=== PATIENT | female | born 1960 | race Caucasian/White ===

== ENCOUNTER → 2020-08-20 07:53 | Outpatient (CLI) | payer OTHER, SELFPAY ==
[2020-08-05 11:20] VITALS: BMI 26.4
--- NOTE | 2020-08-20 07:54 | MRI_ITS ---
STUDY: MRI RIGHT SHOULDER REASON FOR EXAM: Right shoulder pain and limited range of motion for several months. TECHNIQUE: Standardized fat and water weighted pulse sequences were obtained in all 3 orthogonal planes. COMPARISON: Radiographs 08/05/2020. FINDINGS: There is supraspinatus tendinosis and a full-thickness tear of the distal supraspinatus tendon (T2 coronal image 12) measuring 1.2 x 0.45 cm (length x width) with adjacent partial-thickness tearing of the bursal surface (T2 coronal images 10, 11, 13, 14). There is mild infraspinatus tendinosis (T2 sagittal image 13) and a small cyst at the infraspinatus musculotendinous junction (T2 coronal image 7). Normal subscapularis tendon. Normal teres minor tendon. Normal supraspinatus muscle. Normal infraspinatus muscle. Normal subscapularis muscle. Normal teres minor muscle. There is a small glenohumeral joint effusion. Normal humeral head and visualized proximal humerus. Normal biceps labral complex. Normal intracapsular long biceps tendon. There is a small tear of the anterior labrum (proton-density axial image 13). Normal capsulo- ligamentous complex. There is acromioclavicular arthrosis with a small undersurface osteophyte of the distal clavicle (proton-density coronal image 15). There is a Type I morphology (flat undersurface), with a neutral orientation. There is subacromial-subdeltoid bursal fluid. Normal visualized coracohumeral and coracoacromial ligaments. Normal deltoid muscle. Normal trapezius muscle. MRI/Upper Ext Joint Only(Routine) IMPRESSION: Full-thickness tear with adjacent partial-thickness tearing and tendinosis of the supraspinatus tendon. Mild infraspinatus tendinosis. Small anterior labral tear. Acromioclavicular arthrosis. Glenohumeral joint fluid communicating with the subacromial-subdeltoid bursa. Electronically Signed: Sudhir Flynn MD at 9:34 EDT Tel , Service support ,
== END ==
PROVIDERS: Referring Provider Physician Assistant; Visit Provider Physician Assistant
DX: M25.511 Pain in right shoulder (principal)
CPT/HCPCS: 73221

== ENCOUNTER → 2020-11-22 09:44 | Outpatient (CLI) | payer OTHER, SELFPAY ==
--- NOTE | 2020-11-22 09:47 | EKG12_ITS ---
Test Reason : PRE-OP Blood Pressure : / mmHG Vent. Rate : 091 BPM Atrial Rate : 091 BPM P-R Int : 150 ms QRS Dur : 080 ms QT Int : 364 ms P-R-T Axes : 046 042 035 degrees QTc Int : 447 ms Normal sinus rhythm Normal ECG Confirmed by PABLO REYNOLDS, ILA ([id number]), video effects editor DOREEN GRANT ([id number]) on 11/23/2020 7:56:54 AM Referred By: Víctor Cooper Confirmed By:ILA SHAH MD
[2020-11-22 10:41] LABS: Hematocrit 39.5 % (37-47); Hemoglobin 12.9 g/dL (12.0-15.0); Mean Corp Hgb Conc 32.7 g/dL (32-36); Mean Corpuscular Hgb 30.6 pg (27.0-32.0); Mean Corpuscular Volume 93.6 fL (81-99); Mean Platelet Vol. 10.4 fl (6.2-12.0); Platelet Count 288 K/mm3 (150-450); RBC Distribution Width CV 13.3 % (11.6-14.6); RBC Distribution Width SD 45.5 fl (35.1-43.9); Red Blood Count 4.22 M/mm3 (4.2-5.4); White Blood Count 7.4 K/mm3 (4.4-11.0)
[2020-11-22 11:05] LABS: Anion Gap 4 (5-15); BUN 13 mg/dL (7-18); BUN/Creat Ratio 17.1 RATIO (10-20); Calcium,Total 9.3 mg/dL (8.5-10.1); Chloride 107 mmol/L (98-107); Creatinine, Serum 0.76 mg/dL (0.55-1.02); EST Glomerular Filtration Rate 82 mL/min (>60); Est Glom Filt Rate - Afr Amer 99 mL/min (>60); Glucose 70 mg/dL (74-106); Potassium 4.1 mmol/L (3.5-5.1); Sodium Level 139 mmol/L (136-145)
== END ==
PROVIDERS: Referring Provider Physician Assistant; Visit Provider Physician Assistant
DX: Z01.818 Encounter for other preprocedural examination (principal); Z01.810 Encounter for preprocedural cardiovascular examination
CPT/HCPCS: 36415; 80048; 85027; 93005

== ENCOUNTER 2021-03-14 12:11 | Outpatient (CLI) | payer OTHER, SELFPAY ==
[2021-03-14 12:34] VITALS: BP 140/83; PULSE 92; RESP 16; TEMP 37; O2SAT 98; BMI 25.8
[2021-03-14] MEDS: 0.9% Saline Lock 10 ML Syringe IV (12:38)
[2021-03-14 13:09] VITALS: BP 117/76; PULSE 90; RESP 16; TEMP 36.9; O2SAT 96
[2021-03-14 14:03] VITALS: BP 117/79; PULSE 96; RESP 16; TEMP 37.1; O2SAT 93
== END 2021-03-14 14:10 | disposition home or self-care (01) ==
LOC: MS3OUT 12:11 → MS3 12:12
PROVIDERS: Referring Provider Nurse Practitioner Acute Care; Visit Provider Nurse Practitioner Acute Care
DX: Z23 Encounter for immunization (principal); U07.1 COVID-19
CPT/HCPCS: J7050; M0245; Q0245; A4216

== ENCOUNTER 2021-05-15 13:14 | Inpatient (IN) | payer OTHER, SELFPAY ==
[2021-05-15 13:16] VITALS: BP 124/82; PULSE 115; RESP 16; TEMP 36.4; O2SAT 99; BMI 25.8
[2021-05-15 13:55] VITALS: PULSE 116
--- NOTE | 2021-05-15 13:56 | EKG12_ITS ---
Test Reason : Blood Pressure : / mmHG Vent. Rate : 100 BPM Atrial Rate : 100 BPM P-R Int : 172 ms QRS Dur : 092 ms QT Int : 358 ms P-R-T Axes : 045 033 074 degrees QTc Int : 461 ms Normal sinus rhythm Nonspecific ST and T wave abnormality Abnormal ECG Confirmed by JOIE REYNOLDS, DANNY ([id number]), development editor DOREEN GRANT ([id number]) on 05/17/2021 12:47:16 PM Referred By: TOM Confirmed By:DANNY SALTER MD
--- NOTE | 2021-05-15 13:57 | EX.ED.DYSGE1 ---
HPI History of Present Illness Chief Complaint: Nausea/Vomiting Informant: patient and spouse/S.O. Onset/Context/Timing Onset: Yesterday Current Severity: Moderate Maximum Severity: Severe Narrative Narrative: Patient presents with abdominal pain with nausea and vomiting. Patient states she felt nauseated all day yesterday started vomiting today. No bright red blood but stated did not look black in color. No diarrhea. Patient states she has had hot flashes and cold chills but did not measure her temperature. She is burning sensation up to the central portion of her chest after vomiting. [facility] Medical History Barretts esophagus delivery delivered COVID-19 Fibromyalgia Hernia Hypertension Impacted cerumen of both ears Right shoulder strain Home Medications multivitamin 1 tab PO DAILY 08/05/20 [History Last Taken Unknown] duloxetine 30 mg PO BID 03/14/21 [History Last Taken Unknown] esomeprazole magnesium 40 mg PO DAILY 03/14/21 [History Last Taken Unknown] estradiol 0.5 mg PO DAILY 03/14/21 [History Last Taken Unknown] losartan 100 mg PO DAILY 03/14/21 [History Last Taken Unknown] medroxyprogesterone 2.5 mg PO DAILY 03/14/21 [History Last Taken Unknown] nifedipine 60 mg PO DAILY 03/14/21 [History Last Taken Unknown] potassium chloride 20 meq PO DAILY 03/14/21 [History Last Taken Unknown] Allergy/AdvReac Type Severity Reaction Status Date / Time Gadolinium-MRI Contrast Allergy unknown Verified 05/15/21 13:16 Medium Iodinated Contrast Media [CT] Allergy Anaphylaxis Verified 05/15/21 13:16 Surgical History H/O exploratory thoracotomy History of tonsillectomy Hx of cholecystectomy Social History Smoking Status: Never smoker alcohol intake: current alcohol intake frequency: holidays/special occasions only ROS ROS ED Constitutional Constitutional ED: Reports chills, fever(s) and subjective Eyes Eyes: Denies blurry vision or change in vision ENT ENT ED: Denies rhinorrhea Cardiovascular Cardiovascular: Reports chest pain; Denies palpitations Respiratory/Chest Respiratory/Chest: Denies cough or dyspnea Gastrointestinal Gastrointestinal: Reports abdominal pain, nausea and vomiting; Denies diarrhea Genitourinary Genitourinary ED: Denies dysuria Musculoskeletal Musculoskeletal: Denies arthralgias or myalgias Neurologic Neurologic: Denies headache(s) Allergic/Immunologic Allergic/Immunologic ED: Denies urticaria EXAM Physical Exam Const Vital Signs: 05/15/21 13:16 05/15/21 13:55 05/15/21 14:06 Temperature 97.5 F L Temperature Source Temporal Pulse Rate 115 H 116 H 113 H Respiratory Rate 16 20 H Blood Pressure 124/82 H 147/96 H Blood Pressure Mean 96 113 Pulse Ox 99 97 Oxygen Delivery Method Room Air Room Air 05/15/21 17:00 Temperature Temperature Source Pulse Rate 109 H Respiratory Rate 19 H Blood Pressure 141/89 H Blood Pressure Mean 106 Pulse Ox 96 Oxygen Delivery Method Room Air Positive well nourished and well developed General Appearance ED: well developed HEENT Reports moist mucous membranes Eyes PERRL and EOMs intact bilaterally Neck supple Chest Wall inspection of chest normal and palpation of chest normal Resp normal respiratory effort and clear to auscultation bilaterally Cardio Rate: tachycardic GI Auscultation: hypoactive bowel sounds Palpation: soft and tender other (Mild upper abdominal tenderness palpation.); Negative for guarding or rebound tenderness present Extremity normal to inspection Neuro oriented x3 Sensorium / Orientation: alert Psych mental status grossly normal Skin no rashes or lesions noted MDM MDM MDM Narrative Medical decision making narrative: Patient given Dilaudid and Zofran along with IV fluids. Lab work obtained. CT flank ordered. Lab Data Attestation: I reviewed the patient's lab results. Labs: Laboratory Results - last 24 hr 05/15/21 05/15/21 13:55 13:55 WBC 11.2 H RBC 4.90 Hgb 15.5 H Hct 44.7 MCV 91.2 MCH 31.6 MCHC 34.7 RDW Std Deviation 47.1 H RDW Coeff of Jacinda 14.0 Plt Count 304 MPV 9.9 Immature Gran % (Auto) 0.300 Neut % (Auto) 92.0 H Lymph % (Auto) 3.4 L Kleberg % (Auto) 4.0 Eos % (Auto) 0.1 Baso % (Auto) 0.2 Absolute Neuts (auto) 10.3 H Absolute Lymphs (auto) 0.38 L Nucleated RBC % 0 Platelet Estimate ADEQUATE RBC Morphology NORM C+C Sodium 140 Potassium 2.8 L Chloride 98 Carbon Dioxide 34.0 H Anion Gap 8 BUN 17 Creatinine 0.87 Estim Creat Clear Calc 61.96 Est GFR (MDRD) Af Amer 85 Est GFR (MDRD) Non-Af 70 BUN/Creatinine Ratio 19.6 Glucose 133 H Calcium 9.8 Total Bilirubin 0.60 Direct Bilirubin 0.20 AST 21 ALT 27 Alkaline Phosphatase 100 Total Protein 8.7 H Albumin 4.1 Globulin 4.6 H Lipase 82 Radiography Diagnostic Testing: Clinical Impression(s) from Imaging Studies Abdomen/Pelvis CT 05/15/21 14:36 IMPRESSION: Small bowel obstruction with transition in the right lower quadrant. Patchy bibasilar airspace disease of unknown chronicity. In the proper clinical setting these findings are consistent with pneumonia including atypical or viral pneumonia. Probable GERD. Individualized dose optimization techniques were used for this CT. at 1544 Reported and signed by: Todd Zaldivar MD Electronically Signed: Todd Zaldivar MD at 15:43 EST , ADDENDUM: 05/15/21 1603 IMPRESSION: Small bowel obstruction with transition in the right lower quadrant. Patchy bibasilar airspace disease of unknown chronicity. In the proper clinical setting these findings are consistent with pneumonia including atypical or viral pneumonia. Probable GERD. Individualized dose optimization techniques were used for this CT. at 1544 Reported and signed by: Todd Zaldivar MD N.B. : The above Results were Read Back by Todd Zaldivar MD to Anika Dick MD, and understanding confirmed on 05/15/2021 15:56:57 (ET). Electronically Signed: Todd Zaldivar MD at 15:43 EST , EKG Initial EKG: Attestation: I personally reviewed and interpreted this EKG as follows: Interpretation: Sinus Rhythm (Sinus at 100 with nonspecific T wave flattening. No acute ischemia.) Treatment and Re-Evaluation Comments:: Patient did have significant improvement in pain and nausea with initial Dilaudid and Zofran. She had been given a dose of IV Protonix. She was complaining of burning sensation up in her chest and was given a GI cocktail. Patient did have one episode of vomiting here prior to medications being given. This was sent for Gastroccult which was positive. CT scan reveals small bowel obstruction with transition point in the right lower quadrant. Lab work significant for potassium of 2.8. Hemoglobin is concentrated at 15.5. Potassium is being replaced IV. I spoke with Dr. Lake on-call for surgery. Patient will be admitted for further treatment. NG tube be placed. Discharge Plan Triage Chief Complaint: Nausea/Vomiting ED Provider: Anika Dick Dx/Rx/DC Orders Clinical Impression: Small bowel obstruction, Hypokalemia Prescriptions: No Action multivitamin Tablet 1 tab PO DAILY RF: 0 nifedipine 30 mg tablet extended release 24hr 60 mg PO DAILY RF: 0 potassium chloride 10 mEq capsule, extended release 20 meq PO DAILY RF: 0 medroxyprogesterone 2.5 mg tablet 2.5 mg PO DAILY RF: 0 esomeprazole magnesium 40 mg capsule,delayed release(DR/EC) 40 mg PO DAILY RF: 0 estradiol 0.5 mg tablet 0.5 mg PO DAILY RF: 0 losartan 100 mg tablet 100 mg PO DAILY RF: 0 duloxetine 30 mg capsule,delayed release(DR/EC) 30 mg PO BID RF: 0 Referrals: SHORT,RISHI [Other] Disposition Disposition: Acute Care Hospital [facility]
[2021-05-15] MEDS: HYDROmorphone 1 MG/ML Syringe 0.5 MG IV (14:02)
[2021-05-15] MEDS: Ondansetron 4 MG/2 ML Vial IV ×3 (14:02→22:06)
[2021-05-15] MEDS: 0.9% Normal Saline 1,000 ML 1000 ML IV (14:02)
[2021-05-15 14:06] VITALS: BP 147/96; PULSE 113; RESP 20; O2SAT 97
[2021-05-15 14:09] LABS: Absolute Lymphocyte Count 0.38 X10^3/uL (0.83-4.51); Absolute Neutrophil Count 10.3 X10^3/uL (2.0-7.7); Basophil# 0.02 X10^3/uL; Basophil% 0.2 % (0-1); Differential Indicated SCAN CRITERIA MET; Eosinophil# 0.01 X10^3/uL; Eosinophils% 0.1 % (0-5); Hematocrit 44.7 % (37-47); Hemoglobin 15.5 g/dL (12.0-15.0); Lymphocyte # 0.38 X10^3/ul (0.83-4.51); Lymphocyte % 3.4 % (19-41); Mean Corp Hgb Conc 34.7 g/dL (32-36); Mean Corpuscular Hgb 31.6 pg (27.0-32.0); Mean Corpuscular Volume 91.2 fL (81-99); Mean Platelet Vol. 9.9 fl (6.2-12.0); Monocyte# 0.45 X10^3/uL; NRBC Flagged by Analyzer 0 % (0-5); Neutrophil # 10.33 X10^3/uL (2.7-7.7); POSITIVE DIFFERENTIAL YES; Platelet Count 304 K/mm3 (150-450); RBC Distribution Width SD 47.1 fl (35.1-43.9); White Blood Count 11.2 K/mm3 (4.4-11.0)
[2021-05-15 14:23] LABS: AST(SGOT) 21 U/L (15-37); Alanine Aminotransfer ALT/SGPT 27 U/L (13-56); Albumin, Serum 4.1 g/dL (3.2-5.0); Alkaline Phosphatase 100 U/L (45-117); Anion Gap 8 (5-15); BUN 17 mg/dL (7-18); BUN/Creat Ratio 19.6 RATIO (10-20); Calcium,Total 9.8 mg/dL (8.5-10.1); Chloride 98 mmol/L (98-107); Creatinine, Serum 0.87 mg/dL (0.55-1.02); EST Glomerular Filtration Rate 70 mL/min (>60); Est Glom Filt Rate - Afr Amer 85 mL/min (>60); Estimated Creatinine Clearance 61.96 ml/min; Globulin 4.6 g/dL (2.2-4.2); Glucose 133 mg/dL (74-106); Lipase 82 U/L (73-393); Potassium 2.8 mmol/L (3.5-5.1); Protein, Total 8.7 g/dL (6.4-8.2); Sodium Level 140 mmol/L (136-145)
[2021-05-15 14:27] LABS: Platelet Estimate ADEQUATE (ADEQ); Red Cell Morphology NORM C+C NORMAL (NORM C&C)
--- NOTE | 2021-05-15 14:36 | CT_ITS ---
We are attempting to reach an attending provider to discuss findings. An addendum with communication details will be sent when the communication is complete. HISTORY: abd pain EXAMINATION: CT Abdomen And Pelvis W/O Contrast Injection TECHNIQUE: Multiple axial images were obtained of the abdomen and pelvis without oral or IV contrast. A radiation dose optimization technique was used for this scan. IV Contrast dosage and agent: None. Oral contrast: None. COMPARISON: None FINDINGS: LOWER CHEST: Patchy groundglass and alveolar airspace opacities as visualized is elect. No cardiomegaly or pericardial effusion. Fluid in the distal esophagus. LIVER: Homogeneous. No focal mass. GALLBLADDER AND BILIARY TREE: Gallbladder absent. No intra- or extrahepatic biliary ductal dilation. PANCREAS: No focal cystic or solid mass. SPLEEN: Normal size without focal cystic or solid mass. ADRENAL GLANDS: No nodules. KIDNEYS AND URETERS: Nonobstructing left nephrolithiasis. No hydronephrosis bilaterally. PERITONEUM: No ascites or free air. BOWEL: Normal appendix. Abnormal gastric and proximal small bowel distention with loops measuring up to 4.1 transition to decompressed small bowel in the right lower quadrant. No focal inflammatory bowel wall changes. LYMPH NODES: No enlarged mesenteric or retroperitoneal lymph nodes. VESSELS: Aorta is non-dilated. URINARY BLADDER: Unremarkable. REPRODUCTIVE ORGANS: No pelvic masses. ABDOMINAL WALL: No discrete abdominal or pelvic wall hernia. BONES: No acute or aggressive abnormality. CT/Abdomen/Pelvis without Cont IMPRESSION: Small bowel obstruction with transition in the right lower quadrant. Patchy bibasilar airspace disease of unknown chronicity. In the proper clinical setting these findings are consistent with pneumonia including atypical or viral pneumonia. Probable GERD. Individualized dose optimization techniques were used for this CT. at 1544 Reported and signed by: Todd Zaldivar MD Electronically Signed: Todd Zaldivar MD at 15:43 EST Reading Location ID and State: [facility] / [place] Tel , Service support ,
[2021-05-15] MEDS: Potassium Chloride 10mEq/100mL 10 MEQ/100 ML IV.SOLN. 100 MEQ IV BOLUS ×6 (15:45→21:47)
[2021-05-15] MEDS: 0.9% Normal Saline 1,000 ML 150 ML IV (15:46)
[2021-05-15] MEDS: Mag Hydrox/Al Hydrox/Simeth 30 ML UDC PO (16:01)
[2021-05-15 17:00] VITALS: BP 141/89; PULSE 109; RESP 19; O2SAT 96
[2021-05-15] MEDS: Lidocaine 4% 5 ML Ampul 2 ML INHALATION (17:27)
--- NOTE | 2021-05-15 17:42 | PCM.HP.STD ---
HPI - General General Date of Admission: 05/15/21 HPI Narrative RICHY JOHNSON, is a 61 F who presents to the ER due to abdominal pain/nausea starting yesterday a.m. Patient does admit to nausea and vomiting along with some hematemesis. 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 CT abdomen pelvis showed small bowel obstruction distended stomach, transition in the right lower quadrant. Also appears to have some constipation in the rectum and left colon. Patient NG placed which put out 1400 cc initially. Patient's previous abdominal surgeries include cholecystectomy, open cholecystectomy due to remaining remnant via midline incision and placement of a large piece of mesh, previous C-sections. Patient also did have COVID in March. [facility] Medical History Barretts esophagus delivery delivered COVID-19 Fibromyalgia Hernia Hypertension Impacted cerumen of both ears Right shoulder strain Home Medications multivitamin 1 tab PO DAILY 08/05/20 [History Last Taken Unknown] duloxetine 30 mg PO BID 03/14/21 [History Last Taken Unknown] esomeprazole magnesium 40 mg PO DAILY 03/14/21 [History Last Taken Unknown] estradiol 0.5 mg PO DAILY 03/14/21 [History Last Taken Unknown] losartan 100 mg PO DAILY 03/14/21 [History Last Taken Unknown] medroxyprogesterone 2.5 mg PO DAILY 03/14/21 [History Last Taken Unknown] nifedipine 60 mg PO DAILY 03/14/21 [History Last Taken Unknown] potassium chloride 20 meq PO DAILY 03/14/21 [History Last Taken Unknown] Allergy/AdvReac Type Severity Reaction Status Date / Time Gadolinium-MRI Contrast Allergy unknown Verified 05/15/21 13:16 Medium Iodinated Contrast Media [CT] Allergy Anaphylaxis Verified 05/15/21 13:16 Surgical History H/O exploratory thoracotomy History of tonsillectomy Hx of cholecystectomy Social History Smoking Status: Never smoker alcohol intake: current alcohol intake frequency: holidays/special occasions only ROS Constitutional Constitutional: Reports anorexia; Denies chills ENT HEENT: Denies dizziness Cardiovascular Cardiovascular: Denies chest pain Respiratory/Chest Respiratory/Chest: Denies shortness of breath at rest Gastrointestinal Gastrointestinal: Denies abdominal pain, constipation, diarrhea, heartburn, hematemesis or melena Genitourinary Genitourinary: Denies burning urination Musculoskeletal Musculoskeletal: Denies joint pain Integumentary Integumentary: Denies rash Neurologic Neurologic: Denies abnormal gait, abnormal hearing, focal weakness, paresthesias or sensory deficit Endocrine Endocrinology: Denies palpitations Hematologic/Lymphatic Hematologic/Lymphatic: Denies anemia, easy bleeding or easy bruising Vital Signs Vital Signs Vital Signs: 05/15/21 13:16 05/15/21 13:55 05/15/21 14:06 Temperature 97.5 F L Temperature Source Temporal Pulse Rate 115 H 116 H 113 H Respiratory Rate 16 20 H Blood Pressure 124/82 H 147/96 H Blood Pressure Mean 96 113 Pulse Ox 99 97 Oxygen Delivery Method Room Air Room Air 05/15/21 17:00 Temperature Temperature Source Pulse Rate 109 H Respiratory Rate 19 H Blood Pressure 141/89 H Blood Pressure Mean 106 Pulse Ox 96 Oxygen Delivery Method Room Air Weight Weight: 160 lb Body Mass Index (BMI) 25.8 Physical Exam Const alert, oriented x3 and no apparent distress HEENT normocephalic and head/scalp atraumatic HEENT Narrative: NG in place Resp normal respiratory effort Cardio regular rate GI soft to palpation; Negative for non-distended Inspection: incision other (Previous midline incision) Palpation: Negative for tender or guarding Extremity no clubbing, cyanosis or edema Neuro CN's II-XII intact bilaterally Psych mental status grossly normal Results Lab / Micro Data Result Diagrams: 05/16/21 05:30 05/16/21 05:30 Labs: Laboratory Results - last 24 hr 05/15/21 13:55: WBC 11.2 H, RBC 4.90, Hgb 15.5 H, Hct 44.7, MCV 91.2, MCH 31.6, MCHC 34.7, RDW Std Deviation 47.1 H, RDW Coeff of Jacinda 14.0, Plt Count 304, MPV 9.9, Immature Gran % (Auto) 0.300, Neut % (Auto) 92.0 H, Lymph % (Auto) 3.4 L, [place] % (Auto) 4.0, Eos % (Auto) 0.1, Baso % (Auto) 0.2, Absolute Neuts (auto) 10.3 H, Absolute Lymphs (auto) 0.38 L, Nucleated RBC % 0, Platelet Estimate ADEQUATE, RBC Morphology NORM C+C 05/15/21 13:55: Sodium 140, Potassium 2.8 L, Chloride 98, Carbon Dioxide 34.0 H, Anion Gap 8, BUN 17, Creatinine 0.87, Estim Creat Clear Calc 61.96, Est GFR (MDRD) Af Amer 85, Est GFR (MDRD) Non-Af 70, BUN/Creatinine Ratio 19.6, Glucose 133 H, Calcium 9.8, Total Bilirubin 0.60, Direct Bilirubin 0.20, AST 21, ALT 27, Alkaline Phosphatase 100, Total Protein 8.7 H, Albumin 4.1, Globulin 4.6 H, Lipase 82 Micro: Microbiology 05/15/21 14:30 Vomitus Gastric Occult Blood - Final Occult Blood Positive Radiology Impression Abdomen/Pelvis CT 05/15/21 14:36 IMPRESSION: Small bowel obstruction with transition in the right lower quadrant. Patchy bibasilar airspace disease of unknown chronicity. In the proper clinical setting these findings are consistent with pneumonia including atypical or viral pneumonia. Probable GERD. Individualized dose optimization techniques were used for this CT. at 1544 Reported and signed by: Todd Zaldivar MD Electronically Signed: Todd Zaldivar MD at 15:43 EST Reading Location ID and State: [address] [place] [address] Tel , Service support , ADDENDUM: 05/15/21 1603 IMPRESSION: Small bowel obstruction with transition in the right lower quadrant. Patchy bibasilar airspace disease of unknown chronicity. In the proper clinical setting these findings are consistent with pneumonia including atypical or viral pneumonia. Probable GERD. Individualized dose optimization techniques were used for this CT. at 1544 Reported and signed by: Todd Zaldivar MD N.B. : The above Results were Read Back by Todd Zaldivar MD to Anika Dick MD, and understanding confirmed on 05/15/2021 15:56:57 (ET). Electronically Signed: Todd Zaldivar MD at 15:43 EST , Assessment & Plan Assessment/Plan (1) Small bowel obstruction: (2) Hypokalemia: PLAN: Did review CT abdomen pelvis. We will plan for conservative treatment with IV fluids/n.p.o./NG. Likely plan a small bowel follow-through with Gastrografin in a.m. once decompressed. Hypokalemia currently being replaced with a total of 60 micro equivalents KCl Patient is aware that due to her previous past medical history also large piece of mesh placed, if she did need surgery it may be longer/more complicated surgery. Alessia Lake M.D. Pager: [phone] [facility] [address] [place] [address], [facility], [address] [place] [address] Office: [phone] Charges/Coding Visit Charges Inpatient E&M: 70187 Init Hosp L3
--- NOTE | 2021-05-15 17:45 | RAD_ITS ---
HISTORY: NG tube placement FINDINGS: Frontal view of the chest and abdomen demonstrates a nasogastric tube in the stomach in satisfactory position. RAD/Abdomen Single View (Portable) IMPRESSION: NGT in satisfactory position. at 1820 Reported and signed by: Todd Zaldivar MD Electronically Signed: Todd Zaldivar MD at 18:19 EST ,
[2021-05-15 17:46] VITALS: BP 147/91; PULSE 112; RESP 16; TEMP 36.8; O2SAT 99
[2021-05-15] MEDS: Oxymetazoline 0.05% 1 SPRAY SPRAY.BTL 2 SPRAY NASAL (17:48)
[2021-05-15 18:20] VITALS: BP 143/83; PULSE 98; RESP 18; TEMP 36.6; BMI 26.3
[2021-05-15] MEDS: BENZOCAINE/MENTHOL 1 LOZENGE MUCOUS MEM (19:02)
[2021-05-15] MEDS: Morphine 2 MG/ML Syringe IV ×2 (19:42→22:06)
[2021-05-15] MEDS: 0.9% Saline Lock 10 ML Syringe IV (19:45)
[2021-05-15] MEDS: Lactated Ringers 1,000 ML 150 ML IV (19:46)
[2021-05-15] MEDS: Bisacodyl 10 MG Suppository RC (20:35)
[2021-05-16 00:20] VITALS: BP 152/87; PULSE 102; RESP 18; TEMP 37.4; O2SAT 95
[2021-05-16] MEDS: Lactated Ringers 1,000 ML 150 ML IV ×2 (02:26→11:34)
[2021-05-16] MEDS: Morphine 2 MG/ML Syringe IV ×2 (02:59→09:37)
[2021-05-16] MEDS: proCHLORPERazine 10 MG/2 ML Vial IV (02:59)
--- NOTE | 2021-05-16 05:05 | RAD_ITS ---
INDICATION: sbo -- portable EXAMINATION/TECHNIQUE: X-RAY - semierect XR Abdomen 1 View COMPARISON: Normal x-rays 05/15/2021 FINDINGS: BOWEL GAS PATTERN: Multiple air-filled small bowel loops. No abnormally distended, air-filled bowel loops or air fluid levels. FREE AIR: None exemplified. ORGANOMEGALY: Not seen. CALCIFICATIONS: No abnormal calcifications observed. LOWER CHEST: Blunting left costophrenic angle. Pleural effusion or airspace opacity suggested. Consider correlation with chest x-ray. BONES AND SOFT TISSUES: Abnormal lateral curvature lumbar spine, convex left. RAD/Abdomen Single View (Portable) IMPRESSION: Air-filled small bowel loops without pathological distention or air-fluid levels to suggest obstruction. Left pleural effusion or airspace disease suggested. Consider correlation with chest x-ray. Electronically Signed: Jean Claude Esquivel DO at 0:07 EST ,
[2021-05-16 06:20] VITALS: BP 128/78; PULSE 110; RESP 16; TEMP 37.7; O2SAT 93
[2021-05-16 06:25] LABS: Absolute Lymphocyte Count 1.06 X10^3/uL (0.83-4.51); Basophil# 0.02 X10^3/uL; Basophil% 0.3 % (0-1); Eosinophil# 0.02 X10^3/uL; Eosinophils% 0.3 % (0-5); Hemoglobin 11.7 g/dL (12.0-15.0); Lymphocyte # 1.06 X10^3/ul (0.83-4.51); Lymphocyte % 16.1 % (19-41); Mean Corp Hgb Conc 33.4 g/dL (32-36); Mean Corpuscular Hgb 31.3 pg (27.0-32.0); Mean Corpuscular Volume 93.6 fL (81-99); Mean Platelet Vol. 10.2 fl (6.2-12.0); Monocyte# 0.52 X10^3/uL; Monocyte% 7.9 % (0-10); NRBC Flagged by Analyzer 0 % (0-5); Neutrophil # 4.95 X10^3/uL (2.7-7.7); Neutrophil % 75.1 % (47-70); Platelet Count 233 K/mm3 (150-450); RBC Distribution Width CV 14.4 % (11.6-14.6); RBC Distribution Width SD 49.5 fl (35.1-43.9); Red Blood Count 3.74 M/mm3 (4.2-5.4); White Blood Count 6.6 K/mm3 (4.4-11.0)
[2021-05-16 06:51] LABS: Anion Gap 5 (5-15); BUN 15 mg/dL (7-18); BUN/Creat Ratio 22.2 RATIO (10-20); Calcium,Total 8.4 mg/dL (8.5-10.1); Chloride 107 mmol/L (98-107); Creatinine, Serum 0.68 mg/dL (0.55-1.02); EST Glomerular Filtration Rate 94 mL/min (>60); Est Glom Filt Rate - Afr Amer 113 mL/min (>60); Estimated Creatinine Clearance 79.27 ml/min; Glucose 100 mg/dL (74-106); Potassium 3.5 mmol/L (3.5-5.1); Sodium Level 140 mmol/L (136-145)
--- NOTE | 2021-05-16 07:51 | PCM.PN.SRG ---
Subjective Subjective Pt is currently getting SBFT Objective Data Objective Data Vital Signs: Vital Signs Temp Pulse Resp BP Pulse Ox 99.9 F H 110 H 16 128/78 H 93 05/16/21 06:20 05/16/21 06:20 05/16/21 06:20 05/16/21 06:20 05/16/21 06:20 Oxygen Flow Rate (L/min) 99 Oxygen Delivery Method Room Air Weight: 162 lb 14.746 oz Body Mass Index (BMI) 26.3 Intake & Output: Intake and Output for Last 24 Hours 05/14/21 05/15/21 05/16/21 23:59 23:59 23:59 Intake Total 2671.67 / 3306.67 1655 / 1655 Output Total 100 / 100 200 / 200 Balance 2571.67 / 3206.67 1455 / 1455 Lab / Micro Data Result Diagrams: 05/17/21 05:30 05/17/21 05:30 Labs: Laboratory Results - last 24 hr 05/15/21 13:55: WBC 11.2 H, RBC 4.90, Hgb 15.5 H, Hct 44.7, MCV 91.2, MCH 31.6, MCHC 34.7, RDW Std Deviation 47.1 H, RDW Coeff of Jacinda 14.0, Plt Count 304, MPV 9.9, Immature Gran % (Auto) 0.300, Neut % (Auto) 92.0 H, Lymph % (Auto) 3.4 L, Whitley % (Auto) 4.0, Eos % (Auto) 0.1, Baso % (Auto) 0.2, Absolute Neuts (auto) 10.3 H, Absolute Lymphs (auto) 0.38 L, Nucleated RBC % 0, Platelet Estimate ADEQUATE, RBC Morphology NORM C+C 05/15/21 13:55: Sodium 140, Potassium 2.8 L, Chloride 98, Carbon Dioxide 34.0 H, Anion Gap 8, BUN 17, Creatinine 0.87, Estim Creat Clear Calc 61.96, Est GFR (MDRD) Af Amer 85, Est GFR (MDRD) Non-Af 70, BUN/Creatinine Ratio 19.6, Glucose 133 H, Calcium 9.8, Total Bilirubin 0.60, Direct Bilirubin 0.20, AST 21, ALT 27, Alkaline Phosphatase 100, Total Protein 8.7 H, Albumin 4.1, Globulin 4.6 H, Lipase 82 05/16/21 05:30: WBC 6.6, RBC 3.74 L, Hgb 11.7 L, Hct 35.0 L, MCV 93.6, MCH 31.3, MCHC 33.4, RDW Std Deviation 49.5 H, RDW Coeff of Jacinda 14.4, Plt Count 233, MPV 10.2, Immature Gran % (Auto) 0.300, Neut % (Auto) 75.1 H, Lymph % (Auto) 16.1 L, Whitley % (Auto) 7.9, Eos % (Auto) 0.3, Baso % (Auto) 0.3, Absolute Neuts (auto) 5.0, Absolute Lymphs (auto) 1.06, Nucleated RBC % 0 05/16/21 05:30: Sodium 140, Potassium 3.5, Chloride 107, Carbon Dioxide 28.0, Anion Gap 5, BUN 15, Creatinine 0.68, Estim Creat Clear Calc 79.27, Est GFR (MDRD) Af Amer 113, Est GFR (MDRD) Non-Af 94, BUN/Creatinine Ratio 22.2 H, Glucose 100, Calcium 8.4 L Micro: Microbiology 05/15/21 14:30 Vomitus Gastric Occult Blood - Final Occult Blood Positive Radiography Diagnostic Testing: Radiology Impression Abdomen/Pelvis CT 05/15/21 14:36 IMPRESSION: Small bowel obstruction with transition in the right lower quadrant. Patchy bibasilar airspace disease of unknown chronicity. In the proper clinical setting these findings are consistent with pneumonia including atypical or viral pneumonia. Probable GERD. Individualized dose optimization techniques were used for this CT. at 1544 Reported and signed by: Todd Zaldivar MD Electronically Signed: Todd Zaldivar MD at 15:43 EST , ADDENDUM: 05/15/21 1603 IMPRESSION: Small bowel obstruction with transition in the right lower quadrant. Patchy bibasilar airspace disease of unknown chronicity. In the proper clinical setting these findings are consistent with pneumonia including atypical or viral pneumonia. Probable GERD. Individualized dose optimization techniques were used for this CT. at 1544 Reported and signed by: Todd Zaldivar MD N.B. : The above Results were Read Back by Todd Zaldivar MD to Anika Dick MD, and understanding confirmed on 05/15/2021 15:56:57 (ET). Electronically Signed: Todd Zaldivar MD at 15:43 EST , KUB X-Ray 05/15/21 17:45 IMPRESSION: NGT in satisfactory position. at 1820 Reported and signed by: Todd Zaldivar MD Electronically Signed: Todd Zaldivar MD at 18:19 EST , Physical Exam Narrative NG in place Const alert, oriented x3 and no apparent distress HEENT normocephalic and head/scalp atraumatic HEENT Narrative: NG in place Resp normal respiratory effort Cardio regular rate GI soft to palpation; Negative for non-distended Inspection: incision other (Previous midline incision) Palpation: Negative for tender or guarding Extremity no clubbing, cyanosis or edema Neuro CN's II-XII intact bilaterally Psych mental status grossly normal Assessment & Plan Assessment/Plan (1) Small bowel obstruction: (2) Hypokalemia: PLAN: Pt getting SBFT this AM- KUB looks improved Addendum: SBFT showed no obstruction- will d/c NG and start clears. Pt was still c/o nausea on IV protonix and had diarrhea (due to contrast)--repeat KUB showed contrast in colon mild dilated sb Charges/Coding Visit Charges Inpatient E&M: 20649 Subs Hosp L2
--- NOTE | 2021-05-16 08:00 | RAD_ITS ---
PROCEDURE: SMALL BOWEL SERIES DATE OF EXAMINATION: 05/16/2021.. INDICATION: Female, 61 years old. Questionable small bowel obstruction. PHYSICIAN: Pro Means M.D. TECHNIQUE: Radiographic and fluoroscopic images were taken of the small intestine following the ingestion of barium. COMPARISON: None. FINDINGS: A preliminary supine KUB was obtained. There is an unremarkable bowel gas pattern. Moderate amount of fecal material is present throughout the colon. Phleboliths are present within the pelvis. Mild levoscoliosis. Degenerative changes of the lumbar spine. Dilute GASTROGRAFIN was placed into the indwelling nasogastric tube. Normal visualized fundus, body, and antrum of the stomach. Normal duodenal bulb, C-loop, and proximal jejunum. Normal visualized mucosal folds of the jejunum and ileum. Mildly dilated proximal small bowel loops. Strictures, or masses of the small intestine. There is no mass displacement of the loops of small intestine. There is a normal motor pattern with barium reaching the colon within approximately 60 minutes. RAD/Small Bowel Series Only IMPRESSION: Minimal dilatation of proximal small bowel loops. No evidence of small bowel obstruction at this time. Electronically Signed: Pro Means MD at 9:56 EST ,
[2021-05-16 09:20] VITALS: BP 137/87; PULSE 102; RESP 15; TEMP 36.7; O2SAT 94
[2021-05-16] MEDS: 0.9% Saline Lock 10 ML Syringe IV ×2 (09:38→17:17)
[2021-05-16] MEDS: Ondansetron 4 MG/2 ML Vial IV ×3 (09:41→23:57)
--- NOTE | 2021-05-16 10:54 | NURSING ---
NG removed at this time, face wiped, ice water given, educated patient on taking it slower on intake at first, patient tolerated well.
--- NOTE | 2021-05-16 11:45 | CASEMGMT ---
RN LUC Face to Face with patient for initial transition planning/care coordination assessment. RN CM introduced self and role at [facility]. Patient lying in bed, alert and oriented, at bedside. Patient willing to participate in assessment and is able to answer all questions appropriately. Care providers, pharmacy, and demographics verified. Patient wishes to discharge home, denies need for home health at this time. Patient states she has no further needs or concerns at this time. CM to follow for discharge planning needs that may arise. PCP: Ziggy Florian Specialists: none Preferred Pharmacy: [facility] at discharge Insurance: ASR, [employer] Prescription Benefit: yes Living Will/HPOA: none LNOK: Living Arrangements: Patient lives with in a 2 story home. Patient states she is independent and able to ambulate stairs at home. Transportation: self/ DME/HHC: Patient denies DME or previous HHC Disposition Plan: Patient to discharge home with family support and follow-up plans in place. Sue MARY, RN, CM
[2021-05-16 15:00] VITALS: BP 125/67; PULSE 93; RESP 16; TEMP 36.7; O2SAT 95
--- NOTE | 2021-05-16 17:50 | RAD_ITS ---
STUDY: X-RAY - ABDOMEN/PELVIS REASON FOR EXAM: Female, 61 years old. ABD pain TECHNIQUE: Two AP supine views of the abdomen and pelvis. COMPARISON: Earlier today FINDINGS: Normal visualized lung bases. Nondistended air-filled loops of small and large bowel in all 4 quadrants of the abdomen consistent with ileus. There is no demonstrated free abdominal air. The visualized liver, spleen and kidneys are grossly normal in size and morphology. Normal soft tissue structures. Normal visualized osseous structures. RAD/Abdomen Single View (Portable) IMPRESSION: Ileus Electronically Signed: Selwyn Coleman MD at 18:22 EST ,
[2021-05-16 20:25] VITALS: BP 130/83; PULSE 97; RESP 14; TEMP 37.9; O2SAT 96
[2021-05-16] MEDS: Acetaminophen 325 MG Tablet 650 MG PO (20:30)
[2021-05-16] MEDS: Lactated Ringers 1,000 ML 100 ML IV (22:25)
[2021-05-17] VITALS: BP 128/77; PULSE 94; RESP 16; TEMP 37.4; O2SAT 94
[2021-05-17] MEDS: Calcium Carbonate 500 MG Tablet 1000 MG PO ×2 (00:57→08:03)
[2021-05-17 05:46] VITALS: BP 122/66; PULSE 92; RESP 14; TEMP 37.2; O2SAT 93
--- NOTE | 2021-05-17 05:55 | RAD_ITS ---
STUDY: X-RAY - ABDOMEN/PELVIS REASON FOR EXAM: Female, 61 years old. Ileus -- portable TECHNIQUE: Single AP view of the abdomen / pelvis. COMPARISON: Comparison is made with prior study dated 05/16/2021. FINDINGS: Oral contrast is now seen in the left hemicolon. Gas is seen down to the rectum. Mildly residual small bowel dilatation although this has improved as compared to prior study. The visualized liver, spleen and kidneys are grossly normal in size and morphology. Normal soft tissue structures. Normal visualized osseous structures. RAD/Abdomen Single View (Portable) IMPRESSION: Oral contrast is seen within the colon. Minimally residual dilated central small bowel loops although there has been a moderate improvement as compared to prior study. Electronically Signed: Pro Means MD at 10:19 EST ,
[2021-05-17 06:21] LABS: Absolute Neutrophil Count 2.9 X10^3/uL (2.0-7.7); Basophil# 0.01 X10^3/uL; Basophil% 0.2 % (0-1); Eosinophil# 0.04 X10^3/uL; Eosinophils% 0.8 % (0-5); Hematocrit 35.3 % (37-47); Hemoglobin 11.9 g/dL (12.0-15.0); Lymphocyte % 26.3 % (19-41); Mean Corp Hgb Conc 33.7 g/dL (32-36); Mean Corpuscular Hgb 31.2 pg (27.0-32.0); Mean Corpuscular Volume 92.7 fL (81-99); Monocyte# 0.68 X10^3/uL; Monocyte% 13.8 % (0-10); NRBC Flagged by Analyzer 0 % (0-5); Neutrophil % 58.7 % (47-70); Platelet Count 237 K/mm3 (150-450); RBC Distribution Width CV 14.3 % (11.6-14.6); RBC Distribution Width SD 48.7 fl (35.1-43.9); Red Blood Count 3.81 M/mm3 (4.2-5.4); White Blood Count 4.9 K/mm3 (4.4-11.0)
[2021-05-17 06:43] LABS: Anion Gap 4 (5-15); BUN 9 mg/dL (7-18); BUN/Creat Ratio 15.4 RATIO (10-20); Calcium,Total 8.1 mg/dL (8.5-10.1); Chloride 106 mmol/L (98-107); Creatinine, Serum 0.58 mg/dL (0.55-1.02); EST Glomerular Filtration Rate 111 mL/min (>60); Est Glom Filt Rate - Afr Amer 134 mL/min (>60); Estimated Creatinine Clearance 92.94 ml/min; Glucose 98 mg/dL (74-106); Sodium Level 139 mmol/L (136-145)
[2021-05-17] MEDS: Lactated Ringers 1,000 ML 100 ML IV (08:03)
[2021-05-17] MEDS: Potassium Chloride Oral Tablet 20 MEQ 60 MEQ PO (08:04)
--- NOTE | 2021-05-17 08:40 | PN.SURG_ITS ---
Subjective Subjective pt c/o gerd and nausea--takes nexium 40 mg po at home, has been on protonix 40 mg IV here. Objective Data Objective Data Vital Signs: Vital Signs Temp Pulse Resp BP Pulse Ox 98.9 F 92 14 122/66 H 93 05/17/21 05:46 05/17/21 05:46 05/17/21 05:46 05/17/21 05:46 05/17/21 05:46 Oxygen Flow Rate (L/min) 99 Oxygen Delivery Method Room Air Weight: 162 lb 14.746 oz Body Mass Index (BMI) 26.3 Intake & Output: Intake and Output for Last 24 Hours 05/15/21 05/16/21 05/17/21 23:59 23:59 23:59 Intake Total 2671.67 / 3306.67 3350 / 3350 963.33 / 963.33 Output Total 100 / 100 200 / 200 Balance 2571.67 / 3206.67 3150 / 3150 963.33 / 963.33 Lab / Micro Data Result Diagrams: 05/17/21 05:30 05/17/21 05:30 Labs: Laboratory Results - last 24 hr 05/17/21 05:30: WBC 4.9, RBC 3.81 L, Hgb 11.9 L, Hct 35.3 L, MCV 92.7, MCH 31.2, MCHC 33.7, RDW Std Deviation 48.7 H, RDW Coeff of Jacinda 14.3, Plt Count 237, MPV 10.0, Immature Gran % (Auto) 0.200, Neut % (Auto) 58.7, Lymph % (Auto) 26.3, [place] % (Auto) 13.8 H, Eos % (Auto) 0.8, Baso % (Auto) 0.2, Absolute Neuts (auto) 2.9, Absolute Lymphs (auto) 1.30, Nucleated RBC % 0 05/17/21 05:30: Sodium 139, Potassium 3.0 L, Chloride 106, Carbon Dioxide 29.0, Anion Gap 4 L, BUN 9, Creatinine 0.58, Estim Creat Clear Calc 92.94, Est GFR (MDRD) Af Amer 134, Est GFR (MDRD) Non-Af 111, BUN/Creatinine Ratio 15.4, Glucose 98, Calcium 8.1 L Micro: Microbiology 05/15/21 14:30 Vomitus Gastric Occult Blood - Final Occult Blood Positive Radiography Diagnostic Testing: Radiology Impression KUB X-Ray 05/16/21 05:05 IMPRESSION: Air-filled small bowel loops without pathological distention or air-fluid levels to suggest obstruction. Left pleural effusion or airspace disease suggested. Consider correlation with chest x-ray. Electronically Signed: Jean Claude Esquivel DO at 0:07 EST , Small Bowel X-Ray 05/16/21 08:00 IMPRESSION: Minimal dilatation of proximal small bowel loops. No evidence of small bowel obstruction at this time. Electronically Signed: Pro Means MD at 9:56 EST , KUB X-Ray 05/16/21 17:50 IMPRESSION: Ileus Electronically Signed: Selwyn Coleman MD at 18:22 EST , Physical Exam Const no apparent distress Resp normal respiratory effort Cardio regular rate GI soft to palpation Inspection: Negative for abdominal distention Palpation: tender other (minimal mid abdomen) Assessment & Plan Assessment/Plan (1) Small bowel obstruction: (2) Hypokalemia: PLAN: KUB looks improved will let pt take home nexium--feels better after getting and advanced to fulls hypokalemia-replaced Charges/Coding Visit Charges Inpatient E&M: 75424 Subs Hosp L2
[2021-05-17 09:45] VITALS: BP 135/85; PULSE 94; RESP 18; TEMP 37; O2SAT 95
[2021-05-17] MEDS: Morphine 2 MG/ML Syringe IV (13:54)
[2021-05-17] MEDS: 0.9% Saline Lock 10 ML Syringe IV (13:54)
--- NOTE | 2021-05-17 15:20 | NURSING ---
This nurse called into take over care at 0815.
[2021-05-17 15:45] VITALS: BP 134/75; PULSE 92; RESP 18; TEMP 36.9; O2SAT 96
[2021-05-17] MEDS: oxyCODONE 5 MG Tablet PO (17:56)
--- NOTE | 2021-05-17 17:56 | EX.PCM.DISCH ---
Discharge Instructions Diet Discharge Diet: Light diet - advance as tolerated Activity Discharge Activity: May Not Drive (while taking narcotic pain medications.) and May Shower Follow Up Care Test Results: Test results from this visit will be discussed in further detail at your follow-up appointment, if applicable. Discharge Plan Admission Admit Date/Time: 05/15/21 17:55 Attending Provider: Alessia Lake Discharge Orders/Prescriptions Prescriptions: No Action multivitamin Tablet 1 tab PO DAILY RF: 0 nifedipine 30 mg tablet extended release 24hr 60 mg PO DAILY RF: 0 potassium chloride 10 mEq capsule, extended release 20 meq PO DAILY RF: 0 medroxyprogesterone 2.5 mg tablet 2.5 mg PO DAILY RF: 0 esomeprazole magnesium 40 mg capsule,delayed release(DR/EC) 40 mg PO DAILY RF: 0 estradiol 0.5 mg tablet 0.5 mg PO DAILY RF: 0 losartan 100 mg tablet 100 mg PO DAILY RF: 0 duloxetine 30 mg capsule,delayed release(DR/EC) 30 mg PO BID RF: 0 Referrals / Follow Up: SHORT,RISHI [Other] SHORT,RISHI [Other] Disposition Disposition (needs filled in before D/C Order can be placed): Home, Self Care
[2021-05-17 18:12] VITALS: BP 134/75; PULSE 92; RESP 18; TEMP 36.9; O2SAT 96
== END 2021-05-17 18:29 | disposition home or self-care (01) | DRG 389 ==
LOC: ED 17:24 → PCU 18:07
PROVIDERS: Admitting Provider Surgery; Emergency Provider Emergency Medicine; Visit Provider Surgery
DX: K56.609 Unspecified intestinal obstruction, unspecified as to partial versus complete obstruction (principal); K92.0 Hematemesis; E87.6 Hypokalemia; I10 Essential (primary) hypertension; K21.9 Gastro-esophageal reflux disease without esophagitis; M79.7 Fibromyalgia; Z86.16 Personal history of COVID-19; Z79.899 Other long term (current) drug therapy; Z90.49 Acquired absence of other specified parts of digestive tract
CPT/HCPCS: 36415; 74018; 74176; 74250; 80048; 80076; 82271; 83690; 83735; 85025; 93005; 94640; 99285; J7030; J7120; A4216; J2405

== ENCOUNTER 2023-06-20 21:52 | Emergency (ER) | payer MEDICARE, OTHER, SELFPAY ==
[2023-06-20 21:53] VITALS: BP 145/90; PULSE 108; RESP 16; TEMP 36.6; O2SAT 97; BMI 27.9
--- NOTE | 2023-06-20 22:13 | EX.ED.UPPERE ---
HPI History of Present Illness Chief Complaint: Laceration Informant: patient Narrative Narrative: Patient is a 63-year-old [id number] female presenting with laceration to her left index finger. Patient states she was using a salvage cutter to cut material for a quilt when it excellently veered and cut her left index finger. She states that there is a flap and part of it is quite deep. She is not on any blood thinners. Denies associate numbness or tingling. No other complaints or concerns at this time. Tetanus Immunization: <5 years [facility] Medical History Acute bronchitis, unspecified Acute pharyngitis, unspecified Acute sinusitis, unspecified Barretts esophagus delivery delivered COVID-19 Fibromyalgia Hernia Hypertension Impacted cerumen of both ears Right shoulder strain Home Medications multivitamin 1 tab PO DAILY 08/05/20 [History Last Taken Unknown] duloxetine 30 mg capsule,delayed release 30 mg PO BID 03/14/21 [History Last Taken Unknown] esomeprazole magnesium 40 mg capsule,delayed release 40 mg PO DAILY 03/14/21 [History Last Taken Unknown] estradiol 0.5 mg tablet 0.5 mg PO DAILY 03/14/21 [History Last Taken Unknown] losartan 100 mg tablet 100 mg PO DAILY 03/14/21 [History Last Taken Unknown] medroxyprogesterone 2.5 mg tablet 2.5 mg PO DAILY 03/14/21 [History Last Taken Unknown] nifedipine 30 mg tablet,extended release 24 hr 60 mg PO DAILY 03/14/21 [History Last Taken Unknown] potassium chloride 10 mEq capsule,extended release 20 meq PO DAILY 03/14/21 [History Last Taken Unknown] benzonatate 200 mg capsule 200 mg PO TID PRN cough #14 caps 05/22/22 [Rx Last Taken Unknown] benzonatate 200 mg capsule 200 mg PO TID PRN cough #14 caps 02/26/23 [Rx Last Taken Unknown] methylprednisolone 4 mg tablets in a dose pack (Medrol (Bladimir)) See Rx Instructions PO PER PKG DIR #21 tabs 02/26/23 [Rx Last Taken Unknown] Allergy/AdvReac Type Severity Reaction Status Date / Time Gadolinium-MRI Contrast Allergy unknown Verified 06/20/23 21:56 Medium Iodinated Contrast Media [CT] Allergy Anaphylaxis Verified 06/20/23 21:56 Surgical History H/O exploratory thoracotomy History of tonsillectomy Hx of cholecystectomy Social History Smoking Status: Never smoker alcohol intake: current alcohol intake frequency: holidays/special occasions only ROS ROS ED Constitutional Constitutional ED: Denies chills or fever(s) Gastrointestinal Gastrointestinal: Denies nausea or vomiting Integumentary Reports other Details: Left index finger laceration Neurologic Neurologic: Denies paresthesias or weakness Hematologic/Lymphatic Hematologic/Lymphatic: Denies easy bleeding or easy bruising EXAM Physical Exam Const Vital Signs: 06/20/23 21:53 Temperature 98 F Temperature Source Temporal Pulse Rate 108 H Respiratory Rate 16 Blood Pressure 145/90 H Blood Pressure Mean 108 Pulse Ox 97 Oxygen Delivery Method Room Air Positive well nourished and well developed General Appearance ED: well developed and NAD Chest Wall inspection of chest normal Resp normal respiratory effort Extremity normal to inspection and full ROM General Extremety ED: Negative for edema General Extremity: Negative for edema Neuro oriented x3, moves all extremities, no focal motor deficits and no sensory deficits noted Sensorium / Orientation: alert Psych mental status grossly normal Skin Skin Narrative: 1.5 cm curvilinear full-thickness laceration to the ulnar aspect of the distal left index finger. No active bleeding at this time. Wound edges are well-approximated. No involvement of the nailbed or the nail. MDM MDM MDM Narrative Medical decision making narrative: Patient evaluated for laceration to her left index finger. Tetanus is up-to-date. Bleeding is controlled. Does not appear to have any underlying tendinous injury based on physical exam. Laceration repair is performed. See procedure note. Patient given wound care instructions. Does not require antibiotics based on mechanism of injury. Procedures Lacerations left finger : Length: 0.79 in Depth: Sub Q Shape: Flap Prep: Vonda Laceration repair: Local and Nerve block (1% lido ) Irrigated (ml): 500 Number of Sutures/Kinderhook: 4 Suture Information: Ethilon, Simple and 4-0 Discharge Plan Triage Chief Complaint: Laceration ED Provider: Michaela Fine Dx/Rx/DC Orders Clinical Impression: Laceration of left index finger Instructions: ED Laceration Extremity Prescriptions: No Action multivitamin Tablet 1 tab PO DAILY benzonatate 200 mg capsule 200 mg PO TID PRN (Reason: cough) Qty: 14 0RF methylprednisolone [Medrol (Bladimir)] 4 mg tablets,dose pack See Rx Instructions PO PER PKG DIR Qty: 21 0RF Rx Instructions: PO PER PKG DIR benzonatate 200 mg capsule 200 mg PO TID PRN (Reason: cough) Qty: 14 0RF nifedipine 30 mg tablet extended release 24hr 60 mg PO DAILY potassium chloride 10 mEq capsule, extended release 20 meq PO DAILY medroxyprogesterone 2.5 mg tablet 2.5 mg PO DAILY esomeprazole magnesium 40 mg capsule,delayed release(DR/EC) 40 mg PO DAILY estradiol 0.5 mg tablet 0.5 mg PO DAILY losartan 100 mg tablet 100 mg PO DAILY duloxetine 30 mg capsule,delayed release(DR/EC) 30 mg PO BID Primary Care Provider: RISHI CORTES Referrals: [facility] Doctor,Out of [Non-Staff] - Activity Restrictions/Additional Instructions: Sutures should be removed and in approximately 10 days. Your primary care doctor can remove it or he can return to the ER or urgent care. You may apply bacitracin ointment to it. Alternate ibuprofen and Tylenol as needed for discomfort and pain.
[2023-06-20 23:47] VITALS: BP 145/90; PULSE 108; RESP 16; TEMP 36.6; O2SAT 97
== END 2023-06-20 23:49 | disposition home or self-care (01) ==
PROVIDERS: Emergency Provider Emergency Medicine; Visit Provider Emergency Medicine
DX: S61.211A Laceration without foreign body of left index finger without damage to nail, initial encounter (principal); W26.8XXA Contact with other sharp object(s), not elsewhere classified, initial encounter; Y93.89 Activity, other specified; I10 Essential (primary) hypertension; Z79.899 Other long term (current) drug therapy; Z90.49 Acquired absence of other specified parts of digestive tract
CPT/HCPCS: 12001; 99283

== ENCOUNTER 2023-08-11 16:52 | Emergency (ER) | payer MEDICARE, OTHER, SELFPAY ==
[2023-08-11] VITALS (8 sets, daily range): BP systolic 122–150; BP diastolic 66–103; PULSE 72–107; RESP 14–20; TEMP 36.8–37; O2SAT 95–100; BMI 25.8
[2023-08-11] MEDS: Aspirin 81 MG TAB.CHEW 324 MG PO (17:08)
--- NOTE | 2023-08-11 17:17 | ED.VIS.CHEST ---
HPI History of Present Illness Chief Complaint: Chest Pain Informant: patient and spouse/S.O. Onset/Context/Timing Onset: Days Activity at onset: gradual Timing: Continuous Quality: Positive for Dull and Pain Location: Left Chest and - (Started in the left back below her left shoulder blade. Feels like a knot.) Current Severity: Moderate Maximum Severity: Moderate Worsened By: Nothing Relieved By: Nothing Associated Symptoms: Negative for Nausea, Vomiting, Diaphoresis, Dyspnea, Cough, Fever, Lightheadedness, Acid Reflux or Palpitations Narrative Narrative: 67-year-old female no history of cardiac disease. History of hypertension. States that 3 days ago she got she describes a knot in her left back below her shoulder blade. Then she got it in her left chest yesterday and today. Denies any associated symptoms. No shortness of breath, nor any diaphoresis or nausea. No recent exertional chest pain or exertional dyspnea. Recently she and her and planting heck and working in the yard. She was caring pots of heck excetra. Said it feels like a knot in her back. No history of DVT or PE or risk factors. No leg pain or swelling. No travel, surgery or immobilization. Prior Similar Symptoms: No Recent Illness/Hospitalization: No CVD Risk Factors: Positive for Hypertension; Negative for Diabetes, Hypercholesterolemia, Family History 1' </=55 or Smoking PE Risk Factors: Negative for Recent Travel/Surgery, Recent Immobilization, Prior DVT or PE, Cancer or OCP + Smoking + >/=35 TAD Risk Factors: Negative for Marfan's Syndrome [facility] Medical History Acute bronchitis, unspecified Acute pharyngitis, unspecified Acute sinusitis, unspecified Barretts esophagus delivery delivered COVID-19 Fibromyalgia Hernia Hypertension Impacted cerumen of both ears Right shoulder strain Home Medications multivitamin 1 tab PO DAILY 08/05/20 [History Last Taken Unknown] duloxetine 30 mg capsule,delayed release 30 mg PO BID 03/14/21 [History Last Taken Unknown] esomeprazole magnesium 40 mg capsule,delayed release 40 mg PO DAILY 03/14/21 [History Last Taken Unknown] estradiol 0.5 mg tablet 0.5 mg PO DAILY 03/14/21 [History Last Taken Unknown] losartan 100 mg tablet 100 mg PO DAILY 03/14/21 [History Last Taken Unknown] medroxyprogesterone 2.5 mg tablet 2.5 mg PO DAILY 03/14/21 [History Last Taken Unknown] nifedipine 30 mg tablet,extended release 24 hr 60 mg PO DAILY 03/14/21 [History Last Taken Unknown] potassium chloride 10 mEq capsule,extended release 20 meq PO DAILY 03/14/21 [History Last Taken Unknown] benzonatate 200 mg capsule 200 mg PO TID PRN cough #14 caps 05/22/22 [Rx Last Taken Unknown] benzonatate 200 mg capsule 200 mg PO TID PRN cough #14 caps 02/26/23 [Rx Last Taken Unknown] methylprednisolone 4 mg tablets in a dose pack (Medrol (Bladimir)) See Rx Instructions PO PER PKG DIR #21 tabs 02/26/23 [Rx Last Taken Unknown] metaxalone 800 mg tablet 800 mg PO TID #20 tabs 08/11/23 [Rx Last Taken Unknown] Allergy/AdvReac Type Severity Reaction Status Date / Time Gadolinium-MRI Contrast Allergy unknown Verified 08/11/23 16:55 Medium Iodinated Contrast Media [CT] Allergy Anaphylaxis Verified 08/11/23 16:55 Surgical History H/O exploratory thoracotomy History of tonsillectomy Hx of cholecystectomy Social History Smoking Status: Never smoker alcohol intake: current alcohol intake frequency: holidays/special occasions only ROS ROS ED ROS Narrative Denies recent illness. Back and chest pain. Review of Systems ROS Unobtainable: Denies due to encephalopathy Constitutional Constitutional ED: Denies chills or fever(s) Eyes Eyes: Reports none ENT ENT ED: Denies ear pain, rhinorrhea or sore throat Cardiovascular Cardiovascular: Reports chest pain; Denies orthopnea, palpitations, paroxysmal nocturnal dyspnea or racing heartbeat Respiratory/Chest Respiratory/Chest: Denies cough, dyspnea, dyspnea on exertion, orthopnea or paroxysmal nocturnal dyspnea Gastrointestinal Gastrointestinal: Denies abdominal pain, constipation, diarrhea, melena, nausea or vomiting Genitourinary Genitourinary ED: Denies dysuria or hematuria Musculoskeletal Musculoskeletal: Reports back pain; Denies arthralgias Integumentary Denies abscess or Abrasions Neurologic Neurologic: Denies headache(s) Psychiatric Psychiatric: Denies anxiety or depression Endocrine Endocrinology: Denies cold intolerance Hematologic/Lymphatic Hematologic/Lymphatic: Denies easy bleeding or easy bruising Allergic/Immunologic Allergic/Immunologic ED: Denies mouth swelling, tongue swelling or urticaria EXAM Physical Exam Narrative Exam Narrative: 63-year-old female vital signs stable afebrile. Pulse ox 96% on room air no signs of hypoxia. H EENT exam normal. Moist extremities. Neck nontender no JVD. Lungs clear to auscultation bilateral. Heart regular rate and rhythm no murmur. Chest wall and ribs completely nontender. No rashes or signs of trauma or bruising. No crepitance. No reproducible pain. Abdomen soft nontender normal bowel sounds no peritoneal signs. Moving all 4 extremities. Calves are nontender without edema or cords. Equal symmetrical radial pulses. 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 Dorsi plantarflexion intact. Back no bruising or signs of trauma she has reproducible pain appears to be musculoskeletal just below her left scapula. There is no redness or warmth. Normal appearance. Feels better with deep palpation. Neurologically she is awake and alert no focal motor deficits. Const Vital Signs: 08/11/23 16:53 08/11/23 16:56 08/11/23 17:02 Temperature 98.3 F Temperature Source Temporal Pulse Rate 107 H Respiratory Rate 16 Respiratory Effort Normal Non-Labored Blood Pressure 150/103 H Blood Pressure Mean 118 Pulse Ox 96 100 Oxygen Delivery Method Room Air Room Air 08/11/23 17:52 08/11/23 18:52 08/11/23 19:00 Temperature Temperature Source Pulse Rate 72 75 77 Respiratory Rate 16 14 16 Respiratory Effort Blood Pressure 132/84 H 128/80 H 122/100 H Blood Pressure Mean 100 96 107 Pulse Ox 97 98 95 Oxygen Delivery Method Room Air Room Air Room Air 08/11/23 20:00 08/11/23 21:00 Temperature Temperature Source Pulse Rate 89 93 Respiratory Rate 20 H 19 H Respiratory Effort Blood Pressure 133/66 H 127/78 H Blood Pressure Mean 88 94 Pulse Ox 96 97 Oxygen Delivery Method Room Air Room Air Positive well nourished and well developed; Negative for obese, cachectic, contractures or unkempt General Appearance ED: well developed and NAD; Negative for unkempt, cachectic, contractures or pallor Nutritional Appearance: Negative for cachectic or obese HEENT Reports moist mucous membranes; Denies dry mucous membranes normocephalic and atraumatic; Negative for trauma or tenderness Mouth ED: No dry mucous membranes Mouth: No dry mucous membranes Eyes PERRL and EOMs intact bilaterally General Eye ED: Negative for pale conjunctiva or scleral icterus Neck no lymphadenopathy, supple and no JVD General: Negative for tenderness or other Chest Wall inspection of chest normal and palpation of chest normal Chest: Negative for tenderness Resp normal respiratory effort and clear to auscultation bilaterally Effort and Inspection: Negative for respiratory distress Auscultation: Negative for rales, rhonchi or wheezes Cardio regular rate, regular rhythm, S1 normal heart sound, S2 normal heart sound and no murmurs Rate: Negative for bradycardia or tachycardic Rhythm: Negative for abnormal rhythm Peripheral Pulses: pulses 2+ throughout GI normal to inspection, nondistended, normoactive bowel sounds, soft to palpation, non-tender, non-distended and no masses Auscultation: Negative for hyperactive bowel sounds Palpation: Negative for mass Back/Spine no CVA tenderness and no thoracic nor lumbar tenderness Back/Spine Narrative: Tenderness soft tissue just below her left scapula. No ecchymosis or bruising. No redness or warmth. Feels better deep palpation according to the patient. General Back: Negative for CVA tenderness Cervical Spine: Negative for cervical spine tenderness Extremity General Extremety ED: Negative for edema, pulses abnormal or tenderness General Extremity: Negative for edema or pulses abnormal Neuro oriented x3 and CN's II-XII intact bilaterally Sensorium / Orientation: awake, alert, oriented to person, oriented to place and oriented to time; Negative for confused, lethargic or stuporous Motor Exam: strength 5/5 throughout; Negative for general weakness or strength abnormal Psych Appearance: Negative for unkempt Attitude: No agitated Mood & Affect: Negative for depressed, anxious or tearful Skin no rashes or lesions noted and no wounds General Skin Exam: Negative for jaundice or pallor Rashes: No rashes noted Trauma: Negative for abrasion or laceration Image ED - Body Diagram Man: 1. Reproducible left back pain just below her scapula. No discoloration or bruising. Feels better with deep palpation. Heart Score History: Slightly/Non-Suspicious ECG: Normal Age: >/= 65 years Risk Factors: 1 or 2 Risk Factors Troponin: </= Normal Limit Score: 3 MDM MDM MDM Narrative Medical decision making narrative: 63-year-old female with atypical left back and chest pain which the back pain appears to be reproducible like myofascial strain and spasm. She has had no exertional chest pain or dyspnea recently. No cardiac history. No history of DVT or PE risk factors. She undergo cardiac workup. I think this is musculoskeletal though. She be treated with morphine for pain and Zofran. Repeat exam patient is doing much better currently at 6:40 PM. Her back pain completely resolved with the morphine. Is no longer reproducible. She has had very mild left chest discomfort but again is not reproducible. We are awaiting her 2-hour troponin and a repeat EKG better initial labs other than mild hypokalemia which she has had hypokalemia past otherwise her labs are unremarkable. Repeat exam patient is doing very well at 8:24 PM. However she states her pain is getting worse again. She does not have any reproducible chest or back pain at this time. She will be given additional pain medication. She will be pretreated with Solu-Medrol and Benadryl in case we have to do a CTA of her chest to evaluate for possible dissection versus PE which I do not think it is a PE at all. She has no risk factors or history. I think is unlikely this is dissection. She had a prior CT of the chest 1 time when she was quite sick and had anaphylactic reaction but she is unsure if it was a CAT scan dye or something else. She had prior CAT scans before that and never had a reaction. She has never had CAT scan dye since that time. Repeat exam patient doing well at 9:10 PM. She and her are comfortable with her being discharged home. Went over all of her test results. With her D-dimer being negative clinically never thought this was a PE and I thought it was very unlikely to be a dissection because her pain is not really classic for dissection. I do not think she needs a CTA of her chest. They are comfortable with that plan because she had a significant reaction in the past to contrast dye. She does have a component of musculoskeletal back patient was started on Skelaxin. Motrin Tylenol for pain. Hot shower and warm bath. Massage. Outpatient follow-up as needed. History & Record Review Discussion w/independent historian: Patient and Family Additional record(s) reviewed:: Prior inpatient record, Prior outpatient record, Prior ED visit and Prior labs Lab Data Attestation: I reviewed the patient's lab results. Lab results narrative: CBC normal. White count of 7. H&H 13 and 41. Platelets 184. Chronic. Electrolytes show potassium 3.3. Gap 5. Normal BUN and creatinine. Glucose 119. Troponin 12. 2-hour troponin is 11. Repeat EKG unchanged and normal. D-dimer negative at 0.39 Labs: Laboratory Results - last 24 hr 08/11/23 08/11/23 08/11/23 16:58 19:50 20:35 WBC 7.7 RBC 4.48 Hgb 13.6 Hct 41.6 MCV 92.9 MCH 30.4 MCHC 32.7 RDW Std Deviation 45.4 H RDW Coeff of Jacinda 13.4 Plt Count 184 MPV 12.3 H Immature Gran % (Auto) 0.100 Neut % (Auto) 49.6 Lymph % (Auto) 38.0 Bladen % (Auto) 9.0 Eos % (Auto) 2.5 Baso % (Auto) 0.8 Absolute Neuts (auto) 3.8 Absolute Lymphs (auto) 2.92 Nucleated RBC % 0 D-Dimer Quant (PE/DVT) 0.39 Sodium 142 Potassium 3.3 L Chloride 109 H Carbon Dioxide 28.0 Anion Gap 5 BUN 9 Creatinine 0.90 Estim Creat Clear Calc 63.56 Est GFR (MDRD) Af Amer 81 Est GFR (MDRD) Non-Af 67 BUN/Creatinine Ratio 10.0 Glucose 119 H Calcium 9.4 Troponin I High Sens 12 11 Radiography Chest X-Ray - ED: 1 View, Read by ED Physician, Normal, Heart, Lungs, Mediastinum, Bony Structures, No Acute Disease and Chronic Changes Diagnostic Testing: Clinical Impression(s) from Imaging Studies Chest X-Ray 08/11/23 18:05 IMPRESSION: No radiographic evidence of acute cardiopulmonary disease. Electronically Signed: Broderick Salcido DO at 18:27 EDT Reading Location ID and State: [facility] / [place] Tel [phone], Service support , Chest x-ray, portable, single view interpreted by myself shows no acute abnormality. Normal cardiac silhouette. Normal mediastinum. Normal lung james. Rhythm Strip Rhythm Strip: Sinus Tach Rate: 107 Ectopy: None EKG Initial EKG: Attestation: I personally reviewed and interpreted this EKG as follows: Interpretation: No Acute Injury Pattern and Sinus Tachycardia Comments: He given 20 Nyasia had not yet sinus tachycardia rate of 107 no acute signs of OK or ischemia. Follow-up EKG: Attestation: I personally reviewed and interpreted this EKG as follows: Interpretation: Sinus Rhythm and No Acute Injury Pattern Comments: Repeat EKG at 1903 p.m. is a normal sinus rhythm rate 76 no acute signs of OK or ischemia. No significant change from the prior. Discharge Plan Triage Chief Complaint: Chest Pain ED Provider: Martin Khanna Dx/Rx/DC Orders Clinical Impression: History of hypertension, Chest pain, Musculoskeletal back pain Instructions: ED Back Pain (Acute or Chronic), ED Back Spasm, No Trauma Prescriptions: New metaxalone 800 mg tablet 800 mg PO TID Qty: 20 0RF No Action multivitamin Tablet 1 tab PO DAILY benzonatate 200 mg capsule 200 mg PO TID PRN (Reason: cough) Qty: 14 0RF methylprednisolone [Medrol (Bladimir)] 4 mg tablets,dose pack See Rx Instructions PO PER PKG DIR Qty: 21 0RF Rx Instructions: PO PER PKG DIR benzonatate 200 mg capsule 200 mg PO TID PRN (Reason: cough) Qty: 14 0RF nifedipine 30 mg tablet extended release 24hr 60 mg PO DAILY potassium chloride 10 mEq capsule, extended release 20 meq PO DAILY medroxyprogesterone 2.5 mg tablet 2.5 mg PO DAILY esomeprazole magnesium 40 mg capsule,delayed release(DR/EC) 40 mg PO DAILY estradiol 0.5 mg tablet 0.5 mg PO DAILY losartan 100 mg tablet 100 mg PO DAILY duloxetine 30 mg capsule,delayed release(DR/EC) 30 mg PO BID Primary Care Provider: [facility] Doctor,Out of Referrals: [facility] Doctor,Out of [Primary Care Provider] - Activity Restrictions/Additional Instructions: This appears to be more musculoskeletal pain. No signs of heart attack, blood clot or anything else serious. Motrin for pain and inflammation and Tylenol for pain. The muscle relaxant Skelaxin 1 pill 3 times a day for the next week. Actually would help you with the back spasms. Hot shower, warm bath and massage. Follow-up with your doctor if not improving or return if worse. Disposition Disposition: Home, Self Care
[2023-08-11] MEDS: Ondansetron 4 MG/2 ML Vial IV (17:21)
[2023-08-11] MEDS: Morphine 4 MG/ML Syringe IV ×2 (17:21→20:50)
[2023-08-11 17:45] LABS: Absolute Lymphocyte Count 2.92 X10^3/uL (0.83-4.51); Absolute Neutrophil Count 3.8 X10^3/uL (2.0-7.7); Basophil# 0.06 X10^3/uL; Basophil% 0.8 % (0-1); Eosinophil# 0.19 X10^3/uL; Eosinophils% 2.5 % (0-5); Hematocrit 41.6 % (37-47); Hemoglobin 13.6 g/dL (12.0-15.0); Lymphocyte # 2.92 X10^3/ul (0.83-4.51); Mean Corp Hgb Conc 32.7 g/dL (32-36); Mean Corpuscular Hgb 30.4 pg (27.0-32.0); Mean Corpuscular Volume 92.9 fL (81-99); Mean Platelet Vol. 12.3 fl (6.2-12.0); Monocyte# 0.69 X10^3/uL; NRBC Flagged by Analyzer 0 % (0-5); Neutrophil # 3.81 X10^3/uL (2.7-7.7); Neutrophil % 49.6 % (47-70); Platelet Count 184 K/mm3 (150-450); RBC Distribution Width CV 13.4 % (11.6-14.6); RBC Distribution Width SD 45.4 fl (35.1-43.9); Red Blood Count 4.48 M/mm3 (4.2-5.4); White Blood Count 7.7 K/mm3 (4.4-11.0)
--- NOTE | 2023-08-11 18:05 | RAD_ITS ---
RAD/Chest 1 View (Portable) IMPRESSION: No radiographic evidence of acute cardiopulmonary disease. Electronically Signed: Broderick Salcido DO at 18:27 EDT Reading Location ID and State: [facility] / [place] Tel [phone], Service support ,
[2023-08-11 18:11] LABS: Anion Gap 5 (5-15); BUN 9 mg/dL (7-18); Calcium,Total 9.4 mg/dL (8.5-10.1); Chloride 109 mmol/L (98-107); EST Glomerular Filtration Rate 67 mL/min (>60); Est Glom Filt Rate - Afr Amer 81 mL/min (>60); Estimated Creatinine Clearance 63.56 ml/min; Glucose 119 mg/dL (74-106); Potassium 3.3 mmol/L (3.5-5.1); Sodium Level 142 mmol/L (136-145); Troponin-I HS (w/2H Reflex) 12 pg/mL (3.0-54.0)
[2023-08-11 19:21] LABS: Reflex Troponin-HS? (from REC) Y
[2023-08-11 20:14] LABS: Troponin-I HS 11 pg/mL (3.0-54.0)
[2023-08-11] MEDS: MethylPREDNISolone 125 MG/2 ML Vial IV (20:31)
[2023-08-11] MEDS: DiphenhydrAMINE 50 MG/ML Syringe IV (20:31)
[2023-08-11 20:56] LABS: D-Dimer Quantitative (DVT/PE) 0.39 FEU/ug/m (0.27-0.49)
[2023-08-11] MEDS: Metaxalone 800 MG Tablet PO (21:30)
== END 2023-08-11 21:33 | disposition home or self-care (01) ==
PROVIDERS: Emergency Provider Emergency Medicine; Visit Provider Emergency Medicine
DX: M54.89 Other dorsalgia (principal); I10 Essential (primary) hypertension; R07.9 Chest pain, unspecified; Z79.899 Other long term (current) drug therapy; Z90.49 Acquired absence of other specified parts of digestive tract; X58.XXXA Exposure to other specified factors, initial encounter; Y93.89 Activity, other specified; Y92.096 Garden or yard of other non-institutional residence as the place of occurrence of the external cause
CPT/HCPCS: 36415; 71045; 80048; 84484; 85025; 85379; 93005; 96374; 96375; 96376; 99284; A4216; J2405

== ENCOUNTER → 2023-08-29 | Outpatient (CLI) | payer MEDICARE, OTHER, SELFPAY ==
[2023-08-29 15:11] LABS: AST(SGOT) 20 U/L (15-37); Alanine Aminotransfer ALT/SGPT 22 U/L (13-56); Albumin, Serum 3.8 g/dL (3.2-5.0); Alkaline Phosphatase 80 U/L (45-117); Anion Gap 7 (5-15); BUN 11 mg/dL (7-18); BUN/Creat Ratio 13.4 RATIO (10-20); CPK Total, Creatine Kinase 83 U/L (26-192); Calcium,Total 9.1 mg/dL (8.5-10.1); Chloride 108 mmol/L (98-107); Creatinine, Serum 0.82 mg/dL (0.55-1.02); EST Glomerular Filtration Rate 75 mL/min (>60); Est Glom Filt Rate - Afr Amer 90 mL/min (>60); Globulin 3.8 g/dL (2.2-4.2); Glucose 100 mg/dL (74-106); Potassium 3.9 mmol/L (3.5-5.1); Protein, Total 7.6 g/dL (6.4-8.2); Sodium Level 139 mmol/L (136-145); Troponin-I HS 11 pg/mL (3.0-54.0)
[2023-08-29 15:13] LABS: Absolute Lymphocyte Count 2.24 X10^3/uL (0.83-4.51); Absolute Neutrophil Count 3.7 X10^3/uL (2.0-7.7); Basophil# 0.03 X10^3/uL; Basophil% 0.4 % (0-1); Eosinophil# 0.17 X10^3/uL; Eosinophils% 2.5 % (0-5); Hematocrit 41.6 % (37-47); Hemoglobin 13.6 g/dL (12.0-15.0); Lymphocyte # 2.24 X10^3/ul (0.83-4.51); Lymphocyte % 33.4 % (19-41); Mean Corp Hgb Conc 32.7 g/dL (32-36); Mean Corpuscular Hgb 30.6 pg (27.0-32.0); Mean Corpuscular Volume 93.5 fL (81-99); Mean Platelet Vol. 10.3 fl (6.2-12.0); Monocyte# 0.61 X10^3/uL; Monocyte% 9.1 % (0-10); NRBC Flagged by Analyzer 0 % (0-5); Neutrophil # 3.65 X10^3/uL (2.7-7.7); Neutrophil % 54.5 % (47-70); Platelet Count 282 K/mm3 (150-450); RBC Distribution Width CV 13.7 % (11.6-14.6); RBC Distribution Width SD 46.8 fl (35.1-43.9); Red Blood Count 4.45 M/mm3 (4.2-5.4); White Blood Count 6.7 K/mm3 (4.4-11.0)
[2023-08-29 15:32] LABS: Erythrocyte Sedimentation Rate 9 mm/hr (0-30)
== END | disposition home or self-care (01) ==
LOC: BIMLAB 14:08
PROVIDERS: PCP Internal Medicine; Referring Provider Internal Medicine; Visit Provider Internal Medicine
DX: R07.9 Chest pain, unspecified (principal)
CPT/HCPCS: 36415; 80053; 82550; 84484; 85025; 85652

== ENCOUNTER → 2023-09-14 | Outpatient (CLI) | payer MEDICARE, OTHER, SELFPAY ==
--- NOTE | 2023-09-14 16:39 | STRESSREP ---
Stress Test Report Exercise stress test. 63-year-old lady with a history of chest pain Stress protocol: Resting EKG demonstrates normal sinus rhythm with a rate of 83 bpm resting blood pressure is 138/82 mmHg. The patient exercised according to the regular Lucien protocol for a total duration of 6 minutes attaining a maximum heart rate of 148 bpm which was 95 beats of maximum predicted heart rate; the maximum workload was 7 metabolic equivalents. At rest there were no ST or T wave changes noted to suggest ischemia and at peak exercise upsloping ST changes only were noted which did not meet the criteria for ischemia. No clinical angina was noted the test was terminated due to the target heart rate being achieved/fatigue. Patient however started the test with chest discomfort which persisted throughout. The peak blood pressure was 172/88 mmHg. Rate-pressure product was 24,000. Conclusion: Stress test with no EKG criteria for ischemia at a moderate workload. Persistent chest pain of unknown significance.
== END | disposition home or self-care (01) ==
LOC: CVS 10:53
PROVIDERS: PCP Internal Medicine; Referring Provider Internal Medicine; Visit Provider Internal Medicine
DX: R07.9 Chest pain, unspecified (principal)
CPT/HCPCS: 93017

== ENCOUNTER → 2023-11-05 | Outpatient (CLI) | payer MEDICARE, OTHER, SELFPAY ==
--- NOTE | 2023-11-05 12:38 | NEURO ---
NCS and/or EMG Patient Report Ordering Doctor: Isaac Ohara DATE OF SERVICE: 11/05/23 Clinical Summary: 63 year old female patient with history of symptoms of left upper extremity pain, discomfort, and tingling. A left upper extremity EMG/NCS was performed. Nerve Conduction Studies Summary: The left ulnar-FDI CMAP distal latency was prolonged with reduced amplitude. Otherwise, nerve conduction studies performed in the left upper extremity were normal. Needle Examination Summary: Needle examination of select muscles of the left upper extremity was normal. Impression: There is no electrodiagnostic evidence of a left cervical radiculopathy or nerve entrapment such as carpal tunnel syndrome or ulnar neuropathy. Multi Select Codes Neurology Neurology Interp Codes: 99269-77 Musc test done w/n test comp (interp) (1) and 79412-17 Nrv cndj test 7-8 studies (interp)
== END | disposition home or self-care (01) ==
LOC: PSN 10:13
PROVIDERS: PCP Internal Medicine; Referring Provider Orthopaedic Surgery; Visit Provider Orthopaedic Surgery
DX: M54.12 Radiculopathy, cervical region (principal); R20.2 Paresthesia of skin
CPT/HCPCS: 95886; 95910

== ENCOUNTER 2025-03-30 21:35 | Emergency (ER) | payer MEDICARE, OTHER, SELFPAY ==
[2025-03-30 21:37] VITALS: BP 160/105; PULSE 118; RESP 18; TEMP 37.6; O2SAT 100
[2025-03-30 21:39] VITALS: BP 169/96; PULSE 105; RESP 20; TEMP 37.6; O2SAT 100
[2025-03-30 21:45] VITALS: BMI 24.5
[2025-03-30 21:53] VITALS: O2SAT 99
--- NOTE | 2025-03-30 22:12 | EKG12_ITS ---
Test Reason : CP/SOB Blood Pressure : */* mmHG Vent. Rate : 109 BPM Atrial Rate : 109 BPM P-R Int : 138 ms QRS Dur : 82 ms QT Int : 330 ms P-R-T Axes : 64 61 59 degrees QTcB Int : 444 ms Sinus tachycardia Otherwise normal ECG Confirmed by Lars Sawyer ([id number]), editorial clerk DOREEN GRANT ([id number]) on 04/03/2025 6:43:16 AM Referred By: Confirmed By: Lars Sawyer
[2025-03-30 22:21] LABS: Hematocrit 41.6 % (37-47); Hemoglobin 14.1 g/dL (12.0-15.0); Immature Granulocytes Count 0.020 X10^3/uL (0.0-0.0); Mean Corp Hgb Conc 33.9 g/dL (32-36); Mean Corpuscular Volume 89.7 fL (81-99); Mean Platelet Vol. 10.3 fl (6.2-12.0); NRBC Flagged by Analyzer 0 % (0-5); Platelet Count 357 K/mm3 (150-450); RBC Distribution Width CV 13.3 % (11.6-14.6); RBC Distribution Width SD 43.9 fl (35.1-43.9); Red Blood Count 4.64 M/mm3 (4.2-5.4); White Blood Count 9.9 K/mm3 (4.4-11.0)
--- OUTSIDE RECORDS SUMMARY | 2025-03-30 22:21 | XMS RPT_ITS | CCD ---
Author Organization [facility] Care Team Providers Care Veterinary Toxicologist Name Role Phone Ag Hensley Unavailable Unavailable BasDalia torres Unavailable Lynda Sheikh Unavailable Unavailable Rishi Florian Primary Care Provider NINFA [place] Attending Provider Ag Hensley MD Unavailable Unavailable Dalia Lambert MD Unavailable Aguilar PEACOCK, Lynda Smalls Unavailable Unavailable Rishi Florian MD Primary Care Provider [phone] Valerie Mims Attending Unavailable Amanda, Stacie Primary Care Unavailable Cranks, Stacie Primary Care Unavailable Lauro Gramajo Attending Unavailable Cranks, Stacie Consulting Unavailable Cranks, Stacie Referring Unavailable Wilman Duggan Attending Unavailable Isaac Ohara Consulting Unavailable Isaac Ohara Referring Unavailable Amanda, Stacie Primary Care Unavailable Gary Reno Attending Unavailable NEVILLE VALERA Primary Care Unavailable Michaela Fine Attending Unavailable Cranks, Stacie Primary Care Unavailable Isaac Ohara Attending Unavailable Isaac Ohara Referring Unavailable Amanda, Stacie Primary Care Unavailable Amanda, Stacie Attending Unavailable Cranks, Stacie Referring Unavailable Cranks, Stacie Primary Care Unavailable Cranks, Stacie Attending Unavailable Cranks, Stacie Referring Unavailable Martin Khanna Attending Unavailable Town Doctor, Out of Primary Care Unavailable Cranks, Stacie Primary Care Unavailable Fredy Gomes Attending Unavailable Amanda, Stacie Referring Unavailable Town Doctor, Out of Primary Care Unavailable Town Doctor, Out of Referring Unavailable Cranks, Stacie Attending Unavailable MICHAEL BARNES Referring Unavailable MICHAEL BARNES Admitting Unavailable MICHAEL BARNES Attending Unavailable SHORT, RISHI Primary Care Unavailable SHARLA HERNANDEZ Attending Unavailable SHORT, RISHI Referring Unavailable SHORT, RISHI Primary Care Unavailable LEIA SORIANO Attending Unavailable LEIA SORIANO Referring Unavailable SHORT, RISHI Primary Care Unavailable IWONA AUGUSTIN Attending Unavailable SHORT, RISHI Referring Unavailable SHORT, RISHI Primary Care Unavailable MICHAEL BARNES Attending Unavailable MICHAEL BARNES Referring Unavailable SHORT, RISHI Primary Care Unavailable MICHAEL BARNES Attending Unavailable SHORT, RISHI Referring Unavailable SHORT, RISHI Primary Care Unavailable SHORT, RISHI Primary Care Unavailable MICHAEL BARNES Attending Unavailable SHORT, RISHI Referring Unavailable MICHAEL BARNES Attending Unavailable MICHAEL BARNES Referring Unavailable SHORT, RISHI Primary Care Unavailable SHORT, RISHI Primary Care Unavailable MICHAEL BARNES Attending Unavailable SHORT, RISHI Referring Unavailable MICHAEL BARNES Admitting Unavailable MICHAEL BARNES Attending Unavailable SHORT, IRSHI Primary Care Unavailable MICHAEL BARNES Attending Unavailable SHORT, RISHI Referring Unavailable SHORT, RISHI Primary Care Unavailable MICHAEL BARNES Attending Unavailable MICHAEL BARNES Referring Unavailable SHORT, RISHI Primary Care Unavailable Allergies Allergy Classification Reported Allergen(s) Allergy Type Date of Onset Reaction(s) Facility Diatrizoate (6 sources) Diatrizoate Drug Allergy 6 Anaphylaxis, Swelling [facility] Iodine (and Iodine containting drugs) (6 sources) Iodine Drug Allergy 6 Anaphylaxis [facility] (20 sources) Diatrizoate Drug Allergy 6 Anaphylaxis, Swelling [facility] (20 sources) Iodine Drug Allergy 6 Anaphylaxis [facility] (2 sources) Triiodobenzoic Acids Allergy to substance 4 Anaphylaxis [facility] (2 sources) Gadolinium-MRI Contrast Medium Allergy to substance 4 unknown [facility] (1 source) Iodinated Contrast Media Drug allergy (disorder) 4 [facility] Repository (1 source) Gadolinium-MRI Contrast Medium Drug allergy (disorder) 4 [facility] Repository Medications Current Medications Medication Drug Class(es) Dates Sig (Normalized) Sig (Original) acetaminophen 325 mg / HYDROcodone bitartrate 5 mg oral tablet (3 sources) Opioid Agonist Start: 03-17-2019 take 1 tablet by mouth every six hours as needed for pain hydrocodone-acetamin ophen (NORCO) 5-325 MG Indications: Symptomatic cholelithiasis Take 1 tablet by mouth every 6 hours as needed for Pain. 18 tablet 0 03/17/2019 Active Start: 03-17-2019 hydrocodone-ac etaminophen (NORCO) 5-325 MG 2 tablet amoxicillin 875 mg / clavulanate 125 mg oral tablet (1 source) Penicillin-class Antibacterial Start: 09-01-2021 take 1 tablet by mouth twice daily amoxicillin-clavulanate (AUGMENTIN) 875-125 MG per tablet Indications: Sinusitis, unspecified chronicity, unspecified location Take 1 tablet by mouth two times a day. 20 tablet 0 09/01/2021 Active benzonatate 200 mg oral capsule (4 sources) Non-narcotic Antitussive Start: 05-22-2022 take 200 mg by mouth three times daily Benzonatate Active 200 MG PO THREE TIMES A DAY February 26, 2023 1:00am busPIRone hydrochloride 15 mg oral tablet (20 sources) Start: 03-29-2023 take 1 tablet by mouth twice daily busPIRone (BUSPAR) 15 MG tablet Take 1 tablet by mouth twice daily 180 tablet 0 03/29/2023 Active Start: 06-26-2022 take 1 tablet by eliane twice daily busPIRone (BUSPAR) 15 MG tablet Take 1 tablet by mouth two times a day. 180 tablet 0 06/26/2022 Active Start: 01-02-2022 take 1.5 tablets by mouth twice daily busPIRone (BUSPAR) 10 MG tablet Take 1.5 tablets by mouth two times a day. 270 tablet 0 01/02/2022 Active Start: 09-01-2021 take 1 tablet by eliane th twice daily busPIRone (BUSPAR) 5 MG tablet Take 1 tablet by mouth two times a day. 60 tablet 6 09/01/2021 Active Start: 01-02-2019 take 1 tablet by eliane twice daily busPIRone (BUSPAR) 10 MG tablet Take 1 tablet by mouth two times a day. 180 tablet 3 01/02/2019 Active calcium chloride 0.0014 meq/ ml / potassium chloride 0.004 meq/ml / sodium chloride 0.103 meq/ml / sodium lactate 0.028 meq/ml injectable solution (4 sources) Start: 08-30-2023 lactated ringe rs infusion Start: 01-15-2020 lactated ringe rs infusion Start: 03-17-2019 lactated ringe rs infusion docusate sodium 100 mg oral capsule (18 sources) Start: 02-21-2019 End: 02-24-2019 take 1 capsule by mouth twice daily docusate sodium (COLACE) 100 MG capsule Take 1 capsule by mouth two times a day. 100 capsule 3 02/24/2019 Active DULoxetine 30 mg delayed release oral capsule (20 sources) Serotonin and Norepinephrine Reuptake Inhibitor Start: 06-09-2024 take 2 capsules by mouth once daily DULoxetine (CYMBALTA) 30 MG capsule Indications: Anxiety Take 2 capsules by mouth daily. 60 capsule 06/09/2024 Active Start: 06-25-2023 take 2 capsules by m outh once daily DULoxetine (CYMBALTA) 30 MG capsule Take 2 capsules by mouth once daily 180 capsule 1 06/25/2023 Active Start: 03-29-2023 take 2 capsules by m outh once daily DULoxetine (CYMBALTA) 30 MG capsule Take 2 capsules by mouth once daily 180 capsule 0 03/29/2023 Active Start: 03-29-2022 take 2 capsules by m outh once daily DULoxetine (CYMBALTA) 30 MG capsule Take 2 capsules by mouth daily. 180 capsule 3 03/29/2022 Active Start: 01-23-2022 take 2 capsules by m outh once daily DULoxetine (CYMBALTA) 30 MG capsule Take 2 capsules by mouth daily. 180 capsule 3 01/23/2022 Active Start: 03-14-2021 take 30 mg by mouth twice genny y Duloxetine Active 30 MG PO TWICE A DAY March 14, 2021 1:00am Start: 09-17-2020 take 2 capsules by m outh once daily DULoxetine (CYMBALTA) 30 MG capsule Take 2 capsules by mouth once daily 180 capsule 3 09/17/2020 Active Start: 09-14-2019 take 2 capsules by m outh once daily DULoxetine (CYMBALTA) 30 MG capsule Take 2 capsules by mouth once daily 180 capsule 3 09/14/2019 Active Start: 08-15-2018 take 2 capsules by m outh once daily DULoxetine (CYMBALTA) 30 MG capsule Take 2 capsules by mouth daily. 180 capsule 3 08/15/2018 Active Elastic Bandages & Supports (ABDOMINAL BINDER/ELASTIC LARGE) MISC (20 sources) Start: 03-28-2019 Elastic Bandages & Supports (ABDOMINAL BINDER/ELASTIC LARGE) MISC 1 Units by Does not apply route continuous as needed. 1 Device 0 03/28/2019 Active 0.4 ml enoxaparin sodium 100 mg/ml prefilled syringe (1 source) Low Molecular Weight Heparin Start: 05-17-2019 enoxaparin (LOVENOX) injection 40 mg esomeprazole 40 mg delayed release oral capsule (20 sources) Proton Pump Inhibitor Start: 06-09-2024 take 1 capsule by mouth once daily before breakfast esomeprazole (NEXIUM) 40 MG capsule Indications: Medication refill TAKE 1 CAPSULE BY MOUTH ONCE DAILY IN THE MORNING BEFORE BREAKFAST 30 capsule 06/09/2024 Active Start: 12-28-2020 take 1 capsule by mo uth before breakfast esomeprazole (NEXIUM) 40 MG capsule TAKE 1 CAPSULE BY MOUTH IN THE MORNING BEFORE BREAKFAST 90 capsule 3 01/01/2023 Active Start: 07-19-2020 take 1 capsule by mo uth before breakfast esomeprazole (NEXIUM) 40 MG capsule TAKE 1 CAPSULE BY MOUTH IN THE MORNING BEFORE BREAKFAST FOR 90 DAYS 90 capsule 1 07/19/2020 Active Start: 04-30-2020 take 1 capsule by mo uth before breakfast esomeprazole (NEXIUM) 40 MG capsule TAKE 1 CAPSULE BY MOUTH IN THE MORNING BEFORE BREAKFAST FOR 90 DAYS 90 capsule 0 04/30/2020 Active Start: 04-03-2019 End: 2019 take 1 capsule by mouth once daily before breakfast esomeprazole (NEXIUM) 40 MG capsule Take 1 capsule by mouth every morning (before breakfast). 90 capsule 3 04/22/2019 Active Start: 02-07-2019 End: 03-09-2019 take 1 capsule by mouth once daily before breakfast esomeprazole (NEXIUM) 40 MG capsule Take 1 capsule by mouth every morning (before breakfast) for 30 days. 180 capsule 0 02/07/2019 03/09/2019 Active Start: 09-04-2017 take 1 capsule by mo uth before breakfast esomeprazole (NEXIUM) 40 MG capsule TAKE ONE CAPSULE BY MOUTH IN THE MORNING BEFORE BREAKFAST 90 capsule 3 09/04/2017 Active estradiol 0.5 mg oral tablet (20 sources) Estrogen Start: 03-14-2021 take 1 tablet by mouth once daily estradiol (ESTRACE) 0.5 MG tablet Indications: History of postmenopausal HRT , Vaginal dryness, menopausal Take 1 tablet by mouth daily. 90 tablet 4 08/02/2023 Active Start: 12-28-2020 take 1 tablet by eliane th once daily estradiol (ESTRACE) 0.5 MG tablet Indications: History of postmenopausal HRT Take 1 tablet by mouth daily. 90 tablet 0 12/28/2020 Active Start: 10-21-2020 take 1 tablet by eliane th once daily estradiol (ESTRACE) 0.5 MG tablet Indications: History of postmenopausal HRT Take 1 tablet by mouth once daily 90 tablet 0 10/21/2020 Active Start: 02-02-2020 take 1 tablet by eliane th once daily estradiol (ESTRACE) 0.5 MG tablet Indications: History of postmenopausal HRT Take 1 tablet by mouth once daily 90 tablet 2 02/02/2020 Active Start: 10-28-2019 take 1 tablet by eliane th once daily estradiol (ESTRACE) 0.5 MG tablet Take 1 tablet by mouth daily. 90 tablet 0 10/28/2019 Active take 1 tablet by eliane th once daily estradiol (ESTRACE) 0.5 MG tablet Take 0.5 mg by mouth daily. 0 Active 1 ml HYDROmorphone hydrochloride 2 mg/ml cartridge (2 sources) Opioid Agonist Start: 05-16-2019 HYDROmorphone (DILAUDID) injection 0.25 mg Start: 03-17-2019 End: 03-17-2019 HYDROmorphone (DILAUDID) inj ection 0.5 mg 4 ml labetalol hydrochloride 5 mg/ml cartridge (1 source) beta-Adrenergic Teresa Start: 05-16-2019 Labetalol injection 5 mg losartan potassium 100 mg oral tablet (20 sources) Angiotensin 2 Receptor Teresa Start: 06-09-2024 take 1 tablet by mouth once daily losartan (COZAAR) 100 MG tablet Indications: Hypertension, unspecified type Take 1 tablet by mouth daily. 30 tablet 06/09/2024 Active Start: 03-14-2021 take 1 tablet by eliane th once daily losartan (COZAAR) 100 MG tablet Take 1 tablet by mouth once daily 90 tablet 1 06/25/2023 Active Start: 10-11-2020 take 1 tablet by eliane th once daily losartan (COZAAR) 100 MG tablet Take 1 tablet by mouth once daily 90 tablet 1 10/11/2020 Active Start: 07-19-2020 take 1 tablet by eliane th once daily losartan (COZAAR) 100 MG tablet Take 1 tablet by mouth daily. 90 tablet 1 07/19/2020 Active Start: 06-24-2020 take 1 tablet by eliane th once daily losartan (COZAAR) 100 MG tablet Take 1 tablet by mouth once daily 30 tablet 0 06/24/2020 Active Start: 01-27-2020 take 1 tablet by eliane th once daily losartan (COZAAR) 100 MG tablet Take 1 tablet by mouth once daily 90 tablet 0 01/27/2020 Active Start: 01-24-2019 take 1 tablet by eliane th once daily losartan (COZAAR) 100 MG tablet TAKE 1 TABLET BY MOUTH ONCE DAILY 90 tablet 3 01/24/2019 Active Start: 02-14-2018 take 1 tablet by eliane th once daily losartan (COZAAR) 100 MG tablet Take 1 tablet by mouth daily. 90 tablet 3 02/14/2018 Active medroxyPROGESTERone acetate 2.5 mg oral tablet (20 sources) Progestin Start: 03-14-2021 take 1 tablet by mouth once daily medroxyPROGESTERone (PROVERA) 2.5 MG tablet Indications: History of postmenopausal HRT , Vaginal dryness, menopausal Take 1 tablet by mouth daily. 90 tablet 4 08/02/2023 Active Start: 12-28-2020 take 1 tablet by eliane th once daily medroxyPROGESTERone (PROVERA) 2.5 MG tablet Indications: History of postmenopausal HRT Take 1 tablet by mouth daily. 90 tablet 0 12/28/2020 Active Start: 10-11-2020 take 1 tablet by eliane th once daily medroxyPROGESTERone (PROVERA) 2.5 MG tablet Indications: History of postmenopausal HRT Take 1 tablet by mouth once daily 90 tablet 0 10/11/2020 Active Start: 02-05-2020 take 1 tablet by eliane th once daily medroxyPROGESTERone (PROVERA) 2.5 MG tablet Indications: History of postmenopausal HRT Take 1 tablet by mouth once daily 90 tablet 2 02/05/2020 Active Start: 10-28-2019 take 1 tablet by eliane th once daily medroxyPROGESTERone (PROVERA) 2.5 MG tablet Take 1 tablet by mouth daily. 90 tablet 0 10/28/2019 Active take 1 tablet by eliane th once daily medroxyPROGESTERone (PROVERA) 2.5 MG tablet Take 2.5 mg by mouth daily. 0 Active metaxalone 800 mg oral tablet (1 source) Start: 08-11-2023 take 800 mg by mouth three times daily Metaxalone Active 800 MG PO THREE TIMES A DAY August 11, 2023 12:00am methylPREDNISolone 4 mg oral tablet (4 sources) Corticosteroid Start: 02-26-2023 take 1 tablet by mouth once Methylprednisolone (Medrol (Bladimir)) 4 mg tablets,dose pack Active 0 PO per package directions February 26, 2023 1:00am PO PER PKG DIR Start: 08-05-2020 End: 03-10-2021 take 1 tablet by mouth once Methylprednisolone (Medrol (Bladimir)) 4 mg tablets,dose pack Discontinued 0 PO per package directions August 05, 2020 12:00am March 10, 2021 4:38pm PO PER PKG DIR Multiple Vitamin (THERA TIRSO MIN) TABS tablet (20 sources) Multiple Vitamin (THERA VITAMIN) TABS tablet Take by mouth daily. Active Multiple Vitamin (THERA VITAMIN) TABS tablet Take by mouth daily. 0 Active Multivitamin preparation (2 sources) Start: 08-05-2020 take 1 tablet by mouth once daily Multivitamin Active 1 TABLET PO DAILY August 05, 2020 12:00am NIFEdipine 30 mg osmotic 24 hr extended release oral tablet (20 sources) Dihydropyridine Calcium Channel Teresa Start: 06-09-2024 take 2 tablets by mouth once daily NIFEdipine (PROCARDIA XL) 30 MG 24 hr tablet Indications: Hypertension, unspecified type Take 2 tablets by mouth daily. 60 tablet 06/09/2024 Active Start: 12-29-2020 take 2 tablets by mo uth once daily NIFEdipine (PROCARDIA XL) 30 MG 24 hr tablet Take 2 tablets by mouth once daily 180 tablet 3 01/02/2023 Active Start: 07-19-2020 take 2 tablets by mo uth once daily NIFEdipine (PROCARDIA XL) 30 MG 24 hr tablet Take 2 tablets by mouth daily. 180 tablet 1 07/19/2020 Active Start: 04-27-2020 take 2 tablets by mo uth once daily NIFEdipine (PROCARDIA XL) 30 MG 24 hr tablet Take 2 tablets by mouth daily. 180 tablet 0 04/27/2020 Active Start: 03-06-2019 End: 04-03-2019 take 2 tablets by mouth once daily NIFEdipine (PROCARDIA XL) 30 MG 24 hr tablet Take 2 tablets by mouth daily. 270 tablet 3 04/03/2019 Active Start: 10-21-2018 take 2 tablets by mo ut once daily NIFEdipine (PROCARDIA XL) 30 MG 24 hr tablet TAKE 2 TABLETS BY MOUTH ONCE DAILY 180 tablet 3 10/21/2018 Active Piperacillin / tazobactam (1 source) Penicillin-class Antibacterial, beta Lactamase Inhibitor Start: 05-16-2019 piperacillin-tazobactam (ZOSYN) 3.375 g in NS 100mL polyethylene glycol 3350 46155 mg powder for oral solution (7 sources) Osmotic Laxative polyethylene gl ycol 3350 (GLYCOLAX) 17 GM/SCOOP powder Take 17 g by mouth as needed. Active Polyethylene Glycols (14 sources) take 1 [IU] by mouth once daily as needed Polyethylene Glycol 3350 (MIRALAX PO) Take 1 Units by mouth daily as needed. 0 Active potassium chloride 10 meq extended release oral capsule (20 sources) Start: 06-09-2024 potassium chloride (MICRO-K) 10 MEQ CR capsule Indications: Hypertension, unspecified type Take 2 capsules by mouth daily. 60 capsule 06/09/2024 Active Start: 01-01-2023 potassium chlo ride (MICRO-K) 10 MEQ CR capsule Take 2 capsules by mouth once daily 180 capsule 3 01/01/2023 Active Start: 06-26-2022 potassium chlo ride (MICRO-K) 10 MEQ CR capsule Take 2 capsules by mouth daily. 180 capsule 1 06/26/2022 Active Start: 12-29-2021 potassium chlo ride (MICRO-K) 10 MEQ CR capsule Take 2 capsules by mouth once daily 180 capsule 1 12/29/2021 Active Start: 07-11-2021 potassium chlo ride (MICRO-K) 10 MEQ CR capsule Take 2 capsules by mouth once daily 180 capsule 1 07/11/2021 Active Start: 03-14-2021 take 20 mEq by mouth once genny y Potassium Chloride Active 20 MEQ PO DAILY March 14, 2021 1:00am Start: 12-28-2020 potassium chlo ride (MICRO-K) 10 MEQ CR capsule Take 2 capsules by mouth daily. 180 capsule 1 12/28/2020 Active Start: 07-19-2020 potassium chlo ride (MICRO-K) 10 MEQ CR capsule Take 2 capsules by mouth daily. 180 capsule 1 07/19/2020 Active Start: 06-24-2020 take 2 capsules by m outh once daily, then take 1 capsule by mouth potassium chloride (MICRO-K) 10 MEQ CR capsule Take 2 capsules by mouth once daily 60 capsule 0 06/24/2020 Active Start: 12-14-2019 take 2 capsules by m outh once daily, then take 1 capsule by mouth potassium chloride (MICRO-K) 10 MEQ CR capsule Take 2 capsules by mouth once daily 180 capsule 0 12/14/2019 Active Start: 05-16-2019 End: 05-17-2019 potassium chloride SA (K-DUR,KLOR-CON M20) CR tablet 40 mEq Start: 11-29-2018 take 2 capsules by m outh once daily, then take 1 capsule by mouth potassium chloride (MICRO-K) 10 MEQ CR capsule Take 2 capsules by mouth daily. 180 capsule 3 11/29/2018 Active Probiotic Product (PROBIOTIC DAILY PO) (1 source) Probiotic Produc t (PROBIOTIC DAILY PO) Take by mouth daily. 0 Active triamcinolone acetonide 1 mg/ml topical cream (20 sources) Corticosteroid Start: 09-03-2023 triamcinolone (KENALOG) 0.1 % cream APPLY CREAM EXTERNALLY TO AFFECTED AREA 2-3 TIMES DAILY 30 g 09/03/2023 Active Start: 06-26-2023 triamcinolone (KENALOG) 0.1 % cream APPLY CREAM EXTERNALLY TO AFFECTED AREA 2 TO 3 TIMES DAILY 30 g 0 06/26/2023 Active Start: 10-23-2022 triamcinolone (KENALOG) 0.1 % cream Apply to affected area 2 to 3 times daily 30 g 1 10/23/2022 Active Start: 06-26-2022 triamcinolone (KENALOG) 0.1 % cream Apply to affected area 2 to 3 times daily 30 g 0 06/26/2022 Active Start: 07-15-2020 triamcinolone (KENALOG) 0.1 % cream Apply to affected area 2 to 3 times daily 30 g 0 07/15/2020 Active Start: 05-09-2018 triamcinolone (KENALOG) 0.1 % cream Apply cream externally to affected areas twice daily as needed 80 g 3 05/09/2018 Active Completed/Discontinued Medications Medication Drug Class(es) Dates Sig (Normalized) Sig (Original) acetaminophen 325 mg oral tablet (1 source) Start: 05-15-2019 take 650 mg by mouth every four hours as needed for pain, then take 4000 mg by mouth every twenty-four hours as needed for pain 650 mg, Oral, EVERY 4 HOURS PRN, Pain, Starting [facility] 05/15/19 at 2334, Until Discontinued Maximum dose of acetaminophen is 4000 mg from all sources in 24 hours. albuterol 0.83 mg/ml inhalant solution (1 source) beta2-Adrenergic Agonist Start: 03-06-2019 End: 03-06-2019 Albuterol nebulizer soln 2.5 mg Start: 03-06-2019 End: 03-06-2019 Albuterol nebulizer soln 2.5 mg aprepitant 40 mg oral capsule (1 source) Substance P/Neurokinin-1 Receptor Antagonist Start: 03-17-2019 End: 03-17-2019 aprepitant (EMEND) capsule 40 mg Start: 03-17-2019 End: 03-17-2019 aprepitant (EMEND) capsule 4 0 mg azithromycin 250 mg oral tablet (2 sources) Macrolide Antimicrobial Start: 05-22-2022 End: 02-26-2023 Azithromycin Discontinued 250 MG PO daily May 22, 2022 1:00am February 26, 2023 12:09pm 2 tablets today, then 1 tablet daily on days 2 through 5 ceFAZolin (1 source) Cephalosporin Antibacterial Start: 03-17-2019 End: 03-17-2019 ceFAZolin 1,000 mg in NS 50 mL IVPB 2 ml famotidine 10 mg/ml injection (2 sources) Histamine-2 Receptor Antagonist Start: 05-18-2019 End: 05-18-2019 Famotidine (PEPCID) injection 20 mg Start: 03-17-2019 End: 03-17-2019 famotidine (PEPCID) tablet 2 0 mg For electrolyte abnormalities subsequent to initial labs (refer to the [facility] Electrolyte Replacement Orders) (1 source) Start: 05-15-2019 Other, DAILY P RN, For electrolyte abnormalities, Starting [facility] 05/15/19 at 2334, Until Discontinued For Potassium level <=3.9 or Magnesium level <=2.0, please use Order Set #100 to order medications and repeat labs. Gadoterate Meglumine (DOTAREM) injection 15 mL (1 source) Start: 05-15-2019 End: 05-15-2019 Gadoterate Meglumine (DOTAREM) injection 15 mL magnesium sulfate 0.0277 meq/ml / potassium sulfate 0.0374 meq/ml / sodium sulfate 0.257 meq/ml oral solution (2 sources) Start: 08-11-2019 End: 01-15-2020 Na Sulfate-K Sulfate-Mg Sulf (SEGOVIA PREP) 17.5-3.13-1.6 GM/177ML kit Take as directed by physician. 354 mL 0 08/11/2019 01/15/2020 Discontinued (Discontinued during inpatient admission) 1 ml morphine sulfate 4 mg/ml cartridge (2 sources) Opioid Agonist Start: 05-18-2019 End: 05-18-2019 Morphine Sulfate (PF) injection 4 mg Start: 05-15-2019 take 2 mg intravenou s route every two hours as needed for pain 2 mg, IV Push, EVERY 2 HOURS PRN, Pain, Starting [facility] 05/15/19 at 2334, Until Discontinued Caution: This medication looks and/or sounds like another medication. 2 ml ondansetron 2 mg/ml injection (4 sources) Serotonin-3 Receptor Antagonist Start: 05-18-2019 End: 05-18-2019 ondansetron hcl (ZOFRAN) injection 4 mg Start: 05-15-2019 take 4 mg intravenou s route every six hours as needed for nausea 4 mg, IV Push, EVERY 6 HOURS PRN, Nausea, Vomiting, Starting [facility] 05/15/19 at 2334, Until Discontinued Caution: This medication looks and/or sounds like another medication. Start: 03-17-2019 End: 03-17-2019 ondansetron hcl (ZOFRAN) inj ection 4 mg pantoprazole 40 mg delayed release oral tablet (2 sources) Proton Pump Inhibitor Start: 02-06-2019 End: 02-24-2019 take 1 tablet by mouth twice daily pantoprazole (PROTONIX) 40 MG tablet Take 1 tablet by mouth two times a day. 0 02/06/2019 02/24/2019 Discontinued (Error) PHARMACY TO DOSE FOR RENAL FUNCTION (until discontinued) 1 each (1 source) Start: 05-15-2019 1 each, Intravenous, Administer over 1 Days, DAILY PRN, Other, Starting [facility] 05/15/19 at 2334, Until Discontinued Radionuclide Tc-99m Sulfur Colloid 0.575 millicurie (1 source) Start: 10-28-2020 End: 10-28-2020 Radionuclide Tc-99m Sulfur Colloid 0.575 millicurie 50 ml sodium chloride 9 mg/ml injection (5 sources) Start: 05-18-2019 End: 05-18-2019 sodium chloride 0.9% bolus 0.9 % solution 1,000 mL Start: 05-16-2019 Sodium Chlorid e Flush (SALINE FLUSH) 0.9 % injection 1-10 mL Start: 05-15-2019 End: 05-16-2019 0.9% NaCl infusion Problems Active Problems Problem Classification Problem Date Documented Da te Episodic/Chronic Acquired foot deformities (1 source) Other hammer toe(s) (acquired), right foot; Translations: [Other hammer toe(s) (acquired), right foot] Onset: 01-06-2025 Chronic Acquired foot deformities (1 source) Other hammer toe(s) (acquired), left foot; Translations: [Other hammer toe(s) (acquired), left foot] Onset: 12-09-2024 Chronic Acquired foot deformities (1 source) Other deformities of toe(s) (acquired), right foot; Translations: [Other deformities of toe(s) (acquired), right foot] Onset: 01-06-2025 Episodic Acquired foot deformities (1 source) Other deformities of toe(s) (acquired), left foot; Translations: [Other deformities of toe(s) (acquired), left foot] Onset: 12-09-2024 Episodic Acute bronchitis (2 sources) Acute bronchitis; Translations: [Acute bronchitis, unspecified] 05-22-2022 Episodic Anxiety disorders (20 sources) Anxiety attack ; Translations: [Anxiety] Onset: 04-15-2013 Resolved: 04-25-2013 04-25-2013 Chronic Esophageal disorders (20 sources) Gastro-esophageal reflux disease with esophagitis; Translations: [Gastroesophageal reflux disease] Onset: 05-25-2011 Resolved: 11-28-2018 11-28-2018 Chronic Essential hypertension (20 sources) Essential hypertension; Translations: [Essential (primary) hypertension] Onset: 05-25-2011 09-01-2015 Chronic Fluid and electrolyte disorders (3 sources) Hypokalemia; Translations: [Hypokalemia] Episodic Intestinal obstruction without hernia (2 sources) Small bowel obstruction; Translations: [Unspecified intestinal obstruction, unspecified as to partial versus complete obstruction] 05-25-2021 Episodic Nonmalignant breast conditions (1 source) Breasts asymmetrical; Translations: [Breast asymmetry] Chronic Nonmalignant breast conditions (3 sources) Breast lump; Translations: [Unspecified lump in unspecified breast] Episodic Nutritional deficiencies (1 source) Vitamin D deficiency, unspecified; Translations: [Vitamin D deficiency, unspecified] Onset: 06-09-2024 Chronic Other circulatory disease (20 sources) Raynaud's phenomenon ; Translations: [Raynaud's syndrome without gangrene] Onset: 2017 2017 Chronic Other circulatory disease (1 source) Feeling of lump in throat; Translations: [Globus sensation] Episodic Other circulatory disease (1 source) H/O: hypertension; Translations: [Personal history of other diseases of the circulatory system] 08-11-2023 Episodic Other ear and sense organ disorders (1 source) Bilateral tinnitus; Translations: [Tinnitus, bilateral] 06-12-2023 Episodic Other ear and sense organ disorders (2 sources) Impacted cerumen; Translations: [Impacted cerumen, bilateral] 02-25-2021 Episodic Other gastrointestinal disorders (1 source) Swollen abdomen; Translations: [Abdominal distension] Episodic Other gastrointestinal disorders (1 source) Alteration in bowel elimination; Translations: [Change in bowel habits] Episodic Other lower respiratory disease (4 sources) Cough; Translations: [Cough] 03-10-2021 Episodic Other lower respiratory disease (1 source) Nodule of lung; Translations: [Solitary pulmonary nodule] Episodic Other nervous system disorders (1 source) Paresthesia of skin; Translations: [Paresthesia of skin] Onset: 11-30-2023 Episodic Other non-traumatic joint disorders (2 sources) Shoulder pain; Translations: [Pain in unspecified shoulder] 08-05-2020 Episodic Other nutritional; endocrine; and metabolic disorders (20 sources) Body mass index 25-29 - overweight; Translations: [Overweight (BMI 25.0-29.9)] Onset: 08-15-2018 08-15-2018 Chronic Residual codes; unclassified (20 sources) Obstructive sleep apnea syndrome; Translations: [Obstructive sleep apnea (adult) (pediatric)] Onset: 09-07-2016 09-07-2016 Chronic Residual codes; unclassified (2 sources) Postmenopausal state; Translations: [Asymptomatic menopausal state] Episodic Spondylosis; intervertebral disc disorders; other back problems (5 sources) Backache; Translations: [Dorsalgia, unspecified] Onset: 08-16-2023 08-11-2023 Episodic Sprains and strains (2 sources) Shoulder strain; Translations: [Strain of unspecified muscle, fascia and tendon at shoulder and upper arm level, right arm, initial encounter] 08-05-2020 Episodic Unclassified (7 sources) History of hernia repair; Translations: [History of ventral hernia repair] Onset: 07-10-2019 07-10-2019 Unclassified (1 source) Post-Op Onset: 01-26-2025 Viral infection (2 sources) Disease caused by 2019-nCoV; Translations: [COVID-19] 03-10-2021 Episodic Past or Other Problems Problem Classification Problem Date Documented Da te Episodic/Chronic Abdominal hernia (20 sources) Sliding hiatus hernia ; Translations: [Ventral incisional hernia] Onset: 05-27-2013 09-01-2014 Episodic Abdominal pain (20 sources) Epigastric pain; Translations: [Abdominal pain] Onset: 05-15-2019 Resolved: 07-10-2019 05-17-2019 Episodic Administrative/social admission (20 sources) Stress at work; Translations: [Other occupational circumstances or maladjustment] Onset: 04-15-2013 Resolved: 06-17-2013 06-17-2013 Episodic Biliary tract disease (20 sources) Biliary calculus; Translations: [Common bile duct calculus] Onset: 03-17-2019 Resolved: 07-10-2019 03-17-2019 Episodic Cardiac dysrhythmias (20 sources) Palpitations; Translations: [Palpitations] Onset: 04-15-2013 Resolved: 04-25-2013 04-25-2013 Episodic Esophageal disorders (20 sources) Lesion of esophagus; Translations: [Esophageal stenosis] Onset: 05-27-2013 09-01-2014 Episodic Hypertension with complications and secondary hypertension (20 sources) Hypertensive emergency; Translations: [Hypertensive emergency] Onset: 04-15-2013 Resolved: 04-25-2013 04-25-2013 Chronic Malaise and fatigue (3 sources) Fatigue; Translations: [Other fatigue] Onset: 06-09-2024 08-05-2020 Episodic Nausea and vomiting (18 sources) Nausea; Translations: [Nausea] Onset: 07-15-2020 07-15-2020 Episodic Nonspecific chest pain (20 sources) Chest pain; Translations: [Chest discomfort] Onset: 04-15-2013 Resolved: 06-17-2013 06-17-2013 Episodic Open wounds of extremities (3 sources) Laceration of left index finger; Translations: [Laceration without foreign body of left index finger without damage to nail, initial encounter] Onset: 06-25-2023 06-20-2023 Episodic Other connective tissue disease (20 sources) Fibromyalgia; Translations: [Fibromyalgia] Onset: 05-25-2011 05-15-2021 Episodic Other connective tissue disease (2 sources) Hematoma; Translations: [Hematoma] Episodic Other gastrointestinal disorders (20 sources) Swallowing painful; Translations: [Dysphagia, unspecified] Onset: 05-27-2013 Resolved: 06-17-2013 06-17-2013 Episodic Other gastrointestinal disorders (20 sources) Dysphagia; Translations: [Dysphagia, unspecified] Onset: 09-01-2014 Resolved: 11-27-2014 11-27-2014 Episodic Other gastrointestinal disorders (20 sources) Constipation; Translations: [Constipation, unspecified] Onset: 02-21-2019 02-21-2019 Episodic Other gastrointestinal disorders (7 sources) History of Espinoza's esophagus; Translations: [Personal history of other diseases of the digestive system] Onset: 07-27-2022 07-27-2022 Episodic Other nutritional; endocrine; and metabolic disorders (17 sources) Body mass index 25-29 - overweight; Translations: [Overweight] Onset: 08-15-2018 08-15-2018 Episodic Other screening for suspected conditions (not mental disorders or infectious disease) (9 sources) Mammography abnormal; Translations: [Patient encounter status] Onset: 06-09-2024 Episodic Other upper respiratory infections (20 sources) Pharyngitis; Translations: [Acute pharyngitis, unspecified] Onset: 04-26-2012 Resolved: 11-15-2012 11-15-2012 Episodic Residual codes; unclassified (20 sources) Family history of cancer; Translations: [Family history of malignant neoplasm, unspecified] Onset: 12-18-2012 12-27-2012 Episodic Residual codes; unclassified (8 sources) History of cholecystectomy; Translations: [S/P cholecystectomy] Onset: 07-10-2019 07-10-2019 Episodic Residual codes; unclassified (17 sources) History of hernia repair; Translations: [Other specified postprocedural states] Onset: 07-10-2019 07-10-2019 Episodic Unclassified (20 sources) Patient encounter status; Translations: [Preventative health care] Onset: 02-14-2018 Resolved: 05-20-2019 02-14-2018 Results Test Name Value Interpretation Reference Range Facility XR FOOT RIGHT 2 VIEWon 01-19 XR FOOT RIGHT 2 VIEW Exam: XR Foot RT 2 View IMPRESSION: 1. AP lateral 2 views weightbearing right foot. History present illness status post first MTP arthrodesis, Francis second metatarsal osteotomy, digital arthrodesis 2 through 5 right foot. Impression: Well aligned forefoot internal fixations intact bony union occurring at all digits foreshorten second metatarsal with internal fixation healing second metatarsal osteotomy. Assessment: Healing digital arthrodesis, healing first MTP arthrodesis. Healing second metatarsal Francis osteotomy. Normal [facility] SURGICAL PROCEDUREon 01-06-2025 [facility] SURGICAL PROCEDURE See operative report for results of this exam. FIRST METATARSOPHALANGEAL JOINT ARTHRODESIS, RIGHT LOWER EXTREMITY , FRANCIS OSTEOTOMY, SECOND METATARSAL, RIGHT LOWER EXTREMITY , HAMMERTOE CORRECTION, SECOND DIGIT, THIRD DIGIT, AND FOURTH DIGIT, RIGHT LOWER EXTREMITY , fluoro time 6.12 secs, 4 images sent including dose summary [facility] XR FOOT LEFT 2 VIEWon 2024 XR FOOT LEFT 2 VIEW Exam: XR Foot LT 2 V iew IMPRESSION: 1. AP lateral 2 views weightbearing left foot. History present illness status post long-term bunionectomy with severe first MTP pain. Impression: Subchondral sclerosing joint space narrowing first MTP previous internal fixations intact without motion or migration. Hammertoe contracture second digit with medial deviation elongated second metatarsal. Hammertoe contracture third digit without dislocation left foot. 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 AP lateral 2 views weightbearing right foot. History of present illness increasing first MTP pain right foot. Impression: Previous internal fixation first metatarsal head severe subchondral sclerosing joint space narrowing first metatarsal phalange joint elongated second metatarsal hammertoe contractures noted 2nd and 3rd digits right foot. 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 Comment on above: Performed By: #### 4 [id number] #### [address] ABSOLUTE IMMATURE GRANULOCYTES 0.0 x10*3/uL Normal 0.0-0.1 [facility] Comment on above: Performed By: #### 4 [id number] #### [address] ABSOLUTE LYMPH 1.8 x10*3/uL Normal 1.2-3.3 [facility] Comment on above: Performed By: #### 4 [id number] #### [address] ABSOLUTE MONO 0.5 x10*3/uL Normal 0.2-0.6 [facility] Comment on above: Performed By: #### 4 [id number] #### [address] ABSOLUTE NEUTROPHIL 3.3 x10*3/uL Normal 2.4-6.6 [facility] Comment on above: Performed By: #### 4 [id number] #### [place] [address] [place] Basophils/100 WBC (Bld) 0.9 % Normal [facility] Comment on above: Performed By: #### 4 [id number] #### [address] Eosinophils/100 WBC (Bld) 1.9 % Normal [facility] Comment on above: Performed By: #### 4 [id number] #### [address] Erythrocyte distribution width (RBC) [Ratio] 13.8 % Normal 11.5-14.5 [facility] Comment on above: Performed By: #### 4 [id number] #### [address] Hematocrit (Bld) [Volume fraction] 43.8 % Normal 33.6-46.8 [facility] Comment on above: Performed By: #### 4 [id number] #### [address] Hemoglobin (Bld) [Mass/Vol] 13.9 g/dL Normal 11.7-15.8 [facility] Comment on above: Performed By: #### 4 [id number] #### [address] Immature granulocytes/100 WBC (Bld) 0.4 % Normal [facility] Comment on above: Performed By: #### 4 [id number] #### [address] Lymphocytes/100 WBC (Bld) 30.7 % Normal [facility] Comment on above: Performed By: #### 4 [id number] #### [address] MCH (RBC) [Entitic mass] 30.3 pg Normal 27.5-32.3 [facility] Comment on above: Performed By: #### 4 [id number] #### [address] MCHC (RBC) [Mass/Vol] 31.7 g/dL Normal 30.7-35.5 [facility] Comment on above: Performed By: #### 4 [id number] #### [address] MCV (RBC) [Entitic vol] 95.6 fL Normal 80.2-99 [facility] Comment on above: Performed By: #### 4 [id number] #### [address] Monocytes/100 WBC (Bld) 8.6 % Normal [facility] Comment on above: Performed By: #### 4 [id number] #### [address] Neutrophils/100 WBC (Bld) 57.5 % Normal [facility] Comment on above: Performed By: #### 4 [id number] #### [address] NUCLEATED RED BLOOD CELLS AUTO 0.0 % Normal 0.0-1.0 [facility] Comment on above: Performed By: #### 4 [id number] #### [address] PLATELET COUNT 347 x10*3/uL Normal 150-400 [facility] Comment on above: Performed By: #### 4 [id number] #### [address] RED BLOOD CELL COUNT 4.58 x10*6/uL Normal 3.60-5.20 [facility] Comment on above: Performed By: #### 4 [id number] #### [address] WHITE BLOOD CELLS 5.7 x10*3/uL Normal 4.3-10.3 [facility] Comment on above: Performed By: #### 4 [id number] #### [address] COMPREHENSIVE METABOLIC PANE Alonso 06-09-2024 Albumin [Mass/Vol] 4.6 g/dL Normal 3.5-5.0 [facility] Comment on above: Performed By: #### 4 [id number], [id number], [id number], [id number] #### [address] ALK PHOS 96 U/L Normal 24-126 [facility] Comment on above: Performed By: #### 4 [id number], [id number], [id number], [id number] #### [address] ALT [Catalytic activity/Vol] 21 U/L Normal 4-35 [facility] Comment on above: Performed By: #### 4 [id number], [id number], [id number], [id number] #### [address] [address] AST [Catalytic activity/Vol] 32 U/L Normal 3-47 [facility] Comment on above: Performed By: #### 4 [id number], [id number], [id number], [id number] #### [address] Bilirubin [Mass/Vol] 0.6 mg/dL Normal 0.2-1.6 [facility] Comment on above: Performed By: #### 4 [id number], [id number], [id number], [id number] #### [address] [address] Calcium [Mass/Vol] 9.7 mg/dL Normal 8.4-10.4 [facility] Comment on above: Performed By: #### 4 [id number], [id number], [id number], [id number] #### [address] Chloride [Moles/Vol] 102 mmol/L Normal 96-109 [facility] Comment on above: Performed By: #### 4 [id number], [id number], [id number], [id number] #### [address] [address] CO2 [Moles/Vol] 27 mmol/L Normal 22-30 [facility] Comment on above: Performed By: #### 4 [id number], 30807003, [id number], [id number] #### [address] [address] Creatinine [Mass/Vol] 0.73 mg/dL Normal 0.52-1.04 [facility] Comment on above: Performed By: #### 4 [id number], [id number], 06885719, [id number] #### [address] [address] GLOMERULAR FILTRATION RATE ML/MIN/1.73 SQ M.PREDICTED 90.8 mL/min/1.73m*2 Normal >=60.0 [facility] Comment on above: Result Comment: eGFR calculation based on the Chronic Kidney Disease Epidemiology Collaboration (CKD-EPI) equation refit without adjustment for race. Categories in Chronic Kidney Disease (CKD) Category: GFR(mL/min/1.73m^2) Interpretation: G1* 90 or greater Normal or high G2* 60-89 Mild decrease G3a 45-59 Mild to moderate decrease G3b 30-44 Moderate to severe decrease G4 15-29 Severe decrease G5 14 or less Kidney failure *G1&G2: In the absence of evidence of kidney damage, neither GFR category G1 nor G2 fulfill the criteria for CKD Kidney Int Suppl.2013;3:1-150 Performed By: #### 4 [id number], [id number], [id number], [id number] #### [address] Glucose [Mass/Vol] 93 mg/dL Normal 65-100 [facility] Comment on above: Performed By: #### 4 [id number], [id number], 87053101, [id number] #### [address] Potassium [Moles/Vol] 4.3 mmol/L Normal 3.6-5.1 [facility] Comment on above: Performed By: #### 4 [id number], [id number], 43987874, 35600574 #### [address] Protein [Mass/Vol] 7.5 g/dL Normal 6.3-8.2 [facility] Comment on above: Performed By: #### 4 [id number], 28193874, 23552443, 14576019 #### [address] [address] [facility] Sodium [Moles/Vol] 140 mmol/L Normal 135-147 [facility] Comment on above: Performed By: #### 4 [id number], 69117208, 99236696, 73660066 #### [address] [address] [facility] Urea nitrogen [Mass/Vol] 13 mg/dL Normal 8-26 [facility] Comment on above: Performed By: #### 4 [id number], 94601116, 29252529, [id number] #### [place] [id number] [place] DBT Breast - bilateral scree macn 06-09-2024 No mammographic evidence for malignancy. BI-RADS 1 - Negative, no evidence of malignancy. Normal interval followup in 12 months. OVERALL ASSESSMENT- NEGATIVE A letter of notification will be sent to the patient regarding the results. Category C: The breasts are heterogeneously dense which may obscure small masses. ACR BI-RADS 1: Negative Routine Screening in 1 Year [facility] [address] [place] [address] [facility] MAMMO BILAT SCREENIN G DIGITAL W/JACQUELINE CLINICAL HISTORY: Encounter for screening mammogram for malignant neoplasm of breast: COMPARISON: 10/05/2022, 04/07/2021, 03/01/2020, 08/15/2018. TECHNIQUE: 2-D and 3-D views. FINDINGS: The breasts are heterogeneously dense. There is no asymmetry, mass, or suspicious grouping of microcalcifications. Dennis Wade MD - 06/09/2024 MAMMO BILAT SCREENING DIGITAL W/JACQUELINE CLINICAL HISTORY: Encounter for screening mammogram for malignant neoplasm of breast: COMPARISON: 10/05/2022, 04/07/2021, 03/01/2020, 08/15/2018. TECHNIQUE: 2-D and 3-D views. FINDINGS: The breasts are heterogeneously dense. There is no asymmetry, mass, or suspicious grouping of microcalcifications. IMPRESSION: No mammographic evidence for malignancy. BI-RADS 1 - Negative, no evidence of malignancy. Normal interval followup in 12 months. OVERALL ASSESSMENT- NEGATIVE A letter of notification will be sent to the patient regarding the results. Category C: The breasts are heterogeneously dense which may obscure small masses. ACR BI-RADS 1: Negative Routine Screening in 1 Year [facility] [address] [place] [id number] Heidi Shaulis Radiology Study observation (narrative) Heidi Shaulis DBT Breast - bilateral scree silviagOrdered By: Dennis Jean on 06-09-2024 [facility] Work Phone: LIPID PANELon 06-09-2024 Cholesterol [Mass/Vol] 176 mg/dL Normal <=200 [facility] Comment on above: Performed By: #### 4 [id number], [id number], [id number], [id number] #### [address] Cholesterol in HDL [Mass/Vol] 96.0 mg/dL High 40.0-59.9 [facility] Comment on above: Performed By: #### 4 [id number], [id number], 75832337, [id number] #### [address] LDL CHOLESTEROL CALCULATED 58 mg/dL Normal <=100 [facility] Comment on above: Result Comment: LDL REFERENCE RANGE: Optimal <100 mg/dl Near Optimal 100-129 mg/dL Borderline High 130-159 mg/dL High 160-189 mg/dL Very High >=190 mg/dL Performed By: #### 4 [id number], [id number], 41936182, [id number] #### [address] Triglyceride [Mass/Vol] 109 mg/dL Normal <=150 [facility] Comment on above: Performed By: #### 4 [id number], 88244683, 92982155, 69549921 #### [address] VLDL CHOLESTEROL JENNIFER 22 mg/dL Normal <=41 [facility] Comment on above: Performed By: #### 4 [id number], [id number], 12125338, 16609896 #### [address] MAMMO BILAT SCREENING DIGITA L W/TOMOon 06-09-2024 MAMMO BILAT SCREENING DIGITAL W/JACQUELINE This is a summary report. The complete report is available in the patient's medical record. If you cannot access the medical record, please contact the sending organization for a detailed fax or copy. MAMMO BILAT SCREENING DIGITAL W/JACQUELINE CLINICAL HISTORY: Encounter for screening mammogram for malignant neoplasm of breast: COMPARISON: 10/05/2022, 04/07/2021, 03/01/2020, 08/15/2018. TECHNIQUE: 2-D and 3-D views. FINDINGS: The breasts are heterogeneously dense. There is no asymmetry, mass, or suspicious grouping of microcalcifications. IMPRESSION: No mammographic evidence for malignancy. BI-RADS 1 - Negative, no evidence of malignancy. Normal interval followup in 12 months. OVERALL ASSESSMENT- NEGATIVE A letter of notification will be sent to the patient regarding the results. Category C: The breasts are heterogeneously dense which may obscure small masses. 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 TSHon 06-09-2024 TSH 0.545 uIU/mL Normal 0.465-4.680 [facility] Comment on above: Performed By: #### 4 [id number], [id number], [id number], [id number] #### [facility] [address] [place] [address] VITAMIN D 25 HYDROXYon 06-09 VITAMIN D 25 HYDROXY 38.7 ng/mL Normal [facility] Comment on above: Result Comment: Refe rence Range: Deficiency: <20 ng/mL Insufficiency: 21-29 ng/mL Optimal Level: >=30 ng/mL Possible Toxicity: >80 ng/mL 80 ng/mL is the lowest reported level associated with toxicity in patients without primary hyperthyroidism who have normal renal function. Performed By: #### 4 [id number], [id number], [id number], [id number] #### [facility] [address] NCS and/or EMG Patienton NCS and/or EMG Patient [facility] Pulmonary Services/Neurology [address] [place], [place] [address] [address] MR#: [id number] Acct: [id number] Name: RICHY BOWENS Rep #: [id number] : 1960 63 From: Wilman Duggan MD Referring Dr: Isaac Ohara DO Status: REG CLI Location: PSN Date: 11/05/23 Sex: F C NCS and/or EMG Patient Report Ordering Doctor: Isaac Ohara DATE OF SERVICE: 11/05/23 Clinical Summary: 63 year old female patient with history of symptoms of left upper extremity pain, discomfort, and tingling. A left upper extremity EMG/NCS was performed. Nerve Conduction Studies Summary: The left ulnar-FDI CMAP distal latency was prolonged with reduced amplitude. Otherwise, nerve conduction studies performed in the left upper extremity were normal. Needle Examination Summary: Needle examination of select muscles of the left upper extremity was normal. Impression: There is no electrodiagnostic evidence of a left cervical radiculopathy or nerve entrapment such as carpal tunnel syndrome or ulnar neuropathy. Multi Select Codes Neurology Neurology Interp Codes: 34349-02 Musc test done w/n test comp (interp) (1) and 68928-51 Nrv cndj test 7-8 studies (interp) 11/05/23 1251 Date Wilman Duggan MD CC: Dr. Wilman Duggan MD; Dr. Stacie Patel MD; Dr. Isaac Ohara DO Date Dictated: 11/05/23 1238 Date Transcribed: 11/05/23 1238 Excellence Leader: Signed Normal [facility] Stress Reporton 09-14-2023 Stress Report [facility] Cardiovascular Services [address] [place] [address] MR#: [id number] Acct: [id number] Name: RICHY BOWENS Rep #: [id number] : 1960 63 From: Lauro Gramajo MD Primary Care: Dr. Stacie Patel MD Status: REG CLI Referring Dr: Stacie Patel MD Sex: F C Stress Test Report Exercise stress test. 63-year-old lady with a history of chest pain Stress protocol: Resting EKG demonstrates normal sinus rhythm with a rate of 83 bpm resting blood pressure is 138/82 mmHg. The patient exercised according to the regular Lucien protocol for a total duration of 6 minutes attaining a maximum heart rate of 148 bpm which was 95 beats of maximum predicted heart rate; the maximum workload was 7 metabolic equivalents. At rest there were no ST or T wave changes noted to suggest ischemia and at peak exercise upsloping ST changes only were noted which did not meet the criteria for ischemia. No clinical angina was noted the test was terminated due to the target heart rate being achieved/fatigue. Patient however started the test with chest discomfort which persisted throughout. The peak blood pressure was 172/88 mmHg. Rate-pressure product was 24,000. Conclusion: Stress test with no EKG criteria for ischemia at a moderate workload. Persistent chest pain of unknown significance. 09/14/23 1641 Date Lauro Gramajo MD CC: Dr. Stacie Patel MD Date Dictated: 09/14/23 163 Date Transcribed: 09/14/231638 Excellence Leader: CO Signed Normal [facility] Surgery Visit Reporton 09-12 Surgery Visit Report [facility] [address] [place] [address]. [address] [place] [address] OFFICE VISIT Date of Service: 09/13/23 MR#: [id number] Acct: [id number] Name: RICHY BOWENS Rep #: [id number] : 1960 Provider: Dr. Fredy morris MD Age/Sex: 63/F Location: [facility] Status: Signed Intake Vital Signs 08/29/23 12:55 09/13/23 13:00 Height 5 ft 6 in Weight: 161 lb 4 oz 164 lb BMI 26.0 BP 122/60 H 154/72 H Blood Pressure Location Lt brachial Rt brachial Position Sitting Sitting Respiration 16 17 Pulse 102 H 88 Pulse Source Monitor Monitor Temp 98.2 F Temp Source Temporal Pulse Oximetry (%) 97 99 Oxygen Delivery Method room air room air Intake Visit Reasons: Ventral Hernia Chief Complaint: ventral hernia Is patient in pain?: No Allergies Gadolinium-MRI Contrast Medium Allergy (Verified 09/13/23 13:01) unknown Iodinated Contrast Media (CT) Allergy (Verified 09/13/23 13:01) Anaphylaxis Medications ???Medication ???Instructions ???Recorded ???Confirmed ???Type multivitamin 1 tab PO DAILY 08/05/20 09/13/23 History duloxetine 30 mg capsule,delayed 30 mg PO BID 03/14/21 09/13/23 History release esomeprazole magnesium 40 mg 40 mg PO DAILY 03/14/21 09/13/23 History capsule,delayed release estradiol 0.5 mg tablet 0.5 mg PO DAILY 03/14/21 09/13/23 History losartan 100 mg tablet 100 mg PO DAILY 03/14/21 09/13/23 History nifedipine 30 mg tablet,extended 60 mg PO DAILY 03/14/21 09/13/23 History release 24 hr potassium chloride 10 mEq 20 meq PO DAILY 03/14/21 09/13/23 History capsule,extended release ketoconazole 2 % topical cream 1 applic topical DAILY #15 grams 08/29/23 09/13/23 Rx medproxy PO 08/29/23 09/13/23 History prednisone 20 mg tablet 40 mg (2 x 20 mg) PO DAILY #10 tabs 08/29/23 09/13/23 Rx PFSH Medical History (Updated 09/13/23 @ 13:00 by Sarah Fregoso) Tinnitus Hearing problem Gallstone Bone fracture Acute bronchitis, unspecified Acute pharyngitis, unspecified Acute sinusitis, unspecified Barretts esophagus COVID-19 Right shoulder strain Hernia Fibromyalgia Hypertension Surgical History H/O exploratory laparotomy H/O foot surgery H/O repair of rotator cuff H/O hernia repair delivery delivered Hx of cholecystectomy History of tonsillectomy Family History Father Cancer pancreatic/liver Hypertension Alcohol abuse Mother Cancer lymphoma/leukemia Hypertension Alcohol abuse Brother Cancer leukemia Sister Cancer thyroid/renal CVA (cerebral vascular accident) Thyroid disorder Grandmother Colon cancer Hypertension Grandfather Cancer prostate Hypertension Alcohol abuse Social History household members: spouse and other details: mother in law housing: house current occupational status: retired 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 She says she has multiple lumps that appeared on her abdominal wall and then disappear.She denies nausea or vomiting. She has had multiple surgeries. This area is not causing her any pain. ROS General General: Yes weight change and fatigue; No appetite, colon cancer, breast cancer or weakness HEENT HEENT: No difficulty swallowing, eye injury, eye surgery, swollen glands or hoarseness Endo Endocrine: No thyroid disease, diabetes mellitus, thyroid cancer, Hair loss, heat intolerance or cold intolerance Skin Skin: Yes rash; No changing moles Musc Musculoskeletal: Yes back problems; No arthritis, rheumatoid arthritis, gout or joint pain Cardio Cardiovascular: Yes high blood pressure; No murmur, pacemaker, heart disease, atrial fibrillation, heart attack, heart stent, palpitations, shortness of breat with exertion or chest pain Psych Psychiatric: Yes anxiety; No depression or hearing voices Resp Respiratory: No shortness of breath, Yes sleep apnea, No cough, No COPD, No asthma, No emphysema and No wheezing Gastro Gastrointestinal: No abdominal pain, No nausea or vomiting, No diarrhea, No constipation, No blood in stool, Yes acid reflux, No hemorrhoids, No ulcers, No gallbladder problem and No black,tarry stools Osmel Hematologic: No blood thinners, No blood disorders, No bleeding, No anemia and No blood (more content not included)... Normal [facility] CBC W/Diff, Automatedon 08-01 Absolute Lymph 2.24 X10 3/uL Normal 0.83-4.51 [facility] Comment on above: Performed By: #### L 100.0100, L101.9900, L501.4020, L500.4050, L501.3620 #### [facility] [address] [place], [address] Absolute Neut 3.7 X10 3/uL Normal 2.0-7.7 [facility] Comment on above: Performed By: #### L 100.0100, L101.9900, L501.4020, L500.4050, L501.3620 #### [facility] [address] [place], [address] Basophils/100 WBC (Bld) 0.4 % Normal 0-1 [facility] Comment on above: Performed By: #### L 100.0100, L101.9900, L501.4020, L500.4050, L501.3620 #### [facility] [address] [place], [address] Eosinophils/100 WBC (Bld) 2.5 % Normal 0-5 [facility] Comment on above: Performed By: #### L 100.0100, L101.9900, L501.4020, L500.4050, L501.3620 #### [facility] [address] [place], [address] Erythrocyte distribution width (RBC) [Ratio] 13.7 % Normal 11.6-14.6 [facility] Comment on above: Performed By: #### L 100.0100, L101.9900, L501.4020, L500.4050, L501.3620 #### [facility] [address] [place], [address] Hematocrit (Bld) [Volume fraction] 41.6 % Normal 37-47 [facility] Comment on above: Performed By: #### L 100.0100, L101.9900, L501.4020, L500.4050, L501.3620 #### [facility] [address] [place], [address] Hemoglobin (Bld) [Mass/Vol] 13.6 g/dL Normal 12.0-15.0 [facility] Comment on above: Performed By: #### L 100.0100, L101.9900, L501.4020, L500.4050, L501.3620 #### [facility] [address] [place], [address] IG% 0.100 Normal 0.0-0.9 [facility] Comment on above: Result Comment: IG% - Immature Granulocytes (promyelocytes, myelocytes and metamyelocytes) > 1% indicates that a LEFT SHIFT is Present. Performed By: #### L 100.0100, L101.9900, L501.4020, L500.4050, L501.3620 #### [facility] [address] [place], [address] Lymphocytes/100 WBC (Bld) 33.4 % Normal 19-41 [facility] Comment on above: Performed By: #### L 100.0100, L101.9900, L501.4020, L500.4050, L501.3620 #### [facility] [address] [place], [address] MCH (RBC) [Entitic mass] 30.6 pg Normal 27.0-32.0 [facility] Comment on above: Performed By: #### L 100.0100, L101.9900, L501.4020, L500.4050, L501.3620 #### [facility] [address] [place], [address] MCHC (RBC) [Mass/Vol] 32.7 g/dL Normal 32-36 [facility] Comment on above: Performed By: #### L 100.0100, L101.9900, L501.4020, L500.4050, L501.3620 #### [facility] [address] [place], [address] MCV (RBC) [Entitic vol] 93.5 fL Normal 81-99 [facility] Comment on above: Performed By: #### L 100.0100, L101.9900, L501.4020, L500.4050, L501.3620 #### [facility] [address] [place], [address] Monocytes/100 WBC (Bld) 9.1 % Normal 0-10 [facility] Comment on above: Performed By: #### L 100.0100, L101.9900, L501.4020, L500.4050, L501.3620 #### [facility] [address] [place], [address] Neutrophils/100 WBC (Bld) 54.5 % Normal 47-70 [facility] Comment on above: Performed By: #### L 100.0100, L101.9900, L501.4020, L500.4050, L501.3620 #### [facility] [address] [place], [address] Nucleated RBC (Bld) [#/Vol] 0 10*3/uL Normal 0-5 [facility] Comment on above: Performed By: #### L 100.0100, L101.9900, L501.4020, L500.4050, L501.3620 #### [facility] [address] [place], [address] Platelet mean volume (Bld) [Entitic vol] 10.3 fL Normal 6.2-12.0 [facility] Comment on above: Performed By: #### L 100.0100, L101.9900, L501.4020, L500.4050, L501.3620 #### [facility] [address] [place], [address] Platelets (Bld) [#/Vol] 282 10*3/uL Normal 150-450 [facility] Comment on above: Performed By: #### L 100.0100, L101.9900, L501.4020, L500.4050, L501.3620 #### [facility] [address] [place], [address] RBC (Bld) [#/Vol] 4.45 10*6/uL Normal 4.2-5.4 [facility] Comment on above: Performed By: #### L 100.0100, L101.9900, L501.4020, L500.4050, L501.3620 #### [facility] [address] [place], [address] RDW SD 46.8 fl High 35.1-43.9 [facility] Comment on above: Performed By: #### L 100.0100, L101.9900, L501.4020, L500.4050, L501.3620 #### [facility] [address] [place], [address] WBC (Bld) [#/Vol] 6.7 10*3/uL Normal 4.4-11.0 [facility] Comment on above: Performed By: #### L 100.0100, L101.9900, L501.4020, L500.4050, L501.3620 #### [facility] [address] [place], [address] CPK Total, Creatine Kinaseon 08-29-2023 CPK TOTAL 83 U/L Normal 26-192 [facility] Comment on above: Order Comment: 1 Performed By: #### L 100.0100, L101.9900, L501.4020, L500.4050, L501.3620 ####[facility] [address] [place], [address] Comprehensive Metabolic Prof ilon 08-29-2023 Albumin [Mass/Vol] 3.8 g/dL Normal 3.2-5.0 [facility] Comment on above: Order Comment: 1 Performed By: #### L 100.0100, L101.9900, L501.4020, L500.4050, L501.3620 #### [facility] [address] [place], [address] Albumin/Globulin [Mass ratio] 1.0 {ratio} Normal 0.9-2.4 [facility] Comment on above: Order Comment: 1 Performed By: #### L 100.0100, L101.9900, L501.4020, L500.4050, L501.3620 #### [facility] [address] [place], [address] ALK P 80 U/L Normal 45-117 [facility] Comment on above: Order Comment: 1 Performed By: #### L 100.0100, L101.9900, L501.4020, L500.4050, L501.3620 #### [facility] [address] [place], [address] ALT [Catalytic activity/Vol] 22 U/L Normal 13-56 [facility] Comment on above: Order Comment: 1 Performed By: #### L 100.0100, L101.9900, L501.4020, L500.4050, L501.3620 #### [facility] [address] [place], [address] AST [Catalytic activity/Vol] 20 U/L Normal 15-37 [facility] Comment on above: Order Comment: 1 Performed By: #### L 100.0100, L101.9900, L501.4020, L500.4050, L501.3620 #### [facility] [address] [place], [address] Bilirubin [Mass/Vol] 0.40 mg/dL Normal 0.20-1.00 [facility] Comment on above: Order Comment: 1 Result Comment: For patients on eltrombopag therapy, use of Dimension [place] TBIL is not recommended. Performed By: #### L 100.0100, L101.9900, L501.4020, L500.4050, L501.3620 #### [facility] [address] [place], [address] BUN/CRE 13.4 RATIO Normal 10-20 [facility] Comment on above: Order Comment: 1 Performed By: #### L 100.0100, L101.9900, L501.4020, L500.4050, L501.3620 #### [facility] [address] [place], [address] CA,Total 9.1 mg/dL Normal 8.5-10.1 [facility] Comment on above: Order Comment: 1 Performed By: #### L 100.0100, L101.9900, L501.4020, L500.4050, L501.3620 #### [facility] [address] [place], [address] Chloride [Moles/Vol] 108 mmol/L High 98-107 [facility] Comment on above: Order Comment: 1 Performed By: #### L 100.0100, L101.9900, L501.4020, L500.4050, L501.3620 #### [facility] [address] [place], [address] CO2 [Moles/Vol] 24.0 mmol/L Normal 21.0-32.0 [facility] Comment on above: Order Comment: 1 Performed By: #### L 100.0100, L101.9900, L501.4020, L500.4050, L501.3620 #### [facility] [address] [place], [address] Creatinine [Mass/Vol] 0.82 mg/dL Normal 0.55-1.02 [facility] Comment on above: Order Comment: 1 Result Comment: The validity of the calculated GFR GFRAA in patients over 70 years has not been determined. Clinical correlation is essential. Performed By: #### L 100.0100, L101.9900, L501.4020, L500.4050, L501.3620 #### [facility] [address] [place], [address] EST GFR - AA 90 mL/min Normal >60 [facility] Comment on above: Order Comment: 1 Result Comment: Afri can [place] GFR Calc Performed By: #### L 100.0100, L101.9900, L501.4020, L500.4050, L501.3620 #### [facility] [address] [place], [address] GAP 7 Normal 5-15 [facility] Comment on above: Order Comment: 1 Performed By: #### L 100.0100, L101.9900, L501.4020, L500.4050, L501.3620 #### [facility] [address] [place], [address] GFR/1.73 sq M.predicted among non-blacks MDRD (S/P/Bld) [Vol rate/Area] 75 mL/min/{1.73_m2} Normal >60 [facility] Comment on above: Order Comment: 1 Result Comment: Non- GFR Calc Performed By: #### L 100.0100, L101.9900, L501.4020, L500.4050, L501.3620 #### [facility] [address] [place], [address] Globulin (S) [Mass/Vol] 3.8 g/dL Normal 2.2-4.2 [facility] Comment on above: Order Comment: 1 Performed By: #### L 100.0100, L101.9900, L501.4020, L500.4050, L501.3620 #### [facility] [address] [place], [address] Glucose [Mass/Vol] 100 mg/dL Normal 74-106 [facility] Comment on above: Order Comment: 1 Result Comment: Fast ing Glucose result from 100 to 125 mg/dL suggests IMPAIRED HOMEOSTASIS per A.D.A. criteria. Performed By: #### L 100.0100, L101.9900, L501.4020, L500.4050, L501.3620 #### [facility] [address] [place], [address] Potassium [Moles/Vol] 3.9 mmol/L Normal 3.5-5.1 [facility] Comment on above: Order Comment: 1 Performed By: #### L 100.0100, L101.9900, L501.4020, L500.4050, L501.3620 #### [facility] [address] [place], [address] Sodium [Moles/Vol] 139 mmol/L Normal 136-145 [facility] Comment on above: Order Comment: 1 Performed By: #### L 100.0100, L101.9900, L501.4020, L500.4050, L501.3620 #### [facility] [address] [place], [address] T PROT 7.6 g/dL Normal 6.4-8.2 [facility] Comment on above: Order Comment: 1 Performed By: #### L 100.0100, L101.9900, L501.4020, L500.4050, L501.3620 #### [facility] [address] [place], [address] Urea nitrogen [Mass/Vol] 11 mg/dL Normal 7-18 [facility] Comment on above: Order Comment: 1 Performed By: #### L 100.0100, L101.9900, L501.4020, L500.4050, L501.3620 #### [facility] [address] [place], [address] Erythrocyte Sed Rateon 08-28 SED RATE 9 mm/hr Normal 0-30 [facility] Comment on above: Performed By: #### L 100.0100, L101.9900, L501.4020, L500.4050, L501.3620 ####[facility] [id number] [place], [address] L501.4020on 08-29-2023 TROPONIN-I HS 11 pg/mL Normal 3.0-54.0 [facility] Comment on above: Order Comment: 1 Result Comment: Lonnie stewart Note: New Test Units and Gender Specific Reference Ranges. For more information see Policy Stat Procedure [place] High Sensitivity Troponin (TNIH) and attachments. Performed By: #### L 100.0100, L101.9900, L501.4020, L500.4050, L501.3620 ####[facility] [address] [place], [address] Internal Medicine Office Vis iton 08-28-2023 Internal Medicine Office Visit [facility] [address] [place] [address] [place] [address] OFFICE VISIT Date of Service: 08/29/23 MR#: [id number] Acct: [id number] Name: RICHY BOWENS Rep #: [id number] : 1960 Provider: Dr. 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: No Accompanied by: Self Is patient in pain?: No Allergies Gadolinium-MRI Contrast Medium Allergy (Verified 08/29/23 12:47) unknown Iodinated Contrast Media (CT) Allergy (Verified 08/29/23 12:47) Anaphylaxis Medications ???Medication ???Instructions ???Recorded ???Confirmed ???Type multivitamin 1 tab PO DAILY 08/05/20 08/29/23 History duloxetine 30 mg capsule,delayed 30 mg PO BID 03/14/21 08/29/23 History release esomeprazole magnesium 40 mg 40 mg PO DAILY 03/14/21 08/29/23 History capsule,delayed release estradiol 0.5 mg tablet 0.5 mg PO DAILY 03/14/21 08/29/23 History losartan 100 mg tablet 100 mg PO DAILY 03/14/21 08/29/23 History nifedipine 30 mg tablet,extended 60 mg PO DAILY 03/14/21 08/29/23 History release 24 hr potassium chloride 10 mEq 20 meq PO DAILY 03/14/21 08/29/23 History capsule,extended release ketoconazole 2 % topical cream 1 applic topical DAILY #15 grams 08/29/23 08/29/23 Rx medproxy PO 08/29/23 08/29/23 History PFSH Medical History (Updated 08/29/23 @ 13:[address] Stacie Patel MD) Tinnitus Hearing problem Gallstone Bone fracture Acute bronchitis, unspecified Acute pharyngitis, unspecified Acute sinusitis, unspecified Barretts esophagus COVID-19 Right shoulder strain Hernia Fibromyalgia Hypertension Surgical History (Updated 08/29/23 @ 13:[address] Stacie Patel MD) H/O exploratory laparotomy H/O foot surgery H/O repair of rotator cuff H/O hernia repair delivery delivered Hx of cholecystectomy History of tonsillectomy Family History (Updated 08/29/23 @ 13:[address] Stacie Patel MD) Father Cancer pancreatic/liver Hypertension Mother Cancer lymphoma/leukemia Hypertension Brother Cancer leukemia Sister Cancer thyroid/renal Grandmother Colon cancer Hypertension Grandfather Cancer prostate Hypertension Social History (Updated 08/29/23 @ 13:[address] 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 She was seeing Dr. Florian and last saw them about in December. She is due for some routine blood work and is up to date on her screening. She believes she will be due for a colonoscopy next year. She does want her pneumonia and shingles vaccines. She doesn't smoke and doesn't need any refills. She reports she is eating somewhat healthy and staying active. The patient has been on blood pressure medications for about 15-20 years. She doesn't check her blood pressure at home regularly. She reports since chcf, it has been well controlled. She is taking her medication as prescribed without problems. She does try to monitor her salt intake. The patient was diagnosed with fibromyalgia by her cloth cutting inspector several years ago. The patient had tried different medications, but has been on the cymbalta for a while now. She reports she has tried to wean it previously, but wasn't successful. The patient reports once her medication kicks in, she will feel better. She states, however, she continues to have chronic problems with pain including her legs, back and hands. She had an autoimmune work up previously which was negative. She rates her pain 3/10 currently. She has never seen pain management, but would consider going. The patient was seen in the ED on 08/10 with complaints of chest and back pain that started 3 days prior to presentation. The patient was noted to be hypertensive. Work up did not show any significant findings. She was treated with pain medications and was discharged home with m (more content not included)... Normal [facility] CT Abdomen and Pelvis [facility] traston 08-15-2023 1. Large quantity of stool in the left colon but no evidence for bowel obstruction or colitis. 2. No acute inflammatory process identified in the abdomen or pelvis. 3. Calcified nodule in the superior uterus compatible with fibroid. 4. Nonobstructing stones lower pole each kidney. No ureteral stone or obstruction. FELIPE EXAMINATION: CT ABDO MEN PELVIS WITHOUT IV CONTRAST, 08/15/2023 10:05 AM EDT HISTORY: abdominal pain COMPARISON: 05/18/2019. TECHNIQUE: CT scan of the abdomen and pelvis was performed without IV contrast. CT dose reduction technique was used, including Automated Exposure Control. FINDINGS: LUNG BASES: No nodule, infiltrate or effusion. ABDOMINAL FINDINGS: There are calcified granulomata in the liver and spleen and in multiple cynthia hepatis lymph nodes. No enlargement of the liver or spleen. No pancreatitis. No pancreatic or biliary ductal dilatation. Prior cholecystectomy. Adrenal glands are normal. Nonobstructing 1 to 2 mm stones are seen in the lower pole of each kidney. No ureteral stones or obstruction. The IVC and aorta have normal caliber. No adenopathy in the retroperitoneum or mesentery. No dilatation of the small or large bowel. There is extensive stool in the colon but no evidence for colitis. The stool is most prominent in the left colon and rectosigmoid. The appendix is normal. No free air. PELVIC FINDINGS: Calcified nodule at the uterine fundus suggests a fibroid. Otherwise uterus and ovaries appear age appropriate. Nondistended urinary bladder. No herniation of bowel into the inguinal regions. No enlarged lymph nodes in the pelvic or inguinal regions. Dennis Wade MD - 08/15/2023 EXAMINATION: CT ABDOMEN PELVIS WITHOUT IV CONTRAST, 08/15/2023 10:05 AM EDT HISTORY: abdominal pain COMPARISON: 05/18/2019. TECHNIQUE: CT scan of the abdomen and pelvis was performed without IV contrast. CT dose reduction technique was used, including Automated Exposure Control. FINDINGS: LUNG BASES: No nodule, infiltrate or effusion. ABDOMINAL FINDINGS: There are calcified granulomata in the liver and spleen and in multiple cynthia hepatis lymph nodes. No enlargement of the liver or spleen. No pancreatitis. No pancreatic or biliary ductal dilatation. Prior cholecystectomy. Adrenal glands are normal. Nonobstructing 1 to 2 mm stones are seen in the lower pole of each kidney. No ureteral stones or obstruction. The IVC and aorta have normal caliber. No adenopathy in the retroperitoneum or mesentery. No dilatation of the small or large bowel. There is extensive stool in the colon but no evidence for colitis. The stool is most prominent in the left colon and rectosigmoid. The appendix is normal. No free air. PELVIC FINDINGS: Calcified nodule at the uterine fundus suggests a fibroid. Otherwise uterus and ovaries appear age appropriate. Nondistended urinary bladder. No herniation of bowel into the inguinal regions. No enlarged lymph nodes in the pelvic or inguinal regions. IMPRESSION: 1. Large quantity of stool in the left colon but no evidence for bowel obstruction or colitis. 2. No acute inflammatory process identified in the abdomen or pelvis. 3. Calcified nodule in the superior uterus compatible with fibroid. 4. Nonobstructing stones lower pole each kidney. No ureteral stone or obstruction. [facility] Radiology Study observation (narrative) [facility] CT Abdomen and Pelvis WO con trastOrdered By: Dennis Jean on 08-15-2023 [facility] Work Phone: Absolute lymphocyte countOrd ered By: Martin Khanna on 08-11-2023 Lymphocytes Auto (Unsp spec) [#/Vol] 2.92 10*3/uL 0.83-4.51 [facility] Automated lymphocyte count a s percentage of total leukocytesOrdered By: Martin Khanna on 08-11-2023 Lymphocytes/100 WBC Auto (Unsp spec) 38.0 % 19-41 [facility] Basic Metabolic Profile (BMP )on 08-11-2023 BUN/CRE 10.0 RATIO Normal 10-20 [facility] Comment on above: Order Comment: 1 Y Performed By: #### L 100.0100, L500.2500, L501.5425 #### [facility] [address] [place], [address] CA,Total 9.4 mg/dL Normal 8.5-10.1 [facility] Comment on above: Order Comment: 1 Y Performed By: #### L 100.0100, L500.2500, L501.5425 #### [facility] [address] [place], [address] Chloride [Moles/Vol] 109 mmol/L High 98-107 [facility] Comment on above: Order Comment: 1 Y Performed By: #### L 100.0100, L500.2500, L501.5425 #### [facility] [address] [place], [address] CO2 [Moles/Vol] 28.0 mmol/L Normal 21.0-32.0 [facility] Comment on above: Order Comment: 1 Y Performed By: #### L 100.0100, L500.2500, L501.5425 #### [facility] [address] [place], [address] Creatinine [Mass/Vol] 0.90 mg/dL Normal 0.55-1.02 [facility] Comment on above: Order Comment: 1 Y Result Comment: The validity of the calculated GFR GFRAA in patients over 70 years has not been determined. Clinical correlation is essential. Performed By: #### L 100.0100, L500.2500, L501.5425 #### [facility] [address] [place], [address] ECRCL 63.56 ml/min Normal [facility] Comment on above: Order Comment: 1 Y Performed By: #### L 100.0100, L500.2500, L501.5425 #### [facility] [address] [place], [address] EST GFR - AA 81 mL/min Normal >60 [facility] Comment on above: Order Comment: 1 Y Result Comment: Afri can [place]ian GFR Calc Performed By: #### L 100.0100, L500.2500, L501.5425 #### [facility] [address] [place], [address] GAP 5 Normal 5-15 [facility] Comment on above: Order Comment: 1 Y Performed By: #### L 100.0100, L500.2500, L501.5425 #### [facility] [address] [place], [address] GFR/1.73 sq M.predicted among non-blacks MDRD (S/P/Bld) [Vol rate/Area] 67 mL/min/{1.73_m2} Normal >60 [facility] Comment on above: Order Comment: 1 Y Result Comment: Non- GFR Calc Performed By: #### L 100.0100, L500.2500, L501.5425 #### [facility] [address] [place], [address] Glucose [Mass/Vol] 119 mg/dL High 74-106 [facility] Comment on above: Order Comment: 1 Y Result Comment: Fast ing Glucose result from 100 to 125 mg/dL suggests IMPAIRED HOMEOSTASIS per A.D.A. criteria. Performed By: #### L 100.0100, L500.2500, L501.5425 #### [facility] [address] [place], [address] Potassium [Moles/Vol] 3.3 mmol/L Low 3.5-5.1 [facility] Comment on above: Order Comment: 1 Y Performed By: #### L 100.0100, L500.2500, L501.5425 #### [facility] [address] [place], [address] Sodium [Moles/Vol] 142 mmol/L Normal 136-145 [facility] Comment on above: Order Comment: 1 Y Performed By: #### L 100.0100, L500.2500, L501.5425 #### [facility] [address] [place], [address] Urea nitrogen [Mass/Vol] 9 mg/dL Normal 7-18 [facility] Comment on above: Order Comment: 1 Y Performed By: #### L 100.0100, L500.2500, L501.5425 #### [facility] [address] [place], [address] Basophil percentageOrdered B y: Martin Khanna on 08-11-2023 Basophils/100 WBC (Bld) 0.8 % 0-1 [facility] Chloride [Moles/Vol] 109 mmol/L 98-107 [facility] Eosinophils/100 WBC (Bld) 2.5 % 0-5 [facility] Glucose [Mass/Vol] 119 mg/dL 74-106 [facility] Comment on above: Fasting Glucose resu lt from 100 to 125 mg/dL suggests IMPAIRED HOMEOSTASIS per A.D.A. criteria. Hemoglobin (Bld) [Mass/Vol] 13.6 g/dL 12.0-15.0 [facility] Monocytes/100 WBC (Bld) 9.0 % 0-10 [facility] Neutrophils (Bld) [#/Vol] 3.8 10*3/uL 2.0-7.7 [facility] Neutrophils/100 WBC (Bld) 49.6 % 47-70 [facility] Potassium [Moles/Vol] 3.3 mmol/L 3.5-5.1 [facility] Sodium [Moles/Vol] 142 mmol/L 136-145 [facility] WBC (Bld) [#/Vol] 7.7 10*3/uL 4.4-11.0 [facility] CBC W/Diff, Automatedon 07-31 Absolute Lymph 2.92 X10 3/uL Normal 0.83-4.51 [facility] Comment on above: Performed By: #### L 100.0100, L500.2500, L501.5425 #### [facility] [address] [place], [address] Absolute Neut 3.8 X10 3/uL Normal 2.0-7.7 [facility] Comment on above: Performed By: #### L 100.0100, L500.2500, L501.5425 #### [facility] [address] [place], [address] Basophils/100 WBC (Bld) 0.8 % Normal 0-1 [facility] Comment on above: Performed By: #### L 100.0100, L500.2500, L501.5425 #### [facility] [address] [place], [address] Eosinophils/100 WBC (Bld) 2.5 % Normal 0-5 [facility] Comment on above: Performed By: #### L 100.0100, L500.2500, L501.5425 #### [facility] [address] [place], [address] Erythrocyte distribution width (RBC) [Ratio] 13.4 % Normal 11.6-14.6 [facility] Comment on above: Performed By: #### L 100.0100, L500.2500, L501.5425 #### [facility] [address] [place], [address] Hematocrit (Bld) [Volume fraction] 41.6 % Normal 37-47 [facility] Comment on above: Performed By: #### L 100.0100, L500.2500, L501.5425 #### [facility] [address] [place], [address] Hemoglobin (Bld) [Mass/Vol] 13.6 g/dL Normal 12.0-15.0 [facility] Comment on above: Performed By: #### L 100.0100, L500.2500, L501.5425 #### [facility] [address] [place], [address] IG% 0.100 Normal 0.0-0.9 [facility] Comment on above: Result Comment: IG% - Immature Granulocytes (promyelocytes, myelocytes and metamyelocytes) > 1% indicates that a LEFT SHIFT is Present. Performed By: #### L 100.0100, L500.2500, L501.5425 #### [facility] [address] [place], [address] Lymphocytes/100 WBC (Bld) 38.0 % Normal 19-41 [facility] Comment on above: Performed By: #### L 100.0100, L500.2500, L501.5425 #### [facility] [address] [place], [address] MCH (RBC) [Entitic mass] 30.4 pg Normal 27.0-32.0 [facility] Comment on above: Performed By: #### L 100.0100, L500.2500, L501.5425 #### [facility] [address] [place], [address] MCHC (RBC) [Mass/Vol] 32.7 g/dL Normal 32-36 [facility] Comment on above: Performed By: #### L 100.0100, L500.2500, L501.5425 #### [facility] [address] [place], [address] MCV (RBC) [Entitic vol] 92.9 fL Normal 81-99 [facility] Comment on above: Performed By: #### L 100.0100, L500.2500, L501.5425 #### [facility] [address] [place], [address] Monocytes/100 WBC (Bld) 9.0 % Normal 0-10 [facility] Comment on above: Performed By: #### L 100.0100, L500.2500, L501.5425 #### [facility] [address] [place], [address] Neutrophils/100 WBC (Bld) 49.6 % Normal 47-70 [facility] Comment on above: Performed By: #### L 100.0100, L500.2500, L501.5425 #### [facility] [address] [place], [address] Nucleated RBC (Bld) [#/Vol] 0 10*3/uL Normal 0-5 [facility] Comment on above: Performed By: #### L 100.0100, L500.2500, L501.5425 #### [facility] [address] [place], [address] Platelet mean volume (Bld) [Entitic vol] 12.3 fL High 6.2-12.0 [facility] Comment on above: Performed By: #### L 100.0100, L500.2500, L501.5425 #### [facility] [address] [place], [address] Platelets (Bld) [#/Vol] 184 10*3/uL Normal 150-450 [facility] Comment on above: Performed By: #### L 100.0100, L500.2500, L501.5425 #### [facility] [address] [place], [address] RBC (Bld) [#/Vol] 4.48 10*6/uL Normal 4.2-5.4 [facility] Comment on above: Performed By: #### L 100.0100, L500.2500, L501.5425 #### [facility] [address] [place], [address] RDW SD 45.4 fl High 35.1-43.9 [facility] Comment on above: Performed By: #### L 100.0100, L500.2500, L501.5425 #### [facility] [address] [place], [address] WBC (Bld) [#/Vol] 7.7 10*3/uL Normal 4.4-11.0 [facility] Comment on above: Performed By: #### L 100.0100, L500.2500, L501.5425 #### [facility] [address] [place], [address] Chest 1 View (Portable)on Chest 1 View (Portable) [facility] Services [address] [place] [address] Chest 1 View (Portable) MR#: [id number] Acct: [id number] Name: ELIZABETH,RICHY D Rep #: [id number] : 1960 F 63 From: Broderick Salcido DO PCP: OUT OF TOWN DOCTOR Status: REG ER Study: Chest 1 View (Portable) Date of Exam: 08/11/23 Exam# [id number] Ordering [place]: [place] [id number] INDICATION: chest pain EXAMINATION/TECHNIQUE: X-RAY - XR Chest 1 View COMPARISON: FINDINGS: LINES/DEVICES: None. LUNGS: No consolidation, edema or effusion. No pneumothorax. MEDIASTINUM AND CARDIOVASCULAR STRUCTURES: Cardiac silhouette not enlarged. Central airways and mediastinal contour are unremarkable. BONES AND SOFT TISSUES: Unremarkable. RAD/Chest 1 View (Portable) IMPRESSION: No radiographic evidence of acute cardiopulmonary disease. Electronically Signed: Broderick Salcido DO at 18:27 EDT , CC: Dr. Martin Khanna MD Excellence Leader: Signed Normal [facility] D-Dimer Quantitative (DVT/PE )on 08-11-2023 D-DIMER QUANT 0.39 FEU/ug/m Normal 0.27-0.49 [facility] Comment on above: Result Comment: NORM AL D-Dimer level (<0.50) indicates no DVT or PE. Performed By: #### L 300.8000 #### [facility] [address] [facility] [place] [place], [address] Determination of erythrocyte mean corpuscular volume (MCV)Ordered By: Martin Khanna on 08-11-2023 MCV (RBC) [Entitic vol] 92.9 fL 81-99 [facility] Emergency Department Summary on 08-11-2023 Emergency Department Summary [facility] Medical Records Department [address] [place] [address] Emergency Department Summary 08/11/23 MR#: [id number] Acct: [id number] Name: RICHY BOWENS Rep #: [id number] : 1960 63 From: Martin Khanna MD PCP: OUT OF TOWN DOCTOR Status:DEP ER Location: ED HPI History of Present Illness Chief Complaint: Chest Pain Informant: patient and spouse/S.O. Onset/Context/Timing Onset: Days Activity at onset: gradual Timing: Continuous Quality: Positive for Dull and Pain Location: Left Chest and - (Started in the left back below her left shoulder blade. Feels like a knot.) Current Severity: Moderate Maximum Severity: Moderate Worsened By: Nothing Relieved By: Nothing Associated Symptoms: Negative for Nausea, Vomiting, Diaphoresis, Dyspnea, Cough, Fever, Lightheadedness, Acid Reflux or Palpitations Narrative Narrative: 67-year-old female no history of cardiac disease. History of hypertension. States that 3 days ago she got she describes a knot in her left back below her shoulder blade. Then she got it in her left chest yesterday and today. Denies any associated symptoms. No shortness of breath, nor any diaphoresis or nausea. No recent exertional chest pain or exertional dyspnea. Recently she and her and planting heck and working in the yard. She was caring pots of heck excetra. Said it feels like a knot in her back. No history of DVT or PE or risk factors. No leg pain or swelling. No travel, surgery or immobilization. Prior Similar Symptoms: No Recent Illness/Hospitalization : No CVD Risk Factors: Positive for Hypertension; Negative for Diabetes, Hypercholesterolemia, Family History 1' PE Risk Factors: Negative for Recent Travel/Surgery, Recent Immobilization, Prior DVT or PE, Cancer or OCP + Smoking + >/=35 TAD Risk Factors: Negative for Marfan's Syndrome [facility] Medical History Acute bronchitis, unspecified Acute pharyngitis, unspecified Acute sinusitis, unspecified Barretts esophagus delivery delivered COVID-19 Fibromyalgia Hernia Hypertension Impacted cerumen of both ears Right shoulder strain Home Medications multivitamin 1 tab PO DAILY 08/05/20 [History Last Taken Unknown] duloxetine 30 mg capsule,delayed release 30 mg PO BID 03/14/21 [History Last Taken Unknown] esomeprazole magnesium 40 mg capsule,delayed release 40 mg PO DAILY 03/14/21 [History Last Taken Unknown] estradiol 0.5 mg tablet 0.5 mg PO DAILY 03/14/21 [History Last Taken Unknown] losartan 100 mg tablet 100 mg PO DAILY 03/14/21 [History Last Taken Unknown] medroxyprogesterone 2.5 mg tablet 2.5 mg PO DAILY 03/14/21 [History Last Taken Unknown] nifedipine 30 mg tablet,extended release 24 hr 60 mg PO DAILY 03/14/21 [History Last Taken Unknown] potassium chloride 10 mEq capsule,extended release 20 meq PO DAILY 03/14/21 [History Last Taken Unknown] benzonatate 200 mg capsule 200 mg PO TID PRN cough #14 caps 05/22/22 [Rx Last Taken Unknown] benzonatate 200 mg capsule 200 mg PO TID PRN cough #14 caps 02/26/23 [Rx Last Taken Unknown] methylprednisolone 4 mg tablets in a dose pack (Medrol (Bladimir)) See Rx Instructions PO PER PKG DIR #21 tabs 02/26/23 [Rx Last Taken Unknown] metaxalone 800 mg tablet 800 mg PO TID #20 tabs 08/11/23 [Rx Last Taken Unknown] Allergy/AdvReac Type Severity Reaction Status Date / Time Gadolinium-MRI Contrast Allergy unknown Verified 08/11/23 16:55 Medium Iodinated Contrast Media [CT] Allergy Anaphylaxis Verified 08/11/23 16:55 Surgical History H/O exploratory thoracotomy History of tonsillectomy Hx of cholecystectomy Social History Smoking Status: Never smoker alcohol intake: current alcohol intake frequency: holidays/special occasions only ROS ROS ED ROS Narrative Denies recent illness. Back and chest pain. Review of Systems ROS Unobtainable: Denies due to encephalopathy Constitutional Constitutional ED: Denies chills or fever(s) Eyes Eyes: Reports none ENT ENT ED: Denies ear pain, rhinorrhea or sore throat Cardiovascular Cardiovascular: Reports chest pain; Denies orthopnea, palpitations, paroxysmal nocturnal dyspnea or racing heartbeat Respiratory/Chest Respiratory/Chest: Denies cough, dyspnea, dyspnea on exertion, orthopnea or paroxysmal nocturnal dyspnea Gastrointestinal Gastrointestinal: Denies abdominal pain, constipation, diarrhea, melena, nausea or vomiting Genitourinary Genitourinary ED: Denies dysuria or hematuria Musculoskeletal Musculoskeletal: Reports back pain; Denies arthralgias Integumentary Denies abscess or Abrasions Neurologic Neurologic: Denies headache(s) Psychiatric Psychiatric: Denies anxiety or depression (more content not included)... Normal [facility] Erythrocyte distribution wid th ratioOrdered By: Martin Khanna on 08-11-2023 Erythrocyte distribution width (RBC) [Ratio] 13.4 % 11.6-14.6 [facility] Erythrocyte distribution wid th standard deviationOrdered By: Martin Khanna on 08-11-2023 Erythrocyte distribution width (RBC) [Entitic vol] 45.4 fL 35.1-43.9 [facility] Hematocrit Auto (Bld) [Volum e fraction]Ordered By: Martin Khanna on 08-11-2023 Hematocrit (Bld) [Volume fraction] 41.6 % 37-47 [facility] Immature granulocytes/100 WB C Auto (Bld)Ordered By: Martin Khanna on 08-11-2023 Immature granulocytes/100 WBC (Bld) 0.100 % 0.0-0.9 [facility] Comment on above: IG% - Immature Granu locytes (promyelocytes, myelocytes and metamyelocytes) > 1% indicates that a LEFT SHIFT is Present. L501.4020on 08-11-2023 TROPONIN-I HS 11 pg/mL Normal 3.0-54.0 [facility] Comment on above: Result Comment: Plea se Note: New Test Units and Gender Specific Reference Ranges. For more information see Policy Stat Procedure [place] High Sensitivity Troponin (TNIH) and attachments. Performed By: #### L 501.4020 #### [facility] [address] [facility] [place], [place], [address] L501.5425on 08-11-2023 TROPONIN-I HS 12 pg/mL Normal 3.0-54.0 [facility] Comment on above: Order Comment: 1 Y Result Comment: Plekatia se Note: New Test Units and Gender Specific Reference Ranges. For more information see Policy Stat Procedure [place] High Sensitivity Troponin (TNIH) and attachments. Performed By: #### L 100.0100, L500.2500, L501.5425 #### [facility] [address] [facility] [place], [place], [address] Laboratory - Chemistry and C hemistry - challengeOrdered By: Martin Khanna on 08-11-2023 CO2 [Moles/Vol] 28.0 mmol/L 21.0-32.0 [facility] Urea nitrogen/Creatinine [Mass ratio] 10.0 mg/mg 10-20 [facility] Laboratory - Hematology and Cell countsOrdered By: Martin Khanna on 08-11-2023 MCH (RBC) [Entitic mass] 30.4 pg 27.0-32.0 [facility] MCHC (RBC) [Mass/Vol] 32.7 g/dL 32-36 [facility] Nucleated RBC/100 WBC (Bld) [Ratio] 0 % 0-5 [facility] Platelet mean volume (Bld) [Entitic vol] 12.3 fL 6.2-12.0 [facility] Platelets (Bld) [#/Vol] 184 10*3/uL 150-450 [facility] No Panel InformationOrdered By: Martin Khanna on 08-11-2023 D-Dimer Quantitative (PE/DVT) 0.39 FEU/ug/m 0.27-0.49 [facility] Comment on above: NORMAL D-Dimer level (<0.50) indicates no DVT or PE. Troponin I High Sensitivity 11 pg/mL 3.0-54.0 [facility] Comment on above: Please Note: New Charley t Units and Gender Specific Reference Ranges. For more information see Policy Stat Procedure [place] High Sensitivity Troponin (TNIH) and attachments. Estimated Creatinine Clearance Calc 63.56 ml/min [facility] Estimated GFR (MDRD) Amer 81 mL/min >60 [facility] Comment on above: GFR Calc Estimated GFR (MDRD) Non-Af Amer 67 mL/min >60 [facility] Comment on above: Non- GFR Calc RBC Auto (Bld) [#/Vol]Ordere d By: Martin Khanna on 08-11-2023 RBC (Bld) [#/Vol] 4.48 10*6/uL 4.2-5.4 [facility] Serum or plasma calcium cisco urement (mass/volume)Ordered By: Martin Khanna on 08-11-2023 Calcium [Mass/Vol] 9.4 mg/dL 8.5-10.1 [facility] Serum or plasma creatinine m easurement (mass/volume)Ordered By: Martin Khanna on 08-11-2023 Creatinine [Mass/Vol] 0.90 mg/dL 0.55-1.02 [facility] Comment on above: The validity of the calculated GFR & GFRAA in patients over 70 years has not been determined. Clinical correlation is essential. Serum or plasma urea nitroge n measurement (mass/volume)Ordered By: Martin Khanna on 08-11-2023 Urea nitrogen [Mass/Vol] 9 mg/dL 7-18 [facility] Thin prep Papanicolaou smear with manual screeningOrdered By: Martin Khanna on 08-11-2023 Thin prep Papanicolaou smear with manual screening 5 5-15 [facility] Emergency Department Summary on 06-20-2023 Emergency Department Summary [facility] Medical Records Department [address] [place] [address] Emergency Department Summary 06/20/23 MR#: [id number] Acct: [id number] Name: RICHY BOWENS Rep #: [id number] : 1960 63 From: Michaela Fine DO PCP: RISHI FLORIAN Status:REG ER Location: ED HPI History of Present Illness Chief Complaint: Laceration Informant: patient Narrative Narrative: Patient is a 63-year-old [id number] female presenting with laceration to her left index finger. Patient states she was using a roll sheeting cutter to cut material for a quilt when it excellently veered and cut her left index finger. She states that there is a flap and part of it is quite deep. She is not on any blood thinners. Denies associate numbness or tingling. No other complaints or concerns at this time. Tetanus Immunization: <5 years [facility] Medical History Acute bronchitis, unspecified Acute pharyngitis, unspecified Acute sinusitis, unspecified Barretts esophagus delivery delivered COVID-19 Fibromyalgia Hernia Hypertension Impacted cerumen of both ears Right shoulder strain Home Medications multivitamin 1 tab PO DAILY 08/05/20 [History Last Taken Unknown] duloxetine 30 mg capsule,delayed release 30 mg PO BID 03/14/21 [History Last Taken Unknown] esomeprazole magnesium 40 mg capsule,delayed release 40 mg PO DAILY 03/14/21 [History Last Taken Unknown] estradiol 0.5 mg tablet 0.5 mg PO DAILY 03/14/21 [History Last Taken Unknown] losartan 100 mg tablet 100 mg PO DAILY 03/14/21 [History Last Taken Unknown] medroxyprogesterone 2.5 mg tablet 2.5 mg PO DAILY 03/14/21 [History Last Taken Unknown] nifedipine 30 mg tablet,extended release 24 hr 60 mg PO DAILY 03/14/21 [History Last Taken Unknown] potassium chloride 10 mEq capsule,extended release 20 meq PO DAILY 03/14/21 [History Last Taken Unknown] benzonatate 200 mg capsule 200 mg PO TID PRN cough #14 caps 05/22/22 [Rx Last Taken Unknown] benzonatate 200 mg capsule 200 mg PO TID PRN cough #14 caps 02/26/23 [Rx Last Taken Unknown] methylprednisolone 4 mg tablets in a dose pack (Medrol (Bladimir)) See Rx Instructions PO PER PKG DIR #21 tabs 02/26/23 [Rx Last Taken Unknown] Allergy/AdvReac Type Severity Reaction Status Date / Time Gadolinium-MRI Contrast Allergy unknown Verified 06/20/23 21:56 Medium Iodinated Contrast Media [CT] Allergy Anaphylaxis Verified 06/20/23 21:56 Surgical History H/O exploratory thoracotomy History of tonsillectomy Hx of cholecystectomy Social History Smoking Status: Never smoker alcohol intake: current alcohol intake frequency: holidays/special occasions only ROS ROS ED Constitutional Constitutional ED: Denies chills or fever(s) Gastrointestinal Gastrointestinal: Denies nausea or vomiting Integumentary Reports other Details: Left index finger laceration Neurologic Neurologic: Denies paresthesias or weakness Hematologic/Lymphatic Hematologic/Lymphatic: Denies easy bleeding or easy bruising EXAM Physical Exam Const Vital Signs: 06/20/23 21:53 Temperature 98 F Temperature Source Temporal Pulse Rate 108 H Respiratory Rate 16 Blood Pressure 145/90 H Blood Pressure Mean 108 Pulse Ox 97 Oxygen Delivery Method Room Air Positive well nourished and well developed General Appearance ED: well developed and NAD Chest Wall inspection of chest normal Resp normal respiratory effort Extremity normal to inspection and full ROM General Extremety ED: Negative for edema General Extremity: Negative for edema Neuro oriented x3, moves all extremities, no focal motor deficits and no sensory deficits noted Sensorium / Orientation: alert Psych mental status grossly normal Skin Skin Narrative: 1.5 cm curvilinear full-thickness laceration to the ulnar aspect of the distal left index finger. No active bleeding at this time. Wound edges are well-approximated. No involvement of the nailbed or the nail. MDM MDM MDM Narrative Medical decision making narrative: Patient evaluated for laceration to her left index finger. Tetanus is up-to-date. Bleeding is controlled. Does not appear to have any underlying tendinous injury based on physical exam. Laceration repair is performed. See procedure note. Patient given wound care instructions. Does not require antibiotics based on mechanism of injury. Procedures Lacerations left finger : Length: 0.79 in Depth: Sub Q Shape: Flap Prep: Jim-Samantha Laceration repair: Local and Nerve block (1% lido ) Irrigated (ml): 500 Number of Sutures/[place]: 4 Suture Information: Ethilon, Simple and 4-0 Discharge Plan Triage Chief Complain (more content not included)... Normal [facility] [id number] 0 06-12-2023 [facility] No Panel Informationon 02-26 POC SARS CoV-2 Antigen Negative [facility] Visit Reporton 1 04-28-2022 Urgent Care Visit Report [facility] [address], [address] [place] [address] OFFICE VISIT Date of Service: 02/26/23 MR#: [id number] Acct: [id number] Name: RICHY BOWENS Rep #: [id number] : 1960 Provider: NINFA Flores Age/Sex: 62/F Location: [facility] [place] Status: Signed Intake Vital Signs 05/22/22 17:24 02/26/23 11:08 Height 5 ft 6 in 5 ft 6 in Weight: 158 lb BMI 25.4 BP 115/76 135/90 H Blood Pressure Location Lt brachial Lt brachial Position Sitting Sitting Respiration 16 16 Pulse 94 102 H Pulse Source Monitor Monitor Temp 98.0 F 97.8 F Temp Source Temporal Temporal Pulse Oximetry (%) 98 95 Oxygen Delivery Method room air room air Intake Visit Reasons: SORE THROAT, SENSISTIVE GLANDS, COUGH Chief Complaint: uri sx 1[employer] Grade Teacher Required: No Accompanied by: Self Is patient in pain?: No Allergies Gadolinium-MRI Contrast Medium Allergy (Verified 02/26/23 11:09) unknown Iodinated Contrast Media [CT] Allergy (Verified 02/26/23 11:09) Anaphylaxis Medications multivitamin 1 tab PO DAILY 08/05/20 [History Confirmed 02/26/23] duloxetine 30 mg capsule,delayed release 30 mg PO BID 03/14/21 [History Confirmed 02/26/23] esomeprazole magnesium 40 mg capsule,delayed release 40 mg PO DAILY 03/14/21 [History Confirmed 02/26/23] estradiol 0.5 mg tablet 0.5 mg PO DAILY 03/14/21 [History Confirmed 02/26/23] losartan 100 mg tablet 100 mg PO DAILY 03/14/21 [History Confirmed 02/26/23] medroxyprogesterone 2.5 mg tablet 2.5 mg PO DAILY 03/14/21 [History Confirmed 02/26/23] nifedipine 30 mg tablet,extended release 24 hr 60 mg PO DAILY 03/14/21 [History Confirmed 02/26/23] potassium chloride 10 mEq capsule,extended release 20 meq PO DAILY 03/14/21 [History Confirmed 02/26/23] benzonatate 200 mg capsule 200 mg PO TID PRN cough #14 caps 05/22/22 [Rx Confirmed 02/26/23] benzonatate 200 mg capsule 200 mg PO TID PRN cough #14 caps 02/26/23 [Rx Confirmed 02/26/23] methylprednisolone 4 mg tablets in a dose pack (Medrol (Bladimir)) See Rx Instructions PO PER PKG DIR #21 tabs 02/26/23 [Rx Confirmed 02/26/23] PFSH Medical History Acute bronchitis, unspecified Acute pharyngitis, unspecified Acute sinusitis, unspecified Barretts esophagus delivery delivered COVID-19 Fibromyalgia Hernia Hypertension Impacted cerumen of both ears Right shoulder strain Surgical History H/O exploratory thoracotomy History of tonsillectomy Hx of cholecystectomy Social History Smoking Status: Never smoker alcohol intake: current alcohol intake frequency: holidays/special occasions only HPI HPI Chief Complaint: uri sx Details: RICHY BOWENS, is a 62 F who presents to the office today for initial evaluation in the [facility] for approximately 4 day history of persistent fever, chills, cough, JARAMILLO, myalgias, fatigue, congest ion/ runny nose, nausea, and diarrhea. Patient notes no complaints of chest pain or shortness of breath or dyspnea on exertion. Nonsmoker. Spouse tested positive for COVID-19 earlier this morning she so states. No [id number] taken to assist. No other associated symptoms and no other alleviating/aggravating factors. ROS Const Constitutional: No other (As above) Exam Const General: cooperative, healthy appearing and no acute distress Orientation: alert, awake and oriented x3 HENMT Head: normal to inspection Ears: hearing grossly normal bilaterally, external ears normal, TM's normal bilaterally and EAC's normal Nose: external nose normal, nares normal, septum normal and clear nasal discharge Face and sinus: normal facial exam, sinuses nontender and face symmetric Mouth: oral mucosae normal, lip normal, tongue normal and oropharynx normal Throat: posterior oropharynx normal, tonsils normal, uvula midline and no postnasal drainage Eyes General: appearance normal, both eyes and all related structures Neck Neck: normal visual inspection, full ROM, no lymphadenopathy, no meningeal signs and supple Neck mass: No Thyroid: thyroid normal Lymphatic: no lymphadenopathy noted Chest Chest palpation inspection: normal inspection of the chest Resp Effort Inspection: normal respiratory effort, able to speak in complete sentences and cough Quality of cough: wet (nonproductive in office today) Auscultation: Bilateral: Clear to Auscultation Cardio Palpation: normal PMI Rate: tachycardic Rhythm: regular rhythm Heart Sounds: S1 normal, S2 normal, no gallops, no murmurs and no rubs Pulses: radial pulses present Skin General: no rashes or lesions noted Neuro General: patient alert, patient awake and patient oriented x3 Cognition: normal cognitio (more content not included)... Normal [facility] DBT Breast - bilateral scree danuta 10-05-2022 No mammographic evidence for malignancy. BI-RADS 1 - Negative, no evidence of malignancy. Normal interval followup in 12 months. OVERALL ASSESSMENT- NEGATIVE A letter of notification will be sent to the patient regarding the results. Category C: The breasts are heterogeneously dense which may obscure small masses. ACR BI-RADS 1: Negative Routine Screening in 1 Year [facility]EL[facility] MAMMO BILAT SCREENIN G DIGITAL W/JACQUELINE CLINICAL HISTORY: Encounter for screening mammogram for malignant neoplasm of breast: COMPARISON: 04/07/2021, 03/01/2020, 08/15/2018. TECHNIQUE: 2-D and 3-D views. FINDINGS: The breasts are heterogeneously dense. There is no asymmetry, mass, or suspicious grouping of microcalcifications. Dennis Wade MD - 10/05/2022 MAMMO BILAT SCREENING DIGITAL W/JACQUELINE CLINICAL HISTORY: Encounter for screening mammogram for malignant neoplasm of breast: COMPARISON: 04/07/2021, 03/01/2020, 08/15/2018. TECHNIQUE: 2-D and 3-D views. FINDINGS: The breasts are heterogeneously dense. There is no asymmetry, mass, or suspicious grouping of microcalcifications. IMPRESSION: No mammographic evidence for malignancy. BI-RADS 1 - Negative, no evidence of malignancy. Normal interval followup in 12 months. OVERALL ASSESSMENT- NEGATIVE A letter of notification will be sent to the patient regarding the results. Category C: The breasts are heterogeneously dense which may obscure small masses. ACR BI-RADS 1: Negative Routine Screening in 1 Year [facility] Radiology Study observation (narrative) [facility] DBT Breast - bilateral scree ningOrdered By: Dennis Jean on 10-05-2022 [facility] Work Phone: DXA Skeletal system Views fo r bone densityon 10-05-2022 1. Normal bone density. 2. No significant change in bone density measurements in the hips, compared to 03/01/2020. 3. 3% increase in bone density in the lumbar spine compared to the prior study which is considered significant. However, the lumbar spine is probably not an accurate indicator of the patient's bone density due to multilevel degenerative spondylosis with sclerosis and a scoliosis. FELIPE BONE DENSITOMETRY, 10/05/2022: CLINICAL HISTORY: 62-year-old post-menopausal female. TECHNIQUE: Using DEXA technique, bone mineral density analysis of the lumbar spine and both hips was performed. COMPARISON: 03/01/2020. FINDINGS: In the lumbar spine, there is a mild scoliosis and multilevel degenerative spondylosis with some associated sclerosis, thought to artifactually elevate bone density measurements in the lumbar spine. As a result, the lumbar spine is probably not an accurate indicator of the patient's bone density. At the L1, L2, and L4 levels, the total bone mineral density measures 1.148 g/sq cm which corresponds to a T-score of 1.0. This is a 3% increase from the prior study, which is thought to be significant. In the left hip, the total bone mineral density measures 0.986 g/sq cm which corresponds to a T-score of 0.4, not considered a significant change from the prior study, allowing for measurement error. In the left femoral neck, the bone mineral density measures 0.854 g/sq cm which corresponds to a T-score of 0.0, not significantly changed. In the right hip, the total bone mineral density measures 1.007 g/sq cm which corresponds to a T-score of 0.5. This is not a significant change from the prior study. In the right femoral neck, the bone mineral density measures 0.892 g/sq cm which corresponds to a T-score of 0.4. FELIPE Víctor Watson MD - 10/05/2022 BONE DENSITOMETRY, 10/05/2022: CLINICAL HISTORY: 62-year-old post-menopausal female. TECHNIQUE: Using DEXA technique, bone mineral density analysis of the lumbar spine and both hips was performed. COMPARISON: 03/01/2020. FINDINGS: In the lumbar spine, there is a mild scoliosis and multilevel degenerative spondylosis with some associated sclerosis, thought to artifactually elevate bone density measurements in the lumbar spine. As a result, the lumbar spine is probably not an accurate indicator of the patient's bone density. At the L1, L2, and L4 levels, the total bone mineral density measures 1.148 g/sq cm which corresponds to a T-score of 1.0. This is a 3% increase from the prior study, which is thought to be significant. In the left hip, the total bone mineral density measures 0.986 g/sq cm which corresponds to a T-score of 0.4, not considered a significant change from the prior study, allowing for measurement error. In the left femoral neck, the bone mineral density measures 0.854 g/sq cm which corresponds to a T-score of 0.0, not significantly changed. In the right hip, the total bone mineral density measures 1.007 g/sq cm which corresponds to a T-score of 0.5. This is not a significant change from the prior study. In the right femoral neck, the bone mineral density measures 0.892 g/sq cm which corresponds to a T-score of 0.4. IMPRESSION: 1. Normal bone density. 2. No significant change in bone density measurements in the hips, compared to 03/01/2020. 3. 3% increase in bone density in the lumbar spine compared to the prior study which is considered significant. However, the lumbar spine is probably not an accurate indicator of the patient's bone density due to multilevel degenerative spondylosis with sclerosis and a scoliosis. [facility] Radiology Study observation (narrative) [facility] DXA Skeletal system Views fo r bone densityOrdered By: Víctor Watson on 10-05-2022 [facility] Work Phone: XR Chest PA and Lateralon No acute cardiac or pulmonary findings. Thoracic spine radiographs show degenerative changes without evidence of acute fracture or osseous destructive lesion. FELIPE XR CHEST PA AND LATERAL, XR THORACIC SPINE 3 VIEWS (ROUTINE) CLINICAL: Epigastric pain: COMPARISON: No prior studies are available. TECHNIQUE: PA and lateral chest radiographs, and 3 view thoracic spine radiographs, were obtained. FINDINGS: Heart size and pulmonary vasculature are within normal limits. No airspace infiltrate, consolidation, effusion or pneumothorax. Osseous structures appear intact. Thoracic spine radiographs show no fracture or dislocation. Vertebral body height and AP alignment is preserved, with moderate lower thoracic vertebral endplate degenerative changes and a mild levoscoliosis centered in the upper lumbar spine. Pedicles appear symmetric and intact. Mild vertebral endplate degenerative changes also noted in the lower cervical spine. [facility] Lars Zuniga MD - 03/09/2022 XR CHEST PA AND LATERAL, XR THORACIC SPINE 3 VIEWS (ROUTINE) CLINICAL: Epigastric pain: COMPARISON: No prior studies are available. TECHNIQUE: PA and lateral chest radiographs, and 3 view thoracic spine radiographs, were obtained. FINDINGS: Heart size and pulmonary vasculature are within normal limits. No airspace infiltrate, consolidation, effusion or pneumothorax. Osseous structures appear intact. Thoracic spine radiographs show no fracture or dislocation. Vertebral body height and AP alignment is preserved, with moderate lower thoracic vertebral endplate degenerative changes and a mild levoscoliosis centered in the upper lumbar spine. Pedicles appear symmetric and intact. Mild vertebral endplate degenerative changes also noted in the lower cervical spine. IMPRESSION: No acute cardiac or pulmonary findings. Thoracic spine radiographs show degenerative changes without evidence of acute fracture or osseous destructive lesion. [facility] Radiology Study observation (narrative) [facility] XR Chest PA and LateralOrder ed By: Lars Zuniga on 03-09-2022 [facility] Work Phone: Basic metabolic panelon 06-0 Calcium [Mass/Vol] 9.4 mg/dL 8.4 - 10. 4 mg/dL [facility] Chloride [Moles/Vol] 105 mmol/L 96 - 10 9 mmol/L [facility] CO2 [Moles/Vol] 28 mmol/L 22 - 30 mmol/L [facility] Creatinine [Mass/Vol] 0.71 mg/dL 0.52 - 1.04 mg/dL [facility] Glucose [Mass/Vol] 94 mg/dL 65 - 100 mg/dL [facility] Potassium [Moles/Vol] 4.4 mmol/L 3.6 - 5.1 mmol/L [facility] Sodium [Moles/Vol] 139 mmol/L 135 - 147 mmol/L [facility] Urea nitrogen [Mass/Vol] 12 mg/dL 8 - 20 mg/dL [facility] CBC without differentialon 0 09-01-2021 Erythrocyte distribution width (RBC) [Ratio] 13.7 % 11.5 - 14.5 % [facility] Hematocrit (Bld) [Volume fraction] 40.7 % 33.6 - 46.8 % [facility] Hemoglobin (Bld) [Mass/Vol] 13.0 g/dL 11.7 - 15.8 g/dL [facility] MCH (RBC) [Entitic mass] 30.2 pg 27.5 - 32.[address] [facility] MCHC (RBC) [Mass/Vol] 31.9 g/dL 30.7 - 35.5 g/dl [facility] MCV (RBC) [Entitic vol] 94.7 fL 80.2 - 99.[address] [facility] Platelets (Bld) [#/Vol] 297.0 10*3/uL [facility] RBC (Bld) [#/Vol] 4.30 10*6/uL [facility] WBC LM Ql (Sput) 5.7 [facility] GLOMERULAR FILTRATION RATEon 09-01-2021 GFR >60 [facility] Comment on above: To estimate the GFR for Americans, multiply the result provided by 1.21. Population mean GFR = 116 ml/min/1.73 sq.m. for ages 18-29 yrs. The MDRD is validated in individuals 18-70 years of age. It is less accurate in patients with extremes of muscle mass, restriction of dietary protein, ingestion of creatine, extra-renal metabolism of creatinine, or treatment with medications that affect renal tubular creatinine secretion. GFR Categories in Chronic Kidney Disease (CKD) Category: GFR(mL/min/1.73m^2) Interpretation: G1* 90 or greater Normal or high G2* 60-89 Mild decrease G3a 45-59 Mild to moderate decrease G3b 30-44 Moderate to severe decrease G4 15-29 Severe decrease G5 14 or less Kidney failure *G1&G2: In the absence of evidence of kidney damage, neither GFR category G1 nor G2 fulfill the criteria for CKD Kidney Int Suppl.2013;3:1-150 Magnesiumon 09-01-2021 Magnesium [Mass/Vol] 2.2 mg/dL 1.6 - 2 .3 mg/dL [facility] No Panel Informationon 09-01 [facility] Basic metabolic panelon 12-0 Calcium [Mass/Vol] 9.6 mg/dL 8.4 - 10. 4 mg/dL [facility] Chloride [Moles/Vol] 104 mmol/L 96 - 10 9 mmol/L [facility] CO2 [Moles/Vol] 28 mmol/L 22 - 30 mmol/L [facility] Creatinine [Mass/Vol] 0.66 mg/dL 0.52 - 1.04 mg/dL [facility] Glucose [Mass/Vol] 91 mg/dL 65 - 100 mg/dL [facility] Potassium [Moles/Vol] 4.1 mmol/L 3.6 - 5.1 mmol/L [facility] Sodium [Moles/Vol] 137 mmol/L 135 - 147 mmol/L [facility] Urea nitrogen [Mass/Vol] 10 mg/dL 8 - 20 mg/dL [facility] CBC and differentialon 03-03 Absolute Immature Granulocytes 0.0 0 10 3/uL [facility] Absolute Lymph 2.1 [facility] Absolute Coleman 0.5 [facility] Basophils (Bld) [#/Vol] 0.0 10*3/uL [facility] Basophils/100 WBC (Bld) 0.5 % [facility] Eosinophils (Bld) [#/Vol] 0.1 10*3/uL [facility] Eosinophils/100 WBC (Bld) 1.2 % [facility] Erythrocyte distribution width (RBC) [Ratio] 13.6 % 11.5 - 14.5 % [facility] Hematocrit (Bld) [Volume fraction] 38.5 % 33.6 - 46.8 % [facility] Hemoglobin (Bld) [Mass/Vol] 12.3 g/dL 11.7 - 15.8 g/dL [facility] Immature granulocytes/100 WBC (Bld) 0.2 % [facility] Lymphocytes/100 WBC (Bld) 35.0 % [facility] MCH (RBC) [Entitic mass] 30.5 pg 27.5 - 32.[address] [facility] MCHC (RBC) [Mass/Vol] 31.9 g/dL 30.7 - 35.5 g/dl [facility] MCV (RBC) [Entitic vol] 95.5 fL 80.2 - 99.[address] [facility] Monocytes/100 WBC (Bld) 8.0 % [facility] Neutrophils (Bld) [#/Vol] 3.2 10*3/uL [facility] Neutrophils/100 WBC (Bld) 55.1 % [facility] Platelets (Bld) [#/Vol] 337.0 10*3/uL [facility] RBC (Bld) [#/Vol] 4.03 10*6/uL [facility] WBC LM Ql (Sput) 5.9 [facility] GLOMERULAR FILTRATION RATEon 03-03-2021 GFR >60 [facility] Comment on above: To estimate the GFR for Americans, multiply the result provided by 1.21. Population mean GFR = 116 ml/min/1.73 sq.m. for ages 18-29 yrs. The MDRD is validated in individuals 18-70 years of age. It is less accurate in patients with extremes of muscle mass, restriction of dietary protein, ingestion of creatine, extra-renal metabolism of creatinine, or treatment with medications that affect renal tubular creatinine secretion. GFR Categories in Chronic Kidney Disease (CKD) Category: GFR(mL/min/1.73m^2) Interpretation: G1* 90 or greater Normal or high G2* 60-89 Mild decrease G3a 45-59 Mild to moderate decrease G3b 30-44 Moderate to severe decrease G4 15-29 Severe decrease G5 14 or less Kidney failure *G1&G2: In the absence of evidence of kidney damage, neither GFR category G1 nor G2 fulfill the criteria for CKD Kidney Int Suppl.2013;3:1-150 Lipid panelon 03-03-2021 Cholesterol [Mass/Vol] 167 mg/dL 0 - 2 00 mg/dL [facility] Comment on above: CHOLESTEROL REFERENC E RANGE Desirable <200 mg/dL Borderline 200-239 mg/dL High >240 mg/dL . Cholesterol in HDL [Mass/Vol] 75.2 mg/dL High 40.0 - 59.9 mg/dL [facility] Comment on above: Interpretive data fo r HDL Cholesterol states: HDL <40 mg/dL is low and constitutes a coronary disease risk factor. HDL >60 mg/dL is a negative risk factor for coronary heart disease. . Cholesterol in LDL [Mass/Vol] 72 mg/dL 0 - 100 mg/dL [facility] Comment on above: LDL REFERENCE RANGE Optimal <100 mg/dl Near Optimal 100-129 mg/dL Borderline High 130-159 mg/dL High 160-189 mg/dL Very High >=190 mg/dL . Cholesterol in VLDL [Mass/Vol] 19 mg/dL <42 [facility] Interpretation and review of laboratory results Abnormal [facility] Triglyceride [Mass/Vol] 97 mg/dL 0 - 150 mg/dL [facility] Comment on above: TRIGLYCERIDE REFEREN CE RANGE Normal <150 mg/dL Borderline High 150-199 mg/dL High 200-499 mg/dL Very High >=500 mg/dL . No Panel Informationon 03-03 [facility] nRBC 0 [facility] MG Breast - left DiagnosticO rdered By: Isaac Brooks on 11-11-2020 The vague asymmetry projecting over the posterior slightly medial left breast on the 03/01/2020 study is similar to less conspicuous today and is not significantly changed from older prior studies. Recommend ultrasound of the medial half of the left breast. A few tiny hypoechoic nodules were demonstrated on the prior left breast ultrasound. BIRADS: BIRADS - CATEGORY 0 - Incomplete: Need additional evaluation before final assessment can be assigned. NOTE: Imaging staff will contact the patient to schedule the follow-up exam. The [employer] [employer] and the Society of [employer] Imaging recommends women receive annual mammograms starting at age 40. The [place] [employer]'s guidelines for women at AVERAGE RISK for breast cancer include: Women ages 40 to 44 should have a choice to start annual breast cancer screening with mammograms if they wish to do so. The risks of screening as well as the potential benefits should be considered. Women age 45 to 54 should get a mammogram every year. Women age 55 and older should switch to mammograms every 2 years, or have the choice to continue yearly screening. Women with a personal history of breast cancer, a family history of breast cancer, a genetic mutation known to increase risk of breast cancer (such as BRCA), and women who had radiation therapy to the chest before the age of 30 are at higher risk for breast cancer, not average risk and additional screening may be indicated. The above report was generated using voice recognition software. It may contain grammatical, syntax and spelling errors. Heidi Shaulis EXAMINATION: Diagnos tic left mammogram. 11/11/2020 TECHNIQUE: CC/ML/MLO digital mammographic views of the left breast(s) are submitted for interpretation. Digital Tomosynthesis was performed. CAD analysis utilized. CC and direct mediolateral spot compression views of the left breast were obtained. COMPARISON: 03/01/2020. 08/15/2018. 01/25/2017. 03/05/2015. HISTORY: Medial left breast asymmetry FINDINGS: BREAST COMPOSITION: The breast parenchyma is heterogeneously dense(c) which may obscure small masses. No enlarged axillary lymph nodes are demonstrated. Ovoid asymmetric density projecting over the central left breast on today's MLO projection largely disperses on spot compression views. No dominant mass or architectural distortion in the left breast. No concerning microcalcifications. The asymmetric density in question projecting over the posterior slightly medial left breast on the CC projection on the 03/01/2020 study is similar to less conspicuous. This is not significantly changed from older prior studies and demonstrates significant dispersion on spot compression views without discrete nodule or architectural distortion. [employer] [place] Gastric Emptying StudyOrd ered By: Rishi Florian on 10-28-2020 Normal gastric empty ing of solids. Heidi Shaulis EXAMINATION: NUCLEAR MEDICINE GASTRIC EMPTYING STUDY 10/28/2020 8:39 am TECHNIQUE: Following ingestion of a standard solid meal labeled with 0.575 mCi Tc 99m sulfur colloid, planar images of the chest and abdomen were obtained at 0, 1, 2 hours in both anterior and posterior projections. Regions of interest were drawn around the stomach and geometric means were calculated. All medications capable of altering motility were held. COMPARISON: None. HISTORY: Nausea: Diagnosis: Nausea R11.0 (ICD-10-CM) FINDINGS: The gastric emptying were calculated as follows: At 60 min, there is 19% emptying of the stomach. (Normal range is 10-70%) At 120 min, there is 56% emptying of the stomach. (Normal is >40%) No significant esophageal retention, hiatal hernia or reflux was observed. Heidi Shaulis Ernie, Rad Results In - 10/28/2020 1:09 PM EDT EXAMINATION: NUCLEAR MEDICINE GASTRIC EMPTYING STUDY 10/28/2020 8:39 am TECHNIQUE: Following ingestion of a standard solid meal labeled with 0.575 mCi Tc 99m sulfur colloid, planar images of the chest and abdomen were obtained at 0, 1, 2 hours in both anterior and posterior projections. Regions of interest were drawn around the stomach and geometric means were calculated. All medications capable of altering motility were held. COMPARISON: None. HISTORY: Nausea: Diagnosis: Nausea R11.0 (ICD-10-CM) FINDINGS: The gastric emptying were calculated as follows: At 60 min, there is 19% emptying of the stomach. (Normal range is 10-70%) At 120 min, there is 56% emptying of the stomach. (Normal is >40%) No significant esophageal retention, hiatal hernia or reflux was observed. IMPRESSION: Normal gastric emptying of solids. [employer] CT Chest Without IV Contrast Ordered By: Rishi Florian on 08-19-2020 Hazy densities in th e lung bases as well as streaky linear densities in the lung bases are favored to represent atelectasis. This may be related to poor inspiration effort. There is no evidence of suspicious pulmonary mass. If clinically indicated, short-term follow-up in 6 months can be performed. There is a 2 mm subpleural pulmonary nodule in the medial right pulmonary apex which does not meet the criteria for follow-up at this time. Possible inferior left lobe thyroid nodule, recommend ultrasound correlation. Heidi Shaulis EXAMINATION: CT OF T HE CHEST WITHOUT CONTRAST 08/19/2020 9:05 am TECHNIQUE: CT of the chest was performed without the administration of intravenous contrast. Multiplanar reformatted images are provided for review. Dose modulation, iterative reconstruction, and/or weight based adjustment of the mA/kV was utilized to reduce the radiation dose to as low as reasonably achievable. COMPARISON: 05/15/2019 HISTORY: Lung nodule, < 6mm, high cancer risk Lung nodule, < 6mm, high cancer risk FINDINGS: Mediastinum: There may be a small nodule within the inferior left lobe of the thyroid gland. There is no evidence of enlarged mediastinal or hilar lymph nodes. Evaluation is limited without contrast. Heart is unremarkable. There is no significant coronary atherosclerosis. Lungs/pleura: There is no focal consolidation or pleural effusion however there is mild streaky density favored to represent atelectasis involving the bilateral lower lobes. Also noted are hazy density in the subpleural lower lobes, right greater than left favored to represent atelectasis. No suspicious pulmonary mass is appreciated. 2 mm medial right apical subpleural pulmonary nodule is visualized on image 28.. Upper Abdomen: No evidence of acute process in the visualized upper abdomen. Soft Tissues/Bones: Mild degenerative disc disease and endplate osteophytosis appreciated. There is no evidence of acute fracture. Heidi Shaulis Ernie, Rad Results In - 08/19/2020 9:46 AM EDT EXAMINATION: CT OF THE CHEST WITHOUT CONTRAST 08/19/2020 9:05 am TECHNIQUE: CT of the chest was performed without the administration of intravenous contrast. Multiplanar reformatted images are provided for review. Dose modulation, iterative reconstruction, and/or weight based adjustment of the mA/kV was utilized to reduce the radiation dose to as low as reasonably achievable. COMPARISON: 05/15/2019 HISTORY: Lung nodule, < 6mm, high cancer risk Lung nodule, < 6mm, high cancer risk FINDINGS: Mediastinum: There may be a small nodule within the inferior left lobe of the thyroid gland. There is no evidence of enlarged mediastinal or hilar lymph nodes. Evaluation is limited without contrast. Heart is unremarkable. There is no significant coronary atherosclerosis. Lungs/pleura: There is no focal consolidation or pleural effusion however there is mild streaky density favored to represent atelectasis involving the bilateral lower lobes. Also noted are hazy density in the subpleural lower lobes, right greater than left favored to represent atelectasis. No suspicious pulmonary mass is appreciated. 2 mm medial right apical subpleural pulmonary nodule is visualized on image 28.. Upper Abdomen: No evidence of acute process in the visualized upper abdomen. Soft Tissues/Bones: Mild degenerative disc disease and endplate osteophytosis appreciated. There is no evidence of acute fracture. IMPRESSION: Hazy densities in the lung bases as well as streaky linear densities in the lung bases are favored to represent atelectasis. This may be related to poor inspiration effort. There is no evidence of suspicious pulmonary mass. If clinically indicated, short-term follow-up in 6 months can be performed. There is a 2 mm subpleural pulmonary nodule in the medial right pulmonary apex which does not meet the criteria for follow-up at this time. Possible inferior left lobe thyroid nodule, recommend ultrasound correlation. [facility] CBC without differentialon 0 - Erythrocyte distribution width (RBC) [Ratio] 13.9 % 11.5 - 14.5 % [facility] Hematocrit (Bld) [Volume fraction] 41.2 % 33.6 - 46.8 % [facility] Hemoglobin (Bld) [Mass/Vol] 13.3 g/dL 11.7 - 15.8 g/dL [facility] MCH (RBC) [Entitic mass] 30.4 pg 27.5 - 32.[address] [facility] MCHC (RBC) [Mass/Vol] 32.3 g/dL 30.7 - 35.5 g/dl [facility] MCV (RBC) [Entitic vol] 94.3 fL 80.2 - [address] [facility] Platelets (Bld) [#/Vol] 319.0 10*3/uL [facility] RBC (Bld) [#/Vol] 4.37 10*6/uL [facility] WBC LM Ql (Sput) 5.6 [facility] Comprehensive metabolic pane alonso 07-15-2020 Albumin [Mass/Vol] 4.2 g/dL 3.5 - 5 g/dL [facility] Alk Phos 91 U/L 24 - 126 U/L [facility] ALT [Catalytic activity/Vol] 17 U/L 4 - 35 U/L [facility] AST [Catalytic activity/Vol] 27 U/L 3 - 47 U/L [facility] Bilirubin [Mass/Vol] 0.4 mg/dL 0.2 - 1 .6 mg/dL [facility] Calcium [Mass/Vol] 9.8 mg/dL 8.4 - 10. 4 mg/dL [facility] Chloride [Moles/Vol] 103 mmol/L 96 - 10 9 mmol/L [facility] CO2 [Moles/Vol] 26 mmol/L 22 - 30 mmol/L [facility] metabolic 2000 panel 0.72 mg/dL 0.52 - 1.04 mg/dL [facility] Glucose [Mass/Vol] 100 mg/dL 65 - 100 mg/dL [facility] Potassium [Moles/Vol] 4.5 mmol/L 3.6 - 5.1 mmol/L [facility] Protein [Mass/Vol] 7.2 g/dL 6.3 - 8.2 g/dL [facility] Sodium [Moles/Vol] 137 mmol/L 135 - 147 mmol/L [facility] Urea nitrogen [Mass/Vol] 16 mg/dL 8 - 20 mg/dL [facility] GLOMERULAR FILTRATION RATEon 07-15-2020 GFR/1.73 sq M.predicted MDRD (S/P/Bld) [Vol rate/Area] mL/min/{1.73_m2} [facility] Comment on above: To estimate the GFR for Americans, multiply the result provided by 1.21. Population mean GFR = 116 ml/min/1.73 sq.m. for ages 18-29 yrs. The MDRD is validated in individuals 18-70 years of age. It is less accurate in patients with extremes of muscle mass, restriction of dietary protein, ingestion of creatine, extra-renal metabolism of creatinine, or treatment with medications that affect renal tubular creatinine secretion. GFR Categories in Chronic Kidney Disease (CKD) Category: GFR(mL/min/1.73m^2) Interpretation: G1* 90 or greater Normal or high G2* 60-89 Mild decrease G3a 45-59 Mild to moderate decrease G3b 30-44 Moderate to severe decrease G4 15-29 Severe decrease G5 14 or less Kidney failure *G1&G2: In the absence of evidence of kidney damage, neither GFR category G1 nor G2 fulfill the criteria for CKD Kidney Int Suppl.2013;3:1-150 Otheron 07-15-2020 Heidi Shaulis Mammo Left Diagnostic Digita l-RECALLon 03-09-2020 Interpretation and review of laboratory results Abnormal Heidi Shaulis Probably benign find ing within the left breast. Short-term six-month mammographic and ultrasound follow-up of the left breast is recommended. BIRADS: BIRADS - CATEGORY 3 - Probably benign finding. Short-interval follow up suggested. The [place] [employer] and the Society of Breast Imaging recommends women receive annual mammograms starting at age 40. The [place] [employer]'s guidelines for women at AVERAGE RISK for breast cancer include: Women ages 40 to 44 should have a choice to start annual breast cancer screening with mammograms if they wish to do so. The risks of screening as well as the potential benefits should be considered. Women age 45 to 54 should get a mammogram every year. Women age 55 and older should switch to mammograms every 2 years, or have the choice to continue yearly screening. Women with a personal history of breast cancer, a family history of breast cancer, a genetic mutation known to increase risk of breast cancer (such as BRCA), and women who had radiation therapy to the chest before the age of 30 are at higher risk for breast cancer, not average risk and additional screening may be indicated. The above report was generated using voice recognition software. It may contain grammatical, syntax and spelling errors. Heidi Shaulis EXAMINATION: MAMMO LEFT DIAGNOSTIC DIGITAL - RECALL 03/09/2020 TECHNIQUE: CC spot compression and mediolateral digital mammographic views of left breast are submitted for interpretation. COMPARISON: 03/01/2020 HISTORY: New asymmetry central left breast medial aspect. Diagnosis: Breast asymmetry N64.89 (ICD-10-CM) FINDINGS: BREAST COMPOSITION: The breast parenchyma is heterogeneously dense(c) which may obscure small masses. Previously described focal asymmetry partially persists with spot compression. On same-day ultrasound of the medial left breast benign-appearing hypoechoic nodules are appreciated. Heidi Shaulis US Breast Left LimitedOrdere d By: Isaac Brooks on 03-09-2020 Interpretation and review of laboratory results Abnormal Heidi Shaulis Probably benign find ing within the left breast. Short-term six-month mammographic and ultrasound follow-up of the left breast is recommended. BIRADS: BIRADS - CATEGORY 3 - Probably benign finding. Short-interval follow up suggested. Heidi Shaulis EXAMINATION: US JENN[facility] ST LEFT LIMITED 03/09/2020 TECHNIQUE: Targeted ultrasound of the left breast. COMPARISON: Same day mammogram HISTORY: New asymmetry ccentral left breast medial aspect. Diagnosis: Breast asymmetry N64.89 (ICD-10-CM) FINDINGS: Medial left breast is scanned. There are 2 tiny hypoechoic nodule which appear benign at the 9 o'clock position 1 cm from the nipple measuring 3 mm. Hypoechoic nodule at the 9 o'clock position 3 cm from the nipple measuring 8 x 7 x 3 mm is appreciated without post acoustic shadowing. Heidi Shaulis DEXA Scan Hips, Pelvis, Spin yaakov 03-01-2020 Normal bone mineral density by WHO criteria. RECOMMENDATIONS: National Osteoporosis Foundation recommends that FDA approved medical therapies be considered in postmenopausal women and men greater than 50 years of age with a: 1. Hip or vertebral fracture 2. T-score of less than -2.5 at the spine or hip 3. 10 year fracture probability by FRAX of greater than 3% for hip fracture or greater than 20% for major osteoporotic fracture Heidi Shaulis EXAMINATION: BONE DENSITOMETRY 03/01/2020 2:09 pm TECHNIQUE: A DEXA was performed using [employer]. COMPARISON: 03/05/2015 HISTORY: Postmenopausal. Osteoporosis screening. FINDINGS: AP spine: L1, L2, L4 bone mineral density is 1.115g/cm squared corresponding T score of 0.7. This compares to prior bone mineral density of 1.097 g per square cm and T-score of 0.6. 1.7% increased bone mineral density from the prior study. Dual femur: Total mean bone mineral density is 0.989 g/cm squared corresponding T-score of 0.4. This compares to prior bone mineral density of 1.006 g per square cm and T-score of 0.5. 1.7% decreased bone mineral density from the previous study. FRAX: Was performed. Major osteoporotic score is 6.5%. Hip score is 0.2%. Heidi Shaulis Ernie, Rad Results In - 03/01/2020 2:31 PM EST EXAMINATION: BONE DENSITOMETRY 03/01/2020 2:09 pm TECHNIQUE: A DEXA was performed using [employer]. COMPARISON: 03/05/2015 HISTORY: Postmenopausal. Osteoporosis screening. FINDINGS: AP spine: L1, L2, L4 bone mineral density is 1.115g/cm squared corresponding T score of 0.7. This compares to prior bone mineral density of 1.097 g per square cm and T-score of 0.6. 1.7% increased bone mineral density from the prior study. Dual femur: Total mean bone mineral density is 0.989 g/cm squared corresponding T-score of 0.4. This compares to prior bone mineral density of 1.006 g per square cm and T-score of 0.5. 1.7% decreased bone mineral density from the previous study. FRAX: Was performed. Major osteoporotic score is 6.5%. Hip score is 0.2%. IMPRESSION: Normal bone mineral density by WHO criteria. RECOMMENDATIONS: National Osteoporosis Foundation recommends that FDA approved medical therapies be considered in postmenopausal women and men greater than 50 years of age with a: 1. Hip or vertebral fracture 2. T-score of less than -2.5 at the spine or hip 3. 10 year fracture probability by FRAX of greater than 3% for hip fracture or greater than 20% for major osteoporotic fracture Heidi Shaulis Mammo Bilateral Screening Di gital W/Tomoon 03-01-2020 New asymmetry centra l left breast medial aspect. Recommend true lateral and spot compressed CC tomosynthesis view with possible progression to ultrasound. BIRADS: BIRADS - CATEGORY 0 - Incomplete: Need additional evaluation before final assessment can be assigned. NOTE: Imaging staff will contact the patient to schedule the follow-up exam. The [place] [employer] and the Society of Breast Imaging recommends women receive annual mammograms starting at age 40. The [place] [employer]'s guidelines for women at AVERAGE RISK for breast cancer include: Women ages 40 to 44 should have a choice to start annual breast cancer screening with mammograms if they wish to do so. The risks of screening as well as the potential benefits should be considered. Women age 45 to 54 should get a mammogram every year. Women age 55 and older should switch to mammograms every 2 years, or have the choice to continue yearly screening. Women with a personal history of breast cancer, a family history of breast cancer, a genetic mutation known to increase risk of breast cancer (such as BRCA), and women who had radiation therapy to the chest before the age of 30 are at higher risk for breast cancer, not average risk and additional screening may be indicated. The above report was generated using voice recognition software. It may contain grammatical, syntax and spelling errors. Heidi Shaulis EXAMINATION: MAMMO BILAT SCREENING DIGITAL W/JACQUELINE 03/01/2020 TECHNIQUE: Standard digital mammographic views with tomosynthesis of both breast(s) are submitted for interpretation. CAD was applied. COMPARISON: August 15, 2018 and January 25, 2017 HISTORY: Screening. FINDINGS: BREAST COMPOSITION: The breast parenchyma is heterogeneously dense(c) which may obscure small masses. There is a new asymmetry seen only on the CC view medial central left breast. Right breast demonstrates no concerning findings. No suspicious calcification in either breast. Heidi Shaulis CBC and differentialon 07-09 Absolute Coleman 0.7 High Heidi Shaulis Basophils (Bld) [#/Vol] 0.0 10*3/uL Heidi Shaulis Basophils/100 WBC (Bld) 0.3 % Heidi Shaulis Eosinophils (Bld) [#/Vol] 0.1 10*3/uL Heidi Shaulis Eosinophils/100 WBC (Bld) 1.7 % Heidi Shaulis Erythrocyte distribution width (RBC) [Ratio] 15.1 % High 11.5 - 14.5 % Heidi Shaulis Hematocrit (Bld) [Volume fraction] 40.1 % 33.6 - 46.8 % Heidi Shaulis Hemoglobin (Bld) [Mass/Vol] 12.9 g/dL 11.7 - 15.8 g/dL Heidi Shaulis Interpretation and review of laboratory results Abnormal Heidi Shaulis Lymphocytes (Bld) [#/Vol] 2.5 10*3/uL Heidi Shaulis Lymphocytes/100 WBC (Bld) 35.9 % [facility] MCH (RBC) [Entitic mass] 29.9 pg 27.5 - 32.[address] [facility] MCHC (RBC) [Mass/Vol] 32.2 g/dL 30.7 - 35.5 g/dl [facility] MCV (RBC) [Entitic vol] 93.0 fL 80.2 - [address] [facility] Monocytes/100 WBC (Bld) 9.6 % [facility] Neutrophils (Bld) [#/Vol] 3.7 10*3/uL [facility] Neutrophils/100 WBC (Bld) 52.5 % [facility] Platelets (Bld) [#/Vol] 322.0 10*3/uL [facility] RBC (Bld) [#/Vol] 4.31 10*6/uL [facility] WBC LM Ql (Sput) 7.0 [facility] Comprehensive metabolic pane alonso 07-10-2019 Albumin [Mass/Vol] 4.5 g/dL 3.5 - 5 g/dL [facility] Alk Phos 101 U/L 24 - 126 U/L [facility] ALT [Catalytic activity/Vol] 20 U/L 4 - 35 U/L [facility] AST [Catalytic activity/Vol] 29 U/L 3 - 47 U/L [facility] Bilirubin [Mass/Vol] 0.4 mg/dL 0.2 - 1 .6 mg/dL [facility] Calcium [Mass/Vol] 9.5 mg/dL 8.4 - 10. 4 mg/dL [facility] Chloride [Moles/Vol] 101 mmol/L 96 - 10 9 mmol/L [facility] CO2 [Moles/Vol] 29 mmol/L 22 - 30 mmol/L [facility] Comprehensive metabolic 2000 panel 0.71 mg/dL 0.52 - 1.04 mg/dL [facility] Glucose [Mass/Vol] 92 mg/dL 65 - 100 mg/dL [facility] Potassium [Moles/Vol] 3.9 mmol/L 3.6 - 5.1 mmol/L [facility] Protein [Mass/Vol] 7.9 g/dL 6.3 - 8.2 g/dL [facility] Sodium [Moles/Vol] 139 mmol/L 135 - 147 mmol/L [facility] Urea nitrogen [Mass/Vol] 14 mg/dL 8 - 20 mg/dL [facility] GLOMERULAR FILTRATION RATEon 07-10-2019 GFR/1.73 sq M.predicted MDRD (S/P/Bld) [Vol rate/Area] mL/min/{1.73_m2} Heidi Shaulis Comment on above: To estimate the GFR for Americans, multiply the result provided by 1.21. Population mean GFR = 116 ml/min/1.73 sq.m. for ages 18-29 yrs. The MDRD is validated in individuals 18-70 years of age. It is less accurate in patients with extremes of muscle mass, restriction of dietary protein, ingestion of creatine, extra-renal metabolism of creatinine, or treatment with medications that affect renal tubular creatinine secretion. GFR Categories in Chronic Kidney Disease (CKD) Category: GFR(mL/min/1.73m^2) Interpretation: G1* 90 or greater Normal or high G2* 60-89 Mild decrease G3a 45-59 Mild to moderate decrease G3b 30-44 Moderate to severe decrease G4 15-29 Severe decrease G5 14 or less Kidney failure *G1&G2: In the absence of evidence of kidney damage, neither GFR category G1 nor G2 fulfill the criteria for CKD Kidney Int Suppl.2013;3:1-150 TSHon 07-10-2019 TSH Qn 0.694 m[IU]/L [facility] Urinalysis with reflex cultu reon 07-10-2019 Appearance (U) Clear [facility] Bacteria identified Aer cx Nom (Unsp spec) NOT INDICATED Heidi Shaulis Bilirubin Ql (U) Negative Negative Heidi Shaulis Color (CSF) Yellow [facility] Glucose Ql (U) Negative Negative mg/dL [facility] Hemoglobin Ql (U) 1 [facility] Ketones Ql (U) Negative Negative mg/dL [facility] Leukoesterase Negative Negative [facility] Mucous-Urine Rare /LPF [facility] [employer] Nitrite Ql (U) Negative Negative Heidi Shaulis Occult Bld Negative Negative [facility] pH (U) 6.0 [pH] [facility] Protein (U) [Mass/Vol] Negative Negat harriet mg/dL [facility] Specific gravity (U) [Rel density] 1.006 [facility] Squamous Epi Cells 10 /LPF [facility] Urine Source Not Specified [facility] Urobilinogen Qn (U) Negative <2.0 mg/dL [facility] WBC (U) [#/Vol] 1 /uL [facility] CBC with Differentialon 06-[address] Absolute Coleman [address] [facility] Basophils (Bld) [#/Vol] 0.0 10*3/uL [facility] Basophils/100 WBC (Bld) 0.3 % [facility] Eosinophils (Bld) [#/Vol] 0.2 10*3/uL [facility] Eosinophils/100 WBC (Bld) 3.0 % [facility] Erythrocyte distribution width (RBC) [Ratio] 15.5 % High 11.5 - 14.5 % [facility] Hematocrit (Bld) [Volume fraction] 41.7 % 33.6 - 46.8 % [facility] Hemoglobin (Bld) [Mass/Vol] 13.7 g/dL 11.7 - 15.8 g/dL [facility] Interpretation and review of laboratory results Abnormal [facility] Lymphocytes (Bld) [#/Vol] 2.0 10*3/uL [facility] Lymphocytes/100 WBC (Bld) 34.5 % [facility] MCH (RBC) [Entitic mass] 29.8 pg 27.5 - 32.[address] [facility] MCHC (RBC) [Mass/Vol] 32.9 g/dL 30.7 - 35.5 g/dl [facility] MCV (RBC) [Entitic vol] 90.8 fL 80.2 - [address] [facility] Monocytes/100 WBC (Bld) 12.3 % [facility] Neutrophils (Bld) [#/Vol] 2.9 10*3/uL [facility] Neutrophils/100 WBC (Bld) 49.9 % [facility] Platelets (Bld) [#/Vol] 317.0 10*3/uL [facility] RBC (Bld) [#/Vol] 4.59 10*6/uL [facility] WBC LM Ql (Sput) 5.8 [facility] Comprehensive metabolic pane l aka Metaboon 06-20-2019 Albumin [Mass/Vol] 4.7 g/dL 3.5 - 5 g/dL [facility] Alk Phos 124 U/L 24 - 126 U/L [facility] ALT [Catalytic activity/Vol] 31 U/L 4 - 35 U/L [facility] AST [Catalytic activity/Vol] 33 U/L 3 - 47 U/L [facility] Bilirubin [Mass/Vol] 0.5 mg/dL 0.2 - 1 .6 mg/dL [facility] Calcium [Mass/Vol] 9.8 mg/dL 8.4 - 10. 4 mg/dL [facility] Chloride [Moles/Vol] 100 mmol/L 96 - 10 9 mmol/L [facility] CO2 [Moles/Vol] 24 mmol/L 22 - 30 mmol/L [facility] Comprehensive metabolic 2000 panel 0.72 mg/dL 0.52 - 1.04 mg/dL [facility] Glucose [Mass/Vol] 102 mg/dL High 65 - 100 mg/dL [facility] Interpretation and review of laboratory results Abnormal [facility] Potassium [Moles/Vol] 4.0 mmol/L 3.6 - 5.1 mmol/L [facility] Protein [Mass/Vol] 7.9 g/dL 6.3 - 8.2 g/dL [facility] Sodium [Moles/Vol] 138 mmol/L 135 - 147 mmol/L [facility] Urea nitrogen [Mass/Vol] 11 mg/dL 8 - 20 mg/dL [facility] GLOMERULAR FILTRATION RATEon 06-20-2019 GFR/1.73 sq M.predicted MDRD (S/P/Bld) [Vol rate/Area] mL/min/{1.73_m2} [facility] Comment on above: To estimate the GFR for Americans, multiply the result provided by 1.21. Population mean GFR = 116 ml/min/1.73 sq.m. for ages 18-29 yrs. The MDRD is validated in individuals 18-70 years of age. It is less accurate in patients with extremes of muscle mass, restriction of dietary protein, ingestion of creatine, extra-renal metabolism of creatinine, or treatment with medications that affect renal tubular creatinine secretion. GFR Categories in Chronic Kidney Disease (CKD) Category: GFR(mL/min/1.73m^2) Interpretation: G1* 90 or greater Normal or high G2* 60-89 Mild decrease G3a 45-59 Mild to moderate decrease G3b 30-44 Moderate to severe decrease G4 15-29 Severe decrease G5 14 or less Kidney failure *G1&G2: In the absence of evidence of kidney damage, neither GFR category G1 nor G2 fulfill the criteria for CKD Kidney Int Suppl.2013;3:1-150 Lipaseon 06-20-2019 Lipase [Catalytic activity/Vol] 137 U/L 23 - 300 U/L [facility] CBC with Differentialon 05-03 Absolute Coleman [address] [facility] Basophils (Bld) [#/Vol] 0.0 10*3/uL [facility] Basophils/100 WBC (Bld) 0.4 % [facility] Eosinophils (Bld) [#/Vol] 0.1 10*3/uL [facility] Eosinophils/100 WBC (Bld) 1.1 % [facility] Erythrocyte distribution width (RBC) [Ratio] 15.7 % High 11.5 - 14.5 % [facility] Hematocrit (Bld) [Volume fraction] 44.5 % 33.6 - 46.8 % [facility] Hemoglobin (Bld) [Mass/Vol] 14.6 g/dL 11.7 - 15.8 g/dL [facility] Interpretation and review of laboratory results Abnormal [facility] Lymphocytes (Bld) [#/Vol] 3.0 10*3/uL [facility] Lymphocytes/100 WBC (Bld) 38.3 % [facility] MCH (RBC) [Entitic mass] 30.2 pg 27.5 - 32.[address] [facility] MCHC (RBC) [Mass/Vol] 32.8 g/dL 30.7 - 35.5 g/dl [facility] MCV (RBC) [Entitic vol] 92.1 fL 80.2 - [address] [facility] Monocytes/100 WBC (Bld) 9.0 % [facility] Neutrophils (Bld) [#/Vol] 4.0 10*3/uL [facility] Neutrophils/100 WBC (Bld) 51.2 % [facility] Platelets (Bld) [#/Vol] 289.0 10*3/uL [facility] RBC (Bld) [#/Vol] 4.83 10*6/uL [facility] [employer] [facility] WBC LM Ql (Sput) 7.[address] Abdomen / Pelvis Without ANY Contraston 05-18-2019 1. Interval placemen t of biliary and pancreatic duct stents. 2. Mild small bowel ileus pattern. No definite obstruction. Heidi Shaulis EXAMINATION: CT OF T HE ABDOMEN AND PELVIS WITHOUT CONTRAST 05/18/2019 1:27 pm TECHNIQUE: CT of the abdomen and pelvis was performed without the administration of intravenous contrast. Multiplanar reformatted images are provided for review. Dose modulation, iterative reconstruction, and/or weight based adjustment of the mA/kV was utilized to reduce the radiation dose to as low as reasonably achievable. COMPARISON: May 15, 2019 HISTORY: post op pain gallbladder removed in MarchPt states was admitted on and had a procedure where they placed two stents and made a larger hole to help everything drain. Pt states pain returned last night. Pt rates pain a 9/10. FINDINGS: Lower Chest: Minimal linear atelectasis at the lung bases. Organs: Unenhanced liver, spleen, adrenal glands and kidneys unremarkable. A biliary stent is now in place as well as appears to be a pancreatic stent distal pancreatic duct. Intra hepatic biliary gas likely postprocedural. No abscess demonstrated. GI/Bowel: Stomach normal. Mild fluid distended bowel likely mild ileus with no definite obstruction. Large bowel not well-distended grossly unremarkable. No intraperitoneal free air or free fluid. Pelvis: Urinary bladder is moderately distended. Uterus unremarkable. Peritoneum/Retroperiton eum: No acute findings. Bones/Soft Tissues: No acute findings. Heidi Shaulis Ernie, Rad Results In - 05/18/2019 1:56 PM EST EXAMINATION: CT OF THE ABDOMEN AND PELVIS WITHOUT CONTRAST 05/18/2019 1:27 pm TECHNIQUE: CT of the abdomen and pelvis was performed without the administration of intravenous contrast. Multiplanar reformatted images are provided for review. Dose modulation, iterative reconstruction, and/or weight based adjustment of the mA/kV was utilized to reduce the radiation dose to as low as reasonably achievable. COMPARISON: May 15, 2019 HISTORY: post op pain gallbladder removed in March ,Pt states was admitted on and had a procedure where they placed two stents and made a larger hole to help everything drain. Pt states pain returned last night. Pt rates pain a 9/10. FINDINGS: Lower Chest: Minimal linear atelectasis at the lung bases. Organs: Unenhanced liver, spleen, adrenal glands and kidneys unremarkable. A biliary stent is now in place as well as appears to be a pancreatic stent distal pancreatic duct. Intra hepatic biliary gas likely postprocedural. No abscess demonstrated. GI/Bowel: Stomach normal. Mild fluid distended bowel likely mild ileus with no definite obstruction. Large bowel not well-distended grossly unremarkable. No intraperitoneal free air or free fluid. Pelvis: Urinary bladder is moderately distended. Uterus unremarkable. Peritoneum/Retroperiton eum: No acute findings. Bones/Soft Tissues: No acute findings. IMPRESSION: 1. Interval placement of biliary and pancreatic duct stents. 2. Mild small bowel ileus pattern. No definite obstruction. [facility] Comprehensive metabolic pane l aka Metaboon 05-18-2019 Albumin [Mass/Vol] 4.5 g/dL 3.5 - 5 g/dL [facility] Alk Phos 252 U/L High 24 - 126 U/L [facility] ALT [Catalytic activity/Vol] 283 U/L High 4 - 35 U/L [facility] AST [Catalytic activity/Vol] 126 U/L High 3 - 47 U/L [facility] Bilirubin [Mass/Vol] 1.1 mg/dL 0.2 - 1 .6 mg/dL [facility] Calcium [Mass/Vol] 10.0 mg/dL 8.4 - 10. 4 mg/dL [facility] Chloride [Moles/Vol] 104 mmol/L 96 - 10 9 mmol/L [facility] CO2 [Moles/Vol] 25 mmol/L 22 - 30 mmol/L [facility] Comprehensive metabolic 2000 panel 0.61 mg/dL 0.52 - 1.04 mg/dL [facility] Glucose [Mass/Vol] 92 mg/dL 65 - 100 mg/dL [facility] Interpretation and review of laboratory results Abnormal [facility] Potassium [Moles/Vol] 4.2 mmol/L 3.6 - 5.1 mmol/L [facility] Protein [Mass/Vol] 8.3 g/dL High 6.3 - 8.2 g/dL [facility] Sodium [Moles/Vol] 140 mmol/L 135 - 147 mmol/L [facility] Urea nitrogen [Mass/Vol] 8 mg/dL 8 - 20 mg/dL [facility] EKG 12-LEADon 05-18-2019 Stationary ECG Study Test Date: 2019-05-18 Pat Name: RICHY BOWENS Department: Room: Gender: Female Medicare Insurance Specialist: CATHLEEN : 1960 Requested By: Order Number: Reading MD: Candido Peguero Measurements Intervals [place] Rate: 79 P: 56 PA: 152 QRS: 51 QRSD: 90 T: 45 QT: 360 QTc: 395 Interpretive Statements SINUS RHYTHM NORMAL ECG UNCONFIRMED REPORT Electronically Signed On 05-18-2019 16:24:56 EST by Candido Peguero Heidi Shaulis GLOMERULAR FILTRATION RATEon 05-18-2019 GFR/1.73 sq M.predicted MDRD (S/P/Bld) [Vol rate/Area] mL/min/{1.73_m2} [facility] Comment on above: To estimate the GFR for Americans, multiply the result provided by 1.21. Population mean GFR = 85 ml/min/1.73 sq.m. for ages 60-69 yrs Five stages of CKD and GFR for each stage: Stage 1 GFR >=90 Stage 2 GFR 60-89 Stage 3 GFR 30-59 Stage 4 GFR 15-29 Stage 5 GFR <15 LACTATEon 05-18-2019 Lactate [Moles/Vol] 1.7 mmol/L 0.7 - 2 mmol/L [facility] Lipaseon 05-18-2019 Lipase [Catalytic activity/Vol] 151 U/L 23 - 300 U/L [facility]idi [facility]ul[facility] Magnesiumon 05-18-2019 Magnesium [Mass/Vol] 2.1 mg/dL 1.6 - 2 .3 mg/dL [facility] Urinalysis with Reflex Cultu reon 05-18-2019 Appearance (U) Clear [facility]ul[facility] Bacteria identified Aer cx Nom (Unsp spec) NOT INDICATED [facility] Bilirubin Ql (U) Negative Negative [facility] Color (CSF) Straw [facility] Glucose Ql (U) Negative Negative mg/dL [facility] Hemoglobin Ql (U) 1 [facility]idi Shaulis Interpretation and review of laboratory results Abnormal [facility] Ketones Ql (U) 20 mg/dL Abnormal Negative [facility] Leukoesterase Negative Negative [facility] Nitrite Ql (U) Negative Negative [facility] Occult Bld Negative Negative [facility] pH (U) 8.0 [pH] [facility] Protein (U) [Mass/Vol] Negative Negat harriet mg/dL [facility] Specific gravity (U) [Rel density] 1.003 [facility] Squamous Epi Cells 20 /LPF [facility] Urine Source Voided [facility] Urobilinogen Qn (U) Negative <2.0 mg/dL [facility] WBC (U) [#/Vol] 4 /uL [facility] Basic metabolic panel aka Ch em 8on 05-17-2019 Calcium [Mass/Vol] 8.6 mg/dL 8.4 - 10. 4 mg/dL [facility] Chloride [Moles/Vol] 110 mmol/L High 96 - 10 9 mmol/L [facility] CO2 [Moles/Vol] 24 mmol/L 22 - 30 mmol/L [facility] Comprehensive metabolic 2000 panel 0.70 mg/dL 0.52 - 1.04 mg/dL [facility] Glucose [Mass/Vol] 95 mg/dL 65 - 100 mg/dL [facility] Potassium [Moles/Vol] 3.4 mmol/L Low 3.6 - 5.1 mmol/L [facility] Sodium [Moles/Vol] 142 mmol/L 135 - 147 mmol/L [facility] Urea nitrogen [Mass/Vol] 9 mg/dL 8 - 20 mg/dL [facility] CBC without differentialon 0 05-17-2019 Erythrocyte distribution width (RBC) [Ratio] 15.7 % High 11.5 - 14.5 % [facility] Hematocrit (Bld) [Volume fraction] 38.4 % 33.6 - 46.8 % [facility] Hemoglobin (Bld) [Mass/Vol] 12.2 g/dL 11.7 - 15.8 g/dL [facility] Interpretation and review of laboratory results Abnormal [facility] MCH (RBC) [Entitic mass] 29.5 pg 27.5 - 32.[address] [facility] MCHC (RBC) [Mass/Vol] 31.8 g/dL 30.7 - 35.5 g/dl [facility] MCV (RBC) [Entitic vol] 92.8 fL 80.2 - [address] [facility] Platelets (Bld) [#/Vol] 230.0 10*3/uL [facility] RBC (Bld) [#/Vol] 4.14 10*6/uL [facility] WBC LM Ql (Sput) 6.2 [facility] Comprehensive metabolic pane l (CMP aka Metabolic panel)on 05-17-2019 Albumin [Mass/Vol] 3.6 g/dL 3.5 - 5 g/dL [facility] Alk Phos 212 U/L High 24 - 126 U/L [facility] ALT [Catalytic activity/Vol] 368 U/L High 4 - 35 U/L [facility] AST [Catalytic activity/Vol] 248 U/L High 3 - 47 U/L [facility] Bilirubin [Mass/Vol] 1.7 mg/dL High 0.2 - 1 .6 mg/dL [facility] Calcium [Mass/Vol] 8.6 mg/dL 8.4 - 10. 4 mg/dL [facility] Chloride [Moles/Vol] 111 mmol/L High 96 - 10 9 mmol/L [facility] CO2 [Moles/Vol] 24 mmol/L 22 - 30 mmol/L [facility] Comprehensive metabolic 2000 panel 0.63 mg/dL 0.52 - 1.04 mg/dL [facility] Glucose [Mass/Vol] 97 mg/dL 65 - 100 mg/dL [facility] Potassium [Moles/Vol] 4.0 mmol/L 3.6 - 5.1 mmol/L [facility] Protein [Mass/Vol] 6.6 g/dL 6.3 - 8.2 g/dL [facility] Sodium [Moles/Vol] 140 mmol/L 135 - 147 mmol/L [facility] Urea nitrogen [Mass/Vol] 11 mg/dL 8 - 20 mg/dL [facility] GLOMERULAR FILTRATION RATEon 05-17-2019 GFR/1.73 sq M.predicted MDRD (S/P/Bld) [Vol rate/Area] mL/min/{1.73_m2} [facility] Comment on above: To estimate the GFR for Americans, multiply the result provided by 1.21. Population mean GFR = 85 ml/min/1.73 sq.m. for ages 60-69 yrs Five stages of CKD and GFR for each stage: Stage 1 GFR >=90 Stage 2 GFR 60-89 Stage 3 GFR 30-59 Stage 4 GFR 15-29 Stage 5 GFR <15 GFR/1.73 sq M.predicted MDRD (S/P/Bld) [Vol rate/Area] mL/min/{1.73_m2} [facility] Comment on above: To estimate the GFR for Americans, multiply the result provided by 1.21. Population mean GFR = 85 ml/min/1.73 sq.m. for ages 60-69 yrs Five stages of CKD and GFR for each stage: Stage 1 GFR >=90 Stage 2 GFR 60-89 Stage 3 GFR 30-59 Stage 4 GFR 15-29 Stage 5 GFR <15 Hepatic function panelon Albumin [Mass/Vol] 3.7 g/dL 3.5 - 5 g/dL [facility] Alk Phos 209 U/L High 24 - 126 U/L [facility] ALT [Catalytic activity/Vol] 321 U/L High 4 - 35 U/L [facility] AST [Catalytic activity/Vol] 206 U/L High 3 - 47 U/L [facility] Bilirubin [Mass/Vol] 1.3 mg/dL 0.2 - 1 .6 mg/dL [facility] Bilirubin.conjugated [Mass/Vol] 0.9 mg/dL High 0 - 0.5 mg/dL [facility] Protein [Mass/Vol] 6.8 g/dL 6.3 - 8.2 g/dL [facility] Lipaseon 05-17-2019 Lipase [Catalytic activity/Vol] 370 U/L High 23 - 300 U/L [facility] Lipase [Catalytic activity/Vol] 425 U/L High 23 - 300 U/L [facility] Otheron 05-17-2019 Interpretation and review of laboratory results Abnormal [facility] Interpretation and review of laboratory results Abnormal [facility] Urine culture and sensitivit yon 05-17-2019 Bacteria identified Cx Nom (U) NO GROWTH--PRELIMINARY REPORT. NO GROWTH--FINAL REPORT. [facility] Site: Clean Catch [facility] CBC without differentialon 0 05-16-2019 Erythrocyte distribution width (RBC) [Ratio] 15.6 % High 11.5 - 14.5 % [facility] Hematocrit (Bld) [Volume fraction] 40.2 % 33.6 - 46.8 % [facility] Hemoglobin (Bld) [Mass/Vol] 12.7 g/dL 11.7 - 15.8 g/dL [facility] MCH (RBC) [Entitic mass] 29.1 pg 27.5 - 32.[address] [facility] MCHC (RBC) [Mass/Vol] 31.6 g/dL 30.7 - 35.5 g/dl [facility] MCV (RBC) [Entitic vol] 92.2 fL 80.2 - [address] [facility] Platelets (Bld) [#/Vol] 250.0 10*3/uL [facility] RBC (Bld) [#/Vol] 4.36 10*6/uL [facility] WBC LM Ql (Sput) 5.0 [facility] Comprehensive metabolic pane l (CMP aka Metabolic panel)on 05-16-2019 Albumin [Mass/Vol] 4.0 g/dL 3.5 - 5 g/dL [facility] Alk Phos 217 U/L High 24 - 126 U/L [facility] ALT [Catalytic activity/Vol] 547 U/L High 4 - 35 U/L [facility] AST [Catalytic activity/Vol] 608 U/L High 3 - 47 U/L [facility] Bilirubin [Mass/Vol] 1.8 mg/dL High 0.2 - 1 .6 mg/dL [facility] Calcium [Mass/Vol] 8.7 mg/dL 8.4 - 10. 4 mg/dL [facility] Chloride [Moles/Vol] 107 mmol/L 96 - 10 9 mmol/L [facility] CO2 [Moles/Vol] 25 mmol/L 22 - 30 mmol/L [facility] Comprehensive metabolic 2000 panel 0.57 mg/dL 0.52 - 1.04 mg/dL [facility] Glucose [Mass/Vol] 94 mg/dL 65 - 100 mg/dL [facility] Potassium [Moles/Vol] 3.6 mmol/L 3.6 - 5.1 mmol/L [facility] Protein [Mass/Vol] 7.0 g/dL 6.3 - 8.2 g/dL [facility] Sodium [Moles/Vol] 139 mmol/L 135 - 147 mmol/L [facility] Urea nitrogen [Mass/Vol] 9 mg/dL 8 - 20 mg/dL [facility] FL C-Arm Less Than 1 Houron 05-16-2019 Intraprocedural fluoroscopic spot images as above. See separate procedure report for more information. There are several filling defects within the common duct on image 10, which could be air bubbles or small stones. These are not clearly demonstrated on later images, although the common duct is not well opacified on later images. [facility] EXAMINATION: Fluoroscopic images/ERCP. 05/16/2019 2:16 pm TECHNIQUE: Fluoroscopy was provided by the radiology department for procedure. Radiologist was not present during examination. FLUOROSCOPY DOSE AND TYPE OR TIME AND EXPOSURES: 15 intraoperative spot images were obtained during ERCP. 220 seconds of fluoroscopic time utilized. COMPARISON: None HISTORY: Intraprocedural imaging. FINDINGS: 15 spot images of the abdomen were obtained. There appears to be cannulation of the common duct. There several filling defects within the common duct on image 10. These are not clearly demonstrated on later images, although the common duct is not well opacified. No evidence of extrinsic mass effect on the common duct. [facility] Ernie, Rad Results In - 05/16/2019 5:00 PM EST EXAMINATION: Fluoroscopic images/ERCP. 05/16/2019 2:16 pm TECHNIQUE: Fluoroscopy was provided by the radiology department for procedure. Radiologist was not present during examination. FLUOROSCOPY DOSE AND TYPE OR TIME AND EXPOSURES: 15 intraoperative spot images were obtained during ERCP. 220 seconds of fluoroscopic time utilized. COMPARISON: None HISTORY: Intraprocedural imaging. FINDINGS: 15 spot images of the abdomen were obtained. There appears to be cannulation of the common duct. There several filling defects within the common duct on image 10. These are not clearly demonstrated on later images, although the common duct is not well opacified. No evidence of extrinsic mass effect on the common duct. IMPRESSION: Intraprocedural fluoroscopic spot images as above. See separate procedure report for more information. There are several filling defects within the common duct on image 10, which could be air bubbles or small stones. These are not clearly demonstrated on later images, although the common duct is not well opacified on later images. [facility] GLOMERULAR FILTRATION RATEon 05-16-2019 GFR/1.73 sq M.predicted MDRD (S/P/Bld) [Vol rate/Area] mL/min/{1.73_m2} [facility] Comment on above: To estimate the GFR for Americans, multiply the result provided by 1.21. Population mean GFR = 85 ml/min/1.73 sq.m. for ages 60-69 yrs Five stages of CKD and GFR for each stage: Stage 1 GFR >=90 Stage 2 GFR 60-89 Stage 3 GFR 30-59 Stage 4 GFR 15-29 Stage 5 GFR <15 Lipaseon 05-16-2019 Lipase [Catalytic activity/Vol] 177 U/L 23 - 300 U/L [facility] Otheron 05-16-2019 Interpretation and review of laboratory results Abnormal [facility] Basic metabolic panel aka Ch em 805-15-2019 Calcium [Mass/Vol] 9.8 mg/dL 8.4 - 10. 4 mg/dL [facility] Chloride [Moles/Vol] 106 mmol/L 96 - 10 9 mmol/L [facility] CO2 [Moles/Vol] 24 mmol/L 22 - 30 mmol/L [facility] Comprehensive metabolic 2000 panel 0.59 mg/dL 0.52 - 1.04 mg/dL [facility] Glucose [Mass/Vol] 110 mg/dL High 65 - 100 mg/dL [facility] Interpretation and review of laboratory results Abnormal [facility] Potassium [Moles/Vol] 3.9 mmol/L 3.6 - 5.1 mmol/L [facility] Sodium [Moles/Vol] 141 mmol/L 135 - 147 mmol/L [facility] Urea nitrogen [Mass/Vol] 12 mg/dL 8 - 20 mg/dL [facility] CBC with Differentialon 05-03 Absolute Coleman 0.4 [facility] Basophils (Bld) [#/Vol] 0.0 10*3/uL [facility] Basophils/100 WBC (Bld) 0.1 % [facility] Eosinophils (Bld) [#/Vol] 0.0 10*3/uL Low [facility] Eosinophils/100 WBC (Bld) 0.5 % [facility] Erythrocyte distribution width (RBC) [Ratio] 15.2 % High 11.5 - 14.5 % [facility] Hematocrit (Bld) [Volume fraction] 42.1 % 33.6 - 46.8 % [facility] Hemoglobin (Bld) [Mass/Vol] 13.6 g/dL 11.7 - 15.8 g/dL [facility] Interpretation and review of laboratory results Abnormal [facility] Lymphocytes (Bld) [#/Vol] 1.2 10*3/uL [facility] Lymphocytes/100 WBC (Bld) 15.2 % [facility] MCH (RBC) [Entitic mass] 29.6 pg 27.5 - 32.[address] [facility] MCHC (RBC) [Mass/Vol] 32.3 g/dL 30.7 - 35.5 g/dl [facility] MCV (RBC) [Entitic vol] 91.5 fL 80.2 - [address] [facility] Monocytes/100 WBC (Bld) 5.1 % [facility] Neutrophils (Bld) [#/Vol] 6.5 10*3/uL [facility] Neutrophils/100 WBC (Bld) 79.1 % [facility] Platelets (Bld) [#/Vol] 251.0 10*3/uL [facility] RBC (Bld) [#/Vol] 4.60 10*6/uL [facility] [facility] WBC LM Ql (Sput) 8.2 [facility] CT Chest Abdomen Without IV Contraston 05-15-2019 Foci of subsegmental atelectasis or parenchymal scarring in the lung bases which may be chronic. Multiple fat containing right paramedian ventral hernias. No strangulation or infarction hernia sac suggested. Largest defect in the rectus sheath is approximately 2 cm. Degenerative disc disease lower lumbar spine with exiting nerve effacement/compression suggested. Moderate stool volume throughout the colon. Correlation with clinical evidence of constipation suggested. Calcifications noted adjacent to gallbladder clips which may reflect stones within portions of biliary tree similar to 04/01/2019. MRCP suggested if clinical concern of choledocholithiasis. Otherwise, no noncontrast CT evidence of acute thoracic or abdominal pathology. Portions of pelvis not visualized which precludes evaluation complete evaluation of the pelvis. [facility] Ernie, Rad Results In - 05/15/2019 1:24 PM EST EXAMINATION: CT OF THE CHEST AND ABDOMEN WITHOUT CONTRAST 05/15/2019 12:40 pm TECHNIQUE: CT of the chest and abdomen was performed without the administration of intravenous contrast. Multiplanar reformatted images are provided for review. Dose modulation, iterative reconstruction, and/or weight based adjustment of the mA/kV was utilized to reduce the radiation dose to as low as reasonably achievable. COMPARISON: None HISTORY: Abd pain, chest pain, radiating to back after lifting a mattress FINDINGS: Chest: Mediastinum: No acute noncontrast abnormality or CT evidence of acute posttraumatic change. Calcified and noncalcified lymph nodes noted throughout the mediastinum with maximal short axis dimension of approximately 7 mm. No definitively suspicious mediastinal mass. Lungs/pleura: Foci of parenchymal scarring and subsegmental atelectasis in lung bases. No acute pulmonary consolidations, airspace infiltrates, pneumothorax, suspicious mass, endobronchial lesion. Soft Tissues/Bones: No acute abnormality. Abdomen: Organs: No acute noncontrast abnormality. Postcholecystectomy changes. Calcifications noted about the gallbladder clips which may reflect retained stones within portions of the biliary tree. MRCP suggested if clinical concern of choledocholithiasis. GI/Bowel: Moderate stool volume throughout the colon. Correlation with clinical evidence of constipation suggested. Otherwise, no acute abnormality. Peritoneum/Retroperiton eum: Fat containing right paramedian ventral hernias with maximal 2 cm disruption/diastasis of the rectus sheath at the largest hernia site. No strangulation or infarction hernia sac suggested. No acute abnormalities. Bones/Soft Tissues: Degenerative disc disease and exiting nerve effacement lower lumbar spine. Otherwise, no acute abnormality IMPRESSION: Foci of subsegmental atelectasis or parenchymal scarring in the lung bases which may be chronic. Multiple fat containing right paramedian ventral hernias. No strangulation or infarction hernia sac suggested. Largest defect in the rectus sheath is approximately 2 cm. Degenerative disc disease lower lumbar spine with exiting nerve effacement/compression suggested. Moderate stool volume throughout the colon. Correlation with clinical evidence of constipation suggested. Calcifications noted adjacent to gallbladder clips which may reflect stones within portions of biliary tree similar to 04/01/2019. MRCP suggested if clinical concern of choledocholithiasis. Otherwise, no noncontrast CT evidence of acute thoracic or abdominal pathology. Portions of pelvis not visualized which precludes evaluation complete evaluation of the pelvis. Heidi Shaulis EXAMINATION: CT OF T HE CHEST AND ABDOMEN WITHOUT CONTRAST 05/15/2019 12:40 pm TECHNIQUE: CT of the chest and abdomen was performed without the administration of intravenous contrast. Multiplanar reformatted images are provided for review. Dose modulation, iterative reconstruction, and/or weight based adjustment of the mA/kV was utilized to reduce the radiation dose to as low as reasonably achievable. COMPARISON: None HISTORY: Abd pain, chest pain, radiating to back after lifting a mattress FINDINGS: Chest: Mediastinum: No acute noncontrast abnormality or CT evidence of acute posttraumatic change. Calcified and noncalcified lymph nodes noted throughout the mediastinum with maximal short axis dimension of approximately 7 mm. No definitively suspicious mediastinal mass. Lungs/pleura: Foci of parenchymal scarring and subsegmental atelectasis in lung bases. No acute pulmonary consolidations, airspace infiltrates, pneumothorax, suspicious mass, endobronchial lesion. Soft Tissues/Bones: No acute abnormality. Abdomen: Organs: No acute noncontrast abnormality. Postcholecystectomy changes. Calcifications noted about the gallbladder clips which may reflect retained stones within portions of the biliary tree. MRCP suggested if clinical concern of choledocholithiasis. GI/Bowel: Moderate stool volume throughout the colon. Correlation with clinical evidence of constipation suggested. Otherwise, no acute abnormality. Peritoneum/Retroperiton eum: Fat containing right paramedian ventral hernias with maximal 2 cm disruption/diastasis of the rectus sheath at the largest hernia site. No strangulation or infarction hernia sac suggested. No acute abnormalities. Bones/Soft Tissues: Degenerative disc disease and exiting nerve effacement lower lumbar spine. Otherwise, no acute abnormality Heidi Shaulis EKG 12-LEADon 05-15-2019 Stationary ECG Study Test Date: 2019-05-15 Pat Name: RICHY BOWENS Department: Room: Gender: Female Medicare Insurance Specialist: KULDEEP : 1960 Requested By: Order Number: Reading MD: Dayami Moreno Measurements Intervals [place] Rate: 112 P: 55 PA: 160 QRS: 53 QRSD: 93 T: 46 QT: 336 QTc: 403 Interpretive Statements SINUS TACHYCARDIA MINIMAL ST DEPRESSION ABNORMAL RHYTHM ECG UNCONFIRMED REPORT Electronically Signed On 05-15-2019 21:16:28 EST by [address]ami [address]no [facility] Ethanolon 05-15-2019 Ethanol Ql (U) <10 NOT DETECTED mg/dL [facility] GLOMERULAR FILTRATION RATEon 05-15-2019 GFR/1.73 sq M.predicted MDRD (S/P/Bld) [Vol rate/Area] mL/min/{1.73_m2} [facility] Comment on above: To estimate the GFR for Americans, multiply the result provided by 1.21. Population mean GFR = 85 ml/min/1.73 sq.m. for ages 60-69 yrs Five stages of CKD and GFR for each stage: Stage 1 GFR >=90 Stage 2 GFR 60-89 Stage 3 GFR 30-59 Stage 4 GFR 15-29 Stage 5 GFR <15 Hepatic function panelon Albumin [Mass/Vol] 4.6 g/dL 3.5 - 5 g/dL [facility] Alk Phos 140 U/L High 24 - 126 U/L [facility] ALT [Catalytic activity/Vol] 84 U/L High 4 - 35 U/L [facility] AST [Catalytic activity/Vol] 218 U/L High 3 - 47 U/L [facility] Bilirubin [Mass/Vol] 1.0 mg/dL 0.2 - 1 .6 mg/dL [facility] Bilirubin.conjugated [Mass/Vol] 0.7 mg/dL High 0 - 0.5 mg/dL [facility] Interpretation and review of laboratory results Abnormal [facility] [employer] Protein [Mass/Vol] 7.9 g/dL 6.3 - 8.2 g/dL [facility] Lipaseon 05-15-2019 Lipase [Catalytic activity/Vol] 199 U/L 23 - 300 U/L [facility] MRI Abdomen-MRCP With/Withou t IV Conton 05-15-2019 Ernie, Rad Results In - 05/15/2019 9:13 PM EST EXAMINATION: MRI OF THE ABDOMEN WITH AND WITHOUT CONTRAST AND MRCP 05/15/2019 7:59 pm TECHNIQUE: Multiplanar multisequence MRI of the abdomen was performed with and without the administration of intravenous contrast. After initial T2 axial and coronal images, thick slab, thin slab and 3D coronal MRCP sequences were obtained without the administration of intravenous contrast. MIP images are provided for review. COMPARISON: CT dated 05/15/2019 HISTORY: possible biliary stone S/P gallbladder surgery March, Diagnosis: FINDINGS: Lung bases: Clear lung bases. Liver: No focal lesions are noted in the liver. Biliary system: The gallbladder is surgically absent by history. Metallic clip noted in the gallbladder fossa. There is no intra hepatic bile duct dilatation noted. There is a 3 cm ovoid cystic structure noted, seen in the gallbladder fossa on image 9 of series 4 and image 17 of series 6 with multiple intraluminal filling defects representing gallstones. This finding is concordant with CT finding of 05/15/2019. This ovoid cystic structure is connected to the cystic duct. Mild narrowing of the distal common bile duct noted. The common bile duct at the cynthia hepatis measures 7 mm. No CBD stone. Pancreas: Normal pancreas. Normal pancreatic duct. Spleen: Normal spleen. Adrenals: Normal adrenals. Kidneys: No hydronephrosis in the kidneys. Abdominal aorta is normal in caliber with no evidence of aneurysmal dilatation or dissection. No retroperitoneal adenopathy or bleed.. GI: No acute abnormality noted in the GI tract in the upper abdomen. No ascites. Marrow signal: Normal marrow signal. Mild thoracic and lumbar spondylotic changes are noted. IMPRESSION: The gallbladder is surgically absent by history. 3 cm ovoid cystic structure noted in the gallbladder fossa connecting with the cystic duct. Multiple tiny gallstones noted in this cystic structure. This may represent an unusual choledochal cyst or gallbladder remnant. No CBD stones. CBD at the cynthia hepatis measures 7 mm. Normal pancreas and pancreatic duct. Additional findings as above. Heidi Shaulis The gallbladder is surgically absent by history. 3 cm ovoid cystic structure noted in the gallbladder fossa connecting with the cystic duct. Multiple tiny gallstones noted in this cystic structure. This may represent an unusual choledochal cyst or gallbladder remnant. No CBD stones. CBD at the cynthia hepatis measures 7 mm. Normal pancreas and pancreatic duct. Additional findings as above. [facility] EXAMINATION: MRI OF THE ABDOMEN WITH AND WITHOUT CONTRAST AND MRCP 05/15/2019 7:59 pm TECHNIQUE: Multiplanar multisequence MRI of the abdomen was performed with and without the administration of intravenous contrast. After initial T2 axial and coronal images, thick slab, thin slab and 3D coronal MRCP sequences were obtained without the administration of intravenous contrast. MIP images are provided for review. COMPARISON: CT dated 05/15/2019 HISTORY: possible biliary stone S/P gallbladder surgery March, Diagnosis: FINDINGS: Lung bases: Clear lung bases. Liver: No focal lesions are noted in the liver. Biliary system: The gallbladder is surgically absent by history. Metallic clip noted in the gallbladder fossa. There is no intra hepatic bile duct dilatation noted. There is a 3 cm ovoid cystic structure noted, seen in the gallbladder fossa on image 9 of series 4 and image 17 of series 6 with multiple intraluminal filling defects representing gallstones. This finding is concordant with CT finding of 05/15/2019. This ovoid cystic structure is connected to the cystic duct. Mild narrowing of the distal common bile duct noted. The common bile duct at the cynthia hepatis measures 7 mm. No CBD stone. Pancreas: Normal pancreas. Normal pancreatic duct. Spleen: Normal spleen. Adrenals: Normal adrenals. Kidneys: No hydronephrosis in the kidneys. Abdominal aorta is normal in caliber with no evidence of aneurysmal dilatation or dissection. No retroperitoneal adenopathy or bleed.. GI: No acute abnormality noted in the GI tract in the upper abdomen. No ascites. Marrow signal: Normal marrow signal. Mild thoracic and lumbar spondylotic changes are noted. Heidi Shaulis Troponin Ion 05-15-2019 Troponin I.cardiac [Mass/Vol] ng/mL 0 - 0.033 ng/mL Heidi Shaulis Comment on above: NEGATIVE; No detectable troponin-I. Troponin I.cardiac [Mass/Vol] ng/mL 0 - 0.033 ng/mL Heidi Shaulis Comment on above: NEGATIVE; No detectable troponin-I. Troponin I.cardiac [Mass/Vol] ng/mL 0 - 0.033 ng/mL Heidi Shaulis Comment on above: NEGATIVE; No detectable troponin-I. Urinalysis with reflex cultu reon 05-15-2019 Appearance (U) Cloudy Heidi Shaulis Bacteria identified Aer cx Nom (Unsp spec) SETUP Heidi Shaulis Bilirubin Ql (U) Negative Negative Heidi Shaulis Color (CSF) Evelyn [facility] Glucose Ql (U) Negative Negative mg/dL [facility] Hemoglobin Ql (U) [address] [facility] Interpretation and review of laboratory results Abnormal [facility] Ketones Ql (U) Negative Negative mg/dL [facility] Leukoesterase Negative Negative [facility] Mucous-Urine Rare /LPF [facility] Nitrite Ql (U) Negative Negative [facility] Occult Bld Negative Negative [facility] pH (U) 7.0 [pH] [facility] Protein (U) [Mass/Vol] Negative Negat harriet mg/dL [facility] Specific gravity (U) [Rel density] 1.013 [facility] Squamous Epi Cells 72 /LPF [facility] Urine Source Clean Catch [facility] Urobilinogen Qn (U) 4.0 mg/dL <2.0 [facility] WBC (U) [#/Vol] 10 /uL Abnormal [facility] XR Chest Portable (1 View)on 05-15-2019 EXAMINATION: ONE XRA Y VIEW OF THE CHEST 05/15/2019 12:09 pm COMPARISON: 04/15/2013 at 1104 hours HISTORY: cp Pt c/o abd pain, chest pain, radiating to back after lifting a mattress FINDINGS: Infiltrative changes the mid-basilar regions bilaterally slightly worse on the right. No cardiomegaly, central pulmonary vascular congestion noted. Parents is consistent with bronchitis or mild pneumonia. Otherwise, lung james are clear. No pleural effusion or pneumothorax. [facility] Mild infiltrate or subsegmental at Salv[place] changes in lung bases consistent with bronchitis or mild pneumonia. Otherwise, radiographically nonacute portable chest. [facility] [employer] Ernie, Rad Results In - 05/15/2019 12:23 PM EST EXAMINATION: ONE XRAY VIEW OF THE CHEST 05/15/2019 12:09 pm COMPARISON: 04/15/2013 at 1104 hours HISTORY: cp Pt c/o abd pain, chest pain, radiating to back after lifting a mattress FINDINGS: Infiltrative changes the mid-basilar regions bilaterally slightly worse on the right. No cardiomegaly, central pulmonary vascular congestion noted. Parents is consistent with bronchitis or mild pneumonia. Otherwise, lung james are clear. No pleural effusion or pneumothorax. IMPRESSION: Mild infiltrate or subsegmental at [place] changes in lung bases consistent with bronchitis or mild pneumonia. Otherwise, radiographically nonacute portable chest. [facility] Basic metabolic panelon 03-04 Calcium [Mass/Vol] 9.9 mg/dL 8.4 - 10. 4 mg/dL [facility] Chloride [Moles/Vol] 100 mmol/L 96 - 10 9 mmol/L [facility] CO2 [Moles/Vol] 29 mmol/L 22 - 30 mmol/L [facility] Comprehensive metabolic 2000 panel 0.63 mg/dL 0.52 - 1.04 mg/dL [facility] Glucose [Mass/Vol] 101 mg/dL High 65 - 100 mg/dL [facility] Interpretation and review of laboratory results Abnormal [facility] Potassium [Moles/Vol] 4.3 mmol/L 3.6 - 5.1 mmol/L [facility] Sodium [Moles/Vol] 141 mmol/L 135 - 147 mmol/L [facility] Urea nitrogen [Mass/Vol] 10 mg/dL 8 - 20 mg/dL [facility] CBC with Differentialon 03-[address] Absolute [place] [address] [facility] Basophils (Bld) [#/Vol] 0.0 10*3/uL [facility] Basophils/100 WBC (Bld) 0.6 % [facility] Eosinophils (Bld) [#/Vol] 0.1 10*3/uL [facility] Eosinophils/100 WBC (Bld) 1.6 % [facility] Erythrocyte distribution width (RBC) [Ratio] 13.7 % 11.5 - 14.5 % [facility] Hematocrit (Bld) [Volume fraction] 37.5 % 33.6 - 46.8 % [facility] Hemoglobin (Bld) [Mass/Vol] 11.9 g/dL 11.7 - 15.8 g/dL [facility] Interpretation and review of laboratory results Abnormal [facility] Lymphocytes (Bld) [#/Vol] 1.8 10*3/uL [facility] Lymphocytes/100 WBC (Bld) 26.7 % [facility] MCH (RBC) [Entitic mass] 29.1 pg 27.5 - 32.[address] [facility] MCHC (RBC) [Mass/Vol] 31.7 g/dL 30.7 - 35.5 g/dl [facility] MCV (RBC) [Entitic vol] 91.7 fL 80.2 - [address] [facility] Monocytes/100 WBC (Bld) 10.1 % [facility] Neutrophils (Bld) [#/Vol] 4.2 10*3/uL [facility] Neutrophils/100 WBC (Bld) 61.0 % [facility] Platelets (Bld) [#/Vol] 492.0 10*3/uL High [facility] RBC (Bld) [#/Vol] 4.09 10*6/uL [facility] WBC LM Ql (Sput) 6.[address] Abdomen Pelvis Without IV Contraston 04-01-2019 3.8 x 6.2 x 4.4 cm m ass in the anterior right paramedian subhepatic region of the abdomen extending through the rectus sheath and communicating with 2.7-2.8 cm air-fluid collection in the subcutaneous soft tissues. Differential considerations include hematoma, seroma, abscess, biloma. Mild intramuscular edema or hemorrhage in the right rectus sheath with foci of gas density however no drainable/definite fluid collection. Increased number of otherwise unremarkable inguinal, iliac and retroperitoneal/periaor tic lymph nodes similar to visualized portions of the abdomen and pelvis on 02/17/2019. Multilevel moderate-advanced degenerative disc disease lumbar spine with multilevel mild exiting nerve effacement/compression. Heidi Shaulis EXAMINATION: CT OF T HE ABDOMEN AND PELVIS WITHOUT CONTRAST 04/01/2019 9:29 am TECHNIQUE: CT of the abdomen and pelvis was performed without the administration of intravenous contrast. Multiplanar reformatted images are provided for review. Dose modulation, iterative reconstruction, and/or weight based adjustment of the mA/kV was utilized to reduce the radiation dose to as low as reasonably achievable. COMPARISON: None. HISTORY: Abdominal distension post op lap mihai, lysis of adhesions 03/17/19, rt mid abd pain, distention, fever FINDINGS: Lower Chest: Incomplete visualization of bilateral lower lobe subsegmental atelectasis, infiltrate or parenchymal scarring slightly worse on the left. Correlation with clinical evidence of early/mild pneumonia suggested. Otherwise, no acute CT abnormality visualized lower thorax Organs: Postcholecystectomy changes. Otherwise, no acute noncontrast abnormality. Postcholecystectomy changes noted. Otherwise, no acute noncontrast abnormality. GI/Bowel: No acute abnormality Pelvis: No acute noncontrast abnormality Peritoneum/Retroperiton eum: 3.8 x 6.2 by 4.4 cm mass in the subhepatic region of the abdomen with infiltrative/inflammato ry changes adjacent mesentery and/or omentum. Focal defect in the rectus sheath/anterior abdominal wall also noted with subcutaneous cavitary mass and air-fluid leveling measuring 2.8 cm in greatest dimension. Findings are consistent with hematoma, biloma, abscess. Herniation of a small amount of omental fat also noted without definite infarction of the hernia sac/herniated fat. Increased number of otherwise unremarkable appearing lymph nodes in the periaortic and iliac regions with maximal short axis dimension 7.5 mm. Otherwise, no acute abnormality. Bones/Soft Tissues: Asymmetric thickening and infiltrative change of the right rectus abdominus muscle consistent with mild rectus sheath hematoma, contusion or myositis. Punctate focus of gas density seen within the right rectus sheath without definite fluid leveling. Multilevel degenerative disc disease [facility] Ernie, Rad Results In - 04/01/2019 9:54 AM EST EXAMINATION: CT OF THE ABDOMEN AND PELVIS WITHOUT CONTRAST 04/01/2019 9:29 am TECHNIQUE: CT of the abdomen and pelvis was performed without the administration of intravenous contrast. Multiplanar reformatted images are provided for review. Dose modulation, iterative reconstruction, and/or weight based adjustment of the mA/kV was utilized to reduce the radiation dose to as low as reasonably achievable. COMPARISON: None. HISTORY: Abdominal distension post op lap mihai, lysis of adhesions 03/17/19, rt mid abd pain, distention, fever FINDINGS: Lower Chest: Incomplete visualization of bilateral lower lobe subsegmental atelectasis, infiltrate or parenchymal scarring slightly worse on the left. Correlation with clinical evidence of early/mild pneumonia suggested. Otherwise, no acute CT abnormality visualized lower thorax Organs: Postcholecystectomy changes. Otherwise, no acute noncontrast abnormality. Postcholecystectomy changes noted. Otherwise, no acute noncontrast abnormality. GI/Bowel: No acute abnormality Pelvis: No acute noncontrast abnormality Peritoneum/Retroperiton eum: 3.8 x 6.2 by 4.4 cm mass in the subhepatic region of the abdomen with infiltrative/inflammato ry changes adjacent mesentery and/or omentum. Focal defect in the rectus sheath/anterior abdominal wall also noted with subcutaneous cavitary mass and air-fluid leveling measuring 2.8 cm in greatest dimension. Findings are consistent with hematoma, biloma, abscess. Herniation of a small amount of omental fat also noted without definite infarction of the hernia sac/herniated fat. Increased number of otherwise unremarkable appearing lymph nodes in the periaortic and iliac regions with maximal short axis dimension 7.5 mm. Otherwise, no acute abnormality. Bones/Soft Tissues: Asymmetric thickening and infiltrative change of the right rectus abdominus muscle consistent with mild rectus sheath hematoma, contusion or myositis. Punctate focus of gas density seen within the right rectus sheath without definite fluid leveling. Multilevel degenerative disc disease IMPRESSION: 3.8 x 6.2 x 4.4 cm mass in the anterior right paramedian subhepatic region of the abdomen extending through the rectus sheath and communicating with 2.7-2.8 cm air-fluid collection in the subcutaneous soft tissues. Differential considerations include hematoma, seroma, abscess, biloma. Mild intramuscular edema or hemorrhage in the right rectus sheath with foci of gas density however no drainable/definite fluid collection. Increased number of otherwise unremarkable inguinal, iliac and retroperitoneal/periaor tic lymph nodes similar to visualized portions of the abdomen and pelvis on 02/17/2019. Multilevel moderate-advanced degenerative disc disease lumbar spine with multilevel mild exiting nerve effacement/compression. Heidi Shaulis GLOMERULAR FILTRATION RATEon 04-01-2019 GFR/1.73 sq M.predicted MDRD (S/P/Bld) [Vol rate/Area] mL/min/{1.73_m2} Heidi Shaulis Comment on above: To estimate the GFR for Americans, multiply the result provided by 1.21. Population mean GFR = 85 ml/min/1.73 sq.m. for ages 60-69 yrs Five stages of CKD and GFR for each stage: Stage 1 GFR >=90 Stage 2 GFR 60-89 Stage 3 GFR 30-59 Stage 4 GFR 15-29 Stage 5 GFR <15 Hepatic function panelon Albumin [Mass/Vol] 4.0 g/dL 3.5 - 5 g/dL [facility] [employer] Alk Phos 117 U/L 24 - 126 U/L Heidi Shaulis ALT [Catalytic activity/Vol] 22 U/L 4 - 35 U/L [facility] AST [Catalytic activity/Vol] 28 U/L 3 - 47 U/L [facility] Bilirubin [Mass/Vol] 0.3 mg/dL 0.2 - 1 .6 mg/dL [facility] Bilirubin.conjugated [Mass/Vol] 0.2 mg/dL 0 - 0.5 mg/dL [facility] Protein [Mass/Vol] 6.9 g/dL 6.3 - 8.2 g/dL [facility] EKG 12-LEADon 02-25-2019 Stationary ECG Study Test Date: 2019-02-24 Pat Name: RICHY BOWENS Department: Room: Gender: Female Medicare Insurance Specialist: PIERRE : 1960 Requested By: Order Number: [id number] MD: Marybel Tee Measurements Intervals [place] Rate: 86 P: 51 PA: 158 QRS: 55 QRSD: 89 T: 49 QT: 366 QTc: 409 Interpretive Statements SINUS RHYTHM NORMAL ECG Electronically Signed On 02-25-2019 14:18:[address] Tee [facility] CBC WITH Differentialon 02-[address] Absolute [place] 0[address] [facility] Basophils (Bld) [#/Vol] 0.0 10*3/uL [facility] Basophils/100 WBC (Bld) 0.5 % [facility] Eosinophils (Bld) [#/Vol] 0.2 10*3/uL [facility] Eosinophils/100 WBC (Bld) 2.7 % [facility] Erythrocyte distribution width (RBC) [Ratio] 13.9 % 11.5 - 14.5 % [facility] Hematocrit (Bld) [Volume fraction] 40.0 % 33.6 - 46.8 % [facility] Hemoglobin (Bld) [Mass/Vol] 13.0 g/dL 11.7 - 15.8 g/dL [facility] Interpretation and review of laboratory results Abnormal [facility] Lymphocytes (Bld) [#/Vol] 1.5 10*3/uL [facility] Lymphocytes/100 WBC (Bld) 24.3 % [facility] MCH (RBC) [Entitic mass] 30.5 pg 27.5 - 32.[address] [facility] MCHC (RBC) [Mass/Vol] 32.5 g/dL 30.7 - 35.5 g/dl [facility] MCV (RBC) [Entitic vol] 93.9 fL 80.2 - [address] [facility] Monocytes/100 WBC (Bld) 11.9 % [facility] Neutrophils (Bld) [#/Vol] 3.6 10*3/uL [facility] Neutrophils/100 WBC (Bld) 60.6 % [facility] Platelets (Bld) [#/Vol] 326.0 10*3/uL [facility] RBC (Bld) [#/Vol] 4.26 10*6/uL [facility] WBC LM Ql (Sput) 6.0 [facility] Comprehensive metabolic pane l aka Metaboon 02-24-2019 Albumin [Mass/Vol] 4.2 g/dL 3.5 - 5 g/dL [facility] Alk Phos 96 U/L 24 - 126 U/L [facility] ALT [Catalytic activity/Vol] 32 U/L 4 - 35 U/L [facility] AST [Catalytic activity/Vol] 40 U/L 3 - 47 U/L [facility] Bilirubin [Mass/Vol] 0.3 mg/dL 0.2 - 1 .6 mg/dL [facility] Calcium [Mass/Vol] 9.2 mg/dL 8.4 - 10. 4 mg/dL [facility] Chloride [Moles/Vol] 104 mmol/L 96 - 10 9 mmol/L [facility] CO2 [Moles/Vol] 28 mmol/L 22 - 30 mmol/L [facility] Comprehensive metabolic 2000 panel 0.75 mg/dL 0.52 - 1.04 mg/dL [facility] Glucose [Mass/Vol] 110 mg/dL High 65 - 100 mg/dL [facility] Interpretation and review of laboratory results Abnormal [facility] Potassium [Moles/Vol] 3.8 mmol/L 3.6 - 5.1 mmol/L [facility] Protein [Mass/Vol] 7.3 g/dL 6.3 - 8.2 g/dL [facility] Sodium [Moles/Vol] 138 mmol/L 135 - 147 mmol/L [facility] Urea nitrogen [Mass/Vol] 12 mg/dL 8 - 20 mg/dL [facility] GLOMERULAR FILTRATION RATEon 02-24-2019 GFR/1.73 sq M.predicted MDRD (S/P/Bld) [Vol rate/Area] mL/min/{1.73_m2} Heidi Shaulis Comment on above: To estimate the GFR for Americans, multiply the result provided by 1.21. Population mean GFR = 85 ml/min/1.73 sq.m. for ages 60-69 yrs Five stages of CKD and GFR for each stage: Stage 1 GFR >=90 Stage 2 GFR 60-89 Stage 3 GFR 30-59 Stage 4 GFR 15-29 Stage 5 GFR <15 CT Chest Abdomen Without IV Contraston 02-17-2019 1. No acute findings in the chest or abdomen. 2. There is mild wall thickening of the distal esophagus without sizable hiatal hernia. There is a right paramedian mid abdominal wall ventral hernia measuring 7.1 cm craniocaudad by 2.8 cm transverse. No herniated bowel segments. 3. Cholelithiasis, without evidence of acute cholecystitis. 4. Few tiny scattered right lung nodules measuring 2-3 mm. No dominant pulmonary mass or evidence of thoracic adenopathy. 5. Nonspecific diffuse wall thickening of the stomach. If there are symptoms referable to the left upper abdomen, follow-up upper GI or endoscopy may be considered. RECOMMENDATIONS: Multiple pulmonary nodules. Most severe: 2-3 mm solid pulmonary nodule within the upper lobe. If patient is low risk for malignancy, no routine follow-up imaging is recommended; if patient is high risk for malignancy, a non-contrast Chest CT at 12 months is optional. If performed and the nodule is stable at 12 months, no further follow-up is recommended. These guidelines do not apply to immunocompromised patients and patients with cancer. Follow up in patients with significant comorbidities as clinically warranted. For lung cancer screening, adhere to Lung-RADS guidelines. Reference: Radiology. 2017; 284(1):228-43. Heidi Shaulis EXAMINATION: Noncontrast CT of the chest/abdomen: TECHNIQUE: Contiguous unenhanced axial CT images were obtained through the chest and abdomen. Sagittal and coronal reformats were created. Dose modulation, iterative reconstruction, and/or weight based adjustment of the mA/kV was utilized to reduce the radiation dose to as low as reasonably achievable. COMPARISON: Chest CT 01/14/2014 HISTORY: Evaluate sliding hiatal hernia. FINDINGS: Chest CT: There are mild degenerative changes in the thoracic spine. The osseous structures of the thorax are otherwise unremarkable. The heart is not enlarged. No sizable pericardial effusion. The thoracic aorta is normal in caliber. Evaluation of hilar/mediastinal structures is limited due to lack of intravenous contrast. No dominant breast lesion. No thoracic adenopathy. The a few partially calcified central mediastinal lymph nodes are present. The central airway is patent. No pneumothorax, focal airspace consolidation, or pleural effusion. Minimal dependent atelectasis in the right lower lobe. There is a 3 mm subpleural ground-glass nodule in the right lower lobe on image 67 of series 2. There is a 2 mm subpleural nodule in the anterolateral right lower lobe on image 44 of series 2. 2 mm juxtapleural medial right upper lobe nodule on image 24 of series 2. No dominant left lung nodule. Mild wall thickening of the distal esophagus is unchanged from the comparison study. Abdominal CT: On the coronal reformats, there is mild leftward curvature of the mid to upper thoracic spine. There is mild multilevel degenerative disc and facet disease in the thoracic spine. Evaluation of the solid organs is limited due to lack of intravenous contrast. The abdominal aorta is normal in caliber. Diffuse wall thickening of the stomach is nonspecific and may be due to lack of distention. There are probable small layering calcified gallstones in the gallbladder without evidence of acute cholecystitis. There is a right paramedian mid is ventral hernia is saw on image 103 of series 2 and image 52 of series 5. This measures 7.1 cm craniocaudad and 2.8 cm transverse. No herniated bowel segments are demonstrated. The liver, adrenal glands, spleen, and pancreas are unremarkable. The kidneys are symmetric in size and attenuation. No radiopaque intrarenal calculi or dominant solid renal mass. No evidence of obstructive uropathy. No abnormally dilated bowel segments or free intraperitoneal air. Moderate stool in the visualized colon. The pelvis is not included on this study. Heidi Shaulis Ernie, Rad Results In - 02/17/2019 9:40 AM EST EXAMINATION: Noncontrast CT of the chest/abdomen: TECHNIQUE: Contiguous unenhanced axial CT images were obtained through the chest and abdomen. Sagittal and coronal reformats were created. Dose modulation, iterative reconstruction, and/or weight based adjustment of the mA/kV was utilized to reduce the radiation dose to as low as reasonably achievable. COMPARISON: Chest CT 01/14/2014 HISTORY: Evaluate sliding hiatal hernia. FINDINGS: Chest CT: There are mild degenerative changes in the thoracic spine. The osseous structures of the thorax are otherwise unremarkable. The heart is not enlarged. No sizable pericardial effusion. The thoracic aorta is normal in caliber. Evaluation of hilar/mediastinal structures is limited due to lack of intravenous contrast. No dominant breast lesion. No thoracic adenopathy. The a few partially calcified central mediastinal lymph nodes are present. The central airway is patent. No pneumothorax, focal airspace consolidation, or pleural effusion. Minimal dependent atelectasis in the right lower lobe. There is a 3 mm subpleural ground-glass nodule in the right lower lobe on image 67 of series 2. There is a 2 mm subpleural nodule in the anterolateral right lower lobe on image 44 of series 2. 2 mm juxtapleural medial right upper lobe nodule on image 24 of series 2. No dominant left lung nodule. Mild wall thickening of the distal esophagus is unchanged from the comparison study. Abdominal CT: On the coronal reformats, there is mild leftward curvature of the mid to upper thoracic spine. There is mild multilevel degenerative disc and facet disease in the thoracic spine. Evaluation of the solid organs is limited due to lack of intravenous contrast. The abdominal aorta is normal in caliber. Diffuse wall thickening of the stomach is nonspecific and may be due to lack of distention. There are probable small layering calcified gallstones in the gallbladder without evidence of acute cholecystitis. There is a right paramedian mid is ventral hernia is saw on image 103 of series 2 and image 52 of series 5. This measures 7.1 cm craniocaudad and 2.8 cm transverse. No herniated bowel segments are demonstrated. The liver, adrenal glands, spleen, and pancreas are unremarkable. The kidneys are symmetric in size and attenuation. No radiopaque intrarenal calculi or dominant solid renal mass. No evidence of obstructive uropathy. No abnormally dilated bowel segments or free intraperitoneal air. Moderate stool in the visualized colon. The pelvis is not included on this study. IMPRESSION: 1. No acute findings in the chest or abdomen. 2. There is mild wall thickening of the distal esophagus without sizable hiatal hernia. There is a right paramedian mid abdominal wall ventral hernia measuring 7.1 cm craniocaudad by 2.8 cm transverse. No herniated bowel segments. 3. Cholelithiasis, without evidence of acute cholecystitis. 4. Few tiny scattered right lung nodules measuring 2-3 mm. No dominant pulmonary mass or evidence of thoracic adenopathy. 5. Nonspecific diffuse wall thickening of the stomach. If there are symptoms referable to the left upper abdomen, follow-up upper GI or endoscopy may be considered. RECOMMENDATIONS: Multiple pulmonary nodules. Most severe: 2-3 mm solid pulmonary nodule within the upper lobe. If patient is low risk for malignancy, no routine follow-up imaging is recommended; if patient is high risk for malignancy, a non-contrast Chest CT at 12 months is optional. If performed and the nodule is stable at 12 months, no further follow-up is recommended. These guidelines do not apply to immunocompromised patients and patients with cancer. Follow up in patients with significant comorbidities as clinically warranted. For lung cancer screening, adhere to Lung-RADS guidelines. Reference: Radiology. 2017; 284(1):228-43. [facility] Basic metabolic panelon Calcium [Mass/Vol] 9.7 mg/dL 8.4 - 10. 4 mg/dL [facility] Chloride [Moles/Vol] 102 mmol/L 96 - 10 9 mmol/L [facility] CO2 [Moles/Vol] 28 mmol/L 22 - 30 mmol/L [facility] Comprehensive metabolic 2000 panel 0.67 mg/dL 0.52 - 1.04 mg/dL [facility] Glucose [Mass/Vol] 95 mg/dL 65 - 100 mg/dL [facility] Potassium [Moles/Vol] 4.3 mmol/L 3.6 - 5.1 mmol/L [facility] Sodium [Moles/Vol] 138 mmol/L 135 - 147 mmol/L [facility] Urea nitrogen [Mass/Vol] 14 mg/dL 8 - 20 mg/dL [facility] GLOMERULAR FILTRATION RATEon 01-02-2019 GFR/1.73 sq M.predicted MDRD (S/P/Bld) [Vol rate/Area] mL/min/{1.73_m2} [facility] Comment on above: To estimate the GFR for Americans, multiply the result provided by 1.21. Population mean GFR = 85 ml/min/1.73 sq.m. for ages 60-69 yrs Five stages of CKD and GFR for each stage: Stage 1 GFR >=90 Stage 2 GFR 60-89 Stage 3 GFR 30-59 Stage 4 GFR 15-29 Stage 5 GFR <15 Vital Signs Date Time Vital Sign Value Performing Clinician Facility 08-30-2023 11:52-0400 Diastolic blood pressure 62 mm[Hg] Karthik Berry MD Work Phone: 2([phone] [place] [address] 08-30-2023 11:52-0400 Heart rate 80 /min Karthik Berry MD Work Phone: 3([phone] [place] [address] 08-30-2023 11:52-0400 Respiratory rate 21 /min Karthik Berry MD Work Phone: 5([phone])350-015781 [place] [address] 08-30-2023 11:52-0400 SaO2% (BldA) [Mass fraction] 92 % Karthik Berry MD Work Phone: 2([phone])[phone] [place] [address] 08-30-2023 11:52-0400 Systolic blood pressure 119 mm[Hg] Karthik Berry MD Work Phone: 3([phone])165-072581 [place] [address] 08-30-2023 11:13-0400 Body temperature 97.59 [degF] Karthik Berry MD Work Phone: 8([phone])507-544381 [place] [address] 08-30-2023 08:32-0400 Body height 167.6 cm Karthik Berry MD Work Phone: 3(320)[phone] [place] [address] 08-30-2023 08:32-0400 Body mass index (BMI) [Ratio] 26.18 kg/m2 Karthik Berry MD Work Phone: 6(241)[phone] [address] 08-30-2023 08:32-0400 Body weight 73.57 kg Karthik Berry MD Work Phone: 5([phone])594-212581 [place] [address] 08-11-2023 21:22-0400 Body temperature 98.6 [degF] [facility] 08-11-2023 21:22-0400 Diastolic blood pressure 78 mm[Hg] [facility] 08-11-2023 21:22-0400 Heart rate 87 /min [facility] 08-11-2023 21:22-0400 Respiratory rate 17 /min [facility] 08-11-2023 21:22-0400 SaO2% (BldA) [Mass fraction] 95 % [facility] 08-11-2023 21:22-0400 Systolic blood pressure 127 mm[Hg] [facility] 08-11-2023 16:53-0400 Body height 167.[address] [facility] 08-11-2023 16:53-0400 Body mass index (BMI) [Ratio] 25.8 kg/m2 [facility] 08-11-2023 16:53-0400 Body weight 72.[address] [facility] 06-20-2023 23:47-0400 Body temperature 98 [degF] NINFA OCASIO Work Phone: [facility] 06-20-2023 23:47-0400 Diastolic blood pressure 90 mm[Hg] PA Gary Reno PA Work Phone: [facility] 06-20-2023 23:47-0400 Heart rate 108 /min PA Gary OCASIO Work Phone: [facility] 06-20-2023 23:47-0400 Respiratory rate 16 /min NINFA Reno PA Work Phone: [facility] 06-20-2023 23:47-0400 SaO2% (BldA) [Mass fraction] 97 % PA Gary OCASIO Work Phone: [facility] 06-20-2023 23:47-0400 Systolic blood pressure 145 mm[Hg] NINFA Reno PA Work Phone: [facility] 06-20-2023 21:53-0400 Body height 167.64 cm NINFA Reno PA Work Phone: [facility] 06-20-2023 21:53-0400 Body mass index (BMI) [Ratio] 27.9 kg/m2 PA Gary OCASIO Work Phone: [facility] 06-20-2023 21:53-0400 Body weight 78.52 kg PA Gary Reno PA Work Phone: [facility] 02-26-2023 11:08-0500 Body mass index (BMI) [Ratio] 25.4 kg/m2 PA Gary Reno PA Work Phone: [facility] 02-26-2023 11:08-0500 Body temperature 97.8 [degF] PA Gary Reno PA Work Phone: [facility] 02-26-2023 11:08-0500 Body weight 71.66 kg PA Gary Reno PA Work Phone: [facility] 02-26-2023 11:08-0500 Diastolic blood pressure 90 mm[Hg] PA Gary Reno PA Work Phone: [facility] 02-26-2023 11:08-0500 Heart rate 102 /min PA Gary Reno PA Work Phone: [facility] 02-26-2023 11:08-0500 Respiratory rate 16 /min PA Gary Reno PA Work Phone: [facility] 02-26-2023 11:08-0500 SaO2% (BldA) [Mass fraction] 95 % PA Gary Reno PA Work Phone: [facility] 02-26-2023 11:08-0500 Systolic blood pressure 135 mm[Hg] PA Gary Reno PA Work Phone: [facility] 01-15-2020 11:02-0400 BP Diastolic 56 mm[Hg] [facility] 01-15-2020 11:02-0400 BP Systolic 100 mm[Hg] T[facility] 01-15-2020 11:02-0400 Pulse (Heart Rate) 78 /min [facility] 01-15-2020 11:02-0400 Pulse Oximetry 98 % [facility] 01-15-2020 11:02-0400 Respiratory Rate 16 /min [facility] 01-15-2020 10:38-0400 Body Temperature 97.9 [degF] [facility] 01-15-2020 09:08-0400 BMI (Body Mass Index) 24.69 kg/m2 Tomeka [facility] 01-15-2020 09:08-0400 Body weight 69.4 kg [facility] 01-15-2020 09:08-0400 Height 167.6 cm Tomeka [facility] 05-18-2019 16:28-0500 Body Temperature 98.4 [degF] Candido Brasher [facility] 05-18-2019 16:28-0500 BP Diastolic 85 mm[Hg] Candido [facility] 05-18-2019 16:28-0500 BP Systolic 146 mm[Hg] Candido [facility] 05-18-2019 16:28-0500 Pulse (Heart Rate) 83 /min [facility] 05-18-2019 16:28-0500 Pulse Oximetry 96 % Candido [facility] 05-18-2019 16:28-0500 Respiratory Rate 16 /min Candido Brasher [facility] 05-18-2019 12:28-0500 BMI (Body Mass Index) 25.34 kg/m2 Candido [facility] 05-18-2019 12:28-0500 Body weight 71.22 kg Candido [facility] 05-18-2019 12:28-0500 Height 167.6 cm Candido [facility] 05-17-2019 15:41-0500 Body Temperature 98.49 [degF] Dayami [facility] 05-17-2019 15:41-0500 BP Diastolic 70 mm[Hg] Dayami [facility] 05-17-2019 15:41-0500 BP Systolic 128 mm[Hg] Dayami [facility] 05-17-2019 15:41-0500 Pulse (Heart Rate) 75 /min [facility]asra [facility] 05-17-2019 15:41-0500 Pulse Oximetry 96 % Dayami [facility] 05-17-2019 15:41-0500 Respiratory Rate 16 /min [facility] 05-15-2019 23:35-0500 BMI (Body Mass Index) 25.37 kg/m2 Dayami Moreno [facility] 05-15-2019 23:35-0500 Body weight 71.31 kg [facility]aminasra [facility] 05-15-2019 23:35-0500 Height 167.6 cm [facility]aminasra [facility] 04-03-2019 10:00-0500 BMI (Body Mass Index) 26.18 kg/m2 Rishi Florian [facility] 04-03-2019 10:00-0500 Body Temperature 98.01 [degF] Rishi Florian [facility] 04-03-2019 10:00-0500 Body weight 73.57 kg Rishicalos [facility] 04-03-2019 10:00-0500 BP Diastolic 100 mm[Hg] Rishi Anival [facility] 04-03-2019 10:00-0500 BP Systolic 142 mm[Hg] Rishi Anival [facility] 04-03-2019 10:00-0500 Pulse (Heart Rate) 94 /min [facility]ishi [facility] 04-03-2019 10:00-0500 Pulse Oximetry 96 % Rishi [facility] 03-17-2019 12:09-0500 BP Diastolic 69 mm[Hg] Lizz [facility] 03-17-2019 12:09-0500 BP Systolic 118 mm[Hg] Lizz [facility] 03-17-2019 12:09-0500 Pulse (Heart Rate) 74 /min [facility]izz [facility] 03-17-2019 12:09-0500 Pulse Oximetry 94 % Lizz [facility] 03-17-2019 11:09-0500 Respiratory Rate 16 /min [facility] 03-17-2019 10:45-0500 Body Temperature 98.49 [degF] Lizz Salter [facility] 03-17-2019 06:19-0500 BMI (Body Mass Index) 26.57 kg/m2 Lizz Brasher [facility] 03-17-2019 06:19-0500 Body weight 74.66 kg [facility] 03-17-2019 06:19-0500 Height 167.6 cm [facility] 02-24-2019 16:09-0500 BMI (Body Mass Index) 28.29 kg/m2 Lizz [facility] 02-24-2019 16:09-0500 Body Temperature 97.81 [degF] Lizz Brasher [facility] 02-24-2019 16:09-0500 Body weight 77.11 kg Lizz Brasher [facility] 02-24-2019 16:09-0500 Height 165.1 cm [facility] 02-24-2019 16:09-0500 Pulse (Heart Rate) 95 /min [facility] 02-24-2019 16:09-0500 Pulse Oximetry 97 % Lizz Brasher [facility] 02-24-2019 16:09-0500 Respiratory Rate 20 /min Lizz Brasher [facility] System Encounters Encounter Date Encounter Type Care Provider Facility Start: 01-26-2025 End: 01-26-2025 ambulatory RISHI FLORIAN [facility] Start: 01-19-2025 End: 01-19-2025 ambulatory RISHI [facility][note 2] System Start: 01-12-2025 End: 01-12-2025 ambulatory MICHAEL [facility] Start: 01-06-2025 End: 01-06-2025 ambulatory MICHAEL [facility] Start: 12-09-2024 End: 12-09-2024 ambulatory MICHAEL [facility] Start: 09-04-2024 End: 09-04-[address] [facility] Start: 09-04-2024 Encounter for gynecological examination (general) (routine) without abnormal findings SHARLA [employer] [facility] Start: 06-09-2024 End: 06-09-2024 ambulatory LEIA SORIANO [facility] [employer] [facility] Start: 06-09-2024 End: 06-09-2024 Subsequent hospital visit by physician Leia Soriano APRN [employer] Work Phone: [facility] Comment on above: Encounter for screen ing mammogram for breast cancer Start: 06-09-2024 End: 06-09-2024 ambulatory [facility] Start: 06-09-2024 Encounter for genera l adult medical examination without abnormal findings [facility] Start: 11-05-2023 ambulatory Ahmad Olga Lidia Facility: [facility] Start: 11-05-2023 End: 11-05-2023 ambulatory Stacie Amanda Facility:[facility] Start: 09-14-2023 ambulatory Stacie Amanda Facility :[facility] Start: 09-13-2023 End: 09-14-2023 ambulatory Stacie Amanda Facility:[facility] Start: 08-31-2023 ambulatory Valerie Mims Facility: [facility] Start: 08-30-2023 End: 08-30-2023 Subsequent hospital visit by physician Karthik Berry MD Work Phone: [facility] Start: 08-29-2023 End: 08-29-2023 ambulatory [place] Doctor Facility:[facility] Start: 08-29-2023 End: 08-29-2023 ambulatory Stacie Amanda Facility:[facility] Start: 08-15-2023 End: 08-15-2023 Subsequent hospital visit by physician Lilibeth Jaffe APRN Work Phone: [facility] Comment on above: Abdominal pain, unsp ecified abdominal location Start: 08-11-2023 End: 08-11-2023 Emergency department patient visit [facility] Work Phone: Start: 06-20-2023 End: 06-20-2023 Emergency department patient visit NINFA OCASIO Work Phone: [facility] Work Phone: Start: 06-12-2023 End: 06-12-2023 Subsequent hospital visit by physician Rishi Florian MD Work Phone: [facility] Comment on above: Tinnitus of both ear s Start: 02-26-2023 End: 02-26-2023 Patient encounter procedure PA Gary Reno PA Work Phone: [facility] Work Phone: Start: 02-26-2023 End: 02-26-2023 ambulatory Gary Smalls Shadia Facility:[facility] Start: 10-05-2022 End: 10-05-2022 Subsequent hospital visit by physician Lisa NAIRM Work Phone: [facility] Comment on above: Postmenopausal Screening mammogram, encounter for Start: 03-09-2022 End: 03-09-2022 Subsequent hospital visit by physician Rishi Florian MD Work Phone: [facility] Comment on above: Epigastric pain Start: 09-01-2021 End: 09-01-2021 Subsequent hospital visit by physician Rishi Florian MD Work Phone: [facility] Comment on above: Essential hypertensi on; Hypokalemia Start: 04-07-2021 End: 04-07-2021 Subsequent hospital visit by physician Lisa Blair CNM Work Phone: [facility] Comment on above: Screening mammogram, encounter for Start: 04-07-2021 End: 04-07-2021 Subsequent hospital visit by physician Lisa Blair CNM Work Phone: [facility] Start: 03-03-2021 End: 03-03-2021 Subsequent hospital visit by physician Rishi Florian MD Work Phone: [facility] Comment on above: Essential hypertensi on; Encounter for lipid screening for cardiovascular disease Start: 11-11-2020 End: 11-11-2020 Subsequent hospital visit by physician Isaca Brooks MD Work Phone: [facility] Comment on above: Breast nodule; Asymmetrical breasts Start: 10-28-2020 End: 10-28-2020 Subsequent hospital visit by physician Rishi Florian MD Work Phone: [facility] Comment on above: Arrived Start: 08-19-2020 End: 08-19-2020 Subsequent hospital visit by physician Rishi Florian MD Work Phone: [facility] Comment on above: Lung nodule Nausea Start: 07-15-2020 End: 07-15-2020 Subsequent hospital visit by physician Rishi Florian Work Phone: [facility] Comment on above: Essential hypertensi on Start: 03-09-2020 End: 03-09-2020 Subsequent hospital visit by physician Isaac Brooks Work Phone: [facility] Comment on above: Breast asymmetry; Abnormal mammogram Start: 03-01-2020 End: 03-01-2020 Subsequent hospital visit by physician Isaac Brooks Work Phone: [facility] Comment on above: Visit for screening mammogram Start: 03-01-2020 End: 03-01-2020 Subsequent hospital visit by physician Kaya Molina Work Phone: [facility] Comment on above: Postmenopausal Start: 01-15-2020 End: 01-15-2020 Subsequent hospital visit by physician Tomeka Barajas Work Phone: [facility] Comment on above: Constipation Start: 11-21-2019 End: 11-21-2019 Subsequent hospital visit by physician Kaya Molina Work Phone: [facility] Start: 07-10-2019 End: 07-10-2019 Subsequent hospital visit by physician Rishi Florian Work Phone: [facility] Comment on above: Other constipation; Change in bowel habits; Abdominal discomfort Start: 06-20-2019 End: 06-20-2019 Subsequent hospital visit by physician Flores Good Work Phone: [facility] Start: 05-27-2019 End: 05-27-2019 Telephone encounter Rishi Florian Work Phone: [facility] Comment on above: Information or Advic e only Start: 05-19-2019 End: 05-19-2019 Telephone encounter Lola Nye [facility] Comment on above: Ed Follow Up Call Start: 05-18-2019 End: 05-18-2019 Patient encounter procedure Kaya Phillips [facility] Nurse Line Start: 05-18-2019 End: 05-18-2019 Emergency department patient visit Candido Peguero Work Phone: [facility] Emergency Dept Comment on above: Biliary colic (Prima ry Dx); S/P cholecystectomy Start: 05-15-2019 End: 05-17-2019 Emergency department patient visit Dayami Moreno Work Phone: [facility] ([facility]) Comment on above: Abdominal pain Start: 04-22-2019 End: 04-22-2019 Refill Rishi Bitnami Work Phone: [facility] Start: 04-03-2019 End: 04-03-2019 Office outpatient visit 15 minutes Rishi Bitnami Work Phone: [facility] Comment on above: Cough (Primary Dx); Globus sensation; Essential hypertension Start: 04-01-2019 End: 04-01-2019 Subsequent hospital visit by physician Lizz Salter Work Phone: [facility] Comment on above: Hematoma Start: 04-01-2019 End: 04-01-2019 Subsequent hospital visit by physician Lizz Salter Work Phone: [facility] Comment on above: Abdominal distension Hematoma (Primary Dx ) Start: 03-24-2019 End: 03-24-2019 Patient encounter procedure Yohan Wade [facility] Nurse Line Start: 03-17-2019 End: 03-17-2019 Subsequent hospital visit by physician Lizz Salter Work Phone: [facility] ([facility]) Comment on above: Symptomatic cholelit hiasis (Primary Dx); Ventral incisional hernia Start: 03-06-2019 End: 03-06-2019 Subsequent hospital visit by physician Rishi Florian Work Phone: [facility] Services Comment on above: Cough Start: 02-24-2019 End: 02-24-2019 Subsequent hospital visit by physician Lizz Salter Work Phone: [facility] PreAdmission Testing Comment on above: Ventral incisional h ernia Start: 02-17-2019 End: 02-17-2019 Subsequent hospital visit by physician Lizz Salter Work Phone: [facility] Comment on above: Sliding hiatal herni a Start: 01-02-2019 End: 01-02-2019 Subsequent hospital visit by physician Rishi Florian Work Phone: [facility] Comment on above: Essential hypertensi on Start: 02-14-2018 End: 05-20-2019 Patient encounter status Isaac Brooks MD Work Phone: [facility] Procedures Date Procedure Procedure Detail Performing Clinician Start: 06-09-2024 End: 06-09-2024 Screening mammography bi 2-view breast inc cad Leia Soriano APRN ASSISTANT EXECUTIVE HOUSEKEEPER Work Phone: Start: 06-09-2024 Adult depression screening assessment Leia Soriano APRN ASSISTANT EXECUTIVE HOUSEKEEPER Work Phone: Start: 08-15-2023 Ct abdomen & pelvis w/o contrast material Lilibeth Jaffe APRN Work Phone: Start: 08-11-2023 Plain chest X-ray Start: 08-02-2023 Adult depression screening assessment Lilibeth Jaffe APRN Work Phone: Start: 08-02-2023 Microscopic observation [Identifier] in Cervix by Cyto stain Karthik Berry MD Work Phone: Start: 06-12-2023 [id number] Rishi Florian MD Work Phone: Start: 10-05-2022 Dxa bone density study 1/> sites axial skel Lisa Blair CNM Work Phone: Start: 10-05-2022 End: 10-05-2022 Mammography Lisa NAIR M Work Phone: Start: 07-27-2022 Adult depression screening assessment Lisa Blair CNM Work Phone: Start: 03-09-2022 Radiologic exam chest 2 views Rishi Florian MD Work Phone: Start: 03-09-2022 Adult depression screening assessment Rishi Florian MD Work Phone: Start: 09-01-2021 Basic metabolic panel calcium total Rishi Florian MD Work Phone: Start: 09-01-2021 GLOMERULAR FILTRATION RATE Rishijoel Florian MD Work Phone: Start: 04-07-2021 Adult depression screening assessment Lisa Blair CNM Work Phone: Start: 04-07-2021 Mammography Rishi Florian MD Work Phone: Start: 04-07-2021 Microscopic observation [Identifier] in Cervix by Cyto stain Rishi Florian MD Work Phone: Start: 03-03-2021 Basic metabolic panel calcium total Rishi Florian MD Work Phone: Start: 03-03-2021 CBC W Auto Differential panel - Blood Rishi Florian MD Work Phone: Start: 03-03-2021 GLOMERULAR FILTRATION RATE Rishi Florian MD Work Phone: Start: 03-03-2021 Lipid panel Rishi Florian MD Work Phone: Start: 03-03-2021 Adult depression screening assessment Rishi Florian MD Work Phone: Start: 11-11-2020 End: 11-11-2020 Diagnostic mammography computer-aided detcj uni Isaac Brooks MD Work Phone: Start: 10-28-2020 Gastric emptying imaging study Rishi Florian MD Work Phone: Start: 08-19-2020 Ct thorax w/o contrast material Rishi Florian MD Work Phone: Start: 07-15-2020 Blood count complete automated Rishi Florian Work Phone: Start: 07-15-2020 Comprehensive metabolic panel Rishi Florian Work Phone: Start: 07-15-2020 GLOMERULAR FILTRATION RATE Rishi Florian Work Phone: Start: 03-09-2020 Us breast uni real time with image limited Isaac Brooks MD Work Phone: Start: 03-09-2020 Diagnostic mammography computer-aided detcj uni Isaac Brooks Work Phone: Start: 03-01-2020 Dxa bone density study 1/> sites axial skel Kaya Molina Work Phone: Start: 03-01-2020 MG Breast - bilateral screening Isaac Brooks Work Phone: Start: 03-01-2020 Mammography Isaacjessy Brooks Start: 11-20-2019 Adult depression screening assessment Kaya Molina Start: 11-20-2019 Microscopic observation [Identifier] in Cervix by Cyto stain Tomeka Barajas Start: 07-10-2019 Assay of thyroid stimulating hormone tsh Rishi Short Work Phone: Start: 07-10-2019 CBC WITH DIFFERENTIAL Rishi Short Work Phone: Start: 07-10-2019 Comprehensive metabolic panel Rishi Short Work Phone: Start: 07-10-2019 GLOMERULAR FILTRATION RATE Rishi Short Work Phone: Start: 07-10-2019 Urnls dip stick/tablet reagent auto microscopy Rishi Short Work Phone: Start: 07-10-2019 History of cholecystectomy History of cholecystectomy Isaac Brooks MD Work Phone: Start: 06-20-2019 Assay of lipase Flores D Florentino Work Phone: Start: 06-20-2019 CBC WITH DIFFERENTIAL Flores D Florentino Work Phone: Start: 06-20-2019 Comprehensive metabolic panel Flores D Florentino Work Phone: Start: 06-20-2019 GLOMERULAR FILTRATION RATE Flores D Florentino Work Phone: Start: 05-18-2019 Urnls dip stick/tablet reagent auto microscopy Erika Jaime Work Phone: Start: 05-18-2019 CT Abdomen and Pelvis WO yuliet Peguero Work Phone: Start: 05-18-2019 Standard ECG Candido Peguero Work Phone: Start: 05-18-2019 Assay of lactate Erika Jaime Work Phone: Start: 05-18-2019 Assay of lipase Erika Jaime Work Phone: Start: 05-18-2019 Assay of magnesium Candido Peguero Work Phone: Start: 05-18-2019 CBC WITH DIFFERENTIAL Erika live Work Phone: Start: 05-18-2019 Comprehensive metabolic panel Candido Peguero Work Phone: Start: 05-18-2019 GLOMERULAR FILTRATION RATE Erika Jaime Work Phone: Start: 05-17-2019 Assay of lipase Jimmy Ryan Work Phone: Start: 05-17-2019 Basic metabolic panel calcium total Jimmy Ryan Work Phone: Start: 05-17-2019 GLOMERULAR FILTRATION RATE Brandice Connor Work Phone: Start: 05-17-2019 Hepatic function panel Brandice Alexande calos Work Phone: Start: 05-17-2019 Assay of lipase Elginvi Karl Work Phone: Start: 05-17-2019 Blood count complete automated Razvi Razack Work Phone: Start: 05-17-2019 Comprehensive metabolic panel Razvi Razack Work Phone: Start: 05-17-2019 GLOMERULAR FILTRATION RATE Razvi Razack Work Phone: Start: 05-16-2019 Fluoroscopy up to 1 hour physician/qhp time Razvi Razack Work Phone: Start: 05-16-2019 Assay of lipase Razvi Razack Work Phone: Start: 05-16-2019 Blood count complete automated Razvi Razack Work Phone: Start: 05-16-2019 Comprehensive metabolic panel Razvi Razack Work Phone: Start: 05-16-2019 GLOMERULAR FILTRATION RATE Yonas Ashton Work Phone: Start: 05-15-2019 Mri abdomen w/o & w/contrast material Dayami Moreno Work Phone: Start: 05-15-2019 Assay of troponin quantitative Dayami Moreno Work Phone: Start: 05-15-2019 Assay of troponin quantitative Dayami Moreno Work Phone: Start: 05-15-2019 Culture bacterial quanttative colony count urine Dayami Moreno Work Phone: Start: 05-15-2019 Urnls dip stick/tablet reagent auto microscopy Dayami Moreno Work Phone: Start: 05-15-2019 Ct thorax w/o contrast material Dayami Moreno Work Phone: Start: 05-15-2019 Radiologic exam chest single view Dayami Moreno Work Phone: Start: 05-15-2019 Assay of lipase Dayami Moreno Work Phone: Start: 05-15-2019 Assay of troponin quantitative Dayami Moreno Work Phone: Start: 05-15-2019 Basic metabolic panel calcium total Dayami Moreno Work Phone: Start: 05-15-2019 CBC WITH DIFFERENTIAL Dayami Moreno Work Phone: Start: 05-15-2019 Drug screen quantitative alcohols Dayami Moreno Work Phone: Start: 05-15-2019 GLOMERULAR FILTRATION RATE Dayami Moreno Work Phone: Start: 05-15-2019 Hepatic function panel Dayami Moreno Work Phone: Start: 05-15-2019 Standard ECG Dayami Moreno Work Phone: Start: 04-01-2019 Basic metabolic panel calcium total Lizz Salter Work Phone: Start: 04-01-2019 CBC WITH DIFFERENTIAL Lizz Salter Work Phone: Start: 04-01-2019 GLOMERULAR FILTRATION RATE Lizz Salter Work Phone: Start: 04-01-2019 Hepatic function panel Lizz Salter Work Phone: Start: 04-01-2019 CT Abdomen and Pelvis WO contrast Lizz Salter Work Phone: Start: 03-06-2019 Brncdilat rspse spmtry pre&post-brncdilat admn Rishi Short Work Phone: Start: 02-24-2019 CBC WITH DIFFERENTIAL Lizz Salter Work Phone: Start: 02-24-2019 Comprehensive metabolic panel Lizz Salter Work Phone: Start: 02-24-2019 GLOMERULAR FILTRATION RATE Lizz Salter Work Phone: Start: 02-24-2019 Standard ECG Lizz Salter Work Phone: Start: 02-17-2019 Ct thorax w/o contrast material Lizz Salter Work Phone: Start: 01-02-2019 Basic metabolic panel calcium total Rishi Short Work Phone: Start: 01-02-2019 GLOMERULAR FILTRATION RATE Rishi Short Work Phone: Start: 08-15-2018 Mammography Rishi Short Start: 08-19-2014 Microscopic observation [Identifier] in Cervix by Cyto stain Rishi Anival Plan of Treatment Date Care Activity Detail Author Start: 03-03-2031 Administration of diphtheria + tetanus + acellular pertussis vaccine DTAP/TDAP/TD VACCINE (3 - Td or Tdap) [facility] Start: 03-03-2031 Diphtheria + pertussis + tetanus vaccine (product) DTAP/TDAP/TD VACCINE (3 - Td or Tdap) [facility] Start: 01-14-2030 Colonoscopy [address]COPY [address] [facility] Start: 01-14-2030 Screening for malignant neoplasm of colon [facility] Start: 08-01-2028 HPV/COTEST HPV/COTEST [facility] Start: 08-01-2028 Screening for malignant neoplasm of cervix CERVICAL CANCER SCREENING [facility] Start: 08-29-2026 Esophagogastroduodenoscopy ESOPHAGOGASTRODUODENOSCOPY (EGD) [facility] Start: 08-01-2026 Screening for malignant neoplasm of cervix PAP SMEAR [facility] Start: 04-07-2026 HPV/COTEST HPV/COTEST [facility] Start: 04-07-2026 Screening for malignant neoplasm of cervix [facility] Start: 06-10-2025 ANNUAL WELLNESS VISIT ANNUAL WELLNESS VISIT [facility] Start: 06-09-2025 COVID-19 VACCINE () COVID-19 VACCINE () [facility] Comment on above: Postponed from 12/02/2023 (Patient Decli dani) Start: 06-09-2025 Depression screening using PHQ-9 (Patient Health Questionnaire 9) score DEPRESSION SCREENING [facility] Start: 06-09-2025 Fall risk assessment FALL RISK [facility] Start: 06-09-2025 Screening for malignant neoplasm of breast MAMMOGRAM [facility] Start: 06-09-2025 End: 06-09-2025 Patient encounter procedure 06/09/2025 11:20 AM EDT Office Visit [facility] [address] [place] [address] Rishi Florian MD [address] [facility] [place] [address] [facility] Start: 01-14-2025 Screening for malignant neoplasm of colon COLONOSCOPY HIGH RISK ([address]) [facility] Start: 12-10-2024 RISK STRATIFICATION RISK STRATIFICATION [facility] Start: 11-19-2024 Human papilloma virus screening PAP SMEAR [facility] Start: 11-19-2024 Screening for malignant neoplasm of cervix PAP SMEAR [facility] Start: 09-04-2024 End: 09-04-2024 Patient encounter procedure [facility] Start: 08-01-2024 Depression screening using PHQ-9 (Patient Health Questionnaire 9) score DEPRESSION SCREENING [facility] Start: 04-07-2024 Screening for malignant neoplasm of cervix PAP SMEAR [facility] Start: 12-02-2023 Influenza vaccination given INFLUENZA VACCINE (#1) [facility] Start: 10-10-2023 End: 10-10-2023 Patient encounter procedure 10/10/2023 11:00 AM EDT Appointment [facility] [address] [place] [address] Leia Soriano APRN ASSISTANT EXECUTIVE HOUSEKEEPER [address] [place] [address] [facility] Start: 10-06-2023 Screening for malignant neoplasm of breast MAMMOGRAM [facility] Start: 10-06-[address] [facility] Start: 08-30-2023 End: 08-30-2023 Admission to same day surgery center 08/30/2023 10:32 AM EDT - 08/30/2023 11:02 AM EDT Surgery [facility] [address] [place] [address] Karthik Berry MD [address] [place] [address] ESOPHAGOGASTRODUODENOSCOPY [facility] Comment on above: ESOPHAGOGASTRODUODENOSCOPY Start: 08-30-2023 End: 08-30-[address] [facility] Start: 08-30-2023 Subsequent hospital visit by physician 08/30/2023 10:32 AM EDT Hospital Encounter [facility] [address] [place] [address] Karthik Berry MD [address] [place] [address] [facility] Start: 08-11-2023 [facility] Start: 08-11-2023 [facility] Start: 08-02-2023 End: 08-02-2023 Patient encounter procedure [facility] Start: 07-28-2023 ANNUAL WELLNESS VISIT ANNUAL WELLNESS VISIT [facility] Start: 07-28-2023 Depression screening using PHQ-9 (Patient Health Questionnaire 9) score DEPRESSION SCREENING [facility] Start: 07-26-2023 End: 07-26-2023 Patient encounter procedure 07/26/2023 11:00 AM EDT Office Visit [facility] [address] [place] [address] Rishi Florian MD [address] [facility] [address] [facility] Start: 06-20-2023 [facility] Start: 06-20-2023 Simple repair scalp/neck/ax/genit/trunk 2.5cm/< RPR S/N/AX/GEN/TRNK 2.5CM/< [facility] Start: 2023 Fall risk assessment FALL RISK [facility] Start: 2023 Glaucoma screening GLAUCOMA/EYE EXAM AGE 65+ [facility] Start: 2023 Pneumococcal 23-valent polysaccharide vaccination given (situation) PNEUMONIA VACCINE (PCV13 PPSV23) (1 of 1 - PCV) [facility] Start: 03-10-2023 ANNUAL WELLNESS VISIT ANNUAL WELLNESS VISIT [facility] Start: 03-09-2023 Depression screening using PHQ-9 (Patient Health Questionnaire 9) score DEPRESSION SCREENING [facility] Start: 01-12-2023 End: 01-12-2023 Patient encounter procedure 01/12/2023 Office Visit Internal Medicine Rishi Florian MD [facility] [place] [address] [facility] Start: 12-01-2022 COVID-19 VACCINE ( season) COVID-19 VACCINE ( season) [facility] Start: 12-01-2022 Influenza vaccination given INFLUENZA VACCINE (#1) [facility] Start: 09-14-2022 End: 09-14-2022 Patient encounter procedure 09/14/2022 Office Visit Internal Medicine Rishi Florian MD [facility] [place] [address] [facility] Start: 09-07-2022 RISK STRATIFICATION RISK STRATIFICATION [facility] Start: 05-16-2022 Esophagogastroduodenoscopy ESOPHAGOGASTRODUODENOSCOPY (EGD) [facility] Start: 04-19-2022 End: 04-19-2022 Patient encounter procedure 04/19/2022 Office Visit Obstetrics and Gynecology Isaac Brooks MD [address] [facility], [address] [place] [address] [facility] Start: 04-08-2022 ANNUAL WELLNESS VISIT ANNUAL WELLNESS VISIT [facility] Start: 04-07-2022 Depression screening using PHQ-9 (Patient Health Questionnaire 9) score DEPRESSION SCREENING [facility] Start: 04-07-[address] [facility] Start: 04-06-2022 End: 04-06-2022 Patient encounter procedure 04/06/2022 Office Visit Obstetrics and Gynecology Roula Fuller APRN CNM [address] [place] [address] [facility] Start: 03-09-2022 End: 03-09-2022 Patient encounter procedure 03/09/2022 Office Visit Internal Medicine Rishi Florian MD [address] [facility] [place] [address] [facility] Start: 03-04-2022 ANNUAL WELLNESS VISIT ANNUAL WELLNESS VISIT [facility] Start: 03-03-2022 Depression screening using PHQ-9 (Patient Health Questionnaire 9) score DEPRESSION SCREENING [facility] Start: 03-03-2022 RISK STRATIFICATION RISK STRATIFICATION [facility] Start: 11-11-[address] [facility] Start: 09-01-2021 RISK STRATIFICATION RISK STRATIFICATION [facility] Start: 09-01-2021 End: 09-01-2021 Patient encounter procedure 09/01/2021 Office Visit Internal Medicine Rishi Florian MD [address] [place] [address] [facility] Start: 05-05-2021 End: 05-05-2021 Office Visit [facility] Start: 03-11-2021 COVID-19 VACCINE (3 - Booster for Pfizer series) COVID-19 VACCINE (3 - Booster for Pfizer series) [facility] Start: 03-01-[address] [facility] Start: 02-09-2021 COVID-19 VACCINE (3 - Booster for Pfizer series) COVID-19 VACCINE (3 - Booster for Pfizer series) [facility] Start: 01-20-2021 End: 01-20-2021 Office Visit 01/20/2021 Office Visit Internal Medicine Rishi Florian MD [address] [facility] [place] [address] [phone] [facility] [address] [place] [address] Start: 12-11-[address] [facility] Start: 12-11-2020 Screening for malignant neoplasm of colon COLORECTAL CANCER SCREENING [facility] Start: 12-01-[address] [facility] Start: 11-25-2020 End: 11-25-2020 Office Visit [facility] Start: 11-20-2020 ANNUAL WELLNESS VISIT ANNUAL WELLNESS VISIT [facility] Start: 11-19-2020 Adult depression screening assessment DEPRESSION SCREENING [facility] Start: 11-19-2020 Depression screening using PHQ-9 (Patient Health Questionnaire 9) score DEPRESSION SCREENING [facility] Start: 11-18-2020 End: 11-18-2020 Patient encounter procedure 11/18/2020 Appointment Radiology Isaac Brooks MD [address] [place] [address] [phone] [facility] Start: 11-11-2020 End: 11-11-2020 Patient encounter procedure 11/11/2020 Appointment Radiology Isaac Brooks MD [address] [place] [address] [phone] [facility] Start: 11-04-2020 COVID-19 VACCINE (3 - Booster for Pfizer series) COVID-19 VACCINE (3 - Booster for Pfizer series) [facility] Start: 09-20-2020 ESPINOZA'S DISEASE ESPINOZA'S DISEASE [facility] Start: 09-20-[address] [facility] Start: 09-17-2020 End: 09-17-2020 Office Visit [facility] Start: 09-09-2020 End: 09-09-2020 Patient encounter procedure 09/09/2020 Appointment Radiology Isaac Brooks MD [address], [address] [place] [address] [phone] [facility] Start: 08-19-2020 End: 08-19-2020 Appointment 08/19/2020 Appointment Radiology Rishi Florian MD [address] [facility] [place] [address] [phone] [facility] Imaging Start: 08-19-2020 End: 08-19-2020 Appointment 08/19/2020 Appointment Nuclear Medicine Rishi Florian MD [address] [facility] [place] [address] [phone] [facility] Imaging Start: 05-06-2020 End: 05-06-2020 Office Visit 05/06/2020 Office Visit Otolaryngology Rosalia Beckwith PA-C [address] [place] [address] [phone] [facility] Start: 03-01-2020 End: 03-01-2020 Appointment 03/01/2020 Appointment Radiology Isaac Brooks MD [address], [address] [place] [address] [phone] [facility] Start: 03-01-2020 End: 03-01-2020 Appointment 03/01/2020 Appointment Radiology Kaya Molina, HUBERT DUST COLLECTOR TREATER [address] [place] [address] [phone] [facility] Start: 01-15-2020 End: 01-15-2020 Hospital Encounter [facility] Endoscopy Comment on above: COLONOSCOPY DIAGNOSTIC Start: 01-08-2020 End: 01-08-2020 Office Visit 01/08/2020 Office Visit General Surgery Lizz Salter MD [facility] [place] [address] [phone] [facility] Start: 12-02-2019 Influenza vaccination given INFLUENZA VACCINE (#1) [facility] Start: 10-23-2019 End: 10-23-2019 Office Visit 10/23/2019 Office Visit Internal Medicine Rishi Florian MD [address] [place] [address] [phone] [facility] Start: 08-21-2019 Diphtheria + pertussis + tetanus vaccine (product) [facility] Start: 08-21-2019 Tetanus, diphtheria and acellular pertussis vaccination TDAP/TD ADULT [facility] Start: 08-20-2019 Human papilloma virus screening PAP SMEAR [facility] Start: 08-16-[address] [facility] Start: 07-10-2019 End: 07-10-2019 Office Visit 07/10/2019 Office Visit Internal Medicine Rishi Florian MD [address] [place] [address] [phone] [facility] Start: 06-03-2019 End: 06-03-2019 Office Visit 06/03/2019 Office Visit Gastroenterology Carly Calvin, NINFA [address] [place] [address] [phone] [facility] Start: 05-08-2019 End: 05-08-2019 Office Visit 05/08/2019 Office Visit Otolaryngology Ví[place] [address] [place] [address] [facility] Start: 04-03-2019 End: 04-03-2019 Office Visit 04/03/2019 Office Visit General Surgery Lizz Salter MD [facility] [place] [address] [phone] [facility] Start: 04-03-2019 End: 04-03-2019 Office Visit 04/03/2019 Office Visit Internal Medicine Rishi Florian MD [address] [place] [address] [phone] [facility] Start: 03-28-2019 End: 03-28-2019 Office Visit 03/28/2019 Office Visit General Surgery Lizz Salter MD [address] [place] [address] [phone] [facility] Start: 03-17-2019 End: 03-17-2019 Hospital Encounter [facility] (OPS) Comment on above: ROBOTIC ASSISTED LAPAROSCOPIC VENTRAL HE RNIA Start: 03-07-2019 End: 03-07-2019 Office Visit 03/07/2019 Office Visit General Surgery Lizz Salter MD [address] [place] [address] [phone] [facility] Start: 02-21-2019 End: 02-21-2019 Office Visit 02/21/2019 Office Visit General Surgery Lizz Salter MD [address] [place] [address] [phone] [facility] Start: 02-15-2019 ANNUAL WELLNESS VISIT ANNUAL WELLNESS VISIT [facility] Start: 02-15-2019 WELLNESS ANNUAL VISIT WELLNESS ANNUAL VISIT [facility] Start: 02-14-2019 Adult depression screening assessment PHQ9 DEPRESSION SCRE[address] [facility] Start: 01-23-2019 End: 01-23-2019 Office Visit 01/23/2019 Office Visit Otolaryngology Víctor Carty MD [address] [place] [address] [phone] [facility] Start: 12-28-2018 RISK STRATIFICATION RISK STRATIFICATION [facility] Start: 12-01-2018 Influenza vaccination given INFLUENZA VACCINE (#1) [facility] Start: 2018 Varicella-zoster vaccine (product) ADULT VZV VACCINE [facility] Start: 08-19-2017 Human papilloma virus screening PAP SMEAR [facility] Start: 2008 Pneumococcal 23-valent polysaccharide vaccination given (situation) PNEUMOCOCCAL VACCINE: 50+ YEARS (1 of 1 - PCV) [facility] Start: 2008 Screening for malignant neoplasm of colon [facility] Start: 2008 SHINGLES 2 DOSE (1 of 2) SHINGLES 2 DOSE (1 of 2) [facility] Start: 2008 SHINGLES VACCINE (1 of 2) SHINGLES VACCINE (1 of 2) [facility] Start: 2008 Zoster vaccine hzv live for subcutaneous use ZOSTER (SHINGLES) VACCINE (1 of 2) [facility] Start: 2003 Screening for malignant neoplasm of colon [facility] Start: 1970 Adult depression screening assessment DEPRESSION SCREENING [facility] End: 05-02-2020 Basic metabolic 2000 panel Basic metabolic panel Lab Routine Hematoma 1 Occurrences starting 04/01/2019 until 05/02/2020 [facility] Comment on above: 1 Occurrences starting 04/01/2019 until 05/02/2020 End: 05-02-2020 CBC with Differential CBC with Differential Lab Routine Hematoma 1 Occurrences starting 04/01/2019 until 05/02/2020 [facility] Comment on above: 1 Occurrences starting 04/01/2019 until 05/02/2020 CBC without differential CBC wit hout differential Lab Routine Daily 0500 until discontinued starting 05/16/2019, [address] [facility] Comment on above: Daily 0500 until discontinued starting 0 05/16/2019, 2 completed Comprehensive metabo lic 2000 panel Comprehensive metabolic panel (CMP aka Metabolic panel) Lab Routine Daily 0500 until discontinued starting 05/16/2019, [address] [facility] Comment on above: Daily 0500 until discontinued starting 0 05/16/2019, 2 completed End: 04-07-2021 DBT Breast - bilateral screening [facility] Work Phone: Comment on above: 1 Occurrences starting 04/07/2021 until 04/07/2021 FULL SET PFT WITH MA NDATORY BRONCHODILATOR Includes spirometry pre & post with aerosol tx given with 2.5 mg Albuterol, Diffusion with HBG quant transcutaneous with lung volumes and airway resistance or nitrogen washout. If patient has documented a... FULL SET PFT WITH MANDATORY BRONCHODILATOR Includes spirometry pre & post with aerosol tx given with 2.5 mg Albuterol, Diffusion with HBG quant transcutaneous with lung volumes and airway resistance or nitrogen washout. If patient has documented a... PFT Routine Cough 03/06/2019 2:40 PM EST Heidi Shaulis End: 06-12-2023 Hearing Test Evaluation Hearing Test Evaluation Audiology Routine Tinnitus of both ears 1 Occurrences starting 06/12/2023 until 06/12/2023 [facility] Work Phone: Comment on above: 1 Occurrences starting 06/12/2023 until 06/12/2023 End: 05-02-2020 Hepatic function panel Hepatic function panel Lab Routine Hematoma 1 Occurrences starting 04/01/2019 until 05/02/2020 Heidi Shaulis Comment on above: 1 Occurrences starting 04/01/2019 until 05/02/2020 Lipase Lipase Lab Routi ne Daily 0500 until discontinued starting 05/16/2019, 2 completed Heidi Shaulis Comment on above: Daily 0500 until discontinued starting 0 05/16/2019, 2 completed End: 08-19-2020 NM Gastric Emptying Study NM Gastric Emptying Study Imaging Routine Nausea 1 Occurrences starting 08/19/2020 until 08/19/2020 Heidi Shaulis Comment on above: 1 Occurrences starting 08/19/2020 until 08/19/2020 Oxygen Therapy Nasal Cannula; Liters Per Minute: 2.0 LPM (2-5 LPM); RT may modify oxygen administration per policy: Yes 2-5 LPM. O2 to keep sats > 93% Heidi Shaulis Comment on above: Continuous until discontinued starting 0 05/16/2019 Continuous until dis continued starting 01/15/2020 Oxygen Therapy Nasal Cannula; Liters Per Minute: 2.0 LPM; RT may modify oxygen administration per policy: Yes During procedure Oxygen Therapy Nasal Cannula; Liters Per Minute: 2.0 LPM; RT may modify oxygen administration per policy: Yes During procedure Respiratory Care Routine Continuous until discontinued starting 08/30/2023 Heidi Shaulis Comment on above: Continuous until discontinued starting 0 08/30/2023 Patient Education [facility] Work Phone: Patient referral [facility] Work Phone: POCT glucose for med ication controlled diabetic patient POCT glucose for medication controlled diabetic patient Lab Routine ONE TIME for 1 Occurrences starting 01/15/2020 Felipe Likehack Comment on above: ONE TIME for 1 Occurrences starting 12/31 End: 08-30-2023 POCT glucose for medication controlled diabetic patient POCT glucose for medication controlled diabetic patient Point of Care Testing Routine One Time for 1 Occurrences starting 08/30/2023 until 08/30/2023 Heidi Shaulis Comment on above: One Time for 1 Occurrences starting 08/02 until 08/30/2023 End: 01-15-2020 POCT Urine Preg POCT Urine Preg Point of Car e Testing Routine One Time for 1 Occurrences starting 01/15/2020 until 01/15/2020 Heidi Shaulis Comment on above: One Time for 1 Occurrences starting 12/31 until 01/15/2020 End: 08-30-2023 POCT Urine Preg POCT Urine Preg Point of Car e Testing Routine One Time for 1 Occurrences starting 08/30/2023 until 08/30/2023 Heidi Shaulis Comment on above: One Time for 1 Occurrences starting 08/02 until 08/30/2023 End: 05-18-2019 Potassium [Moles/Vol] Potassium level Lab Routine Tomorrow AM for 1 Occurrences starting 05/18/2019 until 05/18/2019 Heidi Shaulis Comment on above: Tomorrow AM for 1 Occurrences starting 0 05/18/2019 until 05/18/2019 Pulse oximetry, continuous Pulse oximetry, continuous Respiratory Care Routine Continuous until discontinued starting 08/30/2023 [facility] Work Phone: Comment on above: Continuous until discontinued starting 0 08/30/2023 Pulse oximetry, cont inuous - Pulse Oximetry until discontinued by surgeon Heidi Shaulis Comment on above: Continuous until discontinued starting 1 05/18/2018 Continuous until dis continued starting 01/15/2020 End: 03-17-2019 Surgical Pathology Exam Surgical Pathology Exam Lab Routine One Time for 1 Occurrences starting 03/17/2019 until 03/17/2019 Heidi Shaulis Comment on above: One Time for 1 Occurrences starting 03/02 until 03/17/2019 Surgical Pathology Exam Surgical Pathology Exam Lab Routine 03/17/2019 9:30 AM EST Heidi Shaulis Surgical Pathology Exam Surgical Pathology Exam Pathology and Cytology Routine Release Upon Ordering for 1 Occurrences starting 08/30/2023 [facility] Work Phone: Comment on above: Release Upon Ordering for 1 Occurrences starting 08/30/2023 Immunizations Immunization Date Immunization Notes Care Provider Delia fields 01-12-2023 influenza, injectabl e, quadrivalent, preservative free Rishi Florian MD Work Phone: [facility] 01-12-2023 influenza virus vaccine, unspecified formulation Leia Soriano APRN ASSISTANT EXECUTIVE HOUSEKEEPER Work Phone: [facility] 03-09-2022 influenza, injectabl e, quadrivalent, preservative free Rishi Florian MD Work Phone: [facility] 03-09-2022 influenza virus vaccine, unspecified formulation Lisa Blair CNM Work Phone: [facility] 04-04-2021 Influenza virus vaccine NINFA [place] Work Phone: [facility] 03-03-2021 Influenza Seasonal Leia bermeo APRN ASSISTANT EXECUTIVE HOUSEKEEPER Work Phone: [facility] 03-03-2021 influenza, seasonal, injectable Rishi Florian MD Work Phone: [facility] 03-03-2021 tetanus toxoid, redu ajson diphtheria toxoid, and acellular pertussis vaccine, adsorbed Rishi Florian MD Work Phone: [facility] 08-31-2020 Covid (Pfizer) NINFA max PA Work Phone: [facility] 01-02-2019 Influenza Seasonal Leia bermeo APRN ASSISTANT EXECUTIVE HOUSEKEEPER Work Phone: [facility] 01-02-2019 influenza, seasonal, injectable Rishi Short [facility] 01-02-2019 influenza virus vaccine, unspecified formulation Kaya Molina [facility] 01-14-2018 Influenza Seasonal Leia bermeo APRN ASSISTANT EXECUTIVE HOUSEKEEPER Work Phone: [facility] 01-14-2018 influenza, seasonal, injectable Rishi Short [facility] 01-14-2018 influenza virus vaccine, unspecified formulation Rishi Short [facility] 12-28-2016 Influenza Seasonal Leia bermeo APRN ASSISTANT EXECUTIVE HOUSEKEEPER Work Phone: [facility] 12-28-2016 influenza, seasonal, injectable Rishi Short [facility] 02-17-2016 Influenza Seasonal Leia bermeo SIZING SPONGER ASSISTANT EXECUTIVE HOUSEKEEPER Work Phone: [facility] 02-17-2016 influenza, seasonal, injectable Rishi Short [facility] 04-16-2013 Influenza Seasonal Leia Avina jean-claude SIZING SPONGER ASSISTANT EXECUTIVE HOUSEKEEPER Work Phone: [facility] 04-16-2013 influenza, seasonal, injectable Rishi Short [facility] 08-20-2009 tetanus toxoid, redu jason diphtheria toxoid, and acellular pertussis vaccine, adsorbed Rishi [facility] Payers Date Payer Category Payer Medicare [id number] 2023 Private Health Insurance [id number] 2023 Medicare [id number] 2023 Medicare supplementa l policy (as second payer) [employer] [id number] .[id number] 2023 Private Health Insurance [facility] [id number] 2023-Present [phone] [address] [place] [address] Indemnity [id number] .[id number] 2023 Self-pay [id number] 2023 Unknown [id number] 2015 Unknown [id number] [id number] .2.7.3.245165.315 2015 Unknown [id number]. 1.13.248 .2.7.3.655234.315 2015 Unknown [id number] 1.2.840.038992.1.13.248 .2.7.3.394643.315 1958 Unknown [id number] 2.16.840.1.556979.3.579 .2.297 1958 Unknown [id number] 2.16.840.1.457464.3.579 .2.297 1958 Unknown [id number] 2.16.840.1.807195.3.579 .2.297 1958 Unknown [id number] 2.16.840.1.270567.3.579 .2.297 1958 Unknown [id number] 2.16.840.1.390270.3.579 .2.297 1958 Unknown [id number] 2.16.840.1.149501.3.579 .2.297 1958 Unknown [id number] 2.16.840.1.181700.3.579 .2.297 1958 Unknown [id number] 2.16.840.1.862826.3.579 .2.297 1958 Unknown [id number] 2.16.840.1.543901.3.579 .2.297 1958 Unknown [id number] 2.16.840.1.491635.3.579 .2.297 1958 Unknown [id number] 2.16.840.1.929354.3.579 .2.297 1958 Unknown [id number] 2.16.840.1.298121.3.579 .2.297 Unknown [id number] 2.16.840.1.682402.3.579 .2.462 Unknown [id number] 2.16.840.1.711390.3.579 .2.462 Unknown [id number] 2.16.840.1.558364.3.579 .2.462 Unknown [id number] 2.16.840.1.469907.3.579 .2.462 Unknown [id number] 2.16.840.1.040517.3.579 .2.462 Unknown [id number] 2.16.840.1.678000.3.579 .2.462 Unknown [id number] 2.16.840.1.861156.3.579 .2.462 Unknown [id number] 2.16.840.1.821884.3.579 .2.462 Unknown [id number] 2.16.840.1.430068.3.579 .2.462 Unknown [id number] 2.16.840.1.513640.3.579 .2.462 Unknown [id number] 2.16.840.1.264236.3.579 .2.462 Social History Date Type Detail Facility Start: 01-02-2019 End: 03-09-2022 Tobacco smoking status NHIS Never smoker [facility] Start: 01-02-2019 End: 06-09-2024 Alcohol intake Yes [facility] Start: 04-15-[address] [facility] Start: 1960 Sex Assigned At Not on file [facility] Start: 02-24-2019 End: 06-09-2024 Alcohol intake Current drinker of alcohol (finding) [facility] Start: 04-15-[address] [facility] Start: 11-20-2019 End: 03-09-2022 Tobacco use and exposure Never used [facility] Start: 02-27-2022 End: 03-09-2022 Exposure to SARS-CoV-2 (event) Not sure [facility] Start: 03-03-2021 History SDOH Food Worry 1 [employer] [facility] Start: 03-03-2021 History SDOH Transport Med 2 [facility] Start: 01-12-2023 End: 06-09-2024 History of Social function [facility] (I/We) worried wheth er (my/our) food would run out before (I/we) got money to buy more. Never true [facility] In the past 12 month s, has lack of transportation kept you from medical appointments or from getting medications? No [facility] In the past 12 month s, was there a time when you were not able to pay the mortgage or rent on time? No [facility] Start: 11-20-2019 Gender identity Identifies as female gender (finding) [facility] Work Phone: Start: 11-20-2019 Sexual orientation Heterosexual (finding) [employer] [facility] Start: 06-20-2023 End: 08-11-2023 Tobacco smoking status NHIS Unknown if ever smoked [facility] Start: 1960 Sex Assigned At Female [facility] Medical Equipment Procedure Code Equipment Code Equipment Original Text Equi pment Identifier Dates Stent Plastic Ad vanix Rx Bili Preload Cb 7f 5cm Sterile - [id number] - [id number] Stent Gastrointe stinal Pancreatic 4fr 4cm Sterile - [id number] - [id number] Mental Status Date Assessment Result Facility 08-11-2023 Cognitive function Awake;Alert;A ppropriate;Fol lows Commands [facility] Work Phone: Clinical Notes 06-12-2023 to 08-30-2023 Nursing - Araceli Black RN - 08/30/2023 11:44 AM EDTNursing - Araceli Black RN - 08/30/2023 11:44 AM EDTOp Note - Karthik Berry MD - 08/30/2023 11:11 AM EDTDischarge Instructions Note Date & Type Note Facility 08-30-2023 Nurse Note Discharge instructions reviewed with patient and spouse. Patient comfortable. Patient reminded several times to remain NPO until 1253. Dresses for discharge. [facility] 08-30-2023 Miscellaneous Notes Discharge instructions reviewed with patient and spouse. Patient comfortable. Patient reminded several times to remain NPO until 1253. Dresses for discharge. 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 The risks include but are not limited to bleeding, infection, allergic reaction to the medication, perforation, risk of sedation, and the risk of missing a small lesion. The patient and family understand, agrees and the consent was signed. Sedation: Patient received conscious sedation medications Versed 5 mg and Demerol 50 mg given intravenously by Karthik Berry MD in incremental doses until sedation achieved. During the time of the procedure the patient was continuously monitored under my direct supervision for 14 minutes.(minutes calculated from Moderate Sedation Start to Out of Room) Vitals: Patient Vitals for the past 12 hrs (Last 1 readings): Temp Pulse Resp BP SpO2 O2 Device 08/30/23 1107 -- 80 23 133/86 96 % Nasal cannula 08/30/23 1102 -- 79 17 (!) 140/91 96 % Nasal cannula 08/30/23 1058 -- 82 20 (!) 162/99 98 % Nasal cannula 08/30/23 1056 -- 90 20 -- 98 % Nasal cannula 08/30/23 1054 -- 87 -- 141/83 98 % Nasal cannula 08/30/23 1052 -- 89 22 139/81 96 % Nasal cannula 08/30/23 0832 97.2 F (36.2 C) 77 16 139/75 99 % None (Room air) Staff: E Mail System Administrator: Judy López RN Monitoring Nurse: Roseann Miller RN Sedation Nurse: Alison Williamson RN Procedure: The patient was placed in the left lateral decubitus position and sedated in small increments until adequate sedation was achieved. The patient was continually monitored throughout the entire procedure. An Olympus Video gastroscope was inserted into the esophagus under direct vision and advanced to Second portion duodenum. Findings: Esophagus: Mild irregularity GE junction with short tongues of salmon mucosa. No ulceration mass. No stricture. Biopsies obtained. Small hiatal hernia Stomach: Several diminutive bland polyps. Proximal body biopsied off Duodenum: Normal Condition: The patient tolerated the procedure well and was sent to the recovery room in stable condition. Impression: 1. History of Espinoza's. Biopsies distal esophagus obtained 2. Gastric polyps likely fundic gland Plan Will contact patient with biopsy result. Continue Nexium daily Future surveillance based on biopsies Karthik Berry MD 08/30/2023 11:11 AM documented in this encounter 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 CONDITION: Patient tolerated procedure well. Follow up instructions Discharge patient to home when meets criteria Will contact patient with biopsy result. Karthik Berry 08/30/2023 11:24 AM documented in this encounter [facility] 08-30-2023 Hospital Discharge instructions Sofia AYUSH Charles - 08/30/2023 11:24 AM EDT SCOPE DISCHARGE INSTRUCTIONS You have had a procedure called Esophagogastroduodenoscopy (EGD). Sedation: You were given medication for sedation. You may feel drowsy or tired for a few hours. We recommend you not be alone today. Please do not participate in activities that require good coordination or concentration such as driving a car or operating machinery for the next 24 hours. Protect yourself against falls, especially on the stairs or when walking long distances. Delay making business decisions that require the signing of legal documents for a minimum of 24 hours. No alcoholic beverages for 24 hours. Diet: Type of diet ordered No restriction.. You may eat and drink at 12:53. IV: If the IV site swells or bleeds, please apply direct pressure for 5 minutes. If the site becomes red, you may apply warm, moist compresses to the site. Please see a healthcare professional if you have concerns about your IV site. Pain/Bleeding: You have had a biopsy taken performed during the procedure. You may expect a little bleeding from the site. Within the next 48 hours, if the bleeding becomes excessive or is accompanied by abdominal or chest pain, please call your physician immediately. If you are on aspirin or NSAIDS (non-steroidal anti-inflammatory drugs) then you can resume today. Continue Nexium. Will call biopsy results If no appointment is required, your physician will contact you with any test results within 2 weeks and will send a note to your referring physician. If you have any questions, call your physician's office. I have received and understand my discharge instructions. Date It Systems Manager documented in this encounter 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 The risks include but are not limited to bleeding, infection, allergic reaction to the medication, perforation, risk of sedation, and the risk of missing a small lesion. The patient and family understand, agrees and the consent was signed. Sedation: Patient received conscious sedation medications Versed 5 mg and Demerol 50 mg given intravenously by Karthik Berry MD in incremental doses until sedation achieved. During the time of the procedure the patient was continuously monitored under my direct supervision for 14 minutes.(minutes calculated from Moderate Sedation Start to Out of Room) Vitals: Patient Vitals for the past 12 hrs (Last 1 readings): Temp Pulse Resp BP SpO2 O2 Device 08/30/23 1107 -- 80 23 133/86 96 % Nasal cannula 08/30/23 1102 -- 79 17 (!) 140/91 96 % Nasal cannula 08/30/23 1058 -- 82 20 (!) 162/99 98 % Nasal cannula 08/30/23 1056 -- 90 20 -- 98 % Nasal cannula 08/30/23 1054 -- 87 -- 141/83 98 % Nasal cannula 08/30/23 1052 -- 89 22 139/81 96 % Nasal cannula 08/30/23 0832 97.2 F (36.2 C) 77 16 139/75 99 % None (Room air) Staff: E Mail System Administrator: Judy López RN Monitoring Nurse: Roseann Miller RN Sedation Nurse: Alison Williamson RN Procedure: The patient was placed in the left lateral decubitus position and sedated in small increments until adequate sedation was achieved. The patient was continually monitored throughout the entire procedure. An Olympus Video gastroscope was inserted into the esophagus under direct vision and advanced to Second portion duodenum. Findings: Esophagus: Mild irregularity GE junction with short tongues of salmon mucosa. No ulceration mass. No stricture. Biopsies obtained. Small hiatal hernia Stomach: Several diminutive bland polyps. Proximal body biopsied off Duodenum: Normal Condition: The patient tolerated the procedure well and was sent to the recovery room in stable condition. Impression: 1. History of Espinoza's. Biopsies distal esophagus obtained 2. Gastric polyps likely fundic gland Plan Will contact patient with biopsy result. Continue Nexium daily Future surveillance based on biopsies Karthik Berry MD 08/30/2023 11:11 AM [facility] 08-30-2023 History and physical note HPI: The patient is a 63 y.o. year old female history reflux and Espinoza's. Now for surveillance upper endoscopy for Espinoza's. Reflux fairly well-controlled on Nexium. Occasional breakthrough and will take Tums. No dysphagia. Due for colonoscopy next year. Has some intermittent abdominal pains indicates related to her ventral hernias. Not persistent. CT scan obtained known fibroid uterus. Chronic calcified granuloma Past Medical History: Diagnosis Date Espinoza esophagus 05/2013 Fibrocystic breast Fibromyalgia 2009 GERD (gastroesophageal reflux disease) 2008 History of Hypertension 2009 MR (mitral regurgitation) 2002 PSVT (paroxysmal supraventricular tachycardia) (HCC) 07/15/1998 Sleep apnea Small bowel obstruction (HCC) TMJ (dislocation of temporomandibular joint) Past Surgical History: Procedure Laterality Date SECTION x3 CHOLECYSTECTOMY 05/26/2019 completion of removal of gallbladder and hernia repair at [facility] Dr. Jean-Baptiste COLONOSCOPY N/A 01/15/2020 COLONOSCOPY DIAGNOSTIC performed by Tomeka Barajas MD at ENDOSCOPY COLONOSCOPY SCREENING ENDOSCOPIC RETROGRADE CHOLANGIOPANCREATOGRAPHY WITH PLACEMENT OF STENT N/A 05/16/2019 Tomeka Barajas MD ENDOSCOPIC RETROGRADE CHOLANGIOPANCREATOGRAPHY WITH SPHINCTEROTOMY/PAY N/A 05/16/2019 Tomeka Barajas MD ESOPHAGOGASTRODUODENOSCOPY N/A 05/16/2019 ESOPHAGOGASTRODUODENOSCOPY performed by Tomeka Barajas MD at ENDOSCOPY ESOPHAGOGASTRODUODENOSCOPY WITH BIOPSY N/A 09/01/2014 Kapil Hensley MD ESOPHAGOGASTRODUODENOSCOPY WITH BIOPSY N/A 09/20/2017 Lizz Salter MD EXPLORATORY LAPAROTOMY 08/2015 FOOT SURGERY Bilateral 01/2008 LAPAROSCOPIC CHOLECYSTECTOMY WITH CHOLANGIOGRAPHY N/A 03/17/2019 Lizz Salter MD only partial removal osteotomies neoimpression PA ESOPHAGOGASTRODUODENOSCOPY TRANSORAL DIAGNOSTIC N/A 05/27/2013 Kapil Hensley MD ROTATOR CUFF REPAIR Right 12/01/2020 in [place], [place] TONSILLECTOMY Allergies Allergen Reactions Ct Dye [Iodine] Anaphylaxis Diatrizoate Anaphylaxis and Swelling Airway edema resulting in difficult intubation MEDICATIONS Prior to Admission medications Medication Sig Start Date End Date Taking? Authorizing Provider DULoxetine (CYMBALTA) 30 MG capsule Take 2 capsules by mouth once daily 06/25/23 Yes Rishi Florian MD esomeprazole (NEXIUM) 40 MG capsule TAKE 1 CAPSULE BY MOUTH IN THE MORNING BEFORE BREAKFAST 01/01/23 Yes Rishi Florian MD estradiol (ESTRACE) 0.5 MG tablet Take 1 tablet by mouth daily. 08/02/23 Yes Leia Soriano APRN NP losartan (COZAAR) 100 MG tablet Take 1 tablet by mouth once daily 06/25/23 Yes Rishi Florian MD medroxyPROGESTERone (PROVERA) 2.5 MG tablet Take 1 tablet by mouth daily. 08/02/23 Yes Leia Soriano APRN ASSISTANT EXECUTIVE HOUSEKEEPER Multiple Vitamin (THERA VITAMIN) TABS tablet Take by mouth daily. Yes Maylin Callejas MD NIFEdipine (PROCARDIA XL) 30 MG 24 hr tablet Take 2 tablets by mouth once daily 01/02/23 Yes Rishi Florian MD polyethylene glycol 3350 (GLYCOLAX) 17 GM/SCOOP powder Take 17 g by mouth as needed. Maylin Callejas MD potassium chloride (MICRO-K) 10 MEQ CR capsule Take 2 capsules by mouth once daily 01/01/23 Yes Rishi Florian MD triamcinolone (KENALOG) 0.1 % cream APPLY CREAM EXTERNALLY TO AFFECTED AREA 2 TO 3 TIMES DAILY 06/26/23 Rishi Florian MD PHYSICAL EXAM: Vitals: 08/30/23 0832 BP: 139/75 Pulse: 77 Resp: 16 Temp: 97.2 F (36.2 C) SpO2: 99% HEENT: Externally normal. No JVD. CHEST: Clear HEART: S1-S2 heard Abdominal: Soft, nontender. No masses or organomegaly. Skin: Warm and dry. Extremities: No cyanosis, clubbing or edema. Neurological: Moves all extremities equally. Psychiatric: appropriate affect. ASSESSMENT: Espinoza's esophagus and GERD PLAN: EGD The risks were discussed with the patient. These include but are not limited to bleeding, infection, adverse effect of anesthesia, perforation and missing a lesion. Karthik Berry MD 08/30/2023 10:49 AM [facility] 08-30-2023 History and physical note HPI: The patient is a 63 y.o. year old female history reflux and Espinoza's. Now for surveillance upper endoscopy for Espinoza's. Reflux fairly well-controlled on Nexium. Occasional breakthrough and will take Tums. No dysphagia. Due for colonoscopy next year. Has some intermittent abdominal pains indicates related to her ventral hernias. Not persistent. CT scan obtained known fibroid uterus. Chronic calcified granuloma Past Medical History: Diagnosis Date Espinoza esophagus 05/2013 Fibrocystic breast Fibromyalgia 2009 GERD (gastroesophageal reflux disease) 2008 History of Hypertension 2009 MR (mitral regurgitation) 2002 PSVT (paroxysmal supraventricular tachycardia) (HCC) 07/15/1998 Sleep apnea Small bowel obstruction (HCC) TMJ (dislocation of temporomandibular joint) Past Surgical History: Procedure Laterality Date SECTION x3 CHOLECYSTECTOMY 05/26/2019 completion of removal of gallbladder and hernia repair at [facility] Dr. Jean-Baptiste COLONOSCOPY N/A 01/15/2020 COLONOSCOPY DIAGNOSTIC performed by Tomeka Barajas MD at ENDOSCOPY COLONOSCOPY SCREENING ENDOSCOPIC RETROGRADE CHOLANGIOPANCREATOGRAPHY WITH PLACEMENT OF STENT N/A 05/16/2019 Tomeka Barajas MD ENDOSCOPIC RETROGRADE CHOLANGIOPANCREATOGRAPHY WITH SPHINCTEROTOMY/PAY N/A 05/16/2019 Tomeka Barajas MD ESOPHAGOGASTRODUODENOSCOPY N/A 05/16/2019 ESOPHAGOGASTRODUODENOSCOPY performed by Tomeka Barajas MD at ENDOSCOPY ESOPHAGOGASTRODUODENOSCOPY WITH BIOPSY N/A 09/01/2014 Kapil Hensley MD ESOPHAGOGASTRODUODENOSCOPY WITH BIOPSY N/A 09/20/2017 Lizz Salter MD EXPLORATORY LAPAROTOMY 08/2015 FOOT SURGERY Bilateral 01/2008 LAPAROSCOPIC CHOLECYSTECTOMY WITH CHOLANGIOGRAPHY N/A 03/17/2019 Lizz Salter MD only partial removal osteotomies neoimpression PA ESOPHAGOGASTRODUODENOSCOPY TRANSORAL DIAGNOSTIC N/A 05/27/2013 Kapil Hensley MD ROTATOR CUFF REPAIR Right 12/01/2020 in [place], [place] TONSILLECTOMY Allergies Allergen Reactions Ct Dye [Iodine] Anaphylaxis Diatrizoate Anaphylaxis and Swelling Airway edema resulting in difficult intubation MEDICATIONS Prior to Admission medications Medication Sig Start Date End Date Taking? Authorizing Provider DULoxetine (CYMBALTA) 30 MG capsule Take 2 capsules by mouth once daily 06/25/23 Yes Rishi Florian MD esomeprazole (NEXIUM) 40 MG capsule TAKE 1 CAPSULE BY MOUTH IN THE MORNING BEFORE BREAKFAST 01/01/23 Yes Rishi Florian MD estradiol (ESTRACE) 0.5 MG tablet Take 1 tablet by mouth daily. 08/02/23 Yes Leia Soriano APRN NP losartan (COZAAR) 100 MG tablet Take 1 tablet by mouth once daily 06/25/23 Yes Rishi Florian MD medroxyPROGESTERone (PROVERA) 2.5 MG tablet Take 1 tablet by mouth daily. 08/02/23 Yes Leia Soriano APRN ASSISTANT EXECUTIVE HOUSEKEEPER Multiple Vitamin (THERA VITAMIN) TABS tablet Take by mouth daily. Yes Maylin Callejas MD NIFEdipine (PROCARDIA XL) 30 MG 24 hr tablet Take 2 tablets by mouth once daily 01/02/23 Yes Rishi Florian MD polyethylene glycol 3350 (GLYCOLAX) 17 GM/SCOOP powder Take 17 g by mouth as needed. Maylin Callejas MD potassium chloride (MICRO-K) 10 MEQ CR capsule Take 2 capsules by mouth once daily 01/01/23 Yes Rishi Florian MD triamcinolone (KENALOG) 0.1 % cream APPLY CREAM EXTERNALLY TO AFFECTED AREA 2 TO 3 TIMES DAILY 06/26/23 Rishi Florian MD PHYSICAL EXAM: Vitals: 08/30/23 0832 BP: 139/75 Pulse: 77 Resp: 16 Temp: 97.2 F (36.2 C) SpO2: 99% HEENT: Externally normal. No JVD. CHEST: Clear HEART: S1-S2 heard Abdominal: Soft, nontender. No masses or organomegaly. Skin: Warm and dry. Extremities: No cyanosis, clubbing or edema. Neurological: Moves all extremities equally. Psychiatric: appropriate affect. ASSESSMENT: Espinoza's esophagus and GERD PLAN: EGD The risks were discussed with the patient. These include but are not limited to bleeding, infection, adverse effect of anesthesia, perforation and missing a lesion. Karthik Berry MD 08/30/2023 10:49 AM documented in this encounter [facility] 06-20-2023 Discharge summary Note Date/Time June 20, 2023 10:13pm [facility] Medical Records Department [address] [place] [address] Emergency Department Summary 06/20/23 MR#: [id number] Acct: [id number] Name: RICHY BOWENS Rep #:[id number] : 1960 63 From: Michaela Schumacher PCP: RISHI FLORIAN Status:REG ER Location: ED HPI History of Present Illness Chief Complaint: Laceration Informant: patient Narrative Narrative: Patient is a 63-year-old shbzr-lbum-gapunhti female presenting with laceration to her left index finger. Patient states she was using a roll sheeting cutter to cut material for a quilt when it excellently veered and cut her left index finger. She states that there is a flap and part of it is quite deep. She is not on anyblood thinners. Denies associate numbness or tingling. No other complaints or concerns at this time. Tetanus Immunization: <5 years [facility] Medical History Acute bronchitis, unspecified Acute pharyngitis, unspecified Acute sinusitis, unspecified Barretts esophagus delivery delivered COVID-19 Fibromyalgia Hernia Hypertension Impacted cerumen of both ears Right shoulder strain Home Medications multivitamin 1 tab PO DAILY 08/05/20 [History Last Taken Unknown] duloxetine 30 mg capsule,delayed release 30 mg PO BID 03/14/21 [History Last Taken Unknown] esomeprazole magnesium 40 mg capsule,delayed release 40 mg PO DAILY 03/14/21 [History Last Taken Unknown] estradiol 0.5 mg tablet 0.5 mg PO DAILY 03/14/21 [History Last Taken Unknown] losartan 100 mg tablet 100 mg PO DAILY 03/14/21 [History Last Taken Unknown] medroxyprogesterone 2.5 mg tablet 2.5 mg PO DAILY 03/14/21 [History Last Taken Unknown] nifedipine 30 mg tablet,extended release 24 hr 60 mg PO DAILY 03/14/21 [History Last Taken Unknown] potassium chloride 10 mEq capsule,extended release 20 meq PO DAILY 03/14/21 [History Last Taken Unknown] benzonatate 200 mg capsule 200 mg PO TID PRN cough #14 caps 05/22/22 [Rx Last Taken Unknown] benzonatate 200 mg capsule 200 mg PO TID PRN cough #14 caps 02/26/23 [Rx Last Taken Unknown] methylprednisolone 4 mg tablets in a dose pack (Medrol (Bladimir)) See Rx Instructions PO PER PKG DIR #21 tabs 02/26/23 [Rx Last Taken Unknown] Allergy/AdvReac Type Severity Reaction Status Date / Time Gadolinium-MRI Contrast Allergy unknown Verified 06/20/23 21:56 Medium Iodinated Contrast Media [CT] Allergy Anaphylaxis Verified 06/20/23 21:56 Surgical History H/O exploratory thoracotomy History of tonsillectomy Hx of cholecystectomy Social History Smoking Status: Never smoker alcohol intake: current alcohol intake frequency: holidays/special occasions only ROS ROS ED Constitutional Constitutional ED: Denies chills or fever(s) Gastrointestinal Gastrointestinal: Denies nausea or vomiting Integumentary Reports other Details: Left index finger laceration Neurologic Neurologic: Denies paresthesias or weakness Hematologic/Lymphatic Hematologic/Lymphatic: Denies easy bleeding or easy bruising EXAM Physical Exam Const Vital Signs: 06/20/23 21:53 Temperature 98 F Temperature Source Temporal Pulse Rate 108 H Respiratory Rate 16 Blood Pressure 145/90 H Blood Pressure Mean 108 Pulse Ox 97 Oxygen Delivery Method Room Air Positive well nourished and well developed General Appearance ED: well developed and NAD Chest Wall inspection of chest normal Resp normal respiratory effort Extremity normal to inspection and full ROM General Extremety ED: Negative for edema General Extremity: Negative for edema Neuro oriented x3, moves all extremities, no focal motor deficits and no sensory deficits noted Sensorium / Orientation: alert Psych mental status grossly normal Skin Skin Narrative: 1.5 cm curvilinear full-thickness laceration to the ulnar aspect of the distal left index finger. No active bleeding at this time. Wound edges are well-approximated. No involvement of the nailbed or the nail. MDM MDM MDM Narrative Medical decision making narrative: Patient evaluated for laceration to her left index finger. Tetanus is up-to-date. Bleeding is controlled. Does not appear to have any underlying tendinous injury based on physical exam. Laceration repair is performed. See procedure note. Patient given wound care instructions. Does not require antibiotics based on mechanism of injury. Procedures Lacerations left finger : Length: 0.79 in Depth: Sub Q Shape: Flap Prep: Jim-Samantha Laceration repair: Local and Nerve block (1% lido ) Irrigated (ml): 500 Number of Sutures/Guero: 4 Suture Information: Ethilon, Simple and 4-0 Discharge Plan Triage Chief Complaint: Laceration ED Provider: Michaela Fine Dx/Rx/DC Orders Clinical Impression: Laceration of left index finger Instructions: ED Laceration Extremity Prescriptions: No Action multivitamin Tablet 1 tab PO DAILY benzonatate 200 mg capsule 200 mg PO TID PRN (Reason: cough) Qty: 14 0RF methylprednisolone [Medrol (Bladimir)] 4 mg tablets,dose pack See Rx Instructions PO PER PKG DIR Qty: 21 0RF Rx Instructions: PO PER PKG DIR benzonatate 200 mg capsule 200 mg PO TID PRN (Reason: cough) Qty: 14 0RF nifedipine 30 mg tablet extended release 24hr 60 mg PO DAILY potassium chloride 10 mEq capsule, extended release 20 meq PO DAILY medroxyprogesterone 2.5 mg tablet 2.5 mg PO DAILY esomeprazole magnesium 40 mg capsule,delayed release(DR/EC) 40 mg PO DAILY estradiol 0.5 mg tablet 0.5 mg PO DAILY losartan 100 mg tablet 100 mg PO DAILY duloxetine 30 mg capsule,delayed release(DR/EC) 30 mg PO BID Primary Care Provider: RISHI FLORIAN Referrals: [facility] Doctor,Out of [Non-Staff] - Activity Restrictions/Additional Instructions: Sutures should be removed and in approximately 10 days. Your primary care doctor can remove it or he can return to the ER or urgent care. You may apply bacitracin ointment to it. Alternate ibuprofen and Tylenol as needed for discomfort and pain. What to do if you have Problems For any increased pain, shortness of breath, bleeding, nausea or vomiting, chestpain, or any unexpected problems, contact your Primary Care Provider. Call [facility] ([phone]) or report to the closest Emergency Room. Call 911 if necessary. 06/20/23 4720 <Electronically signed by Michaela Fine DO> Cosigner Signature (if applicable): CC: RISHI FLORIAN ~ Signed [facility] Work Phone: [phone]) 873-271203-12-2024 Miscellaneous Notes* Interdisciplinary - Lawrence Restrepo Platform Loader - 06/12/2023 11:00 AM EDT The patient was seen by the department for an audiometric evaluation at her physician's request. The patient reported decreased hearing sensitivity accompanied by bilateral tinnitus. The tinnitus can fluctuate in volume. She denied any otalgia, aural fullness, or dizziness. Otoscopy revealed occluding cerumen bilaterally. Bilateral tympanometry was within normal limits for middle ear functioning. Comprehensive audiometric testing determined her to exhibit a bilateral mild-moderate high frequency sensorineural hearing loss. Speech receptionist doctor's office thresholds were in good agreement with pure tone averages. Word discrimination scores were excellent in each ear at her comfortable listening levels. Recommendations: 1) Patient to have occluding cerumen removed by physician. 2) Annual hearing evaluation to monitor hearing sensitivity. 3) Hearing protection with loud noise exposure. Thank you for the referral. Lawrence Restrepo, AuD [id number] [facility] Plan of care note* Interdisciplinary - Lawrence Restrepo Platform Loader - 06/12/2023 11:00 AM EDT The patient was seen by the department for an audiometric evaluation at her physician's request. The patient reported decreased hearing sensitivity accompanied by bilateral tinnitus. The tinnitus can fluctuate in volume. She denied any otalgia, aural fullness, or dizziness. Otoscopy revealed occluding cerumen bilaterally. Bilateral tympanometry was within normal limits for middle ear functioning. Comprehensive audiometric testing determined her to exhibit a bilateral mild-moderate high frequency sensorineural hearing loss. Speech receptionist doctor's office thresholds were in good agreement with pure tone averages. Word discrimination scores were excellent in each ear at her comfortable listening levels. Recommendations: 1) Patient to have occluding cerumen removed by physician. 2) Annual hearing evaluation to monitor hearing sensitivity. 3) Hearing protection with loud noise exposure. Thank you for the referral. Lawrence Restrepo, AuD [id number] [facility] Diagnosis Lung nodule Solitary pulmonary nodule [facility]* Diagnosis Nausea Nausea alone [facility] Diagnosis Breast nodule Other (abnormal) findings on radiological examination of breast Asymmetrical breasts Other specified disorders of breast [facility] Diagnosis Essential hypertension Unspecified essential hypertension Encounter for lipid screening for cardiovascular disease [facility]* Diagnosis Screening mammogram, encounter for [facility] Diagnosis Breast asymmetry Other specified disorders of breast Abnormal mammogram Abnormal mammogram, unspecified [facility] Diagnosis Essential hypertension Unspecified essential hypertension Hypokalemia Hypopotassemia [facility]* Diagnosis Epigastric pain Abdominal pain, epigastric [facility]* Diagnosis Postmenopausal Asymptomatic postmenopausal status (age-related) (natural) [facility]* Diagnosis Screening mammogram, encounter for documented in this encounter [facility] note* Diagnosis Tinnitus of both ears Unspecified tinnitus [facility] noteNo assessment information available [facility] Work Phone: Evaluation note* Diagnosis History of Espinoza's esophagus- Primary Abdominal pain, unspecified abdominal location History of Espinoza's esophagus documented in this encounter [facility] note* Diagnosis History of Espinoza's esophagus- Primary documented in this encounter [facility] note* Diagnosis Encounter for screening mammogram for breast cancer [facility] Additional Instructions Sutures should be removed and in approximately 10 days. Your primary care doctor can remove it or he can return to the ER or urgent care. You may apply bacitracin ointment to it. Alternate ibuprofen and Tylenol as needed for discomfort and pain.[facility] Work Phone: Hospital Discharge instructions Additional Instructions This appears to be more musculoskeletal pain. No signs of heart attack, blood clot or anything else serious. Motrin for pain and inflammation and Tylenol for pain. The muscle relaxant Skelaxin 1 pill 3 times a day for the next week. Actually would help you with the back spasms. Hot shower, warm bath and massage. Follow-up with your doctor if not improving or return if worse.[facility] Work Phone: Reason for referral (narrative)* Procedure Authorization (Routine) Status Reason Specialty Diagnoses / Procedures Referred By Contact Referred To Contact Closed Radiology Diagnoses Lung nodule Procedures CT Chest Without IV Contrast Rishi Florian MD [address] [place] [address] [id number] Electronically signed by Rishi Florian MD at [facility] for referral (narrative)* Procedure Authorization (Routine) Status Reason Specialty Diagnoses / Procedures Referred By Contact Referred To Contact Authorized Radiology Diagnoses Nausea Procedures NM Gastric Emptying Study Rishi Florian MD [address] [place] [address] [phone] Electronically signed by Rishi Florian MD at [facility] for referral (narrative)* Procedure Authorization (Routine) Status Reason Specialty Diagnoses / Procedures Referre d By Contact Referred To Contact Closed Radiology Diagnoses Breast asymmetry Abnormal mammogram Procedures US Breast Left Limited Isaac Brooks MD [address] [facility], [address] [place] [address] Hp Ultrasound [address] [place] [address] [facility] for referral (narrative)* Procedure Authorization (Routine) - Closed Specialty Diagnoses / Procedures Referred By Contac t Referred To Contact Radiology Diagnoses Abdominal pain, unspecified abdominal location Procedures CT Abdomen Pelvis Without IV Contrast Lilibeth Jaffe APRN [address] [place] [address] [place] [id number] Referral ID Status Reason Start Date Expiration Date Visits Re quested Visits Authorized [id number] Closed 08/03/2023 08/30/2023 1 1 [facility] for visit Narrative* Procedure Authorization (Routine) Status Reason Specialty Diagnoses / Procedures Referred By Contact Referred To Contact Closed Radiology Diagnoses Lung nodule Procedures CT Chest Without IV Contrast Rishi Florian MD [address] [place] [address] [phone] [facility] Procedure Authorization (Routine) Status Reason Specialty Diagnoses / Procedures Referred By Contact Referred To Contact Authorized Radiology Diagnoses Nausea Procedures NM Gastric Emptying Study Rishi Florian MD [address] [place] [address] [place] [address] [employer] [facility] for visit Narrative* Procedure Authorization (Routine) Status Reason Specialty Diagnoses / Procedures Referred By Contact Referred To Contact Closed Radiology Diagnoses Nausea Procedures NM Gastric Emptying Study Rishi Florian MD [address] [place] [address] [employer] [address] [place] [phone] [facility] System[facility] for visit Narrative* Procedure Authorization (Routine) - Closed Specialty Diagnoses / Procedures Referred By Contac t Referred To Contact Radiology Diagnoses Abdominal pain, unspecified abdominal location Procedures CT Abdomen Pelvis Without IV Contrast Lilibeth Jaffe, [employer] [address] [place] [address] [employer] [address] [address] Referral ID Status Reason Start Date Expiration Date Visits Re quested Visits Authorized [id number] Closed 08/03/2023 08/30/2023 1 1 [employer] [facility] Assessments Diagnosis Essential hypertension Unspecified essential hypertension Diagnosis Ventral incisional hernia Diagnosis Cough Diagnosis Symptomatic cholelithiasis- Primary Calculus of gallbladder without mention of cholecystitis or obstruction Ventral incisional hernia Diagnosis Abdominal distension Flatulence, eructation, and gas pain Diagnosis Cough- Primary Globus sensation Gastrointestinal malfunction arising from mental factors Essential hypertension Unspecified essential hypertension Diagnosis Abdominal pain Abdominal pain, unspecified site Epigastric abdominal pain Abdominal pain, epigastric Choledocholithiasis Calculus of bile duct without mention of cholecystitis or obstruction Diagnosis Biliary colic Calculus of gallbladder without mention of cholecystitis or obstruction S/P cholecystectomy Other acquired absence of organ Diagnosis Other constipation Change in bowel habits Other symptoms involving digestive system Abdominal discomfort Abdominal pain, unspecified site Diagnosis Constipation Unspecified constipation Diagnosis Visit for screening mammogram Other screening mammogram Diagnosis Postmenopausal Asymptomatic postmenopausal status (age-related) (natural) Diagnosis Breast asymmetry Other specified disorders of breast Abnormal mammogram Abnormal mammogram, unspecified Diagnosis Hematoma- Primary Contusion of unspecified site Diagnosis Sliding hiatal hernia Diaphragmatic hernia without mention of obstruction or gangrene Diagnosis Hematoma Contusion of unspecified site Diagnosis Essential hypertension Unspecified essential hypertension Advance Directives No Advanced Directives Records FoundDocuments on File Type Date Recorded Patient Cpr Ambulance Driver Expl anation Advance Directives and Livin g Will Advance Directives and Livin g Will 04/15/2013 11:17 PM NO AD Power of Storage And Backup Administrator Latest Code Status on File Code Status Date Activated Date Inactivated Comments Full Code 09/20/2017 7:16 AM 09/20/2017 3:04 PM Full Code 09/01/2014 10:13 AM 09/01/2014 6:07 PM Full Code 05/27/2013 10:00 AM 05/27/2013 6:20 PM Full Code 04/15/2013 4:02 PM 04/16/2013 6:51 PM Documents on File Type Date Recorded Patient Cpr Ambulance Driver Expl anation Advance Directives and Livin g Will Advance Directives and Livin g Will 04/15/2013 11:17 PM NO AD Power of Storage And Backup Administrator Latest Code Status on File Code Status Date Activated Date Inactivated Comments Full Code 03/17/2019 6:30 AM 03/17/2019 10:45 AM Full Code 09/20/2017 7:16 AM 09/20/2017 3:04 PM Full Code 09/01/2014 10:13 AM 09/01/2014 6:07 PM Full Code 05/27/2013 10:00 AM 05/27/2013 6:20 PM Full Code 04/15/2013 4:02 PM 04/16/2013 6:51 PM Latest Code Status on File Code Status Date Activated Date Inactivated Comments Full Code 03/17/2019 6:30 AM 03/17/2019 10:45 AM Full Code 09/20/2017 7:16 AM 09/20/2017 3:04 PM Latest Code Status on File Code Status Date Activated Date Inactivated Comments Full Code 05/17/2019 5:21 PM Full Code 05/15/2019 11:34 PM 05/17/2019 5:21 PM Full Code 03/17/2019 6:30 AM 03/17/2019 10:45 AM Latest Code Status on File Code Status Date Activated Date Inactivated Comments Full Code 01/15/2020 8:48 AM Full Code 01/15/2020 8:48 AM 01/15/2020 8:48 AM Full Code 05/17/2019 5:21 PM 01/15/2020 8:48 AM Full Code 05/15/2019 11:34 PM 05/17/2019 5:21 PM Full Code 03/17/2019 6:30 AM 03/17/2019 10:45 AM Latest Code Status on File Code Status Date Activated Date Inactivated Comments Full Code 01/15/2020 8:48 AM 01/15/2020 5:18 PM Full Code 01/15/2020 8:48 AM 01/15/2020 8:48 AM Full Code 05/17/2019 5:21 PM 01/15/2020 8:48 AM Latest Code Status on File Code Status Date Activated Date Inactivated Comments Full Code 09/20/2017 7:16 AM 09/20/2017 3:04 PM Documents on File Type Date Recorded Patient Cpr Ambulance Driver Expl anation Advance Directives and Livin g Will Power of Storage And Backup Administrator Advance Directives and Livin g Will 04/15/2013 11:17 PM NO AD Documents on File Type Date Recorded Patient Cpr Ambulance Driver Expl anation Advance Directives and Livin g Will Power of Storage And Backup Administrator Advance Directives and Livin g Will 04/15/2013 11:17 PM NO AD Latest Code Status on File Code Status Date Activated Date Inactivated Comments Full Code 01/15/2020 8:48 AM 01/15/2020 5:18 PM Documents on File Type Date Recorded Patient Cpr Ambulance Driver Expl anation Advance Directives and Livin g Will Power of Storage And Backup Administrator DNR Documentation Advance Directives and Livin g Will 04/15/2013 11:17 PM NO AD Documents on File Type Date Recorded Patient Cpr Ambulance Driver Expl anation Advance Directives and Livin g Will 04/15/2013 11:17 PM NO AD Latest Code Status on File Code Status Date Activated Date Inactivated Comments Full Code 01/15/2020 8:48 AM 01/15/2020 5:18 PM Code Status History Code Status Date Activated Date Inactivated Comments Full Code 01/15/2020 8:48 AM 01/15/2020 8:48 AM Full Code 05/17/2019 5:21 PM 01/15/2020 8:48 AM Full Code 05/15/2019 11:34 PM 05/17/2019 5:21 PM Full Code 03/17/2019 6:30 AM 03/17/2019 10:45 AM Advance Directive Response Recorded Date/ Time Living Will No June 20, 2023 10:01pm Power of Storage And Backup Administrator No June 19 10:01pm Advance Directive Response Recorded Date/ Time Living Will No August 11, 2023 4 :55pm Power of Storage And Backup Administrator No August 11, 2023 4:55pm Documents on File Type Date Recorded Patient Cpr Ambulance Driver Expl maryam Advance Directives and Kayode mcgarry Will 04/15/2013 11:17 PM NO AD Latest Code Status on File Code Status Date Activated Date Inactivated Comments Full Code 01/15/2020 8:48 AM 01/15/2020 5:18 PM Code Status History Code Status Date Activated Date Inactivated Comments Full Code 01/15/2020 8:48 AM 01/15/2020 8:48 AM Full Code 05/17/2019 5:21 PM 01/15/2020 8:48 AM Full Code 05/15/2019 11:34 PM 05/17/2019 5:21 PM Full Code 03/17/2019 6:30 AM 03/17/2019 10:45 AM Latest Code Status on File Code Status Date Activated Date Inactivated Comments Full Code 08/30/2023 8:37 AM Code Status History Code Status Date Activated Date Inactivated Comments Full Code 01/15/2020 8:48 AM 01/15/2020 5:18 PM Full Code 01/15/2020 8:48 AM 01/15/2020 8:48 AM Full Code 05/17/2019 5:21 PM 01/15/2020 8:48 AM Full Code 05/15/2019 11:34 PM 05/17/2019 5:21 PM Date Activated Date Inactivated Comments 08/30/2023 8:37 AM 08/30/2023 6:05 PM Date Activated Date Inactivated Comments 01/15/2020 8:48 AM 01/15/2020 5:18 PM Date Activated Date Inactivated Comments 01/15/2020 8:48 AM 01/15/2020 8:48 AM Date Activated Date Inactivated Comments 05/17/2019 5:21 PM 01/15/2020 8:48 AM Date Activated Date Inactivated Comments 05/15/2019 11:34 PM 05/17/2019 5:21 PM Discharge Instructions * Instructions* Yanet Coppola, AYUSH - 02/24/2019 Your surgery/ procedure is scheduled at: [facility] On: 12-16=-19 Someone from [facility] will call you the afternoon before your procedure and confirm your arrival time. Come to main entrance. Make sure you check in when you arrive at your location so that you can get registered. Unless your physician instructed you otherwise do not take any medications at home. Please do not bring medications with you. . Only bring the most recent list of medications that you are taking. If you have an Inhaler or insulin, we encourage you to bring those medicines only. If you have an Oxygen tank or Cpap machine, bring these items with you for after the procedure. The Anesthesiologist will decide which medicines we will administer the day of procedure. The following medications should be stopped until after your procedure: Follow Instructions. Please follow the surgeons instructions regarding diet and any prep prior to surgery. If you did not receive special diet instructions then NO solid food after 8 pm the night before your procedure. Between 8 pm and 11 pm, you may have only clear liquids (black coffee, jello, water, apple/grape juice, popsicles, soda pop. tea or broth). . NO ALCOHOLIC BEVERAGES. After 11 pm, absolutely nothing to eat or drink, no gum, mints, or candy. . Your surgery may be delayed or cancelled if you do not follow these instructions. You may brush your teeth in the morning, but do not swallow anything. No SMOKING or SMOKELESS TOBACCO 8 hours prior to surgery. NO UNAUTHORIZED or STREET DRUG use prior to surgery. Please bathe/shower the night before or morning of your surgery. Do not apply body oils, lotions, or powders. Do not wear jewelry including body piercings. Do not wear make-up or fingernail turkmen. Contact lenses will need to be removed prior to surgery, so please bring glasses and/or contact lens case. Clothing should be loose fitting and comfortable for the trip home. Do not bring valuables or large sums of money with you to the hospital. You will need a race car driver to transport you home, and to be available to sign your discharge instructions. Female patients may be required to provide a urine sample upon arrival to the pre-surgery area. 15. Due to emergencies or unforeseen circumstances your surgery may be delayed from your scheduled surgery time. [employer] parking is available at no cost and is beneficial to expedite your discharge process. The staff will be getting you ready for surgery, so we ask that only 1 support person accompany you into the pre-operative area. Once staff has you ready for surgery, other family members will be allowed to visit (2 at a time) until you are taken to the surgery area. Your family will be asked to wait in the Surgical Waiting area while you are in surgery. The physician will talk with the family when finished. Your family can then return to OPS or to your assigned room number and await your return in about one hour. Please make the appropriate childcare arrangements for your day in surgery. If you are going home the same day you will need a responsible adult to drive you home. We encourage discharge through our private patient discharge area. This is located next to the Pavilion on [address]. There are signs located throughout the [facility] giving directions to the Patient Discharge area and the roof is marked with Patient Discharge. If you have any questions call OR Richy Bowens 02/24/2019 4:25 PM NURSE: Yanet Coppola documented in this encounter* Instructions* Valerie Hairston RN - 03/17/2019 Post-Op Discharge Instructions When to call: Bleeding from site Infection from site which may look like a [place] of redness around the incision or you may see pus coming from the wound Persistent nausea or emesis Worsening pain which is not controlled with the pain medication If your skin or eyes turn yellow Temperature greater than 101.5 Shower: You can shower or sponge bath in 24 hours after your surgical procedure. But DO NOT use hottubs or swimming pools. You may let the steri strips come off or they will be removed in the office. You may also place band-aids as needed for comfort, but this is not required. Diet: You had anesthesia medications today, and patients can have some nausea and even vomiting if they eat too spicy or rich of foods. So, it is best to eat a bland, soft diet for the first 1-2 daysafter your surgery. After that, you can start to introduce foods in as you would normally eat throughout the week. Please refrain from eating fast food the day of your surgery, greasy and spicy foodsare not a good combination after anesthesia! Pain Medications: You will be given a pain medication prescription prior to leaving the hospital (or one may be called in if appropriate). These can cause stomach upset, so it is best to take them with a piece of food or bread. Follow the directions as written on the bottle of medicine. DO NOT DRIVE or operate heavy machinery while using pain medications. The pain medications should be used for the first couple of days as directed, and then you can start spacing them out to every 6-8 hours as needed for pain. You can also alternate them with ibuprofen or tylenol (do not exceed 4000 mg of tylenol per day total). Constipation: The pain medication can commonly cause constipation and if you have not had a bowel movement (or pooped) for 3 days after the surgery, then using an over the counter medicine from the pharmacy is appropriate. We recommend colace, dulcolax, miralax, and/or milk of magnesia (MOM) to help relieve the constipation. Drink plenty of water, and make sure you are eating fruits and vegetables in the days after your surgery. If you have tried a couple of things with no relief, then please call the office for additional instructions or recommendations Activity: Although you are getting to go home today, you did have a major surgery performed. You are to do no heavy lifting of > 10 pounds until seen in the office for your follow up visit. However, it is okay to do activities such as walking or light running or biking. Again, you should refrainfrom any straining type of activity as this can increase your risk of developing a hernia (or weakness) at your incision sites. It is not uncommon for patients to be tired and require more sleep in the first few days to weeks after a surgery. Let your body rest... If you need a nap, then take a nap. Go to bed early or wake up late, let your body be your guide. Remember that everyone heals differently, so you will likely not have the same experience as your neighbor or friend at school or cheondoism. But if you are feeling well and would like to work out, then the rule of 3's applies. Do 1/3rd of your normal activity the first week. Bump it up to 2/3rds your normal activity the 2nd week, and then resume your normal activity on the 3rd week. If you have been given a binder, then wear it for comf ort, especially when getting in and out of bed or on and off the potty. Travel: It is okay to go for car rides or plane flights, but there are a couple of things to do andwatch out for after your surgery. Blood clots in your legs (called Deep Vein Thrombosis or DVTs) can occur for the first month following a major surgery. This will present as swelling to one or both legs and may be localized to only the calf area. If you notice this, call the office or go to the closest ER or hospital. Ways to prevent DVTs are to get out of the car or up from your seat in a planeand walk for 5-10 minutes every 1-2 hours. Stay well hydrated, drink lots of water. You can also move your feet and legs around in the car or plane every 15 minutes or so in a pumping type fashion,i.e. think of pushing down on a gas pedal and then lifting up suddenly. In case there are any questions or problems, contact Dr. Salter at [phone], 8 AM to 5 PM, Sunday through Sunday. After hours or on the weekend call the hospital at and the [facility] have the doctor marine consultant beeped. Thank you for trusting us with your surgical issues, and we hope you had the best experience possible during this challenging time. Lizz Salter MD, FACS [facility] Office: [phone] 03/17/2019 Sedation for a Medical Procedure: Care Instructions Your Care Instructions For a minor procedure or surgery, you will get a sedative to help you relax. This drug will make you sleepy. It is usually given in a vein (by IV). It may be used with anesthesia. There are different types of anesthesia. You and your doctor or anesthesia specialist will work together to choose the best anesthesia for you. It is usually based on your health, the procedure, and your preference. Local anesthesia is a shot given to numb a small part of the body. Regional anesthesia is a shot that blocks pain to a larger area of the body. General anesthesia affects the brain and the whole body. You get it through a small tube placed in a vein (IV). Or you may breathe it in. You are unconscious and will not feel pain. You may get monitored anesthesia care (MAC). This means that an anesthesia specialist will care foryou during your surgery. He or she will make sure that you get only the level of anesthesia care you need to prevent pain for your specific case. If you had anesthesia, you may feel some pain and discomfort as it wears off. If you have pain, don't be afraid to say so. Pain medicine works better if you take it before the pain gets bad. Common side effects from sedation include: Feeling sleepy. (Your doctors and nurses will make sure you are not too sleepy to go home.) Nausea and vomiting. This usually does not last long. Feeling tired. Follow-up care is a henley part of your treatment and safety. Be sure to make and go to all appointments, and call your doctor if you are having problems. It's also a good idea to know your test resultsand keep a list of the medicines you take. How can you care for yourself at home? Activity Don't do anything for 24 hours that requires attention to detail. This includes going to work, making important decisions, or signing any legal documents. It takes time for the medicine effects to completely wear off. For your safety, you should not drive or operate any machinery that could be dangerous until the medicine wears off and you can think clearly and react easily. When you get home, it is important to rest until the anesthesia has worn off. Some people will feeldrowsy or dizzy for up to a few hours after leaving the hospital. Take your time and walk slowly. Sudden changes in position may also cause nausea. Rest when you feel tired. Getting enough sleep will help you recover. Diet You can eat your normal diet, unless your doctor gives you other instructions. If your stomach is upset, try clear liquids and bland, low-fat foods like plain toast or rice. Drink plenty of fluids (unless your doctor tells you not to). Don't drink alcohol for 24 hours. Medicines Be safe with medicines. Read and follow all instructions on the label. ? If the doctor gave you a prescription medicine for pain, take it as prescribed. ? If you are taking opioids for pain, it is very important to take them as prescribed. Opioids can easily be misused. Misuse can lead to opioid use disorder and even . Because of this, it is best to get off them as soon as possible. As soon as you don't need them, talk to your doctor about howto safely stop taking them. Also talk with your doctor about how to safely store and get rid of opioids. ? If you are not taking a prescription pain medicine, ask your doctor if you can take an mbdj-hqh-fverimo medicine. If you think your pain medicine is making you sick to your stomach, you can try these things. ? Take your medicine after meals (unless your doctor has told you not to). ? Ask your doctor for a different pain medicine. When should you call for help? Call 911 anytime you think you may need emergency care. For example, call if: You have severe trouble breathing. You passed out (lost consciousness). Call your doctor now or seek immediate medical care if: You have trouble breathing. You have ongoing or worsening nausea or vomiting. You have a fever. You have a new or worse headache. The medicine is not wearing off and you can't think clearly. Watch closely for changes in your health, and be sure to contact your doctor if: You do not get better as expected. Where can you learn more? Go to https://www.[email or web address].com.Toppr/patientEd Enter G817 in the search box to learn more about Sedation for a Medical Procedure: Care Instructions. Current as of: March 14, 2018 Content Version: 12.3 8603-8682 [employer]. Care instructions adapted under license by your healthcare professional. If you have questions about a medical condition or this instruction, always ask your healthcare professional. [employer] disclaims any warranty or liability for your use of this information. Sedation for a Medical Procedure: Care Instructions Your Care Instructions For a minor procedure or surgery, you will get a sedative to help you relax. This drug will make you sleepy. It is usually given in a vein (by IV). It may be used with anesthesia. There are different types of anesthesia. You and your doctor or anesthesia specialist will work together to choose the best anesthesia for you. It is usually based on your health, the procedure, and your preference. Local anesthesia is a shot given to numb a small part of the body. Regional anesthesia is a shot that blocks pain to a larger area of the body. General anesthesia affects the brain and the whole body. You get it through a small tube placed in a vein (IV). Or you may breathe it in. You are unconscious and will not feel pain. You may get monitored anesthesia care (MAC). This means that an anesthesia specialist will care foryou during your surgery. He or she will make sure that you get only the level of anesthesia care you need to prevent pain for your specific case. If you had anesthesia, you may feel some pain and discomfort as it wears off. If you have pain, don't be afraid to say so. Pain medicine works better if you take it before the pain gets bad. Common side effects from sedation include: Feeling sleepy. (Your doctors and nurses will make sure you are not too sleepy to go home.) Nausea and vomiting. This usually does not last long. Feeling tired. Follow-up care is a henley part of your treatment and safety. Be sure to make and go to all appointments, and call your doctor if you are having problems. It's also a good idea to know your test resultsand keep a list of the medicines you take. How can you care for yourself at home? Activity Don't do anything for 24 hours that requires attention to detail. This includes going to work, making important decisions, or signing any legal documents. It takes time for the medicine effects to completely wear off. For your safety, you should not drive or operate any machinery that could be dangerous until the medicine wears off and you can think clearly and react easily. When you get home, it is important to rest until the anesthesia has worn off. Some people will feeldrowsy or dizzy for up to a few hours after leaving the hospital. Take your time and walk slowly. Sudden changes in position may also cause nausea. Rest when you feel tired. Getting enough sleep will help you recover. Diet You can eat your normal diet, unless your doctor gives you other instructions. If your stomach is upset, try clear liquids and bland, low-fat foods like plain toast or rice. Drink plenty of fluids (unless your doctor tells you not to). Don't drink alcohol for 24 hours. Medicines Be safe with medicines. Read and follow all instructions on the label. ? If the doctor gave you a prescription medicine for pain, take it as prescribed. ? If you are taking opioids for pain, it is very important to take them as prescribed. Opioids can easily be misused. Misuse can lead to opioid use disorder and even . Because of this, it is best to get off them as soon as possible. As soon as you don't need them, talk to your doctor about howto safely stop taking them. Also talk with your doctor about how to safely store and get rid of opioids. ? If you are not taking a prescription pain medicine, ask your doctor if you can take an pith-wxe-abkqgyt medicine. If you think your pain medicine is making you sick to your stomach, you can try these things. ? Take your medicine after meals (unless your doctor has told you not to). ? Ask your doctor for a different pain medicine. When should you call for help? Call 911 anytime you think you may need emergency care. For example, call if: You have severe trouble breathing. You passed out (lost consciousness). Call your doctor now or seek immediate medical care if: You have trouble breathing. You have ongoing or worsening nausea or vomiting. You have a fever. You have a new or worse headache. The medicine is not wearing off and you can't think clearly. Watch closely for changes in your health, and be sure to contact your doctor if: You do not get better as expected. Where can you learn more? Go to https://www.[email or web address].com.Toppr/patientEd Enter G817 in the search box to learn more about Sedation for a Medical Procedure: Care Instructions. Current as of: March 14, 2018 Content Version: 12.3 9656-0791 [employer]. Care instructions adapted under license by your healthcare professional. If you have questions about a medical condition or this instruction, always ask your healthcare professional. [employer] disclaims any warranty or liability for your use of this information. documented in this encounter* Instructions* Tayler Melendrez, AYUSH - 05/17/2019 Post-Op Discharge Instructions When to call: Bleeding from site Infection from site which may look like a [place] of redness around the incision or you may see pus coming from the wound Persistent nausea or emesis Worsening pain which is not controlled with the pain medication If your skin or eyes turn yellow Temperature greater than 101.[address] Salter in 2-3 weeks. Shower: You can shower or sponge bath in 24 hours after your surgical procedure. But DO NOT use hottubs or swimming pools. You may let the steri strips come off or they will be removed in the office. You may also place band-aids as needed for comfort, but this is not required. Diet: You had anesthesia medications today, and patients can have some nausea and even vomiting if they eat too spicy or rich of foods. So, it is best to eat a bland, soft diet for the first 1-2 daysafter your surgery. After that, you can start to introduce foods in as you would normally eat throughout the week. Please refrain from eating fast food the day of your surgery, greasy and spicy foodsare not a good combination after anesthesia! Pain Medications: You will be given a pain medication prescription prior to leaving the hospital (or one may be called in if appropriate). These can cause stomach upset, so it is best to take them with a piece of food or bread. Follow the directions as written on the bottle of medicine. The pain medications should be used for the first couple of days as directed, and then you can start spacing them out to every 6-8 hours as needed for pain. You can also alternate them with ibuprofen or tylenol (do not exceed 4000 mg of tylenol per day total). Driving: No driving for 2 days because of recent anesthesia medications; DO NOT DRIVE or operate heavy machinery while using narcotic pain medications. Constipation: The pain medication can commonly cause constipation and if you have not had a bowel movement (or pooped) for 3 days after the surgery, then using an over the counter medicine from the pharmacy is appropriate. We recommend colace, dulcolax, miralax, and/or milk of magnesia (MOM) to help relieve the constipation. Drink plenty of water, and make sure you are eating fruits and vegetables in the days after your surgery. If you have tried a couple of things with no relief, then please call the office for additional instructions or recommendations Activity: Although you are getting to go home today, you did have a major surgery performed. You are to do no heavy lifting of more than 10 lbs for 2 weeks and more than 20 lbs for 4-6 weeks after surgery or you are released to do so at your follow up visit. However, it is okay to do activities such as walking or light running or biking. Again, you should refrain from any straining type of activity as this can increase your risk of developing a hernia (or weakness) at your incision sites. It isnot uncommon for patients to be tired and require more sleep in the first few days to weeks after asurgery. Let your body rest... If you need a nap, then take a nap. Go to bed early or wake up late,let your body be your guide. Remember that everyone heals differently, so you will likely not have the same experience as your neighbor or friend at school or cheondoism. But if you are feeling well and would like to work out, then the rule of 3's applies. Do 1/3rd of your normal activity the first week. Bump it up to 2/3rds your normal activity the 2nd week, and then resume your normal activity on the 3rd week. If you have been given a binder, then wear it for comfort, especially when getting in and out of bed or on and off the potty. You may climb stairs carefully. Travel: It is okay to go for car rides or plane flights, but there are a couple of things to do andwatch out for after your surgery. Blood clots in your legs (called Deep Vein Thrombosis or DVTs) can occur for the first month following a major surgery. This will present as swelling to one or both legs and may be localized to only the calf area. If you notice this, call the office or go to the closest ER or hospital. Ways to prevent DVTs are to get out of the car or up from your seat in a planeand walk for 5-10 minutes every 1-2 hours. Stay well hydrated, drink lots of water. You can also move your feet and legs around in the car or plane every 15 minutes or so in a pumping type fashion,i.e. think of pushing down on a gas pedal and then lifting up suddenly. If you need refills on your medication please call the office 24 hours prior to your medication running out. Our providers are not always immediately available to address this issue due to the natureof a trauma and surgery practice. If the medication refill is regarding pain medication then the office staff will need to speak directly to the patient prior to the decision for a refill is made. If [place] paperwork needs completed for work, you can have it faxed to our office or it can be dropped off. Our office is located at: [facility] [address] [place] [address] Office phone number: [phone] Office fax number:[phone] In case there are any questions or problems, contact Dr. Salter [phone], 8 AM to 5 PM, Sunday through Sunday. After hours or on the weekend call the hospital at and the broke beater operator will have the doctor marine consultant beeped. Thank you for trusting us with your surgical issues, and we hope you had the best experience possible during this challenging time. documented in this encounter* Instructions* Rosie Kessler RN - 01/15/2020 SCOPE DISCHARGE INSTRUCTIONS You have had a Colonoscopy (Colon) procedure. Sedation: You were given medication for sedation. You may feel drowsy or tired for a few hours. We recommend you not be alone today. Please do not participate in activities that require good coordination or concentration such as driving a car or operating machinery for the next 24 hours. Protect yourself against falls, especially on the stairs or when walking long distances. Delay making businessdecisions that require the signing of legal documents for a minimum of 24 hours. No alcoholic beverages for 24 hours. Diet: Type of diet ordered High Fiber. IV: If the IV site swells or bleeds, please apply direct pressure for 5 minutes. If the site becomes red, you may apply warm, moist compresses to the site. Please see a healthcare professional if youhave concerns about your IV site. Abdomen: Following the procedure called colonoscopy, you may be aware of a bloated appearance andfeeling of your abdomen. You may also experience some cramping or gas pains. The distention and discomfort should subside as you pass the air. If you are unable to pass the air, please contact your physician. Pain/Bleeding: You have had no interventions performed during the procedure. You may expect a little bleeding from the site. Within the next 48 hours, if the bleeding becomes excessive or is accompanied by abdominal or chest pain, please call your physician immediately. If you are on aspirin or NSAIDS (non-steroidal anti-inflammatory drugs) then you can resume in tomorrow. Repeat Average risk screening colonoscopy in 10 years If you have any questions, call your physician's office. [phone] documented in this encounter Hospital Course * Lizz Salter MD - 03/17/2019 9:53 AM EST Physician Discharge Summary Name: Richy Bowens - - Date: 1960 Admit date: 03/17/2019 Discharge Date The patient was discharged on: March 17, 2019 Principal Problem: Symptomatic cholelithiasis Diagnoses During This Admission Ventral incisional hernia * (Principal) Symptomatic cholelithiasis Brief HPI: Patient is a 58 y.o. female with a past medical history significant for GERD, Espinoza's esophagus, fibromyalgia and hypertension. I was following the patient for her Espinoza's esophagus surveillance.Patient was concerned that she had a hiatal hernia which is why I got a CT of the chest abdomen andpelvis. This demonstrated a multifocal ventral hernia along her midline laparotomy incision. We hadextensive discussions and the patient would prefer to have her ventral hernia repaired soon. Patient was seen and examined in the preoperative and holding area. The patient is complaining about increasing postprandial nausea. She states that she is nauseous almost all the time. Patient has known cho lelithiasis based on the CT. I discussed my concern with the patient that I think she has symptomatic cholelithiasis and this will likely be an issue in the future. My biggest concern is if I placed a large ventral mesh then performing surgery in the future will be extremely difficult. After much discussion our plan will be for a laparoscopic cholecystectomy today. We will address her ventral hernia in the future once she recovers from her cholecystectomy. I think this would be the best plan because reentering her abdomen through a ventral mesh will be much more difficult. Informed consent was obtained the patient was agreeable to proceed with a laparoscopic cholecystectomy. Brief Summary of Hospital Course: On 03/17/2019 the patient underwent a laparoscopic cholecystectomy with extensive lysis of adhesions. She tolerated the procedure very well. She was discharged home same day the procedure from the hospital. Pertinent Exam Findings on Day of Discharge: Abdomen -incisions have Steri-Strips and Band-Aids in place Disposition and Plans for Post-Hospital Medical Care: Code Status: Full Discharge Diet: Regular diet Discharge Activity: As tolerated Follow Up: See Dr Salter in 1-2 weeks Disposition: Home Surgical Procedures Done During Admission: 03/17/2019 laparoscopic cholecystectomy Inpatient Consults: None Discharge Medications START taking these medications hydrocodone-acetaminophen 5-325 MG Dose: 1 tablet Doctor's comments: Intended days supply: greater than or equal to 3 days 1 tablet, Oral, EVERY 6 HOURS PRN Commonly known as: NORCO CONTINUE these medications which have CHANGED or have new prescriptions * docusate sodium 100 MG capsule Dose: 100 mg 100 mg, Oral, TWO TIMES A DAY Commonly known as: COLACE What changed: Another medication with the same name was added. Make sure you understand how and when to take each. * docusate sodium 100 MG capsule Dose: 100 mg 100 mg, Oral, TWO TIMES A DAY Commonly known as: COLACE What changed: You were already taking a medication with the same name, and this prescription was added. Make sure you understand how and when to take each. * This list has 2 medication(s) that are the same as other medications prescribed for you. Read thedirections carefully, and ask your doctor or other care provider to review them with you. CONTINUE these medications which have NOT CHANGED busPIRone 10 MG tablet Dose: 10 mg 10 mg, Oral, TWO TIMES A DAY Commonly known as: BUSPAR DULoxetine 30 MG capsule Dose: 60 mg 60 mg, Oral, DAILY Commonly known as: CYMBALTA estradiol 0.5 MG tablet Dose: 0.5 mg 0.5 mg, Oral, DAILY Commonly known as: ESTRACE losartan 100 MG tablet TAKE 1 TABLET BY MOUTH ONCE DAILY Commonly known as: COZAAR medroxyPROGESTERone 2.5 MG tablet Dose: 2.5 mg 2.5 mg, Oral, DAILY Commonly known as: PROVERA MIRALAX PO Dose: 1 Units 1 Units, Oral, DAILY PRN NIFEdipine 30 MG 24 hr tablet Dose: 90 mg 90 mg, Oral, DAILY Commonly known as: PROCARDIA XL potassium chloride 10 MEQ CR capsule Dose: 20 mEq 20 mEq, Oral, DAILY Commonly known as: MICRO-K thera vitamin Tabs tablet DAILY triamcinolone 0.1 % cream Doctor's comments: Please consider 90 day supplies to promote better adherence Apply cream externally to affected areas twice daily as needed Commonly known as: CELIA Salter MD [facility] Office: [phone] documented in this encounter* Tomeka Barajas MD - 01/15/2020 10:54 AM EDT Patient in endoscopy for procedure. Procedure performed without difficulty. See report for findings. Patient sent home after meeting discharge criteria and in good condition. Procedure: Colonoscopy Complications: None Diagnosis: Normal Colon and Hemorrhoids Follow Up: 1. High Fiber Diet 2. Repeat Average risk screening colonoscopy in 10 years Tomeka Barajas MD 01/15/2020 10:54 AM documented in this encounter History of Present Illness * Lizz Salter MD - 03/17/2019 8:06 AM EST History and Physical Update Patient was seen and examined in the preoperative and holding area. The patient is complaining about increasing postprandial nausea. She states that she is nauseous almost all the time. Patient has known cholelithiasis based on the CT. I discussed my concern with the patient that I think she has symptomatic cholelithiasis and this will likely be an issue in the future. My biggest concern is if I placed a large ventral mesh then performing surgery in the future will be extremely difficult. Aftermuch discussion our plan will be for a laparoscopic cholecystectomy today. We will address her ventral hernia in the future once she recovers from her cholecystectomy. I think this would be the best plan because reentering her abdomen through a ventral mesh will be much more difficult. Informed consent was obtained the patient was agreeable to proceed with a laparoscopic cholecystectomy. all questions were answered at the bedside. Lizz Salter MD [facility] Office: [phone] 03/17/2019 documented in this encounter* Rishi Florian MD - 04/03/2019 9:45 AM EST This record was generated by a voice activated dictation system and may contain grammatical and typographical errors. S: Richy Bowens is a 58 yo F who has a past medical history of Espinoza esophagus (05/2013), Fibrocystic breast, Fibromyalgia (2008), GERD (gastroesophageal reflux disease) (2007), History of colonoscopy, History of (), Hypertension (2008), Last menstrual period (LMP) > 10 days ago (2008), MR (mitral regurgitation) (2002), PSVT (paroxysmal supraventricular tachycardia) ([facility]) (07/15/98), TMJ (dislocation of temporomandibular joint), and Urge incontinence (2009). She is presenting today for follow up. She recently underwent cholecystectomy for chronic cholecystitis. This was complicated by a postoperative hematoma which she says that she is going to be undergoing drainage for this today. She says that the surgery overall seem to help with the nausea and abdominal bloating as well as a sensation of food being stuck in her upper abdomen. Interestingly, her severe cough did not seem to get a whole lot better with stopping the losartan but went away after undergoing the surgery. She does still have a dry cough with a constant tickle in her throat. This is been going on for months and months and it feels like there is a film in her throat. She has no nasal drainage. She has no shortness of breath. She has no chest pain. Outpatient Medications Marked as Taking for the 04/03/19 encounter (Office Visit) with Rishi Florian MD Medication Sig Dispense Refill busPIRone (BUSPAR) 10 MG tablet Take 1 tablet by mouth two times a day. 180 tablet 3 docusate sodium (COLACE) 100 MG capsule Take 1 capsule by mouth two times a day. 100 capsule 3 DULoxetine (CYMBALTA) 30 MG capsule Take 2 capsules by mouth daily. 180 capsule 3 estradiol (ESTRACE) 0.5 MG tablet Take 0.5 mg by mouth daily. medroxyPROGESTERone (PROVERA) 2.5 MG tablet Take 2.5 mg by mouth daily. Multiple Vitamin (THERA VITAMIN) TABS tablet Take by mouth daily. NIFEdipine (PROCARDIA XL) 30 MG 24 hr tablet Take 3 tablets by mouth daily. 270 tablet 3 Polyethylene Glycol 3350 (MIRALAX PO) Take 1 Units by mouth daily as needed. potassium chloride (MICRO-K) 10 MEQ CR capsule Take 2 capsules by mouth daily. 180 capsule 3 There are no discontinued medications. ROS: CP/SOB/Palpitations/PND: Positive for cough. Nausea/vomiting/change in bowel habits/ GI bleeding: Negative O: Visit Vitals BP (!) 142/100 (BP Location: Left arm, Patient Position: Sitting) Pulse 94 Temp 98 F (36.7 C) (Tympanic) Wt 73.6 kg (162 lb 3.2 oz) SpO2 96% BMI 26.18 kg/m Gen: No acute distress, sitting comfortably in exam room chair HEENT: PERRLA, EOMI, no throat erythema, no throat exudates Neck: No cervical or submandibular LAD Lungs: Clear to auscultation bilaterally, no ronchi, wheezes, or rales Heart: Regular rate and rhythm, no rubs, gallops, or murmurs Abdomen: Abdominal binder is in place A and P: Richy was seen today for follow-up. Diagnoses and all orders for this visit: Cough: Per the patient, it seems that having undergone the cholecystectomy has been very helpful for her cough. Her blood pressure is poorly controlled today so we will have her try going back to thelosartan 100 mg daily and decrease the nifedipine back to 60 mg daily. Obviously if her severe cough recurs, the losartan will need to be stopped indefinitely. It does sound like she has a chronic globus sensation that contributes to her coughing. We will have her see ENT regarding this. - Ambulatory Referral to ENT Globus sensation - Ambulatory Referral to ENT Essential hypertension Other orders - Discontinue: esomeprazole (NEXIUM) 40 MG capsule - esomeprazole (NEXIUM) 40 MG capsule - NIFEdipine (PROCARDIA XL) 30 MG 24 hr tablet Return in about 4 weeks (around 05/01/2019), or if symptoms worsen or fail to improve. Rishi Florian MD documented in this encounter* Jimmy Ryan, - 05/17/2019 7:58 AM EST Covering for Dr. Gaetano HELLER from ERCP-PPD#1 for possible retained CBD stone. Pain: minimal to the RUQ/midepigastric region Diet: tolerating current diet Flatus: has had Bowel movement: none documented Ambulation: walked in the hallways VSS afebrile A and O x3, NAD S1S2 ECTAB, no wheezing, rhonchi, or rales Soft, good BS noted, minimal RUQ/midepigastric abdominal tenderness, (-) peritoneal signs, nondistended, no masses, rebound, rigidity, or guarding noted No cyanosis, clubbing, erythema or edema noted to the bilateral lower extremities, moving all extremities, no sensory deficits Labs reviewed. Radiographic studies reviewed. A/P 1. S/P remote cholecystectomy 2. S/P ERCP with biliary and pancreatic stent placement for elevated LFTS- PPD#1 LFTs have improved but her lipase is slightly elevated now. This is not surprising given that she just had ERCP, but patient voices concerns about going home. Will plan to recheck labs at 2 pm today and if continuing to see improvement then DC home today. If elevated then will keep in the hospital and change diet status, etc. Plan discussed with patient and she agrees. * Lizz Salter MD - 05/16/2019 5:33 PM EST I discussed the findings of the ERCP with Dr. Barajas. Anticipate likely discharge of this patient tomorrow morning as long as she does well and labs improve. Patient can follow-up with myself and as an outpatient. Lizz Salter MD, FACS [facility] Office: [phone] 05/16/2019 * Lizz Salter MD - 05/16/2019 8:38 AM EST General Surgery Progress Note 05/16/2019 Hospital Day: 0 Principle Problem: Choledocholithiasis Interval History: No acute events overnight. She is currently n.p.o.. She denies any nausea or vomiting. Her epigastric and upper back pain is very minimal. Afebrile. Objective: Vital signs in last 24 hours: Visit Vitals BP 136/75 (Patient Position: Lying) Pulse 75 Temp 98.9 F (37.2 C) (Oral) Resp 20 Ht 5' 6 (1.676 m) Wt 71.3 kg (157 lb 3.2 oz) SpO2 95% BMI 25.37 kg/m . I/O last 3 completed shifts: In: 1082.9 [P.O.:480; I.V.:602.9] Out: 1 [Urine:1] General Appearance: Alert, cooperative, no distress, appears stated age Head: Normocephalic, without obvious abnormality, atraumatic Eyes: PERRL, conjunctiva/corneas clear, EOM's intact Lungs: respirations unlabored Heart: Regular rate and rhythm Abdomen: Soft, minimal tenderness in the epigastrium Ventral hernias which are unchanged Extremities: Extremities normal Labs: Lab Results Component Value Date WHITEBLOODCE 5.0 05/16/2019 HGB 12.7 05/16/2019 HCT 40.2 05/16/2019 PLT 250.0 05/16/2019 CHOL 153 09/27/2017 TRIG 61 09/27/2017 HDL 82.0 (H) 09/27/2017 ALT 547 (H) 05/16/2019 AST 608 (H) 05/16/2019 NA 139 05/16/2019 K 3.6 05/16/2019 CL 107 05/16/2019 CREATININE 0.57 05/16/2019 BUN 9 05/16/2019 CO2 25 05/16/2019 TSH 0.924 02/14/2018 HGBA1C 5.3 04/16/2013 Imaging: Results for orders placed or performed during the hospital encounter of 05/15/19 XR Chest Portable (1 View) Collection Time: 05/15/19 12:17 PM Narrative EXAMINATION: ONE XRAY VIEW OF THE CHEST 05/15/2019 12:09 pm COMPARISON: 04/15/2013 at 1104 hours HISTORY: cp Pt c/o abd pain, chest pain, radiating to back after lifting a mattress FINDINGS: Infiltrative changes the mid-basilar regions bilaterally slightly worse on the right. No cardiomegaly, central pulmonary vascular congestion noted. Parents is consistent with bronchitis or mild pneumonia. Otherwise, lung james are clear. No pleural effusion or pneumothorax. Impression Mild infiltrate or subsegmental at [place] changes in lung bases consistent with bronchitis or mild pneumonia. Otherwise, radiographically nonacute portable chest. CT Chest Abdomen Without IV Contrast Collection Time: 05/15/19 12:48 PM Narrative EXAMINATION: CT OF THE CHEST AND ABDOMEN WITHOUT CONTRAST 05/15/2019 12:40 pm TECHNIQUE: CT of the chest and abdomen was performed without the administration of intravenous contrast. Multiplanar reformatted images are provided for review. Dose modulation, iterative reconstruction, and/or weight based adjustment of the mA/kV was utilized to reduce the radiation dose to as low as reasonably achievable. COMPARISON: None HISTORY: Abd pain, chest pain, radiating to back after lifting a mattress FINDINGS: Chest: Mediastinum: No acute noncontrast abnormality or CT evidence of acute posttraumatic change. Calcified and noncalcified lymph nodes noted throughout the mediastinum with maximal short axis dimension of approximately 7 mm. No definitively suspicious mediastinal mass. Lungs/pleura: Foci of parenchymal scarring and subsegmental atelectasis in lung bases. No acute pulmonary consolidations, airspace infiltrates, pneumothorax, suspicious mass, endobronchial lesion. Soft Tissues/Bones: No acute abnormality. Abdomen: Organs: No acute noncontrast abnormality. Postcholecystectomy changes. Calcifications noted about the gallbladder clips which may reflect retained stones within portions of the biliary tree. MRCP suggested if clinical concern of choledocholithiasis. GI/Bowel: Moderate stool volume throughout the colon. Correlation with clinical evidence of constipation suggested. Otherwise, no acute abnormality. Peritoneum/Retroperitoneum: Fat containing right paramedian ventral hernias with maximal 2 cm disruption/diastasis of the rectus sheath at the largest hernia site. No strangulation or infarction hernia sac suggested. No acute abnormalities. Bones/Soft Tissues: Degenerative disc disease and exiting nerve effacement lower lumbar spine. Otherwise, no acute abnormality Impression Foci of subsegmental atelectasis or parenchymal scarring in the lung bases which may be chronic. Multiple fat containing right paramedian ventral hernias. No strangulation or infarction hernia sac suggested. Largest defect in the rectus sheath is approximately 2 cm. Degenerative disc disease lower lumbar spine with exiting nerve effacement/compression suggested. Moderate stool volume throughout the colon. Correlation with clinical evidence of constipation suggested. Calcifications noted adjacent to gallbladder clips which may reflect stones within portions of biliary tree similar to 04/01/2019. MRCP suggested if clinical concern of choledocholithiasis. Otherwise, no noncontrast CT evidence of acute thoracic or abdominal pathology. Portions of pelvis not visualized which precludes evaluation complete evaluation of the pelvis. MRI Abdomen-MRCP With/Without IV Cont Collection Time: 05/15/19 8:33 PM Narrative EXAMINATION: MRI OF THE ABDOMEN WITH AND WITHOUT CONTRAST AND MRCP 05/15/2019 7:59 pm TECHNIQUE: Multiplanar multisequence MRI of the abdomen was performed with and without the administration of intravenous contrast. After initial T2 axial and coronal images, thick slab, thin slab and 3D coronal MRCP sequences were obtained without the administration of intravenous contrast. MIP images are provided for review. COMPARISON: CT dated 05/15/2019 HISTORY: possible biliary stone S/P gallbladder surgery March, Diagnosis: FINDINGS: Lung bases: Clear lung bases. Liver: No focal lesions are noted in the liver. Biliary system: The gallbladder is surgically absent by history. Metallic clip noted in the gallbladder fossa. There is no intra hepatic bile duct dilatation noted. There is a 3 cm ovoid cystic structure noted, seen in the gallbladder fossa on image 9 of series 4 and image 17 of series 6 with multiple intraluminal filling defects representing gallstones. This finding is concordant with CT finding of 05/15/2019. This ovoid cystic structure is connected to the cystic duct. Mild narrowing of the distal common bile duct noted. The common bile duct at the cynthia hepatis measures 7 mm. No CBD stone. Pancreas: Normal pancreas. Normal pancreatic duct. Spleen: Normal spleen. Adrenals: Normal adrenals. Kidneys: No hydronephrosis in the kidneys. Abdominal aorta is normal in caliber with no evidence of aneurysmal dilatation or dissection. No retroperitoneal adenopathy or bleed.. GI: No acute abnormality noted in the GI tract in the upper abdomen. No ascites. Marrow signal: Normal marrow signal. Mild thoracic and lumbar spondylotic changes are noted. Impression The gallbladder is surgically absent by history. 3 cm ovoid cystic structure noted in the gallbladder fossa connecting with the cystic duct. Multiple tiny gallstones noted in this cystic structure. This may represent an unusual choledochal cyst or gallbladder remnant. No CBD stones. CBD at the cynthia hepatis measures 7 mm. Normal pancreas and pancreatic duct. Additional findings as above. Assessment/Plan: 59-year-old woman with choledocholithiasis from a small gallbladder remnant -I explained to the patient what was going on and why she is having choledocholithiasis -I would hold off on any surgery on this gallbladder remnant as it would be high risk due to the proximity and scar tissue to the common bile duct -I have discussed this case with DORIS Gonzalez in regards to plans of an ERCP today -N.p.o. for now -All questions were answered Lizz Salter MD 05/16/2019 8:38 AM * Yovanny Lehman APRN CNP - 05/16/2019 7:55 AM EST Spoke with Dr. Barajas in regards to ERCP documented in this encounter* Lizz Salter MD - 04/01/2019 12:09 PM EST Can you please call Mrs Bowens. Please let her know that I suspect the CT findings are hematoma after her surgery. I have ordered some blood work to be done. See if she can get this done before her follow-up appointment with me this week. Thank you documented in this encounter Reason for Referral Status Reason Specialty Diagnoses / Procedures Referre d By Contact Referred To Contact Closed Radiology Diagnoses Abdominal distension Procedures CT Abdomen Pelvis Without IV Contrast Lizz Salter MD [address] [place] [address] [address] [place] [address] Status Reason Specialty Diagnoses / Procedures Referred By Contact Referred To Contact Open Otolaryngology Diagnoses Cough Globus sensation Rishi Florian MD [address] [place] [address] [facility] [address] [place] [address] Status Reason Specialty Diagnoses / Procedures Referre d By Contact Referred To Contact Closed Radiology Diagnoses Sliding hiatal hernia Procedures CT Chest Abdomen Without IV Contrast CT THORAX W/O CONTRAST MATERIAL CT ABDOMEN W/O CONTRAST MATERIAL Lizz Salter MD [facility] [place] [address] Imaging Services [address] [place] [address] Instructions * Patient Instructions* Rishi Florian MD - 04/03/2019 9:45 AM EST We will try restarting losartan and decrease nifedipine to 60 mg daily.We will see you back in 4 weeks for follow up. We will have you see ENT. documented in this encounter Chief Complaint and Reason for Visit Chief Complaint SORE THROAT, SENSIST HARRIET GLANDS, COUGH LACERATION Chief Complaint LACERATION CHEST PAIN Summary Purpose Family History No Family History Records FoundNo Family History Records Found Additional Source Comments Reason for Visit (unrecogniz ed section and content) Reason Comments Procedure Status Reason Specialty Diagnoses / Procedures Re ferred By Contact Referred To Contact Authorized Diagnoses Ventral incisional hernia K43.2 (ICD-10-CM) - 553.21 (ICD-9-CM) - Ventral incisional hernia Procedures Case Request Operating Room: ROBOTIC ASSISTED LAPAROSCOPIC VENTRAL HERNIA LAPS REPAIR HERNIA EXCEPT INCAL/INGUN REDUCIBLE 25239 - LAPS REPAIR HERNIA EXCEPT INCAL/INGUN REDUCIBLE Lizz Salter MD [address] [place] [address] Reason Comments Information or Advice only Richy had he r gall bladder removed on 03/[address] Salter and now has a fever of 101.9. What should we do? Status Reason Specialty Diagnoses / Procedures Referre d By Contact Referred To Contact Closed Radiology Diagnoses Abdominal distension Procedures CT Abdomen Pelvis Without IV Contrast Lizz Salter MD [address] [place] [address] [place] [address] Reason Comments Follow-up Reason Comments Medication Refill Reason Comments Abdominal Pain Status Reason Specialty Diagnoses / Procedures Referre d By Contact Referred To Contact Diagnoses Abdominal pain Procedures Reason Comments Information or Advice only I was just di scharged after having a procedure with , that wanted done MARLIN. She told me if it didn't work I would have to go to [facility] bc it is very serious. Now my pain is back and I do Reason Comments Post-op Problem Abdominal Pain Reason Comments Ed Follow Up Call Reason Comments Information or Advice only Status Reason Specialty Diagnoses / Procedures Re ferred By Contact Referred To Contact Incomplete Diagnoses Constipation K59.00 (ICD-10-CM) - 564.00 (ICD-9-CM) - Constipation Procedures Case Request Operating Room: COLONOSCOPY DIAGNOSTIC PA COLONOSCOPY FLX DX W/COLLJ SPEC WHEN PFRMD 58170 - PA COLONOSCOPY FLX DX W/COLLJ SPEC WHEN PFRMD Prema Jesus PA [address] [place] [address] Status Reason Specialty Diagnoses / Procedures Referre d By Contact Referred To Contact Closed Radiology Diagnoses Sliding hiatal hernia Procedures CT Chest Abdomen Without IV Contrast CT THORAX W/O CONTRAST MATERIAL CT ABDOMEN W/O CONTRAST MATERIAL Lizz Salter MD [address] [employer] [place] [id number] Imaging Services [address] [place] [address] Reason Onset Date Comments Tinnitus 06/12/2023 Specialty Diagnoses / Procedures Referred By Demi t Referred To Contact Diagnoses History of Espinoza's esophagus Procedures [facility] Decentralized Case Request: ESOPHAGOGASTRODUODENOSCOPY PA ESOPHAGOGASTRODUODENOSCOPY TRANSORAL DIAGNOSTIC PA EGD TRANSORAL BIOPSY SINGLE/MULTIPLE PA EGD INSERT GUIDE WIRE DILATOR PASSAGE ESOPHAGUS PA EGD BALLOON DILATION ESOPHAGUS <30 MM DIAM PA DILATION ESOPH UNGUIDED SOUND/BOUGIE 1/MULT PASS Lilibeth Jaffe, SIZING SPONGER [address] [phone] Referral ID Status Reason Start Date Expiration Date V isits Requested Visits Authorized [id number] New Request 08/02/2023 09/01/2024 1 1 Care Teams (unrecognized sec tion and content) Veterinary Toxicologist Relationship Specialty Start Date End Date Rishi Florian MD PCP - General Internal Medicine 01/25/17 Ag Hensley MD Referring Physician Internal Medicine 11/15/12 Dalia Lambert MD [address] [place] [address] Consulting Physician Hematology and Oncology 11/15/12 Lynda Sheikh, RN Registered Nurse Oncology 11/15/12 Veterinary Toxicologist Relationship Specialty Start Date End Date Rishi Florian MD PCP - General Internal Medicine 01/25/17 Ag Hensley MD Referring Physician Internal Medicine 11/15/12 Dalia Lambert MD [address] [place] [address] Consulting Physician Hematology and Oncology 11/15/12 Lynda Sheikh, RN Registered Nurse Oncology 11/15/12 Veterinary Toxicologist Relationship Specialty Start Date End Date Rishi Florian MD PCP - General Internal Medicine 01/25/17 Ag Hensley MD Referring Physician Internal Medicine 11/15/12 Dalia Lambert MD [address] [place] [address] Consulting Physician Hematology and Oncology 11/15/12 Lynda Sheikh, RN Registered Nurse Oncology 11/15/12 Veterinary Toxicologist Relationship Specialty Start Date End Date Rishi Florian MD PCP - General Internal Medicine 01/25/17 Ag Hensley MD Referring Physician Internal Medicine 11/15/12 Dalia Lambert MD [address] [place] [address] Consulting Physician Hematology and Oncology 11/15/12 Lynda Sheikh, RN Registered Nurse Oncology 11/15/12 Veterinary Toxicologist Relationship Specialty Start Date End Date Rishi Florian MD PCP - General Internal Medicine 01/25/17 gA Hensley MD Referring Physician Internal Medicine 11/15/12 [place] [address] [place] [address] Consulting Physician Hematology and Oncology 11/15/12 Lynda Sheikh, RN Registered Nurse Oncology 11/15/12 Veterinary Toxicologist Relationship Specialty Start Date End Date Rishi Florian MD PCP - General Internal Medicine 01/25/17 Ag Hensley MD Referring Physician Internal Medicine 11/15/12 Dalia Lambert MD [address] [place] [address] Consulting Physician Hematology and Oncology 11/15/12 Lynda Sheikh, RN Registered Nurse Oncology 11/15/12 Veterinary Toxicologist Relationship Specialty Start Date End Date Rishi Florian MD PCP - General Internal Medicine 01/25/17 Ag Hensley MD Referring Physician Internal Medicine 11/15/12 Dalia Lambert MD [address] [place], [place] [id number] Consulting Physician Hematology and Oncology 11/15/12 Lynda Sheikh, RN Registered Nurse Oncology 11/15/12 Team Status: Active Member Role Status Dates RISHI FLORIAN Primary Care Provider Active Team Status: Inactive Member Role Status Dates Gary Reno PA, PA Attending Provider Active Team Status: Inactive Member Role Status Dates Dr. Michaela Fine DO Emergency Provider Active ANIVAL BLACKWELL Primary Care Provider Active Team Status: Active Member Role Status Dates Out of Town Doctor Primary Care Provider Active Team Status: Inactive Member Role Status Dates Dr. Michaela Fine DO Attending Provider, Emergency P [place] Active ANIVAL BLACKWELL Primary Care Provider Active Team Status: Inactive Member Role Status Dates Out of Town Doctor Primary Care Provider Active Dr. Martin Khanna MD Emergency Provider Active Veterinary Toxicologist Relationship Specialty Start Date End Date Rishi Florian MD PCP - General Internal Medicine 01/25/17 Ag Hensley MD Referring Physician Internal Medicine 11/15/12 Dalia Lmabert MD [address] [place] [address] Consulting Physician Hematology and Oncology 11/15/12 Lynda Sheikh, RN Registered Nurse Oncology 11/15/12 Veterinary Toxicologist Relationship Specialty Start Date End Date Rishi Florian MD PCP - General Internal Medicine 01/25/17 Ag Hensley MD Referring Physician Internal Medicine 11/15/12 Dalia Lambert MD [address] [place] [address] Consulting Physician Hematology and Oncology 11/15/12 Lynda Sheikh RN Registered Nurse Oncology 11/15/12 Veterinary Toxicologist Relationship Specialty Start Date End Date Rishi Florian MD PCP - General Internal Medicine 01/25/17 Ag Hensley MD Referring Physician Internal Medicine 11/15/12 Dalia Lambert MD [address] [place] [address] Consulting Physician Hematology and Oncology 11/15/12 Lynda Sheikh RN Registered Nurse Oncology 11/15/12 Goals (unrecognized section and content) Goals may be documented in a n alternate sectionGoals may be documented in an alternate section Continuous Active and Recently Administ ered Medications (unrecognized section and content) Medication Order 08/28/2023 08/29/2023 08/30/2023 lactated ringers infusion Intravenous, at 50 mL/hr, CONTINUOUS, Starting on Margarita 08/30/23 at 0915, Until Discontinued, Pre-op (OPS) 0838 (New Bag - Prov ider: Neal Sanches RN) PRN Medication Order 08/28/2023 08/29/2023 08/30/2023 meperidine (DEMEROL) injection (CANCELED) PRN, Starting on Margarita 08/30/23 at 1054, Until Margarita 24 at 1108, Intra-op 1054 (Given - Provid er: Alison Williamson RN) midazolam hcl (VERSED) injection (CANCELED) PRN, Starting on Margarita 08/30/23 at 1055, Until Margarita 08/30/23 at 1108, Intra-op 1054 (Given - Provid er: Alison Williamson RN)1056 (Given - Provider: Alison Williamson RN)1057 (Given - Provider: Alison Williamson RN) tetracaine-benzocaine (CETACAINE) (CANCELED) PRN, Starting on Margarita 08/30/23 at 1053, Until Margarita 08/30/23 at 1108, Intra-op 1053 (Given - Provid er: Judy López RN) INFORMATION SOURCE (unrecogn ized section and content) DATE CREATED AUTHOR 12/01/2023 [facility] DATE CREATED AUTHOR AUTHOR'S ORGANIZ ATION 01/27/2025 [facility] System FOR RECORDS PERTAINING TO PATIENTS WHO ARE OR HAVE BEEN ENROLLED IN A CHEMICAL DEPENDENCY/SUBSTANCEABUSE PROGRAM, SOME INFORMATION MAY BE OMITTED. This clinical summary was aggregated from multiple sources. Caution should be exercised in using it in the provision of clinical care. This summary normalizes information from multiple sources, and as a consequence, information in this document may materially change the coding, format and clinical context of patient data. In addition, data may be omitted in some cases. CLINICAL DECISIONS SHOULD BE BASED ON THE PRIMARY CLINICAL RECORDS. [email or web address] provides no warranty or guarantee of the accuracy or completeness of information in this document.
[2025-03-30] MEDS: Mag /Aluminum/Simeth WCH UDC 30 ML ORAL.SUSP PO (22:28)
[2025-03-30] MEDS: DiphenhydrAMINE 50 MG/ML Syringe IV (22:28)
[2025-03-30] MEDS: Lidocaine 2% Viscous15 ML UDC 15 ML PO (22:28)
[2025-03-30 22:35] VITALS: BP 159/108; PULSE 98; RESP 20; O2SAT 98
[2025-03-30 22:39] VITALS: BP 154/87; PULSE 100; RESP 18; TEMP 37.6; O2SAT 95
[2025-03-30 23:00] VITALS: BP 154/86; PULSE 93; RESP 17; TEMP 36.7; O2SAT 95
[2025-03-30 23:08] LABS: Pro- Brain NATRIURETIC PEPTIDE 186 pg/mL (<=900); Troponin T High Sensitivity 16 ng/L (<=14)
[2025-03-30 23:13] LABS: Anion Gap 13 (7-18); BUN 16 mg/dL (4-19); BUN/Creat Ratio 17.8 RATIO (10-20); Calcium,Total 12.8 mg/dL (7.6-11.0); Carbon Dioxide 28.5 mmol/L (20.0-29.0); Chloride 98 mmol/L (96-106); Estimated Creatinine Clearance 58.87 ml/min (50-250); Glucose 100 mg/dL (70-99); Potassium 3.4 mmol/L (3.5-5.1)
--- NOTE | 2025-03-30 23:40 | CT_ITS ---
PROCEDURE: CTA CHEST W/WO CONTRAST 03/30/2025 REASON FOR EXAM: PULMONARY EMBOLISM TECHNIQUE: Procedure Code: [id number] Modality: CT Procedure: CTA CHEST W/WO CONTRAST Multiplanar Sagittal and Coronal images were obtained. CONTRAST: isovue 370 VOLUME: 100 mL One or more dose reduction techniques were used (e.g., Automated exposure control, adjustment of the mA and/or kV according to patient size, use of iterative reconstruction technique). RADIATION DOSE SUMMARY: CTDlvol: 6.44 mGy DLP: 222 mGycm COMPARISON: Chest radiograph on 08/11/2023. FINDINGS: Normal enhancement of the main pulmonary artery and right and left pulmonary arteries. Normal enhancement of the bilateral peripheral pulmonary arteries. There is no demonstrated pulmonary embolism. Normal thoracic aorta and visualized great vessels. There is no demonstrated aortic dissection. Normal heart and pericardium. Normal mediastinum. Normal hilar regions. Mild bilateral basilar atelectatic pulmonary changes. Normal visualized trachea and bronchi. The remaining lungs are well expanded. Normal remaining pulmonary parenchyma. Normal pleura. Mild diffuse spondylosis. Calcified splenic granulomas. Normal remaining visualized upper abdomen. CT/CTA Chest W/WO Contrast IMPRESSION: No demonstrated pulmonary embolism or arterial dissection. Mild bilateral basilar atelectatic pulmonary changes. Reading [facility]
[2025-03-31] VITALS: BP 138/78; PULSE 94; RESP 18; TEMP 36.7; O2SAT 99
[2025-03-31] MEDS: 0.9% Normal Saline (1000mL) 1,000 ML 999 ML IV (00:18)
[2025-03-31 00:23] LABS: Color, Urine Yellow (Yellow); Glucose, Dipstick Normal (Normal); Ketone-Dipstick Negative (Negative); Leukocyte Esterase-Dipstick 100 /ul (Negative); Nitrite-Dipstick Negative (Negative); Occult Blood-Urine Negative /ul (Negative); Protein-Dipstick 15 mg/dl (Negative); Specific Gravity, Urine 1.015 (1.002-1.030); Urine Bilirubin Dipstick Negative (Negative)
[2025-03-31 00:31] LABS: Mucous, Urine RARE /hpf (<or=2+); Red Blood Cells-Urine 0-5 SEEN /hpf (0-5); Squamous Epithelial Cells - UA 10-25 SEEN /hpf (5-10); Transitional Epithelial - Ur 0-5 SEEN /hpf (0-5)
--- NOTE | 2025-03-31 00:37 | ED.VIS.DYS ---
HPI History of Present Illness Chief Complaint: Shortness of Breath Informant: patient, spouse/S.O. and family Narrative Narrative: Very pleasant 64-year-old female presenting to the emergency room with dyspnea. Patient is 10 days postop from a left foot surgery. She states for the past couple days she has been having significant heartburn. She has a history of Espinoza's/GERD been utilizing Tums as well as her Nexium. Patient states she has been having sweats. She denies any leg swelling. No history of venous thromboembolism. No cough no documented fever. She is concerned about a potential pulmonary embolism. Since surgery the patient has been using Percocet as well as ibuprofen. Patient feels a balloon sensation in her chest from her epigastrium sometimes going up into her throat as well as into the back. Patient states that several years ago while having profound hypokalemia in an emergent situation she had a reported anaphylaxis due to IV dye and required intubation. She has not had IV dye since. [facility] Medical History Tinnitus Hearing problem Gallstone Bone fracture Acute bronchitis, unspecified Acute pharyngitis, unspecified Acute sinusitis, unspecified Barretts esophagus COVID-19 Right shoulder strain Hernia Fibromyalgia Hypertension Home Medications ?Medication ?Instructions ?Recorded ?Last Taken ?Type multivitamin 1 tab PO DAILY 08/05/20 Unknown History duloxetine 30 mg capsule,delayed 30 mg PO BID 03/14/21 Unknown History release esomeprazole magnesium 40 mg 40 mg PO DAILY 03/14/21 Unknown History capsule,delayed release estradiol 0.5 mg tablet 0.5 mg PO DAILY 03/14/21 Unknown History losartan 100 mg tablet 100 mg PO DAILY 03/14/21 Unknown History nifedipine 30 mg tablet,extended 60 mg PO DAILY 03/14/21 Unknown History release 24 hr potassium chloride 10 mEq 20 meq PO DAILY 03/14/21 Unknown History capsule,extended release ketoconazole 2 % topical cream 1 applic topical DAILY #15 grams 08/29/23 Unknown Rx medproxy PO 08/29/23 Unknown History oxycodone-acetaminophen 5 mg-325 1 tab PO Q6H PRN PRN pain 03/30/25 Unknown History mg tablet Allergy/AdvReac Type Severity Reaction Status Date / Time Gadolinium-MRI Contrast Allergy unknown Verified 03/30/25 21:37 Medium Iodinated Contrast Media (CT) Allergy Anaphylaxis Verified 03/30/25 21:37 Family History Father Cancer pancreatic/liver Hypertension Alcohol abuse Mother Cancer lymphoma/leukemia Hypertension Alcohol abuse Brother Cancer leukemia Sister Cancer thyroid/renal CVA (cerebral vascular accident) Thyroid disorder Grandmother Colon cancer Hypertension Grandfather Cancer prostate Hypertension Alcohol abuse Surgical History H/O exploratory laparotomy H/O foot surgery H/O repair of rotator cuff H/O hernia repair delivery delivered Hx of cholecystectomy History of tonsillectomy Social History household members: spouse and other details: mother in law housing: house current occupational status: retired 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 Smoking Status: Never smoker Electronic Cigarette Use: not used alcohol intake: current alcohol intake frequency: holidays/special occasions only substance use type: does not use what type of physical activity do you participate in: none seatbelt use: always do you feel safe at home: Yes ROS ROS ED Constitutional Constitutional ED: Reports sweats; Denies chills, fever(s) or weight loss Eyes Eyes: Denies change in vision or diplopia ENT ENT ED: Denies ear pain, rhinorrhea or sore throat Cardiovascular Cardiovascular: Reports chest pain; Denies orthopnea, palpitations or racing heartbeat Respiratory/Chest Respiratory/Chest: Reports dyspnea and dyspnea on exertion; Denies cough or orthopnea Gastrointestinal Gastrointestinal: Denies abdominal pain, diarrhea, nausea or vomiting Genitourinary Genitourinary ED: Denies dysuria, hematuria or urinary frequency Musculoskeletal Musculoskeletal: Denies arthralgias or myalgias Integumentary Denies abscess or rash Neurologic Neurologic: Denies headache(s) or weakness Psychiatric Psychiatric: Denies anxiety, depression, suicidal ideation or suicidal thoughts Endocrine Endocrinology: Denies polydipsia, polyphagia or polyuria Allergic/Immunologic Allergic/Immunologic ED: Denies mouth swelling, tongue swelling or urticaria EXAM Physical Exam Const Vital Signs: 03/30/25 21:37 03/30/25 21:39 03/30/25 21:46 Temperature 99.6 F H 99.6 F H Temperature Source Oral Oral Pulse Rate 118 H 105 H Respiratory Rate 18 20 H Respiratory Effort Short of Breath Blood Pressure 160/105 H 169/96 H Blood Pressure Mean 123 120 Pulse Ox 100 100 Oxygen Delivery Method Room Air Room Air 03/30/25 21:53 03/30/25 22:14 03/30/25 22:35 Temperature Temperature Source Pulse Rate 98 Respiratory Rate 20 H Respiratory Effort Short of Breath Blood Pressure 159/108 H Blood Pressure Mean 125 Pulse Ox 98 Oxygen Delivery Method Room Air Room Air Room Air 03/30/25 22:39 03/30/25 23:00 03/31/25 00:00 Temperature 99.6 F H 98.1 F 98.1 F Temperature Source Oral Oral Oral Pulse Rate 100 93 94 Respiratory Rate 18 17 18 Respiratory Effort Blood Pressure 154/87 H 154/86 H 138/78 H Blood Pressure Mean 109 108 98 Pulse Ox 95 95 99 Oxygen Delivery Method Room Air Room Air Room Air Positive well nourished and well developed General Appearance ED: well developed HEENT Reports normocephalic, head/scalp atraumatic and moist mucous membranes Eyes PERRL and EOMs intact bilaterally Neck no lymphadenopathy, supple and no JVD Resp clear to auscultation bilaterally Resp Narrative: Patient is tachypneic Cardio regular rate, regular rhythm and no murmurs Rate: tachycardic GI normal to inspection, nondistended, normoactive bowel sounds and non-tender Palpation: soft Back/Spine no CVA tenderness and normal ROM Extremity normal to inspection General Extremety ED: Negative for edema General Extremity: Negative for edema Neuro oriented x3 and CN's II-XII intact bilaterally Sensorium / Orientation: alert Motor Exam: strength 5/5 throughout Psych mental status grossly normal Mood & Affect: anxious; Negative for depressed or tearful Skin no rashes or lesions noted and no wounds Skin Narrative: Left foot is in a boot orthosis with postoperative wrappings on it. The calf is nontender no palpable cords. There is no swelling of the lower legs or thighs. MDM MDM MDM Narrative Medical decision making narrative: Differential diagnosis includes pulmonary embolism pneumothorax anxiety anemia pneumonia viral syndrome lecture abnormalities kidney injury In preparation for CTA the patient was given Solu-Medrol and Benadryl. About 15 minutes after given Benadryl it was noted by her family that her heart rate and tachypnea significantly improved. EKG shows a sinus tachycardia at a rate of [address] segments. White count 9.9 hemoglobin 14.1 platelet count of 357. Sodium is 139 potassium 3.4. Calcium significantly elevated at 12.8. Within the past 2 weeks the patient had blood work drawn that showed a calcium level of 9.4. proBNP is 186 troponin 16 urinalysis with no overt infection. CTA was obtained. She did not have any anaphylactoid or adverse reaction to the dye. History & Record Review Discussion w/independent historian: Patient and Family Lab Data Attestation: I reviewed the patient's lab results. Labs: Laboratory Results - last 24 hr 03/30/25 03/31/25 03/31/25 21:54 00:06 00:15 WBC 9.9 RBC 4.64 Hgb 14.1 Hct 41.6 MCV 89.7 MCH 30.4 MCHC 33.9 RDW Std Deviation 43.9 RDW Coeff of Jacinda 13.3 Plt Count 357 MPV 10.3 Immature Gran % (Auto) 0.200 Neut % (Auto) 49.9 Lymph % (Auto) 36.3 [place] % (Auto) 11.6 H Eos % (Auto) 1.5 Baso % (Auto) 0.5 Absolute Neuts (auto) 4.9 Absolute Lymphs (auto) 3.58 Nucleated RBC % 0 Sodium 139 Potassium 3.4 L Chloride 98 Carbon Dioxide 28.5 Anion Gap 13 BUN 16 Creatinine 0.88 Estim Creat Clear Calc 58.87 Est GFR (MDRD) Non-Af 72 BUN/Creatinine Ratio 17.8 Glucose 100 H Calcium 12.8 H* Troponin T High Sens 16 H Troponin T Hi Sens 2 Hr 14 NT pro BNP II 186 Urine Color Yellow Urine Clarity Clear Urine pH 8.0 Ur Specific [place] 1.015 Urine Protein 15 H Urine Glucose (UA) Normal Urine Ketones Negative Urine Occult Blood Negative Urine Nitrite Negative Urine Bilirubin Negative Urine Urobilinogen Normal Ur Leukocyte Esterase 100 H Urine RBC 0-5 SEEN Urine WBC 0-5 SEEN Ur Squamous Epith Cells 10-25 SEEN Ur Transition Epith Cell 0-5 SEEN Urine Bacteria RARE Urine Mucus RARE EKG Initial EKG: Attestation: I personally reviewed and interpreted this EKG as follows: Comments: Sinus tachycardia ventricular rate of 109 Discharge Plan Triage Chief Complaint: Shortness of Breath ED Provider: Mihai Atwood Dx/Rx/DC Orders Clinical Impression: Hypercalcemia, Chest pain, Acute dyspnea, Espinoza's esophagus Instructions: Hypercalcemia Dc Prescriptions: No Action multivitamin Tablet 1 tab PO DAILY medproxy PO Rx Instructions: 2.5mg tab qd ketoconazole 2 % cream 1 applic topical DAILY Qty: 15 0RF nifedipine 30 mg tablet extended release 24hr 60 mg PO DAILY potassium chloride 10 mEq capsule, extended release 20 meq PO DAILY esomeprazole magnesium 40 mg capsule,delayed release(DR/EC) 40 mg PO DAILY estradiol 0.5 mg tablet 0.5 mg PO DAILY losartan 100 mg tablet 100 mg PO DAILY duloxetine 30 mg capsule,delayed release(DR/EC) 30 mg PO BID oxycodone-acetaminophen 5-325 mg tablet 1 tab PO Q6H PRN PRN (Reason: pain) Primary Care Provider: RISHI CORTES Referrals: RISHI CORTES [Other] - 3-5 Days Referral Note: for calcium level check Print Language: Guatemalan Disposition Disposition: Home, Self Care
[2025-03-31 00:39] LABS: Troponin T High Sens 2 HR 14 ng/L (<=14)
[2025-03-31 01:00] VITALS: BP 151/83; PULSE 89; RESP 17; O2SAT 95
[2025-03-31 02:00] VITALS: BP 127/78; PULSE 93; RESP 19; O2SAT 93
[2025-03-31 02:10] VITALS: BP 127/78; PULSE 93; RESP 19; TEMP 36.6; O2SAT 93
== END 2025-03-31 02:26 | disposition home or self-care (01) ==
PROVIDERS: Emergency Provider Emergency Medicine; Visit Provider Emergency Medicine
DX: R06.00 Dyspnea, unspecified (principal); R07.9 Chest pain, unspecified; K22.70 Barrett's esophagus without dysplasia; E83.52 Hypercalcemia; Z79.899 Other long term (current) drug therapy; Z90.49 Acquired absence of other specified parts of digestive tract
CPT/HCPCS: 71275; 80048; 81001; 83880; 84484; 85025; 87631; 93005; 96361; 96374; 96375; 99285; Q9967; A4216; J1938